=== PATIENT | male | born 1960 | race Two or more races ===

== ENCOUNTER 2020-06-30 16:29 | Emergency (ER) | payer OTHER, SELFPAY ==
[2020-06-30 16:47] VITALS: BP 191/92; PULSE 68; RESP 18; TEMP 36.6; O2SAT 97
[2020-06-30 17:01] VITALS: BP 191/92; PULSE 68; RESP 18; TEMP 36.6; O2SAT 97; BMI 34.8
--- NOTE | 2020-06-30 17:26 | ED.BACK ---
HPI - Back Pain/Injury General Chief Complaint: Back Pain/Injury Stated Complaint: Back Pain Time Seen by Provider: 06/30/20 17:26 Source: patient Mode of arrival: ambulatory History of Present Illness HPI Narrative: 60-year-old male presenting to ED complaining of thoracic / lower back pain s/p heavy lifting at work yesterday. Reports pain radiates down bilateral lower extremities. Denies associated weakness, numbness/ tingling, incontinence / retention, direct trauma /fall MD elicited complaint: back pain Related Data Previous Rx's Medication Instructions Recorded acetaminophen [Tylenol Extra 500 mg PO Q6H PRN #20 tab 06/30/20 Strength] lidocaine [Lidoderm] 1 patch TOPICAL DAILY PRN #30 ea 06/30/20 MDD remove after 12 hours naproxen 500 mg PO BID PRN 10 Days #20 tab 06/30/20 tramadol 50 mg PO Q6H PRN 3 Days #9 tab 06/30/20 Allergies Allergy/AdvReac Type Severity Reaction Status Date / Time No Known Allergies Allergy Unverified 06/05/20 16:07 [No Known Allergies*] Review of Systems Review of Systems: Constitutional: No Weight loss, No Fever, No Chills Genitourinary:, No Dysuria, No Urinary Frequency, No Urinary Incontinence, No Urgency, No Flank Pain Musculoskeletal: +back pain, No joint pain, No Myalgias, No Joint Swelling Skin: No Skin Lesions, No rash Neuro: No Weakness, No Numbness, No Paresthesias PMFSH Past Medical History Attestation statement: The following information was validated with the patient. Medical History (Updated 06/30/20 @ 17:28 by LALA Betancourt) Back pain HTN (hypertension) Kidney stones Pre-diabetes Social History Social History Smoking Status: Never smoker Use of substances other than those prescribed or required for medical reasons: No Advance Directives: No Advance Directives Information Provided: No Physical Exam Vital Signs: Vital Signs: Vital Signs Temp Pulse Resp BP Pulse Ox 06/30/20 17:01 97.8 F 68 18 191/92 H 97 06/30/20 16:47 97.8 F 68 18 191/92 H 97 Body Mass Index 34.8 Const: General: cooperative and healthy appearing Orientation/consciousness: patient oriented x3 Limitations: no limitations HENMT: Head: Yes normal to inspection Ears: hearing grossly normal bilaterally General nose exam: Normal external nose present Face and sinus: Yes normal facial exam Eyes: General: appearance normal, both eyes and all related structures EOM: EOMs intact bilaterally Neck: Neck: Yes normal visual inspection Resp: Effort & Inspection: normal respiratory effort Back/Spine/Pelvis: Other: no midline spinous tenderness throughout. + MSK bilateral thoracic tenderness, and bilateral MSK lumbar tenderness producible on exam Skin: Rashes: no rashes Wounds: no wounds Neuro: Other: no saddle anesthesia General: patient oriented x3 Gait exam (Neuro): Normal gait present Motor exam (neuro): 5/5 motor strength present throughout Extrem: General: Yes normal to inspection MDM - Back Pain/Injury MDM Narrative Medical decision making narrative: no red flag symptoms or midline spinous tenderness Likely MSK pain, low concern for cauda equina /cord compression Discharge Plan Discharge Clinical Impression: Thoracic back pain, Sciatica Patient Disposition: Home, Self-Care Instructions: Acute Low Back Pain (ED), Back Pain (ED) Additional Instructions: Your pain is likely musculoskeletal Naproxen as an anti-inflammatory / pain medication, take with food Lidoderm patches are numbing patches, apply to painful area In addition take Tylenol at home tramadol and opiate pain medication, take only when pain is severe for the next 3 days, take with food If symptoms persist or worsen, pain becomes unbearable, you developed urinary retention or incontinence, or weakness return to the ED Prescriptions: New acetaminophen [Tylenol Extra Strength] 500 mg tablet 500 mg PO Q6H PRN (Reason: pain or fever) Qty: 20 RF: 0 lidocaine [Lidoderm] 5 % adhesive patch,medicated 1 patch topical DAILY MDD remove after 12 hours PRN (Reason: pain) Qty: 30 RF: 0 naproxen 500 mg tablet 500 mg PO BID PRN (Reason: pain) 10 Days Qty: 20 RF: 0 tramadol 50 mg tablet 50 mg PO Q6H PRN (Reason: pain) 3 Days Qty: 9 RF: 0 Referrals: Mary Jane Mike NP [Primary Care Provider] - 2 days Stand Alone Forms: Work/School Release Interventions: ED Discharge Assessment Last Done: 06/30/20 17:39 Discharge Date/Time: 06/30/20 17:40 Print Language: Sinhala
== END 2020-06-30 17:40 | disposition home or self-care (01) ==
PROVIDERS: Emergency Provider Internal Medicine; PCP Registered Nurse
DX: Z04.2 Encounter for examination and observation following work accident (principal); M54.6 Pain in thoracic spine; M54.42 Lumbago with sciatica, left side; M54.41 Lumbago with sciatica, right side; I10 Essential (primary) hypertension; R73.03 Prediabetes; Z87.442 Personal history of urinary calculi
CPT/HCPCS: 99284

== ENCOUNTER 2020-10-14 20:34 | Emergency (ER) | payer OTHER, SELFPAY ==
[2020-10-14 20:59] VITALS: BP 153/74; PULSE 75; RESP 18; TEMP 37.1; O2SAT 98; BMI 29.9
--- NOTE | 2020-10-14 21:53 | PC.NURSE ---
pt to ed ambulatory with steady gait. Pt c/o high b/p. B/P 153/72, Pt denies any other complaints at this time.Pt alert respirations easy, n/l. skin w/d. Pt awaiting for md,
--- NOTE | 2020-10-14 22:05 | XR_ITS ---
EXAMINATION: XR CHEST CLINICAL INFORMATION: Dizziness COMPARISON: 07/13/2017 TECHNIQUE: Frontal view of the chest was obtained. FINDINGS: The lungs are well expanded. There is no focal consolidation, edema, or effusion. No pneumothorax. The cardiomediastinal silhouette is within normal limits. No acute osseous abnormality. XR/XR chest 1V IMPRESSION: Clear lungs.
--- NOTE | 2020-10-14 22:05 | ECG_ITS ---
Test Reason : GENERAL MEDICAL Blood Pressure : / mmHG Vent. Rate : 064 BPM Atrial Rate : 064 BPM P-R Int : 158 ms QRS Dur : 098 ms QT Int : 396 ms P-R-T Axes : 070 045 045 degrees QTc Int : 408 ms Normal sinus rhythm Minimal voltage criteria for LVH, may be normal variant Borderline ECG When compared with ECG of 26-NOV-2016 22:52, No significant change was found Referred By: Christie Bhardwaj Electronically Signed By:Justin Braswell
--- NOTE | 2020-10-14 22:06 | CT_ITS ---
EXAMINATION: CT HEAD WITHOUT CONTRAST CLINICAL INFORMATION: High blood pressure. Dizziness. COMPARISON: CT head 10/20/2015 TECHNIQUE: Contiguous axial imaging was performed from the skull base to vertex without intravenous administration of contrast. Coronal and sagittal reformatted images are performed at the CT scanner. [This CT examination was performed using dose optimization techniques as appropriate, variously including the following: *Automated exposure control *Adjustment of mA and/or kV according to patient size (this includes techniques or standardized protocols for targeted exams where dose is matched to indication/reason for exam; i.e. extremities or head) *Use of iterative reconstruction technique] DLP: 841 mGy-cm. FINDINGS: There is no evidence of acute intracranial hemorrhage or territorial infarction. No abnormal mass-effect or midline shift is seen. Cantor to white matter differentiation is well preserved. No extra-axial fluid collections are identified. The ventricles are normal in size. There is no abnormal attenuation within the brain parenchyma. There is no osseous abnormality. Mild mucosal thickening in the ethmoid and sphenoid sinuses bilateral. The mastoid air cells and middle ear cavities are normally aerated. CT/CT head/brain wo con IMPRESSION: No acute intracranial pathology.
--- NOTE | 2020-10-14 22:06 | ED.GENADULT ---
HPI - General Adult General Chief complaint: General Medical Stated complaint: high bp Time Seen by Provider: 10/14/20 22:05 Source: patient and certified court/medical interpreter Mode of arrival: ambulatory Limitations: no limitations History of Present Illness HPI narrative: 60-year-old male on speaks [place] came in today for feeling dizziness, and chest pain very early in the morning (greater than 12 hours ago), patient is known to be healthy with no history of high blood pressure in particular, because his symptoms his checked his blood pressure in the machine read systolic of 261/74, patient complain of a mild pressure on the occipital area, but no blurry vision, no nausea, no vomiting. Currently no chest pain, no difficulty breathing. Neurologically patient no symptoms. Related Data Previous Rx's Medication Instructions Recorded acetaminophen [Tylenol Extra 500 mg PO Q6H PRN #20 tab 06/30/20 Strength] lidocaine [Lidoderm] 1 patch TOPICAL DAILY PRN #30 ea 06/30/20 MDD remove after 12 hours naproxen 500 mg PO BID PRN 10 Days #20 tab 06/30/20 tramadol 50 mg PO Q6H PRN 3 Days #9 tab 06/30/20 Allergies Allergy/AdvReac Type Severity Reaction Status Date / Time No Known Allergies Allergy Verified 10/14/20 20:59 [No Known Allergies*] Review of Systems Review of Systems: All other systems are reviewed and are negative Constitutional: Reports as per HPI and Reports no additional constitutional complaints Eyes: Reports as per HPI and Reports no additional eye complaints Reports system reviewed and no additional complaints, except as documented Cardiovascular: Reports as per HPI and Reports no additional cardiovascular complaints Respiratory: Reports as per HPI and Reports no additional respiratory complaints Gastrointestinal: Reports as per HPI and Reports no additional gastrointestinal complaints Genitourinary: Reports no additional female genitourinary complaints Musculoskeletal: Reports no additional musculoskeletal complaints Skin/Breast: Reports system reviewed and no additional complaints, except as docu Psychiatric: Reports no additional psychiatric complaints Endocrine: Reports no additional endocrine complaints Hematologic/Lymphatic: Reports no additional hematologic/lymphatic complaints Allergic/Immunologic: Reports no additional allergic/immunologic complaints Reports system reviewed and no additional complaints, except as documented and Reports Abnormal speech present [facility] Past Medical History Medical History Back pain HTN (hypertension) Kidney stones Pre-diabetes Social History Social History Smoking Status: Never smoker Advance Directives: No Advance Directives Information Provided: Yes Physical Exam Vital Signs: Vital Signs: Last Vital Signs Temp 98.7 F 10/14/20 20:59 Pulse 75 10/14/20 20:59 Resp 18 10/14/20 20:59 BP 153/74 H 10/14/20 20:59 Pulse Ox 98 10/14/20 20:59 Body Mass Index 29.9 Vital signs have been reviewed as normal and appeared to be correct. Blood pressure: Hypertensive. Heart rate normal. Respiration rate normal. Temperature normal. Oxygen saturation normal. Appearance: Alert. Oriented X3. No acute distress. Head: Normal external exam. Normocephalic. Atraumatic. No Hernandez signs noted. No raccoon eyes noted Eyes: PERRLA. EOMI. Conjunctiva and sclera normal. Eyelids normal. ENT: EAC normal. TM's Normal. Pharynx normal. Uvula midline. Moist mucous membranes. No trismus noted. No drooling noted. No muffled voice noted. Neck: Normal inspection. Neck supple. FROM. No adenopathy. Thyroid Normal. No meningeal signs. No neck mass noted. CVS: Normal heart rate and rhythm. Heart sound normal. No murmurs noted. Pulses normal throughout. Respiratory: No respiratory distress. Painless inspiration. Breath sounds normal. No wheezes/rales/rhonchi noted. Chest nontender. No accessory muscle usage noted or decreased air movement noted. Abdomen: Soft and nontender. Bowel sounds normal in all 4 quadrants. No distention noted. No organomegaly noted. No visible injury noted. Back: No CVA tenderness. Full range of motion noted. Skin: Skin warm and dry. Normal skin color. Normal skin turgor. No rashes/lesions/lacerations noted. Extremities: No lower extremity edema. Extremities exhibit normal range of motion. Extremities nontender. Neuro: Oriented X 3. No motor deficit. No sensory deficit. Reflexes normal. Course Course Course Narrative: Assessment and plan. 60-year-old male who is known to be healthy, felt dizzy and his blood pressure was checked by his 's machine was very high, when he came in initially blood pressure was high then blood pressure improved on its own due to mild symptoms of chest pain earlier in the morning, feeling dizzy patient had workup in the emergency department which mostly unremarkable in light of negative workup and improvement of patient's symptoms and improvement of blood pressure will discharge the patient and follow-up with PCP to follow up. Medical Decision Making Lab Data Lab results reviewed: Yes I reviewed the patient's lab results. Result diagrams: 10/14/20 22:41 10/14/20 22:41 Labs: Lab Results 10/14/20 10/14/20 10/14/20 Range/Units 22:41 22:41 22:41 WBC 7.1 (4.8-10.8) X10*3/uL RBC 5.39 (4.60-5.80) X10*6/uL Hgb 14.7 (14.0-18.0) g/dl Hct 45.9 (42-52) % MCV 85.2 (80-98) fL MCH 27.3 (27.0-33.0) pg MCHC 32.0 (31.0-36.0) g/dl RDW 13.0 (11.0-16.0) % Plt Count 204 (160-400) X10*3/uL MPV 10.6 (9.4-12.4) fL Immature Gran % (Auto) 0.3 (0.0-0.4) % Neut % (Auto) 55.3 (45-73) % Lymph % (Auto) 29.4 (20-40) % [place] % (Auto) 10.6 (2-11) % Eos % (Auto) 4.0 (0-4) % Baso % (Auto) 0.4 (0-2) % Lymph # (Auto) 2.1 (1.2-4.9) X10*3/uL [place] # (Auto) 0.8 (0.1-1.2) X10*3/uL Eos # (Auto) 0.3 (0.0-0.4) X10*3/uL Baso # (Auto) 0.0 (0.0-0.2) X10*3/uL Abs Immat Gran (auto) 0.02 (0.00-0.03) X10*3/uL Absolute Neuts (auto) 3.9 (2.0-8.3) X10*3/uL Absolute Nucleated RBC 0.000 (0.0-0.012) X10*3/uL Nucleated RBC % (auto) 0.0 (0.0-0.2) /100WBC Sodium 143 (135-145) mmol/L Potassium 4.1 (3.3-5.1) mmol/l Chloride 109 H (96-108) mmol/L Carbon Dioxide 28 (22-29) mmol/L Anion Gap 10 L (12-20) BUN 21 H (9-16) mg/dL Creatinine 0.85 (0.5-1.4) mg/dL Estim Creat Clear Calc 111.4 Estimated GFR > 60 Random Glucose 136 H (60-115) mg/dL Calcium 8.8 (8.4-10.2) mg/dL Total Bilirubin 0.4 (0.0-1.0) mg/dL Direct Bilirubin < 0.2 (0.0-0.5) mg/dL AST 19 (5-37) U/L ALT 21 (0-40) U/L Alkaline Phosphatase 71 (39-117) U/L Troponin I High Sens 4.1 (<3.5-35.0) ng/L B-Natriuretic Peptide (<100) pg/mL Total Protein 6.2 L (6.5-8.0) g/dL Albumin 3.8 (3.5-5.0) g/dL Lipase 36 (8-78) U/L 10/14/20 Range/Units 22:41 WBC (4.8-10.8) X10*3/uL RBC (4.60-5.80) X10*6/uL Hgb (14.0-18.0) g/dl Hct (42-52) % MCV (80-98) fL MCH (27.0-33.0) pg MCHC (31.0-36.0) g/dl RDW (11.0-16.0) % Plt Count (160-400) X10*3/uL MPV (9.4-12.4) fL Immature Gran % (Auto) (0.0-0.4) % Neut % (Auto) (45-73) % Lymph % (Auto) (20-40) % [place] % (Auto) (2-11) % Eos % (Auto) (0-4) % Baso % (Auto) (0-2) % Lymph # (Auto) (1.2-4.9) X10*3/uL [place] # (Auto) (0.1-1.2) X10*3/uL Eos # (Auto) (0.0-0.4) X10*3/uL Baso # (Auto) (0.0-0.2) X10*3/uL Abs Immat Gran (auto) (0.00-0.03) X10*3/uL Absolute Neuts (auto) (2.0-8.3) X10*3/uL Absolute Nucleated RBC (0.0-0.012) X10*3/uL Nucleated RBC % (auto) (0.0-0.2) /100WBC Sodium (135-145) mmol/L Potassium (3.3-5.1) mmol/l Chloride (96-108) mmol/L Carbon Dioxide (22-29) mmol/L Anion Gap (12-20) BUN (9-16) mg/dL Creatinine (0.5-1.4) mg/dL Estim Creat Clear Calc Estimated GFR Random Glucose (60-115) mg/dL Calcium (8.4-10.2) mg/dL Total Bilirubin (0.0-1.0) mg/dL Direct Bilirubin (0.0-0.5) mg/dL AST (5-37) U/L ALT (0-40) U/L Alkaline Phosphatase (39-117) U/L Troponin I High Sens (<3.5-35.0) ng/L B-Natriuretic Peptide 12 (<100) pg/mL Total Protein (6.5-8.0) g/dL Albumin (3.5-5.0) g/dL Lipase (8-78) U/L Imaging Data CT scan - head: Radiologist's impression: No acute intracranial pathology. Chest x-ray: Radiologist's impression: Clear lungs. ECG Data Interpretation: Normal sinus rhythm at 64 beats per minutes, LVH, normal axis deviation, normal intervals, no ST-T changes. Discharge Plan Discharge Clinical Impression: Hypertension Patient Disposition: Home, Self-Care Instructions: Hypertension (ED) Prescriptions: No Action acetaminophen [Tylenol Extra Strength] 500 mg tablet 500 mg PO Q6H PRN (Reason: pain or fever) Qty: 20 RF: 0 lidocaine [Lidoderm] 5 % adhesive patch,medicated 1 patch topical DAILY MDD remove after 12 hours PRN (Reason: pain) Qty: 30 RF: 0 naproxen 500 mg tablet 500 mg PO BID PRN (Reason: pain) 10 Days Qty: 20 RF: 0 tramadol 50 mg tablet 50 mg PO Q6H PRN (Reason: pain) 3 Days Qty: 9 RF: 0 Referrals: [facility] [Primary Care Provider] - 2 days Stand Alone Forms: Work/School Release
[2020-10-14 22:46] LABS: Basophils Percent Auto 0.4 % (0-2); Eosinophils Absolute Auto 0.3 X10*3/uL (0.0-0.4); Hematocrit 45.9 % (42-52); Hemoglobin 14.7 g/dl (14.0-18.0); Imm Gran Abs Auto 0.02 X10*3/uL (0.00-0.03); Imm Gran Pct Auto 0.3 % (0.0-0.4); Lymphocytes Absolute Auto 2.1 X10*3/uL (1.2-4.9); Lymphocytes Percent Auto 29.4 % (20-40); MANUAL DIFF FLAG NO; Mean Corpuscular Hemoglobin 27.3 pg (27.0-33.0); Mean Corpuscular Volume 85.2 fL (80-98); Mean Platelet Volume 10.6 fL (9.4-12.4); Monocytes Absolute Auto 0.8 X10*3/uL (0.1-1.2); Monocytes Percent Auto 10.6 % (2-11); Neutrophils Absolute Auto 3.9 X10*3/uL (2.0-8.3); Neutrophils Percent Auto 55.3 % (45-73); Platelet Count 204 X10*3/uL (160-400); Red Blood Count 5.39 X10*6/uL (4.60-5.80); White Blood Count 7.1 X10*3/uL (4.8-10.8)
[2020-10-14 23:06] LABS: Alanine Aminotransferase 21 U/L (0-40); Albumin Level 3.8 g/dL (3.5-5.0); Alkaline Phosphatase 71 U/L (39-117); Anion Gap 10 (12-20); Aspartate Amino Transferase 19 U/L (5-37); Bilirubin Direct < 0.2 mg/dL (0.0-0.5); Bilirubin Total 0.4 mg/dL (0.0-1.0); Blood Urea Nitrogen 21 mg/dL (9-16); Calcium 8.8 mg/dL (8.4-10.2); Carbon Dioxide 28 mmol/L (22-29); Chloride 109 mmol/L (96-108); Creatinine Clr Calc Pharmacy 111.4; Estimated Glomerular Filt Rate > 60; Glucose Random 136 mg/dL (60-115); Lipase 36 U/L (8-78); Potassium 4.1 mmol/l (3.3-5.1); Sodium 143 mmol/L (135-145); Total Protein 6.2 g/dL (6.5-8.0)
[2020-10-14 23:11] LABS: Troponin-I High Sensitivity 4.1 ng/L (<3.5-35.0)
[2020-10-14 23:35] LABS: B Type Natriuretic Peptide 12 pg/mL (<100)
== END 2020-10-15 00:23 | disposition home or self-care (01) ==
PROVIDERS: Emergency Provider Emergency Medicine
DX: I10 Essential (primary) hypertension (principal); R07.9 Chest pain, unspecified; R73.03 Prediabetes
CPT/HCPCS: 36415; 70450; 71045; 80048; 80076; 83690; 83880; 84484; 85025; 93005; 99283; 99284

== ENCOUNTER 2020-11-11 12:58 | Emergency (ER) | payer OTHER, SELFPAY ==
--- NOTE | ~2020-11-11 | XR_ITS ---
EXAMINATION: RIGHT KNEE 3 VIEWS CLINICAL INFORMATION: Right knee pain. COMPARISON: None. TECHNIQUE: AP, lateral, oblique views of the right knee were obtained. FINDINGS: There are no fractures or dislocations. There is no knee joint effusion. There is no significant soft tissue swelling. XR/XR knee RT 4V IMPRESSION: Unremarkable right knee radiographs.
[2020-11-11 14:35] VITALS: BP 146/75; PULSE 79; RESP 18; TEMP 36.6; O2SAT 97; BMI 28.0
[2020-11-11 18:04] VITALS: BP 144/82; PULSE 91; RESP 18; TEMP 37.1; O2SAT 94
[2020-11-11] MEDS: Ketorolac Tromethamine 30 MG/ML VIAL IM (18:15)
--- NOTE | 2020-11-11 18:33 | ED_ITS ---
HPI - General Adult General Chief complaint: Extremity Injury, Lower Stated complaint: knee pain Time Seen by Provider: 11/11/20 17:26 Source: patient Mode of arrival: ambulatory Limitations: no limitations History of Present Illness HPI narrative: Patient presents to ED for right knee pain. Patient states right knee pain for multiple weeks. Patient denies any knee swelling, redness, warmth, or recent trauma. Patient states he works long hours standing and does repetitive motions of knee. Related Data Previous Rx's Medication Instructions Recorded acetaminophen [Tylenol Extra 500 mg PO Q6H PRN #20 tab 06/30/20 Strength] lidocaine [Lidoderm] 1 patch TOPICAL DAILY PRN #30 ea 06/30/20 MDD remove after 12 hours naproxen 500 mg PO BID PRN 10 Days #20 tab 06/30/20 tramadol 50 mg PO Q6H PRN 3 Days #9 tab 06/30/20 tramadol 50 mg PO TID PRN #9 tab 11/11/20 Allergies Allergy/AdvReac Type Severity Reaction Status Date / Time No Known Allergies Allergy Verified 11/11/20 14:35 [No Known Allergies*] Review of Systems Review of Systems: Yes all other systems are reviewed and are negative Constitutional: Constitutional: Reports as per HPI and Reports no additional constitutional complaints Eyes: Eyes: Reports as per HPI and Reports no additional eye complaints ENT: Reports system reviewed and no additional complaints, except as documented and Reports as per HPI Cardiovascular: Cardiovascular: Reports as per HPI and Reports no additional cardiovascular complaints Respiratory: Respiratory: Reports as per HPI and Reports no additional respiratory complaints Gastrointestinal: Gastrointestinal: Reports as per HPI and Reports no additional gastrointestinal complaints Genitourinary: Genitourinary: Reports no additional male genitourinary complaints and Reports as per HPI Musculoskeletal: Musculoskeletal: Reports no additional musculoskeletal complaints, Reports as per HPI and Reports arthralgias (Right knee) Neurologic: Reports system reviewed and no additional complaints, except as documented and Reports as per HPI Psychiatric: Psychiatric: Reports no additional psychiatric complaints and Reports as per HPI PMF Past Medical History Medical History Back pain HTN (hypertension) Kidney stones Pre-diabetes Social History Social History Smoking Status: Never smoker Advance Directives: No Advance Directives Information Provided: No Physical Exam Vital Signs: Vital Signs: Last Vital Signs Temp 98.7 F 11/11/20 18:04 Pulse 91 11/11/20 18:04 Resp 18 11/11/20 18:04 BP 144/82 H 11/11/20 18:04 Pulse Ox 94 11/11/20 18:04 Body Mass Index 28.0 Const: General: cooperative, healthy appearing, comfortable, no acute distress, well developed, alert, awake and Physically active Orientation/consciousness: patient oriented x3 HENMT: Head: Yes normal to inspection and Yes No palpable skull fracture present Eyes: General: appearance normal, both eyes and all related structures Neck: Neck: Yes normal visual inspection, Yes full ROM, Yes no lymphadenopathy, Yes no meningeal signs, Yes trachea midline, Yes supple and No tender Chest: Chest palpation & inspection: normal inspection of the chest and normal palpation of entire chest wall Resp: Effort & Inspection: normal respiratory effort and able to speak in complete sentences Auscultation: clear to auscultation bilaterally Cardio: Jugular venous distension: no JVD Heart sounds: S1 normal heart sound present and S2 normal heart sound present GI: Inspection: Yes normal to inspection and No abdominal wall ecchymosis Palpation (GI): Soft to palpation, not firm, nontender, no guarding and not rigid : General: No CVA tenderness and Yes no CVA tenderness Back/Spine/Pelvis: Back: no CVA tenderness, No CVA tenderness and No back tenderness Skin: General skin exam: no rashes or lesions noted and elasticity normal Neuro: General: patient oriented x3, no meningeal signs and CN's II-XI intact bilaterally Cranial nerves: Yes CN's II-XII intact bilaterally Extrem: Other: Right knee: negative for swelling, redness, warmth, deformity, or ecchymosis. Patient has complete range of motion of right knee. patient has tenderness on latereal aspect of knee. Right leg/ankle/foot negative for redness, swelling, warmth, ecchymosiss, or coldness. Motor/neuro/vascular exam of right lower extremity normal. Left lower extremity normal and motor/neuro/vascular exam is intact. General: Yes normal to inspection and Yes full ROM Psych: Appearance: grossly normal and well kempt Course Course Course Narrative: Knee pain. Right knee x-ray Reevaluation(s) Reevaluation #1: Patient sent for knee x-ray negative for any arthritis, joint effusion, or fracture. Patient will be discharged with pain meds Time: 18:45 Medical Decision Making MDM Narrative Medical decision making narrative: Right knee pain Discharge Plan Discharge Clinical Impression: Knee joint pain Patient Disposition: Home, Self-Care Instructions: Knee Pain (ED) Additional Instructions: Return to the ED immediately for any swelling, redness, warmth, pus discharge, foul odor, severe pain, fever, chills, or any other concerning symptoms Prescriptions: New tramadol 50 mg tablet 50 mg PO TID PRN (Reason: pain) Qty: 9 RF: 0 No Action acetaminophen [Tylenol Extra Strength] 500 mg tablet 500 mg PO Q6H PRN (Reason: pain or fever) Qty: 20 RF: 0 lidocaine [Lidoderm] 5 % adhesive patch,medicated 1 patch topical DAILY MDD remove after 12 hours PRN (Reason: pain) Qty: 30 RF: 0 naproxen 500 mg tablet 500 mg PO BID PRN (Reason: pain) 10 Days Qty: 20 RF: 0 tramadol 50 mg tablet 50 mg PO Q6H PRN (Reason: pain) 3 Days Qty: 9 RF: 0 Referrals: [facility] [Primary Care Provider] - 2 days (Right knee pain. X-ray normal) Stand Alone Forms: Work/School Release Interventions: ED Discharge Assessment Last Done: 11/11/20 19:17 Discharge Date/Time: 11/11/20 19:19 Print Language: Slovak
== END 2020-11-11 19:19 | disposition home or self-care (01) ==
PROVIDERS: Emergency Provider Emergency Medicine
DX: M25.561 Pain in right knee (principal); I10 Essential (primary) hypertension; R73.03 Prediabetes; Z79.899 Other long term (current) drug therapy; Z87.442 Personal history of urinary calculi
CPT/HCPCS: 73564; 96372; 99284; J1885

== ENCOUNTER 2020-12-04 08:14 | Outpatient (REF) | payer OTHER, SELFPAY ==
--- NOTE | ~2020-12-04 | XR_ITS ---
EXAMINATION: XR KNEES, STANDING AP XR KNEE, RIGHT CLINICAL INFORMATION: Knee pain. M25.569 COMPARISON: Radiographs right knee 11/11/2020 TECHNIQUE: Standing AP view of both knees is performed along with lateral and axial patella views of the right knee. FINDINGS: The right knee shows no fracture dislocation or destructive process. There is mild narrowing medial knee joint compartment with marginal osteophytes from the medial femoral condyle and medial tibial plateau. There is no subchondral sclerosis or erosive change or chondrocalcinosis. Axial view patella shows no joint narrowing or erosive change. There is possible mild lateral patellar tilting but no lateralization of the patella. There is mild spurring at the quadriceps insertion patella and borderline lateral patellar spur. There is trace fluid suprapatellar bursa. Hoffa's fat pad appears normal. The left knee shows no narrowing medial lateral compartment. No erosive change or chondrocalcinosis. No destructive process. XR/XR knee RT 2V IMPRESSION: 1. Right: Mild narrowing medial knee joint compartment. Trace fluid suprapatellar bursa. 2. Left: Unremarkable.
--- NOTE | ~2020-12-04 | XR_ITS ---
EXAMINATION: XR KNEES, STANDING AP XR KNEE, RIGHT CLINICAL INFORMATION: Knee pain. M25.569 COMPARISON: Radiographs right knee 11/11/2020 TECHNIQUE: Standing AP view of both knees is performed along with lateral and axial patella views of the right knee. FINDINGS: The right knee shows no fracture dislocation or destructive process. There is mild narrowing medial knee joint compartment with marginal osteophytes from the medial femoral condyle and medial tibial plateau. There is no subchondral sclerosis or erosive change or chondrocalcinosis. Axial view patella shows no joint narrowing or erosive change. There is possible mild lateral patellar tilting but no lateralization of the patella. There is mild spurring at the quadriceps insertion patella and borderline lateral patellar spur. There is trace fluid suprapatellar bursa. Hoffa's fat pad appears normal. The left knee shows no narrowing medial lateral compartment. No erosive change or chondrocalcinosis. No destructive process. XR/XR knee standing BI IMPRESSION: 1. Right: Mild narrowing medial knee joint compartment. Trace fluid suprapatellar bursa. 2. Left: Unremarkable.
== END 2020-12-04 08:15 | disposition home or self-care (01) ==
LOC: HO.HOSX 08:14
PROVIDERS: Visit Provider Orthopaedic Surgery
DX: M23.91 Unspecified internal derangement of right knee (principal)
CPT/HCPCS: 20610; 73560; 73565; 99202; J1100

== ENCOUNTER 2021-01-01 17:34 | Outpatient (REF) | payer OTHER, SELFPAY ==
--- NOTE | ~2021-01-01 | MR_ITS ---
EXAMINATION: MR KNEE WITHOUT CONTRAST, RIGHT CLINICAL INFORMATION: Unspecified internal derangement of right knee. Patient reports medial right knee pain and weakness for 1.5 months, recent injury, and no previous surgery. COMPARISON: XR right knee 12/04/2020. TECHNIQUE: MRI of the knee without contrast was performed using routine sequences on a high-field scanner. FINDINGS: MENISCI: Medial Meniscus: There is a horizontal and slightly oblique tear of the posterior horn of the medial meniscus extending to the inner margin undersurface. There is a vertical tear of the junction of the posterior horn and body extending to both peripheral surfaces. There is moderate attenuation and fraying of the inner margin of the body. There is medial extrusion and some [id number] flattening of the periphery of the body. Lateral Meniscus: Intact. LIGAMENTS: Cruciate: Intact. Collateral: Intact. EXTENSOR MECHANISM: Intact. ARTICULAR CARTILAGE/BONE: Patellofemoral Compartment: There is moderate cartilage irregularity and thinning in the medial femoral trochlea. There is a small superficial cartilage fissure in the lateral facet of the patella. Medial Compartment: There is patchy mild cartilage irregularity and thinning in the weightbearing medial femoral condyle and mild cartilage thinning in the anterior aspect of the medial tibial plateau with minor underlying bone marrow edema. There are tiny marginal osteophytes. Lateral Compartment: Normal. JOINT FLUID AND BURSAE: Small joint effusion. ADDITIONAL FINDINGS: There is distal semimembranosus tendinosis and low-grade partial tearing. There is also a small amount of fluid and a small multiloculated cyst associated with the distal tendon, which may represent mild tenosynovitis and possibly small ganglion cyst. MR/MR knee RT wo con IMPRESSION: 1. Tears of the posterior horn and body of the medial meniscus. 2. Moderate arthrosis in the medial femoral trochlea. Small superficial cartilage fissure in the lateral facet of the patella. 3. Mild arthrosis in the weightbearing medial compartment. 4. Small joint effusion. 5. Distal semimembranosus tendinosis and low-grade partial tearing. Mild tenosynovitis and possible small adjacent ganglion cyst.
== END 2021-01-01 17:35 | disposition home or self-care (01) ==
LOC: HO.MRI 17:34
PROVIDERS: Visit Provider Orthopaedic Surgery
DX: M23.91 Unspecified internal derangement of right knee (principal)
CPT/HCPCS: 73721

== ENCOUNTER → 2021-01-12 12:53 | Outpatient (BNVA) | payer OTHER, SELFPAY | PROVIDERS: Visit Provider Orthopaedic Surgery | DX: S83.241D Other tear of medial meniscus, current injury, right knee, subsequent encounter (principal); M25.562 Pain in left knee | CPT/HCPCS: 99212 ==

== ENCOUNTER 2021-07-17 10:24 | Outpatient (REF) | payer OTHER, SELFPAY ==
--- NOTE | 2021-07-17 10:44 | MHC.AU.ANR ---
Adult Audiological Evaluation Date of Visit: 07/17/21 Caser Up Used: Qatari interpretation by daughter Reason for Appointment: Audiological evaluation due to concern for decreased hearing and tinnitus. Mr. Veliz first started having tinnitus about three months ago. He finds it bothersome and feels that it often distracts him. He feels that the ringing is typically worse in the right ear. He also notes feelings of pressure in his ear, and has difficulty understanding speech. Does patient feel they have a hearing loss?: Yes If Yes, Which Ear?: Both Ears Has hearing been tested previously?: No Hearing Handicap Inventory: HHIE SCORE: 28 Based on HHIE score, patient has: Severe perceived hearing handicap Ear History: Bothersome Tinnitus/Ringing/Noises in Ears: Both Ears Medical History: Medical History: Dizziness or Unsteadiness, Headache, High Blood Pressure Medical History (Other): Kidney stone surgery, left knee surgery, prostate surgery Medication List: Naproxen 500 mg, Omeprazole 40 mg, Metoprolol Succinate 25 mg, Diclofenac Sodium Topical Gel 1% Otoscopy: Right Ear: Unremarkable Left Ear: Unremarkable Tympanometry: Tympanometry performed due to: To assess integrity of the middle ear system Right Ear: Normal Middle Ear System (Type A) Left Ear: Normal Middle Ear System (Type A) Hearing Evaluation: Transducer(s) Used: Insert Earphones, Bone Conduction Method: Conventional Audiometry Stimuli Used: Pure Tones Right Ear: Description of Hearing: Normal hearing from 250-2000 Hz, sloping to a mild to moderate sensorineural hearing loss from 3592-9095 Hz. Left Ear: Description of Hearing: Normal hearing from 250-1500 Hz, sloping to a mild to moderate sensorineural hearing loss from 8244-7846 Hz. Speech Recognition Threshold (SRT): Method Used: Recorded Lists Stimuli Used: Qatari Trisyllable Words Right Ear: 25 dBHL Left Ear: 35 dBHL Word Discrimination: Method: Recorded Lists Word Lists Used: Lista Bisil?bica (Qatari) Right Ear: 100% at 65 dBHL Left Ear: 92% at 75 dBHL Recommendations: Audiological re-evaluation in one year. Trial with amplification is recommended. Given Mr. Veliz's hearing loss, reported hearing difficulties, and presence of bothersome tinnitus, binaural amplification is recommended. Hearing aid options were discussed. Medical clearance from his PCP and prior authorization from [facility] is being requested. Once approval is received, hearing aids will be ordered. Diagnosis: Primary Diagnosis: H90.3 Bilateral Sensorineural Hearing Loss Secondary Diagnosis: H93.13 Tinnitus, Bilateral Services Performed: Services Performed: Comprehensive Audiological Evaluation (CPT 99024) Tympanometry (CPT 80757) Signature: Provider: Balwinder Duckworth, CCC-A
--- NOTE | 2021-07-17 10:50 | MHC.AU.HAS ---
Hearing Aid Evaluation Date of Visit: 07/17/21 Financial Manager Used: Divehi interpretation by daughter Historical Information: Description of Hearing: Mild to moderate high-frequency sensorineural hearing loss. Current personal amplification information, if applicable: None Summary: Binaural amplification is recommended to help facilitate improved communication based on Mr. Veliz's hearing loss, perceived hearing difficulties, and perceived bothersome, distracting tinnitus. Discussed hearing aid options. He is interested in rechargeable SAUL style hearing aids. He often uses a WUTsuQuora tablet and has a Samsung phone, so going with Phonak aids. Hearing Aid Prescription: Based on the individual?s shared listening needs, communication environments, dexterity, desire for connectivity, and personal preferences, the following prescription for amplification has been made: Right ear: [employer] [place] [place]: Phonak Model: Audeo P70-R Battery Size: Rechargeable Color: P7 Rn Psych: Size 1 M Type of Dome: Open Left ear: Left ear prescription to be same as Right Hearing Aid above: [employer] [place]: Phonak Model: Audeo P70-R Battery Size: Rechargeable Color: P7 Rn Psych: Size 1 M Type of Dome: Open Plan of Care: Prior authorization to be requested. Medical Clearance to be requested from PCP/ENT. Hearing Instrument Fitting to be scheduled when materials arrive. Hearing aids will be ordered once approval is received. Primary Diagnosis: H90.3 Bilateral Sensorineural Hearing Loss Secondary Diagnosis: H93.13 Tinnitus, Bilateral Signature: Provider: Balwinder Duckworth, [facility]
--- NOTE | 2021-07-17 10:51 | MHC.AU.MED ---
Medical Clearance for Hearing Instrumentation Date: 07/17/21 Patient Name: Sameer Veliz Date of : 1960 Referring Provider: SARBJIT Lockwood We have seen your patient on 07/17/21 and have determined that they are a candidate for amplification (See accompanying report). Specifically, they would benefit from: Hearing aid use in both ears There is a statute that addresses Medical Evaluation Requirements prior to fitting a patient with a hearing aid. According to [place] statute 265 CMR:6.03(1), (a) General. Except as provided in 265 CMR 6.03(1)(b), a switch tender shall not sell a hearing aid unless the prospective user has presented to the switch tender a written statement signed by a licensed physician that states that the patient's hearing loss has been medically evaluated and the patient may be considered a candidate for a hearing aid. The medical evaluation must have taken place within the preceding six months. Please note: Due to the [place] Statute referenced above, we cannot accept a signature other than that of a licensed physician. MARKETING WRITER and PA signatures cannot be accepted. I am in agreement with the above recommendation. There is no medical contraindication for hearing instrumentation. Physician Signature Date Physician Name (Printed)
[2021-07-17 13:10] LABS: Anion Gap 10 (12-20); Blood Urea Nitrogen 15 mg/dL (9-16); Calcium 9.7 mg/dL (8.4-10.2); Carbon Dioxide 29 mmol/L (22-29); Chloride 107 mmol/L (96-108); Estimated Glomerular Filt Rate > 60; Glucose Random 95 mg/dL (60-115); Potassium 4.2 mmol/L (3.3-5.1); Sodium 142 mmol/L (135-145)
== END 2021-07-17 10:25 | disposition home or self-care (01) ==
LOC: HO.SH 10:24
PROVIDERS: Registered Nurse; PCP Nurse Practitioner Family; Visit Provider Nurse Practitioner Family
DX: Z46.1 Encounter for fitting and adjustment of hearing aid (principal); H90.3 Sensorineural hearing loss, bilateral; H93.13 Tinnitus, bilateral
CPT/HCPCS: 36415; 80048; 92557; 92567; 92591

== ENCOUNTER 2021-07-17 12:36 | Outpatient (REF) | payer OTHER, SELFPAY ==
--- NOTE | ~2021-07-17 | MR_ITS ---
EXAMINATION: MRI BRAIN WITHOUT AND WITH CONTRAST; MRA BRAIN WITHOUT CONTRAST. CLINICAL INFORMATION: 61-year-old with bilateral tinnitus. COMPARISON: None TECHNIQUE: Multiplanar multisequence MR imaging of the brain and IACs was done prior to and following the intravenous administration of 10 mL of Gadavist. FINDINGS: IACs: Bilaterally symmetric, no mass lesions or abnormal enhancement. CN VII-VIII complexes normal. AICA Loops: There is subtle vascular enhancement within the anterior aspect of the left internal auditory canal, likely reflecting a vascular loop. Membranous Labyrinths: Normal, no abnormal enhancement. CP Angle Cisterns: No mass lesions or abnormal enhancement. Brain Volume: Within normal limits. Brain and Meninges: DWI sequence demonstrates no restricted diffusion. Specifically, there is no evidence for acute or subacute cerebral ischemia/infarct. There is a small nonspecific patchy zone of FLAIR/T2 signal hyperintensity within the deep right frontal white matter without abnormal enhancement, which is a nonspecific finding. The remainder of the brain is normal in signal intensity. Incidental note is made of a developmental venous anomaly in the anterior right frontal lobe near the convexity. Otherwise there is no evidence for intracranial mass lesion, other abnormal enhancement, space-occupying process or mass effect. Note is made of minimal benign cerebellar tonsillar ectopia at the foramen magnum on the right, which is an anatomic variant. Vessels: Signal voids are noted in the visualized major intracranial vessels near the skull base. Ventricles and Subarachnoid Spaces: The ventricular system and subarachnoid spaces are within normal limits. There is no hydrocephalus. Orbital Structures: The visualized orbital structures are grossly unremarkable within the limitations of the study. The cavernous sinuses enhance normally. Bony Structures: Osseous marrow signal intensity is unremarkable. MR/MR head/brain wo/w con IMPRESSION: 1. No evidence for intracranial mass lesion or abnormal enhancement. Normal appearance to the cranial nerve VII and VIII complexes bilaterally. Probable vascular loop in the left IAC. 2. Nonspecific minimal patchy nonenhancing T2 hyperintensity in the deep right frontal white matter which may reflect a small zone of chronic ischemic microangiopathy or other parenchymal gliosis. 3. 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 MRA BRAIN TECHNIQUE: 3-D [id number] MR angiography of the intracranial circulation was done. FINDINGS: The intracranial internal carotid arteries are normal in caliber and smoothly contoured with tortuosity of both carotid siphons noted. The A1 and A2 segments are normal in caliber and smoothly contoured bilaterally. The anterior communicating artery appears within normal limits. Note is made of a third vessel extending into the anterior interhemispheric fissure from the left side of the anterior communicating artery, consistent with an DIMPLE trifurcation, which is an anatomic variant. The M1 segments are normal in caliber with a normal appearance to the M2 branches bilaterally. The intradural vertebral arteries are patent and normal in caliber with the right being slightly dominant. The posterior inferior cerebellar arteries are visualized as continuations of the anterior inferior cerebellar arteries bilaterally which is a normal anatomic variant. The superior cerebellar and posterior cerebral arteries are normal in caliber and smoothly contoured. The posterior communicating artery on the right is not visualized. There is a prominent left posterior communicating artery, likely a origin, with a hypoplastic left P1 segment. IMPRESSION: Normal intracranial MRA with anatomic variant noted as described above. No evidence for intracranial aneurysm or high flow vascular malformation and no evidence for significant focal intracranial arterial stenosis or segmental occlusion.
== END 2021-07-17 12:37 | disposition home or self-care (01) ==
LOC: HO.MRI 12:36
PROVIDERS: Visit Provider Nurse Practitioner Family
DX: H93.13 Tinnitus, bilateral (principal); I71.2 Thoracic aortic aneurysm, without rupture; K21.9 Gastro-esophageal reflux disease without esophagitis
CPT/HCPCS: 36415; 70544; 70553; 80048; A9585

== ENCOUNTER → 2021-07-21 13:24 | Outpatient (BNVA) | payer OTHER, SELFPAY | PROVIDERS: PCP Nurse Practitioner Family; Referring Provider Nurse Practitioner Family; Visit Provider Internal Medicine Cardiovascular Disease | DX: I10 Essential (primary) hypertension (principal); R07.89 Other chest pain | CPT/HCPCS: 93005; 99202 ==

== ENCOUNTER 2021-09-17 13:54 | Outpatient (REF) | payer OTHER, SELFPAY | END 2021-09-17 13:55 | disposition home or self-care (01) | LOC: HO.HAP 13:54 | PROVIDERS: Visit Provider Nurse Practitioner Family | DX: Z46.1 Encounter for fitting and adjustment of hearing aid (principal); H90.3 Sensorineural hearing loss, bilateral; H93.13 Tinnitus, bilateral | CPT/HCPCS: V5011; V5020; V5160; V5261 ==

== ENCOUNTER → 2021-11-05 15:13 | Outpatient (REF) | payer OTHER, SELFPAY ==
--- NOTE | 2021-11-05 15:16 | CA_ITS ---
Transthoracic Echocardiogram Patient (Last, First, Middle): Sameer Veliz, Gender: Male Date of : 1960 Age: 61 Procedure Date: 11/05/2021 Procedure Type: Transthoracic Echocardiogram Location: OP Height: 180.34 cm Weight: 116.12 kg BSA: 2.34 m2 Heart Rate: bpm BP: 147 / 80 mmHg Inspector Shells: SHARA Referring MD: Trino Black MD Regulatory Affairs Coordinator: Trino Black MD Symptoms: R07.89 - Other chest pain Study Quality: Fair/Contrast ECG Rhythm: Sinus Conclusions: - 1. Normal LV systolic function with mild LVH with grade 1 diastolic dysfunction 2. Normal cardiac valvular Doppler 3. Mildly dilated ascending aorta 4. Normal RV systolic pressure 5. No gross pericardial effusion Findings Procedure Information Contrast agent, definity, is being given per protocol without apparent complications. Left Ventricle Normal left ventricular size and systolic function. There is mildly increased left ventricular wall thickness. The visually estimated ejection fraction is between 60-65%. There is no evidence of regional wall motion abnormalities. Spectral Doppler is indicative of an impaired relaxation filling pattern. E/E prime ratio is <8, consistent with normal filling pressures. Evidence suggests grade I (mild) diastolic dysfunction. Right Ventricle Normal right ventricular cavity size and systolic function. Atria The left atrium is normal in size. There is no evidence of interatrial shunt. The right atrium is normal in size. Aortic Valve There is mild thickening of the aortic valve. There is no aortic valve stenosis. There is no aortic valve regurgitation. Mitral Valve There is mild anterior and moderate posterior mitral leaflet thickening. There is mild mitral annular calcification. There is trace mitral valve regurgitation. There is no mitral valve stenosis. Pulmonic Valve The pulmonic valve was not well visualized. Tricuspid Valve Likely normal tricuspid valve structure and function. There is trace tricuspid valve regurgitation. The right ventricular systolic pressure is normal. The right ventricular systolic pressure is 13 mmHg. Normal right atrial pressure. There is no evidence of pulmonary hypertension. Great Vessels The pulmonary artery was not well visualized. There is mild dilatation of the ascending aorta measuring 3.80 cm. Venous The inferior vena cava is normal in size and collapses greater than 50% with inspiration. Pericardium/Pleural There is no evidence of pericardial effusion. Prior Study Comparison no previous study in the last 5 years for comparison Measurements 2D Linear Measurements IVSd: 1.22 0.6-0.9/0.6-1.0 cm LVIDd: 4.50 3.9-5.3/4.2-5.9 cm LVIDd Index: 1.92 2.4-3.2/2.2-3.1 cm/m2 LVIDs: 2.87 2.0-3.6 cm LVPWd: 1.22 0.7-1.1 cm Ao Root: 3.90 2.1-3.5 cm LA Diam: 3.70 2.7-3.8/3.0-4.0 cm LAIDs Index: 1.58 1.5-2.3 cm/m2 LV Mass: 252.86 67-162/88-224 g LV Mass Index: 108.06 43-95/49-115 g/m2 LVOT Diam: 2.30 3.0+(-)1.3 cm 2D Systolic Function EF 4C: 69.50 >55% EF 2C: 69.50 >55% EF BiP: 70.10 >55% Mitral Valve MV Pk E: 0.49 MV PK A: 0.65 MV Decel Time: 212.00 E/A: 0.80 E'Lateral: 6.85 E'Medial: 6.64 E/E' Med: 7.40 E/E' Lat: 7.20 PHT: 62.00 MVA PHT: 3.55 Decel [place]: 2.32 Aortic Valve AoV Pk [place]: 1.16 AoV Mn [place]: 0.78 AoV VTI: 0.21 AoV Pk Grad: 5.00 Aov Mn Grad: 3.00 MARINE Cont.VTI: 4.11 LVOT LVOT Pk [place]: 1.08 LVOT Mn [place]: 0.74 LVOT VTI: 0.20 LVOT Pk Grad: 5.00 LVOT Mn Grad: 3.00 LVOT Diam: 2.30 LVOT Area: 4.15 Diastolic Function MV Pk E: 0.49 MV Pk A: 0.65 E/A: 0.80 E'Medial: 6.64 E/E' Med: 7.40 E' Laterial: 6.85 E/E' Lat: 7.20 Right Ventricle TAPSE (mm): 18.00 TVS' [place]: 17.00 Tricuspid Valve TR Pk [place]: 1.55 TR Pk Grad: 10.00 RA Press: 3.00 RVSP: 13.00 Great Vessels Aorta Ao Root-2D: 3.90 2.0-3.7 cm Ao Asc: 3.80 2.1-3.4 cm Ao Arch: 3.00 Updated in Other Vendor System with Status of Final Trino Black MD electronically signed on 11/06/2021 4:39:26 PM with status of Final
== END ==
LOC: HO.CARD 15:13
PROVIDERS: Visit Provider Internal Medicine Cardiovascular Disease
DX: R07.89 Other chest pain (principal)
CPT/HCPCS: 93306; Q9957

== ENCOUNTER 2021-12-14 18:57 | Emergency (ER) | payer OTHER, SELFPAY ==
[2021-12-14 20:17] VITALS: BP 158/79; PULSE 77; RESP 18; TEMP 36.5; O2SAT 98; BMI 34.8
[2021-12-14 20:33] VITALS: BP 148/82; PULSE 70; RESP 18; TEMP 36.6; O2SAT 98
--- NOTE | 2021-12-14 20:37 | ED_ITS ---
HPI - Back Pain/Injury General Chief Complaint: Back Pain/Injury Stated Complaint: Back and leg pain Time Seen by Provider: 12/14/21 20:34 Source: patient Mode of arrival: ambulatory Limitations: no limitations History of Present Illness HPI Narrative: 61 y/o male with history of prior back pain who presents to the ER with lower back pain that radiates down his right leg for the last 1 month. 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 He has a history of similar pain in the past. He denies known specific injury or trauma. He denies bowel or bladder incontinence, no inguinal paresthesias, no lower extremity weakness, only pain. He states the pain is worst in the morning and after taking rests at work. MD elicited complaint: back pain Pertinent past history: prior back pain Onset (ago): month(s) Timing: intermittent and progressively worsening Severity: moderate Similar Symptoms Previously: Yes Quality: sharp, aching and spasming Location: right lower back Radiation: right upper leg Exacerbating factors: movement, walking and lifting Relieving factors: none Context: while lifting and turning/twisting Associated symptoms: denies other symptoms Treatments prior to arrival: acetaminophen Related Data Home Medications Medication Instructions Recorded Confirmed metoprolol succinate 25 mg 25 mg PO DAILY 07/21/21 07/21/21 tablet,extended release 24 hr omeprazole 40 mg capsule,delayed 40 mg PO DAILY 07/21/21 07/21/21 release Previous Rx's Medication Instructions Recorded acetaminophen 500 mg tablet 500 mg PO Q6H PRN #20 tab 06/30/20 (Tylenol Extra Strength) lidocaine 5 % topical patch 1 patch TOPICAL DAILY PRN #30 ea 06/30/20 (Lidoderm) MDD remove after 12 hours tramadol 50 mg tablet 50 mg PO Q6H PRN 3 Days #9 tab 06/30/20 naproxen 500 mg tablet 500 mg PO BID PRN 30 Days #60 tab 01/12/21 cyclobenzaprine 10 mg tablet 10 mg PO TID PRN #10 tab 12/14/21 lidocaine 5 % topical patch 1 patch TOPICAL DAILY #15 ea 12/14/21 naproxen 500 mg tablet 500 mg PO BID PRN #20 tab 12/14/21 prednisone 50 mg tablet 50 mg PO DAILY #5 tab 12/14/21 Allergies Allergy/AdvReac Type Severity Reaction Status Date / Time No Known Allergies Allergy Verified 12/04/20 09:26 [No Known Allergies*] Review of Systems Review of Systems: Constitutional: No Fever, No Chills ENT/Mouth: No sore throat, No Rhinorrhea, No Swallowing Difficulty Cardiovascular: No Chest Pain, No SOB Gastrointestinal: No Nausea, No Vomiting, No Diarrhea, No abdominal Pain Genitourinary: No Dysuria, No Urinary Frequency, No Hematuria Musculoskeletal: No joint pain, + Myalgias Skin: No Skin Lesions, No rash Neuro: No Weakness, No Numbness Psych: No Anxiety/Panic, No Depression Heme/Lymph: No Bruising, No Lymphadenopathy [facility] Past Medical History Medical History Back pain HTN (hypertension) Internal derangement of right knee Kidney stones Pre-diabetes Social History Social History Alcohol intake: current Alcohol intake frequency: holidays/special occasions only Alcohol type: beer Advance Directives: No Advance Directives Information Provided: No Current occupational status: employed Current occupation: [employer] Physical Exam Vital Signs: Vital Signs: Last Vital Signs Temp 97.9 F 12/14/21 20:33 Pulse 70 12/14/21 20:33 Resp 18 12/14/21 20:33 BP 148/82 H 12/14/21 20:33 Pulse Ox 98 12/14/21 20:33 BMI result Body Mass Index 34.8 Appearance: Alert. Oriented X3. No acute distress. HEENT: normal inspection CVS: Normal heart rate and rhythm. Pulses normal. Respiratory: No respiratory distress. Skin: Skin warm and dry. Normal skin color. Normal skin turgor. No rashes. Back: normal inspection, soft tissue tenderness of the lower lumbar area, +SI joint tenderness, +straight leg raise test on the right at 45 degrees. Extremities: atraumatic, normal inspection x4 Neuro: Oriented X 3. No motor deficit. No sensory deficit. Ambulates with steady gait. Normal DTRs Course Course Course Narrative: 61-year-old male presents to the ER with acute on chronic low back pain that radiates down his right leg. Pain has been present for last 1 month with no specific injury or trauma. He has no red flag symptoms of low back pain. He has been intermittently taking acetaminophen or Motrin with intermittent relief for 2-3 hours. Will give him a dose of oxycodone in IM Toradol here. Suspect sciatica flare up. He has no PCP, will give referral to 1 so he can have follow-up and possible referral to physical therapy. He is agreeable. Discussed importance of follow-up and expressed understanding. Reevaluation(s) Reevaluation #1: Pain improved after medications. He is stable for discharge home with short course of muscle relaxer, NSAID, Lidoderm and outpatient referral for a PCP. Work note provided per request Critical Care Time Critical Care Time Critical Care Time: No Discharge Plan Discharge Clinical Impression: Sciatica Patient Disposition: Home, Self-Care Instructions: Sciatica (ED), Lower Back Exercises (ED) Additional Instructions: No bending, lifting or twisting. Use ice several times per day for 20 minutes at a time for the next 48 hours and then change to heat. Take medications as prescribed to help with pain and discomfort. Follow up with your Primary Care Doctor this week. If your pain worsens, if you develop new numbness, tingling, weakness, loss of function or incontinence call 911 or come back to the ER right away for evaluation. Prescriptions: New cyclobenzaprine 10 mg tablet 10 mg PO TID PRN (Reason: muscle spasm) Qty: 10 0RF lidocaine 5 % adhesive patch,medicated 1 patch topical DAILY Qty: 15 0RF Rx Instructions: leave on most painful area for up to 12 hrs naproxen 500 mg tablet 500 mg PO BID PRN (Reason: pain) Qty: 20 0RF prednisone 50 mg tablet 50 mg PO DAILY Qty: 5 0RF No Action acetaminophen [Tylenol Extra Strength] 500 mg tablet 500 mg PO Q6H PRN (Reason: pain or fever) Qty: 20 0RF lidocaine [Lidoderm] 5 % adhesive patch,medicated 1 patch topical DAILY MDD remove after 12 hours PRN (Reason: pain) Qty: 30 0RF Rx Instructions: leave on most painful area for up to 12 hrs tramadol 50 mg tablet 50 mg PO Q6H PRN (Reason: pain) 3 Days Qty: 9 0RF naproxen 500 mg tablet 500 mg PO BID PRN (Reason: pain) 30 Days Qty: 60 0RF metoprolol succinate 25 mg tablet extended release 24 hr 25 mg PO DAILY 0RF omeprazole 40 mg capsule,delayed release(DR/EC) 40 mg PO DAILY 0RF Stand Alone Forms: Work/School Release Interventions: ED Discharge Assessment Last Done: 12/14/21 21:16 Discharge Date/Time: 12/14/21 21:17
[2021-12-14] MEDS: HYDROcodone Bit/Acetam 5/325 TABLET 1 TAB PO (20:57)
[2021-12-14] MEDS: Lidocaine 4 % Patch ADH..PATCH 1 PATCH TRANSDERMA (20:57)
[2021-12-14] MEDS: Ketorolac Tromethamine 30 MG/ML VIAL IM (20:57)
== END 2021-12-14 21:17 | disposition home or self-care (01) ==
PROVIDERS: Emergency Provider Emergency Medicine
DX: M54.41 Lumbago with sciatica, right side (principal); I10 Essential (primary) hypertension; R73.03 Prediabetes
CPT/HCPCS: 96372; 99283; 99284; J1885

== ENCOUNTER → 2021-12-17 14:49 | Outpatient (BNVA) | payer OTHER, SELFPAY | PROVIDERS: PCP Nurse Practitioner Family; Referring Provider Nurse Practitioner Family; Visit Provider Nurse Practitioner Family | DX: R07.9 Chest pain, unspecified (principal); R73.03 Prediabetes; I10 Essential (primary) hypertension; M23.91 Unspecified internal derangement of right knee | CPT/HCPCS: 99212 ==

== ENCOUNTER 2022-06-04 07:37 | Emergency (ER) | payer OTHER, SELFPAY ==
[2022-06-04 07:40] VITALS: BP 150/91; PULSE 100; RESP 19; TEMP 37.7; O2SAT 95; BMI 36.6
[2022-06-04 08:15] LABS: COVID-19 Test Positive (Negative); IDNOW Serial# 16C4AD1C
--- NOTE | 2022-06-04 09:04 | ED.FEVER ---
HPI - Fever General Chief Complaint: Fever Stated Complaint: fever/multiple complaints Time Seen by Provider: 06/04/22 08:28 Source: patient Mode of arrival: ambulatory Limitations: no limitations History of Present Illness HPI Narrative: Patient presents emergency department for evaluation of tactile fevers and body aches, headaches. Symptom onset was yesterday. Denies any known sick contacts. 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 He states that he is receiving COVID vaccination, of uncertain which in or how many doses he has received. Denies dizziness, lightheadedness, pain, neck stiffness, chest pain, shortness of breath, difficulty breathing Related Data Home Medications Medication Instructions Recorded Confirmed omeprazole 40 mg capsule,delayed 40 mg PO DAILY 07/21/21 12/17/21 release Previous Rx's Medication Instructions Recorded acetaminophen 500 mg tablet 500 mg PO Q6H PRN pain or fever 06/30/20 (Tylenol Extra Strength) #20 tabs lidocaine 5 % topical patch 1 patch topical DAILY PRN pain #30 06/30/20 (Lidoderm) ea naproxen 500 mg tablet 500 mg PO BID PRN pain 1 month #60 01/12/21 tabs cyclobenzaprine 10 mg tablet 10 mg PO TID PRN muscle spasm #10 12/14/21 tabs lidocaine 5 % topical patch 1 patch topical DAILY #15 ea 12/14/21 naproxen 500 mg tablet 500 mg PO BID PRN pain #20 tabs 12/14/21 prednisone 50 mg tablet 50 mg PO DAILY #5 tabs 12/14/21 nirmatrelvir 300 mg (150 mg See Rx Instructions PO .COMPLEX 06/04/22 x2)-ritonavir 100 mg tablet,dose #30 ea pack(EUA) (Paxlovid) Allergies Allergy/AdvReac Type Severity Reaction Status Date / Time No Known Allergies Allergy Verified 12/04/20 09:26 [No Known Allergies*] Review of Systems Review of Systems: Constitutional: Positive tactile fever. Now chills. No weakness. Positive fatigue. ENT/ Mouth: No Ear Pain, no Nasal Congestion, in a sore throat, No Rhinorrhea, No Swallowing Difficulty Skin: No rash or itching. Cardiovascular: No chest pain. No palpitations. Respiratory: No shortness of breath. In a cough. No sputum production. Gastrointestinal: No nausea. No vomiting. No diarrhea. No abdominal pain. Genitourinary: No burning micturition. No urinary frequency. Neurologic: Positive headache. No dizziness. No syncope. No numbness or tingling in the extremities. Musculoskeletal: No muscle pain. No back pain. No joint pain or stiffness. Yes all other systems are reviewed and are negative [facility] Past Medical History Attestation statement: The following information was validated with the patient. Source: old records reviewed Medical History Back pain HTN (hypertension) Internal derangement of right knee Kidney stones Pre-diabetes Social History Social History Alcohol intake: current Alcohol intake frequency: holidays/special occasions only Alcohol type: beer Advance Directives: No Advance Directives Information Provided: Yes Current occupational status: employed Current occupation: [employer] Physical Exam Vital Signs: Vital Signs: Last Vital Signs Temp 99.9 F 06/04/22 07:40 Pulse 100 06/04/22 07:40 Resp 19 06/04/22 07:40 BP 150/91 H 06/04/22 07:40 Pulse Ox 95 06/04/22 07:40 O2 Del Method 06/04/22 07:40 BMI result Body Mass Index 36.6 Appearance: Alert.?Oriented to person, place and time. No acute distress.?Normal affect. Eyes: Pupils equal, round and reactive to light.? ENT: TM normal bilaterally. Pharynx normal.?? Neck: Normal inspection.? Neck supple.??No cervical adenopathy CVS: Heart sounds normal. Normal heart rate and rhythm.? Pulses normal.?? Respiratory: No respiratory distress.? Lung sounds clear to auscultation bilaterally?? Abdomen: Soft and non-tender. Normoactive bowel sounds. Skin: Skin warm and dry.? Normal skin color.? ? Extremities: No lower extremity edema.? Neuro: Moves all extremities spontaneously. Sensation intact bilaterally. No motor deficits. Ambulates with normal steady gait. Course Course Course Narrative: Patient is a 62-year-old male with a past medical history of hypertension, impaired glucose tolerance, presenting for evaluation of viral symptoms. COVID-19 testing is positive. Well-appearing, nontoxic, afebrile, no tachycardia or tachypnea/hypoxia. Speaking clear full sentences, ambulatory with steady gait. Discussed conservative treatment including rest, hydration, Tylenol/ibuprofen as needed for fever and body aches, saline nasal spray, humidifier, [id number] cold medication. Offered treatment with EUA Paxlovid, risk factor being obesity, reviewed indications, side effects, patient accepts, will send to patient's pharmacy. Advised to follow-up with primary care provider as needed, discussed reasons to return back to the emergency department. All questions were answered. Patient discharged home in stable condition. Provided with a return to work/school note. MDM - Fever Medical Records Attestation: I reviewed the patient's medical records. Lab Data Attestation: I reviewed the patient's lab results. Labs: Lab Results 06/04/22 Range/Units 07:45 COVID-19 (MAURY) Positive A (Negative) COVID-19 Clin Com See Note Discharge Plan Discharge Clinical Impression: COVID-19 Patient Disposition: Home, Self-Care Instructions: COVID-19 (Coronavirus Disease 2019) (ED) Additional Instructions: Your COVID-19 test was positive today, you accepted treatment with Paxlovid after discussion, a prescription was sent to your pharmacy. Be sure to rest, stay well hydrated drinking plenty of fluids, eat small frequent meals. Tylenol/ibuprofen can be used as needed for fever/pain. You can take ibuprofen 200 mg, 3 tablets (600mg) every 6-8 hours as needed in addition to Tylenol 500 mg, 2 tablets (1,000mg) every 4-6 hours as needed for pain, but not to exceed 3 doses daily (3,000mg).? Culk-cyg-lsrqtdc cold medications may be helpful as well for symptoms. Saline nasal spray, humidifier may be helpful for nasal congestion. You may return to the emergency department with any new or worsening symptoms or concerns; such as chest pain, palpitation, shortness breath, difficulty breathing, confusion.. Follow-up with your primary care provider as needed. Should remain out of school/ work for at least 5 days with your soonest return date being 06/08/2022, if symptoms have resolved and you have been without a fever for 24 hours without the use of Tylenol or ibuprofen. Prescriptions: New Paxlovid (EUA) 300 mg (150 mg x 2)-100 mg tablets,dose pack See Rx Instructions .ROUTE .COMPLEX Qty: 30 0RF Rx Instructions: take TWO 150 mg tablets of nirmatrelvir with ONE 100 mg tablet of ritonavir twice daily for 5 days No Action acetaminophen [Tylenol Extra Strength] 500 mg tablet 500 mg PO Q6H PRN (Reason: pain or fever) Qty: 20 0RF lidocaine [Lidoderm] 5 % adhesive patch,medicated 1 patch topical DAILY MDD remove after 12 hours PRN (Reason: pain) Qty: 30 0RF Rx Instructions: leave on most painful area for up to 12 hrs cyclobenzaprine 10 mg tablet 10 mg PO TID PRN (Reason: muscle spasm) Qty: 10 0RF lidocaine 5 % adhesive patch,medicated 1 patch topical DAILY Qty: 15 0RF Rx Instructions: leave on most painful area for up to 12 hrs naproxen 500 mg tablet 500 mg PO BID PRN (Reason: pain) Qty: 20 0RF prednisone 50 mg tablet 50 mg PO DAILY Qty: 5 0RF naproxen 500 mg tablet 500 mg PO BID PRN (Reason: pain) 30 Days Qty: 60 0RF omeprazole 40 mg capsule,delayed release(DR/EC) 40 mg PO DAILY Stand Alone Forms: Work/School Release Interventions: ED Discharge Assessment Last Done: 06/04/22 09:28 Discharge Date/Time: 06/04/22 09:29 Print Language: Portuguese
== END 2022-06-04 09:29 | disposition home or self-care (01) ==
PROVIDERS: Emergency Provider Emergency Medicine Emergency Medical Services
DX: U07.1 COVID-19 (principal)
CPT/HCPCS: 87635; 99283

== ENCOUNTER 2022-09-14 17:58 | Emergency (ER) | payer OTHER, SELFPAY ==
--- NOTE | ~2022-09-14 | XR_ITS ---
EXAMINATION: XR KNEE, RIGHT CLINICAL INFORMATION: Right knee pain COMPARISON: Right knee radiographs 12/04/2020 TECHNIQUE: Four views of the right knee. FINDINGS: No acute fracture or dislocation. Small joint effusion. Mild medial compartment joint space narrowing with subchondral sclerosis and small medial and patellofemoral compartment osteophytes consistent with osteoarthritis. Couple small bone fragments project along the posterior medial knee joint, possibly extruded loose bodies in a popliteal cyst. No osseous lesion. XR/XR knee RT 4V IMPRESSION: 1. No acute osseous injury. 2. Small joint effusion. 3. Mild medial and patellofemoral compartment knee joint osteoarthropathy.
[2022-09-14 19:01] VITALS: BP 151/75; PULSE 65; RESP 18; TEMP 36.6; O2SAT 97; BMI 34.8
--- NOTE | 2022-09-14 19:03 | ED_ITS ---
HPI - Extremity Problem General Chief complaint: Extremity Injury, Lower Stated complaint: Knee pain Time Seen by Provider: 09/14/22 20:47 Source: patient Mode of arrival: ambulatory Limitations: no limitations History of Present Illness HPI Narrative: 62 yo male presents w/ atrumatic knee pain X months Related Data Home Medications Medication Instructions Recorded Confirmed omeprazole 40 mg capsule,delayed 40 mg PO DAILY 07/21/21 03/04/23 release amlodipine 5 mg tablet 5 mg PO QAM 01/20/23 03/04/23 metoprolol succinate 25 mg 25 mg PO QAM 01/20/23 03/04/23 tablet,extended release 24 hr omeprazole 20 mg capsule,delayed 20 mg PO BID 01/20/23 03/04/23 release Previous Rx's Medication Instructions Recorded silodosin 8 mg capsule (Rapaflo) 8 mg PO DAILY #90 caps 03/04/23 Allergies Allergy/AdvReac Type Severity Reaction Status Date / Time No Known Allergies Allergy Verified 03/04/23 11:37 [No Known Allergies*] Review of Systems Review of Systems: Constitutional : No Weight loss, No Fever, No Chills, No Fatigue, No Malaise ENT/Mouth : No sore throat, No Rhinorrhea Eyes: No Eye Pain, No Swelling, No Redness Cardiovascular : No Chest Pain, No SOB, No Dyspnea on Exertion, No Orthopnea, No Edema, No Palpitations Respiratory : No Cough, No Sputum, No Wheezing Gastrointestinal : No Nausea, No Vomiting, No Diarrhea, No Constipation, No abdominal Pain, No Hematochezia, No Melena Genitourinary : No Dysuria, No Urinary Frequency, No Hematuria, Musculoskeletal : + joint pain, No Myalgias, + Joint Swelling Skin : No Skin Lesions, No rash Neuro : No Weakness, No Numbness, No Dizziness, No Headache Psych : No Anxiety/Panic, No Depression All other systems reviewed and are negative Yes all other systems are reviewed and are negative [facility] Past Medical History Attestation statement: The following information was validated with the patient. Source: old records reviewed and nursing notes reviewed Medical History Back pain HTN (hypertension) Internal derangement of right knee Kidney stones Pre-diabetes Social History Social History Alcohol intake: current Alcohol intake frequency: holidays/special occasions only Alcohol type: beer Current occupational status: employed Current occupation: [employer] Physical Exam Vital Signs: Vital Signs: Last Vital Signs Temp 98.0 F 09/14/22 20:36 Pulse 74 09/14/22 20:36 Resp 17 09/14/22 20:36 BP 146/86 H 09/14/22 20:36 Pulse Ox 95 09/14/22 20:36 O2 Del Method Room Air 09/14/22 20:36 BMI result Body Mass Index 34.8 Vital signs insert painful Appearance: Alert.? Oriented X3.? No acute distress.? Head: Normocephalic, atraumatic, no step-offs or deformities Eyes: Pupils equal, round and reactive to light.? Neck: Normal inspection.? Neck supple.? CVS: Normal heart rate and rhythm.? Pulses normal.? Respiratory: No respiratory distress.? Breath sounds normal.? Abdomen: Soft and nontender.? Skin: Skin warm and dry.? Normal skin color.? Normal skin turgor.? Extremities: No lower extremity edema.? No calf ttp. 5/5 strength to bilateral upper and lower extremities. Full range of motion to bilateral knees Neuro: Oriented X 3.? No motor deficit.? No sensory deficit. CN 2-12 intact . Patient ambulatory to triage Course Course Course Narrative: 1900 62 yo male presents w/ atrumatic knee pain X months PE benign ambulatory w/o issues plan: imaging Medications Administered Discontinued Medications Generic Name Dose Route Start Last Admin Trade Name Rob PRN Reason Stop Dose Admin Tramadol HCl 50 mg 09/14/22 21:05 09/14/22 21:19 Tramadol Hcl 50 Mg Tablet PO 09/14/22 21:06 50 mg ONCE ONE Administration Discharge Plan Discharge Clinical Impression: Osteoarthritis of right knee Patient Disposition: Home, Self-Care Instructions: Osteoarthritis (ED) Additional Instructions: Rest of the right knee Wear Weston wrap for support Tramadol for pain and follow with PCP Prescriptions: No Action amlodipine 5 mg tablet 5 mg PO QAM omeprazole 20 mg capsule,delayed release(DR/EC) 20 mg PO BID metoprolol succinate 25 mg tablet extended release 24 hr 25 mg PO QAM omeprazole 40 mg capsule,delayed release(DR/EC) 40 mg PO DAILY silodosin [Rapaflo] 8 mg capsule 8 mg PO DAILY Qty: 90 3RF Rx Instructions: must administer with a meal/food Interventions: ED Discharge Assessment Last Done: 09/14/22 21:33 Discharge Date/Time: 09/14/22 21:34 Print Language: Upper Sorbian
[2022-09-14 20:36] VITALS: BP 146/86; PULSE 74; RESP 17; TEMP 36.7; O2SAT 95
[2022-09-14] MEDS: traMADoL HCL 50 MG TABLET PO (21:19)
--- NOTE | 2022-09-14 21:19 | MHC.EDTECH ---
Went in room to lucita wrap pt knee and pt said that he would wrap it at home cause he was hungry . 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 Discharging pt now.
== END 2022-09-14 21:34 | disposition home or self-care (01) ==
PROVIDERS: Emergency Provider Internal Medicine
DX: M25.561 Pain in right knee (principal); Z79.899 Other long term (current) drug therapy
CPT/HCPCS: 73564; 99283

== ENCOUNTER 2022-10-22 16:37 | Outpatient (REF) | payer OTHER, SELFPAY ==
--- NOTE | ~2022-10-22 | CT_ITS ---
EXAMINATION: CT HEAD WITHOUT CONTRAST CLINICAL INFORMATION: Headache COMPARISON: 10/14/2020 TECHNIQUE: Contiguous axial imaging was performed from the skull base to vertex without intravenous contrast. This CT examination was performed using dose optimization techniques as appropriate, variously including the following: * Automated exposure control * Adjustment of mA and/or kV according to patient size (this includes techniques or standardized protocols for targeted exams where dose is matched to indication/reason for exam; i.e. extremities or head) Use of iterative reconstruction technique DLP: 831 mGy-cm. FINDINGS: There is no evidence of acute intracranial hemorrhage or territorial infarction. No abnormal mass effect or midline shift is seen. Cantor to white matter differentiation is well preserved. No extra-axial fluid collections are identified. No hydrocephalus. No significant volume loss. There is no abnormal attenuation within the brain parenchyma. The osseous structures and soft tissues are normal. Mild mucoperiosteal thickening along both the right and left ethmoid air cells. Mild mucoperiosteal thickening of the sphenoid sinuses. The mastoid air cells and visualized portions of the paranasal sinuses are otherwise well aerated. CT/CT head/brain wo IV con IMPRESSION: No acute intracranial pathology.
== END 2022-10-22 16:38 | disposition home or self-care (01) ==
LOC: HO.CT 16:37
PROVIDERS: Visit Provider Registered Nurse
DX: R51.9 Headache, unspecified (principal)
CPT/HCPCS: 70450

== ENCOUNTER → 2023-01-20 10:01 | Outpatient (BNVA) | payer OTHER, SELFPAY | PROVIDERS: PCP Registered Nurse; Visit Provider Urology | DX: Z12.5 Encounter for screening for malignant neoplasm of prostate (principal); N40.1 Benign prostatic hyperplasia with lower urinary tract symptoms; R39.12 Poor urinary stream; N20.0 Calculus of kidney | CPT/HCPCS: 51798; 99202 ==

== ENCOUNTER 2023-02-28 09:49 | Outpatient (REF) | payer OTHER, SELFPAY ==
--- NOTE | ~2023-02-28 | US_ITS ---
EXAMINATION: US RETROPERITONEAL COMPLETE (RENAL) CLINICAL INFORMATION: Benign prostatic hyperplasia without lower urinary tract symptoms. COMPARISON: X-ray abdomen KUB 07/26/2018. Renal ultrasound 02/22/2018. Ultrasound abdomen 11/09/2017. CT abdomen and pelvis 10/23/2017. TECHNIQUE: Real-time imaging of the kidneys and bladder. FINDINGS: RIGHT KIDNEY: 10.2 x 4.4 x 5.1 cm (SAG x the mid renal 4 mm echogenic focus seen consistent with a nonobstructing calculus. No focal parenchymal lesions or hydronephrosis. LEFT KIDNEY: 12.5 x 5.4 x 5.5 cm (SAG x AP x TRV). The kidney is normal in size, contour, and echogenicity. Renal cortical thickness is normal. There are 2 echogenic foci seen in the mid and lower pole measuring 4 and 6 mm in size consistent with nonobstructing calculi. No focal parenchymal lesions or hydronephrosis. BLADDER: Well distended and normal. Bilateral ureteral jets are demonstrated. Prevoid bladder volume is 269 mL. Postvoid bladder volume is 21.5 mL. Prostate volume 31.6 mL. Prostatic calcifications are present. US/US retroperitoneal comp IMPRESSION: 1. Bilateral nonobstructing renal calculi. 2. Mild BPH.
== END 2023-02-28 09:50 | disposition home or self-care (01) ==
LOC: HO.US 09:49
PROVIDERS: Referring Provider Emergency Medicine; Visit Provider Urology
DX: N40.1 Benign prostatic hyperplasia with lower urinary tract symptoms (principal); R39.12 Poor urinary stream; R35.0 Frequency of micturition; R10.9 Unspecified abdominal pain; Z87.442 Personal history of urinary calculi
CPT/HCPCS: 76770

== ENCOUNTER 2023-03-04 08:45 | Outpatient (REF) | payer OTHER, SELFPAY | END 2023-03-04 08:46 | disposition home or self-care (01) | LOC: HO.LAB 08:45 | PROVIDERS: PCP Registered Nurse; Visit Provider Urology | DX: Z12.5 Encounter for screening for malignant neoplasm of prostate (principal); R39.12 Poor urinary stream; N20.0 Calculus of kidney; N40.1 Benign prostatic hyperplasia with lower urinary tract symptoms | CPT/HCPCS: 36415; 51798; 84153; 99212 ==

== ENCOUNTER 2023-06-30 08:06 | Outpatient (AMB) | payer OTHER, SELFPAY ==
[2023-06-30 08:15] VITALS: BP 142/80; PULSE 71; BMI 35.7
--- NOTE | 2023-06-30 08:15 | A.OFFVIS_ITS ---
Intake Vital Signs 06/30/23 08:15 Height 5 ft 11 in Weight 255 lb 11.779 oz BMI 35.7 BP 142/80 H Blood Pressure Location Lt brachial Position Sitting Pulse 71 Intake Visit Reasons: F/U Intake Note: patient is having some palpitations Bale Opener Required: No Quality Rn: Quality Rn Present Accompanied by: Son Allergies No Known Allergies [No Known Allergies*] Allergy (Verified 06/30/23 08:22) Medication List - Last Reconciled 06/30/23 by Sonya Trejo NP-C acetaminophen ER 650 mg PO TID amlodipine 10 mg PO DAILY omeprazole 20 mg PO BID HPI F/U HPI Details Sameer is a 63-year-old male with past medical history of hypertension, obesity, prediabetes who was previously seen for sharp chest discomfort and recently underwent an echocardiogram. A Nuclear stress test was ordered however not completed. Today he reports that he continues to get discomfort in his anterior chest which he now describes as pressure which can occur if he is carrying objects or climbing several stairs. Sometimes when he climbs stairs he just noticed his heart palpitations. He has dizziness at times but no presyncope, syncope, falls. No significant shortness of breath, PND, orthopnea or edema. He has knee discomfort which limits his activity. States he did not get called for the stress test. His son is present and assisting with British translation at their request. [facility], [facility] Medical History Internal derangement of right knee Kidney stones Back pain Pre-diabetes HTN (hypertension) Social History Alcohol intake: current Alcohol intake frequency: holidays/special occasions only Alcohol type: beer Current occupational status: employed Current occupation: [employer] Review of Systems Const All systems reviewed & are unremarkable except as noted in HPI and below ENT Denies dizziness Card Denies chest pain, Denies chest pain at rest, Reports chest pain with activity, Reports rapid heart rate, Denies pedal edema, Denies edema, Denies leg edema, Denies lightheadedness, Denies palpitations, Denies dyspnea, Denies dyspnea on exertion and Denies orthopnea Resp Denies cough, Denies dyspnea and Denies dyspnea on exertion GI Denies hematochezia and Denies change in stool character Musc Denies abnormal gait, Denies limited range of motion, Denies muscle cramps, Denies muscle weakness, Denies numbness, Denies radiating pain into limb, Denies stiffness and Denies tingling Neuro Denies abnormal gait, Denies dizziness, Denies numbness and Denies tingling Endo Denies palpitations Physical Exam Vital Signs: Last Vital Signs Pulse 71 06/30/23 08:15 BP 142/80 H 06/30/23 08:15 BMI result Body Mass Index 35.7 Const General: cooperative, healthy appearing, no acute distress, alert and awake Orientation/consciousness: patient oriented x3 Neck Neck: Yes normal visual inspection and Yes no JVD Resp Effort & Inspection: normal respiratory effort, able to speak in complete sentences and not labored Auscultation: clear to auscultation bilaterally, no crackles, no rales, no rhonchi and no wheezes Cardio Rate: regular rate Rhythm: regular rhythm Heart sounds: S1 normal heart sound present and S2 normal heart sound present Peripheral pulses: Peripheral pulses 2+ throughout GI Inspection: Yes normal to inspection Skin General skin exam: no rashes or lesions noted Neuro General: patient oriented x3 Extrem General: Yes normal to inspection and No edema Office Procedures EKG Details: Today, read by me, normal sinus rhythm, can not exclude anterior infarct, age undetermined, rate 71, QTC 415 millisecond [id number], Complete Assessment & Plan Assessment & Plan (1) Chest pain: Code(s): R07.9 - Chest pain, unspecified Qualifiers: Chest pain type: precordial pain Qualified Code(s): R07.2 - Precordial pain Plan: Prior Reports of sharp chest pains lasting seconds at times with radiation to the left shoulder. Occurring randomly and when he lifts heavy things and climbs stairs. Mostly atypical features. He does have cardiac risk factors of obesit y, hypertension, pre diabetes. Echocardiogram done 11/05/2021 shows normal EF, no regional wall motion abnormality, grade 1 diastolic dysfunction and no valve abnormalities. A pharmacological nuclear stress test has been ordered however not completed yet by patient. He states he was not called. He is not able to exercise on the treadmill due to back and knee pain. Today he reports that he continues to get some discomfort in his chest which he is now describing as pressure. He is vague with his description even with the use of an patient case coordinator. Will reorder the pharmacological nuclear stress test in ask that he call us if he does not receive a call within 1 week. Instructed on light physical activity. Signs and symptoms of angina reviewed with him. Emergency care if needed for symptoms. Cardiology follow-up 6 weeks, sooner if needed. (2) HTN (hypertension): Code(s): I10 - Essential (primary) hypertension Qualifiers: Hypertension type: primary hypertension Qualified Code(s): I10 - Essential (primary) hypertension Plan: Mild elevation today. Plan for recheck next visit. No medication changes made. Need for low-salt diet reviewed. Will update labs including comprehensive metabolic profile and lipids. (3) Pre-diabetes: Code(s): R73.03 - Prediabetes Plan: followed by his PCP (4) Palpitation: Code(s): R00.2 - Palpitations Plan: Vaguely described heart palpitations like his heart is beating fast. EKG today showing normal sinus rhythm. Will check a Holter monitor to assess for any arrhythmia. Orders: Orders Comprehensive Met. Panel Today I10 - Essential (primary) hypertension, R07.9 - Chest pain, unspecified CA lexiscan stress w césar Today R07.9 - Chest pain, unspecified NM cardiolite stress test Today I10 - Essential (primary) hypertension, R07.9 - Chest pain, unspecified Lipid Panel Today I10 - Essential (primary) hypertension, R07.9 - Chest pain, unspecified ECG 3 day holter monitor Today R00.2 - Palpitations Coding Level of Care Code Est Pt Level 3 (14348) Diagnoses Precordial pain R07.2 Chest pain type: precordial pain Primary hypertension I10 Hypertension type: primary hypertension Pre-diabetes R73.03 Palpitation R00.2 CPT Codes EKG - CPT: [id number], Complete ([id number]) Time Spent (min) 22
== END 2023-06-30 08:46 | disposition home or self-care (01) ==
PROVIDERS: PCP Registered Nurse; Visit Provider Nurse Practitioner Family
DX: R07.2 Precordial pain (principal); I10 Essential (primary) hypertension; R73.03 Prediabetes; R00.2 Palpitations
CPT/HCPCS: 93010; 99213

== ENCOUNTER 2023-06-30 08:06 | Outpatient (REF) | payer OTHER, SELFPAY ==
[2023-06-30 09:58] LABS: Alanine Aminotransferase 36 U/L (0-40); Alkaline Phosphatase 87 U/L (39-117); Anion Gap 13 (12-20); Aspartate Amino Transferase 23 U/L (5-37); Bilirubin Total 0.5 mg/dL (0.0-1.0); Blood Urea Nitrogen 12 mg/dL (9-16); Calcium 9.6 mg/dL (8.4-10.2); Carbon Dioxide 25 mmol/L (22-29); Chloride 107 mmol/L (96-108); Cholesterol 183 mg/dL (<200); Estimated Glomerular Filt Rate > 60; Glucose Random 107 mg/dL (60-115); HDL Cholesterol 41 mg/dL (>40); LDL Cholesterol Calculated 122 mg/dL (<100); Potassium 4.1 mmol/L (3.3-5.1); Sodium 141 mmol/L (135-145); Total Protein 7.5 g/dL (6.5-8.0); Triglycerides 103 mg/dL (<150)
== END 2023-06-30 08:07 | disposition home or self-care (01) ==
LOC: HO.LAB 08:06
PROVIDERS: PCP Registered Nurse; Visit Provider Nurse Practitioner Family
DX: I10 Essential (primary) hypertension (principal); R73.03 Prediabetes; E66.9 Obesity, unspecified; R07.2 Precordial pain; R00.2 Palpitations; Z79.899 Other long term (current) drug therapy
CPT/HCPCS: 36415; 80053; 80061; 93005; 99212

== ENCOUNTER 2023-07-14 10:10 | Outpatient (AMB) | payer OTHER, SELFPAY ==
[2023-07-14 10:13] VITALS: BMI 48.2
--- NOTE | 2023-07-14 10:13 | A.OFFVIS_ITS ---
Intake Vital Signs 07/14/23 10:13 Height 5 ft 1 in Weight 255 lb BMI 48.2 Intake Visit Reasons: OV- Rt Knee pain Intake Note: Sameer is a 63 year old male who presents today with complaints of right knee pain, at his last visit in December of 2020 Dr. Hay discussed that surgical intervention would be warranted based on MRI results. At the time of discussion he did not want surgery as he was relatively a symptomatic. Allergies No Known Allergies [No Known Allergies*] Allergy (Verified 06/30/23 08:22) HPI OV- Rt Knee pain HPI Details Gentleman returns today with right knee pain. He has a right medial meniscus tear and has for a while. The last time I saw him he had minimal pain but as he tries to be more active his pain returns. His pain is over the medial aspect of the right knee. He has sharp pain with twisting activities. This improves only with rest but returns when he is active. [facility] Medical History Internal derangement of right knee Kidney stones Back pain Pre-diabetes HTN (hypertension) Social History Alcohol intake: current Alcohol intake frequency: holidays/special occasions o nly Alcohol type: beer Current occupational status: employed Current occupation: [employer] Review of Systems Const All systems reviewed & are unremarkable except as noted in HPI and below Eyes Reports no additional complaints ENT Reports no additional complaints Card Reports no additional complaints Resp Reports no additional complaints GI Reports no additional complaints Musc Details: knee pain Reports as per HPI Skin/Breast Reports system reviewed and no additional complaints, except as documented Neuro Reports no additional complaints and Reports as per HPI Psych Reports no additional complaints Physical Exam Vital Signs: BMI result Body Mass Index 48.2 Const General: no acute distress, alert and awake Orientation/consciousness: patient oriented x3 HEENT Head: Yes normocephalic and Yes atraumatic Mouth: moist mucous membranes Eyes General: appearance normal, both eyes and all related structures EOM: EOMs intact bilaterally Chest Other: no audible wheezing. Resp Other: No audible wheezing Effort & Inspection: normal respiratory effort and able to speak in complete sentences Cardio Other: Radial pulse palpable with no rythmic abnormalities Jugular venous distension: no JVD Back/Spine/Pelvis Cervical Spine: normal cervical lordosis Skin General skin exam: turgor normal Rashes: no rashes Neuro General: patient oriented x3 Extrem Other: Right knee with full range of motion but medial joint line tenderness to palpation and sharp medial Jose Enrique's. No effusion Psych Appearance: grossly normal Mental Status: mental status grossly normal Speech and movement: Normal speech and movement present Affect: normal affect Attitude: cooperative Results Reviewed Results Reviewed: I personally reviewed relevant radiographs & MR images Mild medial and patellofemoral compartment knee joint osteoarthropathy. 1. Tears of the posterior horn and body of the medial meniscus. Assessment & Plan Assessment & Plan (1) Tear of medial meniscus of right knee: Code(s): S83.241A - Other tear of medial meniscus, current injury, right knee, initial encounter Plan This is a 63-year-old gentleman with minimal osteoarthritis and a medial meniscal tear. I recommend medial meniscectomy. I discussed with him the procedure and I discussed the risks benefits and alternatives including but not limited to the risk of pain, infection, stiffness, need for further surgery as well as potential medical complications. He expressed understanding. I think he will benefit from the surgery as he has a fairly isolated large medial meniscus tear that has been intermittently painful for some time. It is not resolved with physical therapy, injections, NSAIDs or rest. Coding Level of Care Code Est Pt Level 4 (36159) Diagnoses Tear of medial meniscus of right knee S83.241A
== END 2023-07-14 10:52 | disposition home or self-care (01) ==
PROVIDERS: PCP Registered Nurse; Visit Provider Orthopaedic Surgery
DX: S83.241A Other tear of medial meniscus, current injury, right knee, initial encounter (principal)
CPT/HCPCS: 99214

== ENCOUNTER → 2023-07-14 10:10 | Outpatient (BNVA) | payer OTHER, SELFPAY | PROVIDERS: PCP Registered Nurse; Visit Provider Orthopaedic Surgery | DX: S83.241A Other tear of medial meniscus, current injury, right knee, initial encounter (principal); X58.XXXA Exposure to other specified factors, initial encounter; Y93.9 Activity, unspecified; Y92.9 Unspecified place or not applicable; Y99.8 Other external cause status | CPT/HCPCS: 99212 ==

== ENCOUNTER 2023-08-17 09:20 | Outpatient (REF) | payer OTHER, SELFPAY ==
--- NOTE | ~2023-08-17 | XR_ITS ---
EXAMINATION: XR SHOULDER, LEFT CLINICAL INFORMATION: Fall yesterday with shoulder pain COMPARISON: Left shoulder 02/26/2016, report only TECHNIQUE: AP external rotation, Grashey, scapular Y, and axillary views of the left shoulder. FINDINGS: The bones and soft tissues are unremarkable aside from some mild degenerative changes at the AC joint which were described in the past. No fracture. Glenohumeral and acromioclavicular alignment is anatomic with normal joint space. No abnormal soft tissue calcifications. XR/XR shoulder LT min 2V IMPRESSION: Mild degenerative changes at the AC joint.
== END 2023-08-17 09:21 | disposition home or self-care (01) ==
LOC: HO.HHCX 09:20
PROVIDERS: Visit Provider Nurse Practitioner Family
DX: M25.512 Pain in left shoulder (principal)
CPT/HCPCS: 73030

== ENCOUNTER → 2023-09-01 08:20 | Outpatient (REF) | payer OTHER, SELFPAY ==
--- NOTE | ~2023-09-01 | NM_ITS ---
Myocardial perfusion study Indication: Chest pain to evaluate for myocardial ischemia Technique: The patient was brought in for a Lexiscan perfusion study on 09/01/2023. Patient performed low-level exercise and was injected 0.4 mg of Lexiscan intravenously. Within a minute of injection, 35 mCi of sestamibi was given intravenously. Images were obtained using the SPECT gamma camera interlaced with the gating device. Images were obtained in supine position. Resting perfusion study was performed on 09/05/2023. Patient was administered 35 mCi of sestamibi intravenously at rest. Images were then obtained in supine position. Images obtained with and without CT attenuation. Total DLP 210 mGy-cm. Images were processed with the software and compared side to side in short axis, horizontal long axis and vertical long axis views. Findings: Both arms overlie patient side causing attenuation artifact on raw cine images of the lateral wall The stress perfusion study showed non attenuated images show mildly reduced uptake in the distal lateral wall of the LV myocardium. Remainder of the LV myocardium is normally perfused. There is suggestion of left ventricular hypertrophy. There is minimal reduced uptake in the apex of the LV myocardium.. The gated study shows normal LV systolic function with calculated LVEF of 58%. LV cavity is normal in size. The gated study shows normal systolic wall thickening and contraction of segments. Resting study shows no clear change in perfusion pattern compared to stress perfusion study. Gating at rest reveals systolic wall motion with visually estimated ejection fraction at greater than 55%. The findings are consistent with likely normal myocardial perfusion. NM/NM cardiolite stress test Impression: 1. Myocardial perfusion imaging study shows likely normal myocardial perfusion 2. Gated LVEF is 58% 3. Transient ischemic dilatation not present EKG is nondiagnostic for ischemia
--- NOTE | 2023-09-01 08:23 | CA_ITS ---
Acquisition Time: 2023-09-01 08:50:54 Total Exercise Time: 00:02:00 Test Indications: CHEST PAIN Medications: AMLODIPINE OMEPRAZOLE Protocol: LEXISCAN Max HR: 142 BPM 89% of Pred: 158 BPM Max BP: 130/080 mmHG Max Work Load: 1.0 METS Pharmacolgical stress test with Lexiscan injection while sitting and marching in place, without anginal symptoms, without arrhtymias, with normotensive response to injection, with downslopping in lead 3. Aminophylline 75mg IVP given to reverse Lexiscan. Nuclear images pending. Test reviewed with Dr. Braswell. Referred By: Sonya Trejo Overread By: Idalia Trotter
--- NOTE | 2023-09-01 08:23 | HM_ITS ---
Conclusion: 1. Patient was monitored for total period of 3 days 2. Baseline was normal sinus rhythm with average heart of 74 beats per minute 3. No significant 4. Rare PACs noted with 3 short runs of SVT, longest lasting 8 beats and the fastest at 188 beats per minute 5. No patient reported events MTDD
== END ==
LOC: HO.CARD 08:20
PROVIDERS: PCP Registered Nurse; Visit Provider Nurse Practitioner Family
DX: R07.9 Chest pain, unspecified (principal); R00.2 Palpitations; I10 Essential (primary) hypertension
CPT/HCPCS: 78452; 93017; 93242; A9500; J0280; J2785

== ENCOUNTER → 2023-09-01 08:23 | Outpatient (BNV) | payer OTHER, SELFPAY | PROVIDERS: PCP Registered Nurse; Visit Provider Nurse Practitioner | DX: R07.9 Chest pain, unspecified (principal) | CPT/HCPCS: 78452; 93016; 93018; 93244 ==

== ENCOUNTER 2023-09-02 11:25 | Outpatient (AMB) | payer OTHER, SELFPAY ==
--- NOTE | 2023-09-02 11:35 | A.OFFVIS_ITS ---
Intake Intake Visit Reasons: BPH- 6m follow up Intake Note: Patient presents today for a follow-up BPH: Meds: Alfuzosin Allergies to Antibiotic: None Blood Thinner: None PVR: 0 mL Trim Mounter Required: Yes Trim Mounter Language: Guinean Accompanied by: Self / Same As Patient Allergies No Known Allergies [No Known Allergies*] Allergy (Verified 06/30/23 08:22) HPI HPI Comments History of Present Illness Details Sameer is a [id number] who presents to the office for follow-up. 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 09/02/23--FU for BPH and obstructive Low er urinary tract symptoms (LUTS). He is failed tamsulosin, due to SE's. Rapaflo was too expensive. He was initially evaluated on 01/20/23 He states he was prescribed tamsulosin by another physician but discontinued after taking one dose because it caused dizziness. The patient also has a history of kidney stones. Review of chart Prostate exam--done on 01/20/23--Smooth, mildly and enlarged. No suspicious nodules observed. AUA symptom score: 35. Results: Renal US results?02/28/23-- Bilateral kidney stone, estimated prostate volume is 31.6 mL and prostate calcifications are present. PSA results?03/04/23?1.10. Plan: 09/02/23-Alfuzosin 10 mg daily Kidney stones. Will monitor [facility] Medical History Internal derangement of right knee Kidney stones Back pain Pre-diabetes HTN (hypertension) Social History Alcohol intake: current Alcohol intake frequency: holidays/special occasions only Alcohol type: beer Current occupational status: employed Current occupation: [employer] Review of Systems Const All systems reviewed & are unremarkable except as noted in HPI and below Reports no additional complaints Eyes Reports no additional complaints ENT Denies neck pain Card Denies leg edema Resp Denies cough GI Denies constipation Musc Reports no additional complaints and Denies neck pain Skin/Breast Denies rash and Denies unusual bruising Neuro Reports no additional complaints Psych Reports no additional complaints Endo Reports no additional complaints Lester/Lymph Reports no additional complaints Aller/Immun Reports no additional complaints Office Procedures Post Void Residual Post Residual Void Post Void Residual (PVR): 0 [id number]-[id number] Void Residual by ultrasound Assessment & Plan Assessment & Plan (1) Weak urinary stream: Code(s): R39.12 - Poor urinary stream (2) Kidney stones: Code(s): N20.0 - Calculus of kidney (3) BPH loc w urin obs/LUTS: Code(s): N40.1 - Benign prostatic hyperplasia with lower urinary tract symptoms Plan 09/02/23-Alfuzosin 10 mg daily Kidney stones. Will monitor Orders: Orders AMB Post Void Residual by ultrasound 09/02/23 N39.8 - Other specified disorders of urinary system Medications: New alfuzosin ER administer after the same meal each day 10 mg PO DAILY 90 tabs 3RF Patient Instructions: The patient had an opportunity to ask questions regarding treatment plan. All questions were answered. Imaging, Laboratory studies and physical exam results were discussed and reviewed in detail. No major barriers to understanding were identified. The patient expressed understanding and agreement with the above treatment plan. The patient is aware they should contact our office by phone for worsening of their current condition or the appearance of new symptoms. Compliance is encouraged with any medications and followup testing that is ordered. It is a privilege to be allowed the opportunity to participate in the urologic care of your patient. If you have any questions or concerns regarding treatment for the above conditions please do not hesitate to contact me. The office telephone contact is [phone]. This note is constructed in part using voice recognition software. While every effort has been made to ensure accuracy fitting room inspector errors may have been included. Yours sincerely, Abigail Christian MD Coding Level of Care Code Est Pt Level 4 (25387) Diagnoses Weak urinary stream R39.12 Kidney stones N20.0 BPH loc w urin obs/LUTS N40.1 CPT Codes Post Residual Void - PVR CPT Code: 07122-Hfks Void Residual by ultrasound ([id number])
== END 2023-09-02 12:19 | disposition home or self-care (01) ==
PROVIDERS: PCP Registered Nurse; Visit Provider Urology
DX: N40.1 Benign prostatic hyperplasia with lower urinary tract symptoms (principal); R39.12 Poor urinary stream; N20.0 Calculus of kidney
CPT/HCPCS: 99214

== ENCOUNTER → 2023-09-02 11:25 | Outpatient (BNVA) | payer OTHER, SELFPAY | PROVIDERS: PCP Registered Nurse; Visit Provider Urology | DX: N40.1 Benign prostatic hyperplasia with lower urinary tract symptoms (principal); R39.12 Poor urinary stream; N20.0 Calculus of kidney | CPT/HCPCS: 51798; 99212 ==

== ENCOUNTER 2023-09-14 13:55 | Outpatient (AMB) | payer OTHER, SELFPAY ==
[2023-09-14 14:08] VITALS: BP 130/60; PULSE 81; BMI 50.0
--- NOTE | 2023-09-14 14:08 | A.OFFVIS_ITS ---
Intake Vital Signs 09/14/23 14:08 Height 5 ft 1 in Weight 264 lb 8.875 oz BMI 50.0 BP 130/60 Blood Pressure Location Lt brachial Position Sitting Pulse 81 Pulse Source Pulse Oximeter Intake Visit Reasons: Follow up post stress and holter Intake Note: f/up its feeling fine Clinical Assoc Required: No Accompanied by: Son Allergies No Known Allergies [No Known Allergies*] Allergy (Verified 06/30/23 08:22) Medication List - Last Reconciled 09/14/23 by Idalia Trotter NP acetaminophen ER 650 mg PO TID alfuzosin ER 10 mg PO DAILY amlodipine 10 mg PO DAILY omeprazole 20 mg PO BID HPI HPI Comments History of Present Illness Details 63-year-old male presents for a follow-u p after testing. He is accompanied by his son who is translating - appropriate form signed. he had a stress test and holter monitor which had nothing significant. He reports he sometimes feels palpiations if he is going up the stairs fast. Denies SOB, chest pain, or syncope. He states he drinks a bit of cola. [facility] Medical History Internal derangement of right knee Kidney stones Back pain Pre-diabetes HTN (hypertension) Social History Alcohol intake: current Alcohol intake frequency: holidays/special occasions only Alcohol type: beer Current occupational status: employed Current occupation: [employer] Review of Systems Const Reports chills, Reports fatigue, Reports fever(s), Reports frequent falls, Reports weakness, Reports weight gain and Reports weight loss ENT Reports dizziness Card Reports chest pain, Reports leg edema, Reports lightheadedness, Reports palpitations, Reports dyspnea and Reports dyspnea on exertion Resp Reports cough, Reports dyspnea and Reports dyspnea on exertion GI Reports hematochezia Musc Reports abnormal gait, Reports muscle weakness, Reports numbness, Reports radiating pain into limb and Reports tingling Neuro Reports abnormal gait, Reports dizziness, Reports frequent falls, Reports nu mbness, Reports tingling and Reports weakness Endo Reports fatigue and Reports palpitations Physical Exam Vital Signs: Last Vital Signs Pulse 81 09/14/23 14:08 BP 130/60 09/14/23 14:08 BMI result Body Mass Index 50.0 Assessment & Plan Assessment & Plan (1) Palpitation: Code(s): R00.2 - Palpitations (2) HTN (hypertension): Code(s): I10 - Essential (primary) hypertension Qualifiers: Hypertension type: primary hypertension Qualified Code(s): I10 - Essential (primary) hypertension Plan Holter showed occasional PACs. Normal stress test. Advised to cut back on caffeine and to hydrate well with water. Blood pressures good today. Report any new or worsening symptoms. Coding Level of Care Code Est Pt Level 3 (37847) Diagnoses Palpitation R00.2 Primary hypertension I10 Hypertension type: primary hypertension
== END 2023-09-14 14:44 | disposition home or self-care (01) ==
PROVIDERS: PCP Registered Nurse; Visit Provider Nurse Practitioner
DX: R00.2 Palpitations (principal); I10 Essential (primary) hypertension
CPT/HCPCS: 99213

== ENCOUNTER → 2023-09-14 13:55 | Outpatient (BNVA) | payer OTHER, SELFPAY | PROVIDERS: PCP Registered Nurse; Visit Provider Nurse Practitioner | DX: R00.2 Palpitations (principal); I10 Essential (primary) hypertension | CPT/HCPCS: 99212 ==

== ENCOUNTER 2024-02-09 14:27 | Outpatient (REF) | payer OTHER, SELFPAY ==
[2024-02-09 16:56] LABS: Alanine Aminotransferase 38 U/L (0-40); Albumin Level 4.2 g/dL (3.5-5.0); Alkaline Phosphatase 86 U/L (39-117); Anion Gap 18 (12-20); Aspartate Amino Transferase 26 U/L (5-37); Bilirubin Total 0.6 mg/dL (0.0-1.0); Blood Urea Nitrogen 16 mg/dL (9-16); Calcium 9.8 mg/dL (8.4-10.2); Carbon Dioxide 24 mmol/L (22-29); Chloride 104 mmol/L (96-108); Creatinine Urine 191.39 mg/dL; Estimated Glomerular Filt Rate > 60; Glucose Random 92 mg/dL (60-115); Microalbum/Creatinine Ratio Ur 14.6 ug/mg cr (<30); Potassium 4.3 mmol/L (3.3-5.1); Sodium 142 mmol/L (135-145); Total Protein 7.7 g/dL (6.5-8.0)
[2024-02-09 17:07] LABS: Troponin-I High Sensitivity < 2.7 ng/L (<3.5-35.0)
== END 2024-02-09 14:28 | disposition home or self-care (01) ==
LOC: HO.HHCL 14:27
PROVIDERS: Nurse Practitioner Primary Care; Visit Provider Student in an Organized Health Care Education/Training Program
DX: R07.89 Other chest pain (principal); I10 Essential (primary) hypertension
CPT/HCPCS: 36415; 80053; 82043; 82570; 84484

== ENCOUNTER 2024-03-01 07:55 | Outpatient (REF) | payer OTHER, SELFPAY ==
[2024-03-01 08:54] LABS: Estimated Average Glucose 128 mg/dL; Hemoglobin A1c % 6.1 % (<6.0)
[2024-03-01 09:11] LABS: Alanine Aminotransferase 36 U/L (0-40); Albumin Level 3.9 g/dL (3.5-5.0); Alkaline Phosphatase 79 U/L (39-117); Anion Gap 12 (12-20); Aspartate Amino Transferase 23 U/L (5-37); Bilirubin Total 0.6 mg/dL (0.0-1.0); Blood Urea Nitrogen 14 mg/dL (9-16); Calcium 9.3 mg/dL (8.4-10.2); Carbon Dioxide 25 mmol/L (22-29); Chloride 107 mmol/L (96-108); Cholesterol 171 mg/dL (<200); Estimated Glomerular Filt Rate > 60; Glucose Random 106 mg/dL (60-115); HDL Cholesterol 36 mg/dL (>40); LDL Cholesterol Calculated 119 mg/dL (<100); Potassium 4.1 mmol/L (3.3-5.1); Sodium 140 mmol/L (135-145); Total Protein 7.1 g/dL (6.5-8.0); Triglycerides 83 mg/dL (<150)
== END 2024-03-01 07:56 | disposition home or self-care (01) ==
LOC: HO.LAB 07:55
PROVIDERS: Absent Provider Nurse Practitioner Primary Care; PCP Nurse Practitioner Primary Care; Visit Provider Urology
DX: E78.5 Hyperlipidemia, unspecified (principal); R73.03 Prediabetes
CPT/HCPCS: 36415; 80053; 80061; 83036

== ENCOUNTER 2024-03-02 17:28 | Emergency (ER) | payer OTHER, SELFPAY ==
--- NOTE | ~2024-03-02 | CT_ITS ---
EXAMINATION: CT ABDOMEN AND PELVIS WITHOUT CONTRAST CLINICAL INFORMATION: Obstructing renal stone. COMPARISON: Renal ultrasound dated 02/28/2023. TECHNIQUE: Multidetector volumetric imaging was performed from the superior aspect of the liver through the pubic symphysis. Sagittal and coronal reformatted images were obtained on the technologist's workstation. This CT examination was performed using dose optimization techniques as appropriate, variously including the following: *Automated exposure control *Adjustment of mA and/or kV according to patient size (this includes techniques or standardized protocols for targeted exams where dose is matched to indication/reason for exam; i.e. extremities or head) *Use of iterative reconstruction technique DLP: 1030 mGy-cm FINDINGS: LUNG BASES: The visualized lung bases are unremarkable. LIVER, GALLBLADDER, AND BILIARY TREE: The liver is normal in size, shape, and attenuation. No focal hepatic lesion or biliary ductal dilatation is present. The gallbladder is unremarkable with no evidence of radiopaque gallstones, gallbladder wall thickening, or obvious pericholecystic inflammatory changes. PANCREAS: Unremarkable. SPLEEN: Unremarkable. ADRENAL GLANDS: Unremarkable. KIDNEYS AND URETERS: Right side: The right kidney is normal in size, shape, and attenuation. No hydronephrosis, hydroureter, or calculi seen. No perinephric stranding. Left side: The left kidney is normal in size, shape, and attenuation. No hydronephrosis or hydroureter. There is a punctate calculus within the interpolar region. There is a 3 mm curvilinear calculus within the superior pole. There is a 4 mm calculus within the lower pole. All of the visualized calculi are too small to get accurate Hounsfield unit calculations on. There is no left ureteral calculus. No perinephric stranding. BLADDER: The partially distended urinary bladder is unremarkable. There are no urinary bladder calculi. GASTROINTESTINAL TRACT: The small and large bowel are normal in caliber.. There is no colonic wall thickening or pericolonic inflammatory stranding. There is no free fluid within the abdomen or pelvis. No pneumoperitoneum. The appendix is unremarkable. ABDOMINAL WALL: No significant hernia is appreciated. LYMPH NODES: No lymphadenopathy. VASCULAR: No abdominal aortic aneurysm. A minimal calcific atherosclerotic disease. PELVIC VISCERA: The prostate gland measures 4.7 x 4.4 cm. It contains internal calcifications. OSSEOUS STRUCTURES: There is degenerative disc disease at L5-S1. CT/CT abdomen pelvis wo IV con IMPRESSION: There are several left sided nonobstructive renal calculi ranging in size from punctate to 4 mm. There is no left ureteral calculus. No obstructing calculus. No hydronephrosis bilaterally. Fleischner guidelines were followed.
[2024-03-02 17:33] VITALS: BP 152/99; PULSE 94; RESP 18; TEMP 37.1; O2SAT 95; BMI 38.4
--- NOTE | 2024-03-02 17:34 | ED.ABDPAIN ---
HPI - Abdominal Pain General Chief Complaint: Urogenital-Male Stated Complaint: painful urination Time Seen by Provider: 03/02/24 18:24 Source: patient, RN notes reviewed, old records reviewed and spanish interpreter/translator (Sammarinese) Mode of arrival: ambulatory Limitations: language barrier (Sammarinese) History of Present Illness ED Provider: MINDA BLACKWOOD PA-C HPI narrative: 63-year-old male with past medical history significant for hypertension, prediabetes, renal stones presents to the ED today for evaluation of right flank pain and dysuria x3 days. Reports right flank pain will occasionally radiate to right lower abdomen/right groin. Reports bladder spasming. Admits to episode yesterday where he felt like he was passing something in his urine. Reports sharp pain that eventually resolved. He does state that this feels similar to previous kidney stones. Denies trauma/ injury. He has not been taking anything at home for the pain. Denies fever, chills, nausea or vomiting, diarrhea, constipation, hematuria. Related Data Home Medications ?Medication ?Instructions ?Recorded ?Confirmed omeprazole 20 mg capsule,delayed 20 mg PO BID 01/20/23 06/30/23 release acetaminophen 650 mg 650 mg PO TID 06/30/23 06/30/23 tablet,extended release amlodipine 10 mg tablet 10 mg PO DAILY 06/30/23 06/30/23 Previous Rx's ?Medication ?Instructions ?Recorded alfuzosin 10 mg tablet,extended 10 mg PO DAILY #90 tabs 09/02/23 release 24 hr naproxen 500 mg tablet 500 mg PO Q8-12H PRN pain (scale 03/02/24 score 4-6) #20 tabs prednisone 20 mg tablet 40 mg (2 x 20 mg) PO DAILY 4 days 03/02/24 #8 tabs tamsulosin 0.4 mg capsule (Flomax) 0.4 mg PO BEDTIME 7 days #7 caps 03/02/24 Allergies Allergy/AdvReac Type Severity Reaction Status Date / Time No Known Allergies Allergy Verified 03/02/24 17:35 [No Known Allergies*] Review of Systems Review of Systems Constitutional: No fever, chills, fatigue, night sweats, weight changes ENT/Mouth: No ear pain, hearing loss, nasal congestion, sinus pain, rhinorrhea, sore throat Eyes: No eye pain, swelling, redness, vision changes, discharge Cardio: No chest pain, palpitations, [place], orthopnea, peripheral edema Pulm: No SOB, cough, sputum, wheezing, dyspnea, hemoptysis GI: No nausea, vomiting, hematemesis, abdominal pain, diarrhea, constipation, hematochezia, melena : No irregular bleeding, frequency, urgency, hesitancy, hematuria,urinary flow changes, urinary incontinence or retention, +right flank pain, +dysuria MSK: No back pain, neck pain, joint pain, myalgias Skin: No lesions, rashes Neuro: No weakness, numbness, paresthesias, LOC, dizziness, headache Psych: No anxiety/panic, depression, SI/HI, AH/VH All other systems reviewed and are negative. [facility] Past Medical History Attestation statement: The following information was validated with the patient. Source: old records reviewed and nursing notes reviewed Medical History Internal derangement of right knee Kidney stones Back pain Pre-diabetes HTN (hypertension) Social History Social History Alcohol intake: current Alcohol intake frequency: holidays/special occasions only Alcohol type: beer Advance Directives: No Advance Directives Information Provided: No Current occupational status: employed Current occupation: [employer] Physical Exam ED Vital Signs: Vital Signs - 24 hr 03/02/24 17:33 03/02/24 19:23 03/02/24 22:01 Temperature 98.7 F 98.1 F 98.1 F Pulse Rate 94 78 71 Respiratory Rate 18 18 18 Blood Pressure 152/99 H 131/81 120/75 Pulse Oximetry 95 95 97 Oxygen Delivery Method Room Air Room Air Room Air 03/02/24 22:27 Temperature 98.1 F Pulse Rate 71 Respiratory Rate 18 Blood Pressure 120/75 Pulse Oximetry 97 Oxygen Delivery Method Room Air BMI result Body Mass Index 38.4 Vital signs stable, afebrile Const General: cooperative, healthy appearing, comfortable and no acute distress Orientation/consciousness: patient oriented x3 Limitations: no limitations HENMT Head: Yes normal to inspection, Yes No palpable skull fracture present, Yes normocephalic and Yes atraumatic Eyes General: appearance normal, both eyes and all related structures Conjunctivae: conjunctivae normal Sclerae: sclerae normal Pupils: Equal, round and reactive pupils present Neck Neck: Yes normal visual inspection, Yes full ROM and Yes no lymphadenopathy Resp Effort & Inspection: normal respiratory effort and able to speak in complete sentences Auscultation: clear to auscultation bilaterally Cardio Rate: regular rate Rhythm: regular rhythm GI Other: Obese abdomen, soft, nondistended, nontender to palpation, no rebound tenderness or guarding. Normoactive bowel sounds x4. Inspection: Yes normal to inspection General: Yes bladder normal to palpation and Yes no CVA tenderness Back/Spine/Pelvis Back: no CVA tenderness Skin General skin exam: no rashes or lesions noted Neuro General: patient oriented x3 Cranial nerves: Yes Equal, round and reactive pupils present Extrem General: Yes normal to inspection Course Course Course Narrative: This is an RME performed by Yisel Vargas CNP: Additional HPI, ROS, PE not included below will be deferred to primary provider. Patient is a 63-year-old male who presents to the emergency department for evaluation of right-sided abdominal pain, dysuria, without hematuria. Admits to a history of kidney stones, underwent a surgical procedure many years ago. Reevaluation(s) Reevaluation #1: 2027-- CBC without leukocytosis or left shift. No anemia. H&H stable. Chemistry without acute electrolyte abnormality requiring intervention. Normal renal and kidney function. Urine without infection or blood > CT abdomen/pelvis pending. He is receiving IV fluids and morphine for pain control. 2158-- CT scan abdomen/pelvis showing several left-sided nonobstructive renal calculi ranging in size from punctate to 4 mm. There is no left ureteral calculus. No obstructing calculus. No evidence of hydronephrosis bilaterally. Patient likely passing stones. Discussed all workup results with patient. Will send him home with Flomax, prednisone and naproxen for treatment. Patient has remained stable throughout ED visit today. Discussed worrisome signs and symptoms and when to return to the ED. All questions answered at this time. Patient is agreeable with disposition and stable for discharge. Medical Decision Making Medical Decision Making MDM Narrative: 63-year-old male with past medical history significant for hypertension, prediabetes, renal stones presents to the ED today for evaluation of right flank pain and dysuria x3 days. Vital signs stable. Afebrile. He is nontoxic-appearing and in no acute distress. Lying comfortably on the exam bed. On exam, there is no CVAT bilaterally. Abdomen is obese. Nondistended, nontender to palpation, no rebound tenderness or guarding. Bladder not palpable. Normoactive bowel sounds x4. No rashes. Skin warm, dry, intact. Differential diagnosis includes anemia, electrolyte abnormality, dehydration, renal colic, nephrolithiasis, hydronephrosis, urinary tract infection. Unlikely obstructive uropathy, pyelonephritis, appendicitis, cholecystitis, pancreatitis, acute abdomen. Plan for labs, UA, CT scan, pain control, IVF and re-evaluation. Differential Diagnosis Differential Diagnoses: The differential diagnosis associated with the presentation includes As above Admission/Observation Not indicated Lab Data MDM Lab Attestation statement: I reviewed the patient's lab results. As above 03/02/24 18:19 03/02/24 18:19 Labs: Lab Results 03/02/24 03/02/24 Range/Units 18:19 19:51 WBC 9.2 (4.8-10.8) X10*3/uL RBC 5.65 (4.60-5.80) X10*6/uL Hgb 15.3 (14.0-18.0) g/dl Hct 46.2 (42.0-52.0) % MCV 81.8 (80.0-98.0) fL MCH 27.1 (27.0-33.0) pg MCHC 33.1 (31.0-36.0) g/dl RDW 13.2 (11.0-16.0) % Plt Count 225 (160-400) X10*3/uL MPV 10.4 (9.4-12.4) fL Immature Gran % (Auto) 0.2 (0.0-0.4) % Neut % (Auto) 61.7 (45-73) % Lymph % (Auto) 27.5 (20-40) % [place] % (Auto) 7.5 (2-11) % Eos % (Auto) 2.8 (0-4) % Baso % (Auto) 0.3 (0-2) % Lymph # (Auto) 2.5 (1.2-4.9) X10*3/uL [place] # (Auto) 0.7 (0.1-1.2) X10*3/uL Eos # (Auto) 0.3 (0.0-0.4) X10*3/uL Baso # (Auto) 0.0 (0.0-0.2) X10*3/uL Abs Immat Gran (auto) 0.02 (0.00-0.03) X10*3/uL Absolute Neuts (auto) 5.7 (2.0-8.3) x10*3/uL Absolute Nucleated RBC 0.000 (0.0-0.012) X10*3/uL Nucleated RBC % (auto) 0.0 (0.0-0.2) /100WBC Sodium 139 (135-145) mmol/L Potassium 4.1 (3.3-5.1) mmol/L Chloride 105 (96-108) mmol/L Carbon Dioxide 25 (22-29) mmol/L Anion Gap 13 (12-20) BUN 16 (9-16) mg/dL Creatinine 1.04 (0.5-1.4) mg/dL Estim Creat Clear Calc 99.1 Estimated GFR > 60 Random Glucose 156 H (60-115) mg/dL Calcium 9.2 (8.4-10.2) mg/dL Total Bilirubin 0.3 (0.0-1.0) mg/dL AST 25 (5-37) U/L ALT 35 (0-40) U/L Alkaline Phosphatase 73 (39-117) U/L Total Protein 7.1 (6.5-8.0) g/dL Albumin 3.8 (3.5-5.0) g/dL Lipase 22 (8-78) U/L Urine Color Yellow Urine Appearance Clear Urine pH 5.5 (5.0-9.0) Ur Specific [place] 1.025 (1.005-1.025) Urine Protein Negative (Neg-Trace) mg/dL Urine Glucose (UA) Negative (Negative) mg/dL Urine Ketones Trace (Negative) mg/dL Urine Blood Negative (Negative) Urine Nitrite Negative (Negative) Ur Leukocyte Esterase Negative (Negative) Independent Interpretation I performed an independent interpretation of an: CT Scan Interpretation: CT abdomen/pelvis showing multiple punctate renal calculi and left kidney, agree with radiologist's interpretation. Radiology Impression Discussion of test interpretation with radiology: I have reviewed the radiologist's reading. Radiologist Impression: EXAMINATION: CT ABDOMEN AND PELVIS WITHOUT CONTRAST CLINICAL INFORMATION: Obstructing renal stone. COMPARISON: Renal ultrasound dated 02/28/2023. TECHNIQUE: Multidetector volumetric imaging was performed from the superior aspect of the liver through the pubic symphysis. Sagittal and coronal reformatted images were obtained on the technologist's workstation. This CT examination was performed using dose optimization techniques as appropriate, variously including the following: *Automated exposure control *Adjustment of mA and/or kV according to patient size (this includes techniques or standardized protocols for targeted exams where dose is matched to indication/reason for exam; i.e. extremities or head) *Use of iterative reconstruction technique DLP: 1030 mGy-cm FINDINGS: LUNG BASES: The visualized lung bases are unremarkable. LIVER, GALLBLADDER, AND BILIARY TREE: The liver is normal in size, shape, and attenuation. No focal hepatic lesion or biliary ductal dilatation is present. The gallbladder is unremarkable with no evidence of radiopaque gallstones, gallbladder wall thickening, or obvious pericholecystic inflammatory changes. PANCREAS: Unremarkable. SPLEEN: Unremarkable. ADRENAL GLANDS: Unremarkable. KIDNEYS AND URETERS: Right side: The right kidney is normal in size, shape, and attenuation. No hydronephrosis, hydroureter, or calculi seen. No perinephric stranding. Left side: The left kidney is normal in size, shape, and attenuation. No hydronephrosis or hydroureter. There is a punctate calculus within the interpolar region. There is a 3 mm curvilinear calculus within the superior pole. There is a 4 mm calculus within the lower pole. All of the visualized calculi are too small to get accurate Hounsfield unit calculations on. There is no left ureteral calculus. No perinephric stranding. BLADDER: The partially distended urinary bladder is unremarkable. There are no urinary bladder calculi. GASTROINTESTINAL TRACT: The small and large bowel are normal in caliber.. There is no colonic wall thickening or pericolonic inflammatory stranding. There is no free fluid within the abdomen or pelvis. No pneumoperitoneum. The appendix is unremarkable. ABDOMINAL WALL: No significant hernia is appreciated. LYMPH NODES: No lymphadenopathy. VASCULAR: No abdominal aortic aneurysm. A minimal calcific atherosclerotic disease. PELVIC VISCERA: The prostate gland measures 4.7 x 4.4 cm. It contains internal calcifications. OSSEOUS STRUCTURES: There is degenerative disc disease at L5-S1. CT/CT abdomen pelvis wo IV con IMPRESSION: There are several left sided nonobstructive renal calculi ranging in size from punctate to 4 mm. There is no left ureteral calculus. No obstructing calculus. No hydronephrosis bilaterally. Fleischner guidelines were followed. External Record Review External record reviewed: Inpatient record, Office record, Outpatient record, Prior outpatient labs, Prior outpatient radiology, Primary care record and Outside ED record Prescription Management I considered prescription management with: Pain Medication and Other (prednisone, flomax) Chronic Conditions Patient?s care impacted by: Other (Renal stones) Social Determinants Patient?s care significantly limited by Social Determinants of Health including: Other Social Determinant of Health Medications Administered Discontinued Medications Generic Name Dose Route Start Last Admin Trade Name Freq PRN Reason Stop Dose Admin Sodium Chloride 1,000 mls @ 999 mls/hr 03/02/24 20:00 03/02/24 21:06 Ns IV 03/02/24 21:00 Infused .Q1H1M JUDITH Infusion Morphine Sulfate 4 mg 03/02/24 19:55 03/02/24 20:07 Morphine Sulfate 4 Mg/Ml Cartridge IVPUSH 03/02/24 19:56 4 mg ONCE ONE Administration Protocol Prednisone 40 mg 03/02/24 22:15 03/02/24 22:25 Prednisone 20 Mg Tablet PO 03/02/24 22:16 40 mg ONCE ONE Administration Critical Care Time Critical Care Time Critical Care Time: Yes Total Critical Care Time: 33 Attestation: IV morphine with frequent re-evaluation Discharge Plan Discharge Clinical Impression: Renal colic Patient Disposition: Home, Self-Care Instructions: Renal Colic (ED) Additional Instructions: Your labs today are reassuring. Yor urine is negative for infection and blood. As discussed, the CT scan of your abdomen/ pelvis shows: CT abdomen pelvis wo IV con IMPRESSION: There are several left sided nonobstructive renal calculi ranging in size from punctate to 4 mm. There is no left ureteral calculus. No obstructing calculus. No hydronephrosis bilaterally. Fleischner guidelines were followed. It is likely that you are passing stones. Flomax is a medication that has been sent to your pharmacy to help flush the stone out. Make sure that you take this before you go to bed as this may cause your blood pressure to drop. Use caution when going from seated to standing positions see your blood pressure can normalize. A short course of prednisone has been sent to your pharmacy. If you are diabetic, please monitor your sugars at home as this can increase blood sugar. Naproxen as an anti-inflammatory that has been sent to your pharmacy. Take this as needed for pain/discomfort. Please follow up with your urologist. Return with new or worsening symptoms. In the case of an emergency call 911. Prescriptions: New naproxen 500 mg tablet 500 mg PO Q8-12H PRN (Reason: pain (scale score 4-6)) Qty: 20 0RF tamsulosin [Flomax] 0.4 mg capsule 0.4 mg PO BEDTIME 7 Days Qty: 7 0RF prednisone 20 mg tablet 40 mg PO DAILY 4 Days Qty: 8 0RF No Action omeprazole 20 mg capsule,delayed release(DR/EC) 20 mg PO BID alfuzosin 10 mg tablet extended release 24 hr 10 mg PO DAILY Qty: 90 3RF Rx Instructions: administer after the same meal each day amlodipine 10 mg tablet 10 mg PO DAILY acetaminophen 650 mg tablet extended release 650 mg PO TID Interventions: ED Discharge Assessment Last Done: 03/02/24 22:27 Discharge Date/Time: 03/02/24 22:30 Print Language: Sammarinese
[2024-03-02 18:23] LABS: MANUAL DIFF FLAG NO
[2024-03-02 18:31] LABS: Basophils Percent Auto 0.3 % (0-2); Eosinophils Absolute Auto 0.3 X10*3/uL (0.0-0.4); Eosinophils Percent Auto 2.8 % (0-4); Hematocrit 46.2 % (42.0-52.0); Hemoglobin 15.3 g/dl (14.0-18.0); Imm Gran Abs Auto 0.02 X10*3/uL (0.00-0.03); Imm Gran Pct Auto 0.2 % (0.0-0.4); Lymphocytes Absolute Auto 2.5 X10*3/uL (1.2-4.9); Lymphocytes Percent Auto 27.5 % (20-40); Mean Corpuscular HGB Conc 33.1 g/dl (31.0-36.0); Mean Corpuscular Hemoglobin 27.1 pg (27.0-33.0); Mean Corpuscular Volume 81.8 fL (80.0-98.0); Mean Platelet Volume 10.4 fL (9.4-12.4); Monocytes Absolute Auto 0.7 X10*3/uL (0.1-1.2); Monocytes Percent Auto 7.5 % (2-11); Neutrophils Absolute Auto 5.7 x10*3/uL (2.0-8.3); Neutrophils Percent Auto 61.7 % (45-73); Platelet Count 225 X10*3/uL (160-400); Red Blood Count 5.65 X10*6/uL (4.60-5.80); Red Cell Distribution Width 13.2 % (11.0-16.0); White Blood Count 9.2 X10*3/uL (4.8-10.8)
[2024-03-02 18:38] LABS: Alanine Aminotransferase 35 U/L (0-40); Albumin Level 3.8 g/dL (3.5-5.0); Alkaline Phosphatase 73 U/L (39-117); Anion Gap 13 (12-20); Aspartate Amino Transferase 25 U/L (5-37); Bilirubin Total 0.3 mg/dL (0.0-1.0); Blood Urea Nitrogen 16 mg/dL (9-16); Calcium 9.2 mg/dL (8.4-10.2); Carbon Dioxide 25 mmol/L (22-29); Chloride 105 mmol/L (96-108); Creatinine Clr Calc Pharmacy 99.1; Estimated Glomerular Filt Rate > 60; Glucose Random 156 mg/dL (60-115); Potassium 4.1 mmol/L (3.3-5.1); Sodium 139 mmol/L (135-145); Total Protein 7.1 g/dL (6.5-8.0)
[2024-03-02 19:23] VITALS: BP 131/81; PULSE 78; RESP 18; TEMP 36.7; O2SAT 95
--- NOTE | 2024-03-02 19:49 | MHC.EDTECH ---
This tech took over care of patient at 1900,hourly rounds and vitals completed,patient ambulated to the bathroom with a steady gait,urine sample collected and sent to lab.
[2024-03-02 20:06] LABS: Appearance Urine Clear; Color Urine Yellow; Glucose Urine UA Negative (Negative); Leukocyte Esterase Urine Negative (Negative); Nitrite Urine Negative (Negative); PH 5.5 (5.0-9.0); Specific Gravity - Urine 1.025 (1.005-1.025); Urine Blood Negative (Negative); Urine Ketones Trace mg/dL (Negative); Urine Protein Negative (Neg-Trace)
[2024-03-02] MEDS: Morphine Sulfate 4 MG/ML CARTRIDGE IVPUSH (20:07)
[2024-03-02] MEDS: 0.9 % Sodium Chloride 1,000 ML 999 ML IV (20:07)
[2024-03-02 20:48] LABS: Lipase 22 U/L (8-78)
[2024-03-02 22:01] VITALS: BP 120/75; PULSE 71; RESP 18; TEMP 36.7; O2SAT 97
[2024-03-02] MEDS: predniSONE 20 MG TABLET 40 MG PO (22:25)
[2024-03-02 22:27] VITALS: BP 120/75; PULSE 71; RESP 18; TEMP 36.7; O2SAT 97
== END 2024-03-02 22:30 | disposition home or self-care (01) ==
PROVIDERS: Nurse Practitioner Family; Physician Assistant Medical; Emergency Provider Internal Medicine; PCP Nurse Practitioner Primary Care
DX: N23 Unspecified renal colic (principal); R30.0 Dysuria; R11.0 Nausea; Z79.899 Other long term (current) drug therapy
CPT/HCPCS: 36415; 74176; 80053; 81003; 83690; 85025; 96361; 96374; 99283; 99284; J2270

== ENCOUNTER 2024-03-05 09:55 | Outpatient (AMB) | payer OTHER, SELFPAY ==
--- NOTE | 2024-03-05 09:59 | A.OFFVIS_ITS ---
Intake Visit Reasons: 6m/PSA Intake Note: Patient presents today for a follow-up PSA Results, kidney stones: Meds: Alfuzosin prescribed, patient no longer taking Allergies to Antibiotic: None Blood Thinner: None Sales Recruiting Coordinator Required: Yes Sales Recruiting Coordinator Language: Manager Care Management Name: William Flood Information Interpreted: non-clinical & clinical Accompanied by: Self / Same As Patient Allergies No Known Allergies [No Known Allergies*] Allergy (Verified 03/02/24 17:35) HPI Comments Details: 03/05/24--Sameer is a [id number] who presents to the office for follow-up. 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 The patient was prescribed alfuzosin for obstructive lower urinary tract symptoms. He states that he did take the alfuzosin until the prescription ended and did not refill it he feels that his voiding better now. He was in the emergency room on 03/02/2024 due to right flank pain. CT imaging, 03/02/2024--approximately 3 small left kidney stones right kidney negative for stones. Discussed with the patient had the passed a small right kidney stone. He states the pain has resolved. PSA blood work pending, he went to the lab however the lab khalida other blood work excluding the PSA. Will continue to monitor follow-up in 1 year renal ultrasound prior. Review of chart: 09/02/23--FU for BPH and obstructive Lower urinary tract symptoms (LUTS). He is failed tamsulosin, due to SE's. Rapaflo was too expensive. He was initially evaluated on 01/20/23 He states he was prescribed tamsulosin by another physician but discontinued after taking one dose because it caused dizziness. The patient also has a history of kidney stones. Prostate exam--done on 01/20/23--Smooth, mildly and enlarged. No suspicious nodules observed. AUA symptom score: 35. Results: Renal US results?02/28/23-- Bilateral kidney stone, estimated prostate volume is 31.6 mL and prostate calcifications are present. PSA results?03/04/23?1.10. [facility] Medical History Internal derangement of right knee Kidney stones Back pain Pre-diabetes HTN (hypertension) Social History Alcohol intake: current Alcohol intake frequency: holidays/special occasions only Alcohol type: beer Current occupational status: employed Current occupation: [employer] Review of Systems Const All systems reviewed & are unremarkable except as noted in HPI and below Reports no additional complaints Eyes Reports no additional complaints ENT Reports no additional complaints Card Reports no additional complaints Resp Reports no additional complaints GI Reports no additional complaints Reports as per HPI Musc Reports no additional complaints Skin/Breast Reports system reviewed and no additional complaints, except as documented Neuro Reports no additional complaints Psych Reports no additional complaints Endo Reports no additional complaints Lester/Lymph Reports no additional complaints Aller/Immun Reports no additional complaints Results AMB Urinalysis, Automated UA Leukoctes 0 Nikos/uL Last Edit by KUNAL Sierra on 03/05/24 10:23 UA Nitrite Negative Last Edit by KUNAL Sierra on 03/05/24 10:23 UA Urobilinogen 0.2 mg/dL Last Edit by William Flood James on 03/05/24 10:2 3 UA Protein 15 mg/dL Last Edit by KUNAL Sierra on 03/05/24 10:23 UA pH 6.0 Last Edit by William Flood James on 03/05/24 10:23 UA Blood 15 Chapo/uL Last Edit by William Flood James on 03/05/24 10:23 UA Specific [place] 1.020 Last Edit by KUNAL Sierra on 03/05/24 10: 23 UA Ketone Positive Last Edit by KUNAL Sierra on 03/05/24 10:23 5 gm/dL William Flood 03/05/24 10:23 UA Bilirubin 0 mg/dL Last Edit by KUNAL Sierra on 03/05/24 10:23 UA Glucose 0 mg/dL Last Edit by KUNAL Sierra on 03/05/24 10:23 Results Reviewed Results Reviewed: Laboratory Last Values Urine pH (Auto) 6.0 03/05/24 10:22 Specific [place] (Auto) 1.020 03/05/24 10:22 Urine Protein (Auto) 15 mg/dL 03/05/24 10:22 Glucose (UA)(Auto) 0 mg/dL 03/05/24 10:22 Urine Ketones (Auto) Positive 03/05/24 10:22 Urine Blood (Auto) 15 Chapo/uL 03/05/24 10:22 Urine Nitrite (Auto) Negative 03/05/24 10:22 Urine Bilirubin (Auto) 0 mg/dL 03/05/24 10:22 Urine Urobilinogen (Auto) 0.2 mg/dL 03/05/24 10:22 Leukocyte Esterase (Auto) 0 Nikos/uL 03/05/24 10:22 Date of Service: 03/02/24 EXAMINATION: CT ABDOMEN AND PELVIS WITHOUT CONTRAST CLINICAL INFORMATION: Obstructing renal stone. COMPARISON: Renal ultrasound dated 02/28/2023. FINDINGS: LUNG BASES: The visualized lung bases are unremarkable. LIVER, GALLBLADDER, AND BILIARY TREE: The liver is normal in size, shape, and attenuation. No focal hepatic lesion or biliary ductal dilatation is present. The gallbladder is unremarkable with no evidence of radiopaque gallstones, gallbladder wall thickening, or obvious pericholecystic inflammatory changes. PANCREAS: Unremarkable. SPLEEN: Unremarkable. ADRENAL GLANDS: Unremarkable. KIDNEYS AND URETERS: Right side: The right kidney is normal in size, shape, and attenuation. No hydronephrosis, hydroureter, or calculi seen. No perinephric stranding. Left side: The left kidney is normal in size, shape, and attenuation. No hydronephrosis or hydroureter. There is a punctate calculus within the interpolar region. There is a 3 mm curvilinear calculus within the superior pole. There is a 4 mm calculus within the lower pole. All of the visualized calculi are too small to get accurate Hounsfield unit calculations on. There is no left ureteral calculus. No perinephric stranding. BLADDER: The partially distended urinary bladder is unremarkable. There are no urinary bladder calculi. GASTROINTESTINAL TRACT: The small and large bowel are normal in caliber.. There is no colonic wall thickening or pericolonic inflammatory stranding. There is no free fluid within the abdomen or pelvis. No pneumoperitoneum. The appendix is unremarkable. ABDOMINAL WALL: No significant hernia is appreciated. LYMPH NODES: No lymphadenopathy. VASCULAR: No abdominal aortic aneurysm. A minimal calcific atherosclerotic disease. PELVIC VISCERA: The prostate gland measures 4.7 x 4.4 cm. It contains internal calcifications. OSSEOUS STRUCTURES: There is degenerative disc disease at L5-S1. IMPRESSION: There are several left sided nonobstructive renal calculi ranging in size from punctate to 4 mm. There is no left ureteral calculus. No obstructing calculus. No hydronephrosis bilaterally. Date of Service: 02/28/23 EXAMINATION: US RETROPERITONEAL COMPLETE (RENAL) CLINICAL INFORMATION: Benign prostatic hyperplasia without lower urinary tract symptoms. COMPARISON: X-ray abdomen KUB 07/26/2018. Renal ultrasound 02/22/2018. Ultrasound abdomen 11/09/2017. CT abdomen and pelvis 10/23/2017. TECHNIQUE: Real-time imaging of the kidneys and bladder. FINDINGS: RIGHT KIDNEY: 10.2 x 4.4 x 5.1 cm (SAG x the mid renal 4 mm echogenic focus seen consistent with a nonobstructing calculus. No focal parenchymal lesions or hydronephrosis. LEFT KIDNEY: 12.5 x 5.4 x 5.5 cm (SAG x AP x TRV). The kidney is normal in size, contour, and echogenicity. Renal cortical thickness is normal. There are 2 echogenic foci seen in the mid and lower pole measuring 4 and 6 mm in size consistent with nonobstructing calculi. No focal parenchymal lesions or hydronephrosis. BLADDER: Well distended and normal. Bilateral ureteral jets are demonstrated. Prevoid bladder volume is 269 mL. Postvoid bladder volume is 21.5 mL. Prostate volume 31.6 mL. Prostatic calcifications are present. IMPRESSION: 1. Bilateral nonobstructing renal calculi. 2. Mild BPH. Assessment & Plan Assessment & Plan (1) Kidney stones: Code(s): N20.0 - Calculus of kidney Category: Medical (2) BPH loc w urin obs/LUTS: Code(s): N40.1 - Benign prostatic hyperplasia with lower urinary tract symptoms Category: Medical (3) Kidney stone on left side: Code(s): N20.0 - Calculus of kidney Category: Medical Plan PSA blood work pending, he went to the lab however the lab khalida other blood work excluding the PSA. Will continue to monitor follow-up in 1 year renal ultrasound prior. Orders: Orders US renal BI 10 Months N20.0 - Calculus of kidney PSA,Total (Free>4and<10) 02/27/24 N40.1 - Benign prostatic hyperplasia with lower urinary tract symptoms, Z12.5 - Encounter for screening for malignant neoplasm of prostate AMB Urinalysis Automated Today Z13.9 - Encounter for screening, unspecified Patient Instructions: The patient had an opportunity to ask questions regarding treatment plan. The patient expressed understanding and agreement with the above treatment plan. The patient is aware they should contact our office by phone for worsening of their current condition or the appearance of new symptoms. Compliance is encouraged with any medications and followup testing that is ordered. It is a privilege to be allowed the opportunity to participate in the urologic care of your patient. If you have any questions or concerns regarding treatment for the above conditions please do not hesitate to contact me. The office telephone contact is [phone]. This note is constructed in part using voice recognition software. While every effort has been made to ensure accuracy last cleaner errors may have been included. Yours sincerely, Abigail Christian MD Coding Level of Care Code Est Pt Level 4 (82807) Diagnoses Kidney stones N20.0 BPH loc w urin obs/LUTS N40.1 Kidney stone on left side N20.0
== END 2024-03-05 11:22 | disposition home or self-care (01) ==
PROVIDERS: PCP Registered Nurse; Visit Provider Urology
DX: N20.0 Calculus of kidney (principal); N40.1 Benign prostatic hyperplasia with lower urinary tract symptoms; Z13.9 Encounter for screening, unspecified
CPT/HCPCS: 99214

== ENCOUNTER → 2024-03-05 09:55 | Outpatient (BNVA) | payer OTHER, SELFPAY | PROVIDERS: PCP Registered Nurse; Visit Provider Urology | DX: N20.0 Calculus of kidney (principal); N40.1 Benign prostatic hyperplasia with lower urinary tract symptoms | CPT/HCPCS: 81003; 99212 ==

== ENCOUNTER 2024-03-06 08:54 | Outpatient (AMB) | payer OTHER, SELFPAY ==
[2024-03-06 09:02] VITALS: BP 120/80; PULSE 96; BMI 38.1
--- NOTE | 2024-03-06 09:02 | MHC.OFFVIS ---
Vital Signs 03/06/24 09:02 Height 5 ft 11 in Weight 273 lb 5.971 oz BMI 38.1 BP 120/80 Blood Pressure Location Lt brachial Position Sitting Pulse 96 Intake Visit Reasons: 6 mth f/up per AC Intake Note: 6 month follow-up per Sonya feeling good Service Establishment Attendant Required: Yes Service Establishment Attendant Name: Shonna crook Allergies No Known Allergies [No Known Allergies*] Allergy (Verified 03/02/24 17:35) Medication List - Last Reconciled 03/06/24 by Trino Black MD acetaminophen ER 650 mg PO TID metoprolol succinate ER 50 mg PO DAILY omeprazole 20 mg PO BID prednisone 20 mg PO DAILY tamsulosin (Flomax) 0.4 mg PO BEDTIME 7 days HPI Comments Details: Sameer comes for follow-up. History was obtained with help of for recreation adviser on the telephone. Patient continues to have intermittent episodes of palpitation especially when he is upset or gets angry. He does not have palpitation all the time. He feels flutter or strong heartbeats at that time. Denies any prolonged irregular heartbeat. Denies any lightheadedness, syncope. No exertional symptoms. Denies any heart failure symptoms. Blood pressure is generally well controlled. [facility] Medical History Internal derangement of right knee Kidney stones Back pain Pre-diabetes HTN (hypertension) Social History Alcohol intake: current Alcohol intake frequency: holidays/special occasions only Alcohol type: beer Current occupational status: employed Current occupation: [employer] Review of Systems Const Denies chills, Denies fatigue, Denies fever(s), Denies frequent falls, Denies weakness, Denies weight gain and Denies weight loss ENT Denies dizziness Card Denies chest pain, Denies leg edema, Denies lightheadedness, Denies palpitations, Denies dyspnea, Denies dyspnea on exertion, Denies orthopnea and Denies other (loss of consciousness) Resp Denies cough, Denies dyspnea and Denies dyspnea on exertion GI Denies hematochezia and Denies change in stool character Musc Denies abnormal gait, Denies muscle weakness, Denies numbness, Denies radiating pain into limb and Denies tingling Neuro Denies abnormal gait, Denies dizziness, Denies frequent falls, Denies numbness, Denies tingling and Denies weakness Endo Denies fatigue and Denies palpitations Physical Exam Vital Signs: Last Vital Signs Pulse 96 03/06/24 09:02 BP 120/80 03/06/24 09:02 BMI result Body Mass Index 38.1 Const General: cooperative, healthy appearing, no acute distress, alert and awake Orientation/consciousness: patient oriented x3 Neck Neck: Yes normal visual inspection and Yes no JVD Resp Effort & Inspection: normal respiratory effort, able to speak in complete sentences and not labored Auscultation: clear to auscultation bilaterally, no crackles, no rales, no rhonchi and no wheezes Cardio Rate: regular rate Rhythm: regular rhythm Heart sounds: S1 normal heart sound present and S2 normal heart sound present Peripheral pulses: Peripheral pulses 2+ throughout GI Inspection: Yes normal to inspection Skin General skin exam: no rashes or lesions noted Neuro General: patient oriented x3 Extrem General: Yes normal to inspection and No edema Assessment & Plan Assessment & Plan (1) PAC (premature atrial contraction): Code(s): I49.1 - Atrial premature depolarization Plan: Occasional isolated PAC without any prolonged arrhythmias. Symptoms are suggestive of isolated PACs. They induced currently with stressful situations. Discussed about pathophysiology of PACs. Discussed about avoidance of stimulants and stress mitigation strategies. Continue metoprolol therapy. Benign nature of isolated PACs especially in the setting of normal structure of the heart was discussed. No change in therapy at this point time. (2) HTN (hypertension): Code(s): I10 - Essential (primary) hypertension Category: Medical Qualifiers: Hypertension type: primary hypertension Qualified Code(s): I10 - Essential (primary) hypertension Plan: Hypertension which is currently well optimized advised to monitor blood pressure at home maintain a log. Goal blood pressure less than 130/84. Continue participate in aggressive weight loss program to manage his risk factors especially cardiometabolic risk factors. He understands them. Target goal LDL less than 100 mg/dL. Will follow up in the clinic if need be. Thank you for allowing me to partake in his care Medications: Changed From prednisone 40 mg (2 x 20 mg) PO DAILY 4 days 8 tabs 0RF To prednisone 20 mg PO DAILY Coding Level of Care Code Est Pt Level 4 (18473) Diagnoses PAC (premature atrial contraction) I49.1 Primary hypertension I10 Hypertension type: primary hypertension
== END 2024-03-06 09:46 | disposition home or self-care (01) ==
PROVIDERS: PCP Registered Nurse; Visit Provider Internal Medicine Cardiovascular Disease
DX: I49.1 Atrial premature depolarization (principal); I10 Essential (primary) hypertension
CPT/HCPCS: 99214

== ENCOUNTER → 2024-03-06 08:54 | Outpatient (BNVA) | payer OTHER, SELFPAY | PROVIDERS: PCP Registered Nurse; Visit Provider Internal Medicine Cardiovascular Disease | DX: I49.1 Atrial premature depolarization (principal); I10 Essential (primary) hypertension; Z79.899 Other long term (current) drug therapy | CPT/HCPCS: 99212 ==

== ENCOUNTER 2024-04-03 15:28 | Emergency (ER) | payer OTHER, SELFPAY ==
--- NOTE | ~2024-04-03 | CT_ITS ---
EXAMINATION: CT ABDOMEN AND PELVIS WITHOUT CONTRAST CLINICAL INFORMATION: Left flank pain COMPARISON: Portions of a previous CT 03/02/24 TECHNIQUE: Multidetector volumetric imaging was performed from the superior aspect of the liver through the pubic symphysis. Sagittal and coronal reformatted images were obtained on the technologist's workstation. This CT examination was performed using dose optimization techniques as appropriate, variously including the following: *Automated exposure control *Adjustment of mA and/or kV according to patient size (this includes techniques or standardized protocols for targeted exams where dose is matched to indication/reason for exam; i.e. extremities or head) *Use of iterative reconstruction technique DLP: 937 mGy-cm FINDINGS: LUNG BASES: No suspicious abnormality in the visualized lower chest. There may be a tiny sliding-type hiatal hernia. LIVER, GALLBLADDER, AND BILIARY TREE: Geographic areas of altered attenuation suggests there is a fatty change. No suspicious focal lesion. There is no opaque gallstone. No significant biliary dilation. PANCREAS: No definite pancreatic mass or localized peripancreatic stranding. SPLEEN: No suspicious abnormality ADRENAL GLANDS: No suspicious abnormality KIDNEYS AND URETERS: There is a 0.5 cm mildly obstructing left ureterovesical junction calculus. There are at least 2 nonobstructing left renal calculi. The largest in the lower pole measures 0.7 cm and is 16.7 cm from the skin there is mild dilation of the intrarenal collecting system and ureter on the left. There is no opaque calculus or dilation of the collecting system on the right. BLADDER: The bladder is not well-distended. No large mass. GASTROINTESTINAL TRACT: There is no localized colonic wall thickening or pericolonic fat stranding. The appendix is within normal limits. There is no significant small bowel dilation. There is a small sliding-type hiatal hernia. ABDOMINAL WALL: No significant hernia is appreciated. LYMPH NODES: There are no measurably enlarged abdominal or pelvic lymph nodes. There is no free intraperitoneal fluid. VASCULAR: There is no abdominal aortic aneurysm. PELVIC VISCERA: There are coarse calcifications within the prostate OSSEOUS STRUCTURES: No suspicious focal lesion. Degenerative change at L5/S1. Probable hemangioma T10 does not require any imaging follow-up and is unchanged CT/CT abdomen pelvis wo IV con IMPRESSION: 0.5 cm mildly obstructing left ureterovesical junction calculus Fleischner guidelines were followed.
[2024-04-03 15:50] VITALS: BP 136/82; PULSE 68; RESP 18; TEMP 36.6; O2SAT 96; BMI 37.7
--- NOTE | 2024-04-03 15:51 | ED_ITS ---
HPI - Abdominal Pain General Chief Complaint: Abdominal Pain Stated Complaint: L sided abd pain Related Data Home Medications ?Medication ?Instructions ?Recorded ?Confirmed omeprazole 20 mg capsule,delayed 20 mg PO BID 01/20/23 03/06/24 release acetaminophen 650 mg 650 mg PO TID 06/30/23 03/06/24 tablet,extended release metoprolol succinate 50 mg 50 mg PO DAILY 03/06/24 03/06/24 tablet,extended release 24 hr prednisone 20 mg tablet 20 mg PO DAILY 03/06/24 03/06/24 Previous Rx's ?Medication ?Instructions ?Recorded tamsulosin 0.4 mg capsule (Flomax) 0.4 mg PO BEDTIME 7 days #7 caps 03/02/24 Allergies Allergy/AdvReac Type Severity Reaction Status Date / Time No Known Allergies Allergy Verified 04/03/24 15:53 [No Known Allergies*] [facility] Past Medical History Medical History Internal derangement of right knee Kidney stones Back pain Pre-diabetes HTN (hypertension) Social History Social History Alcohol intake: current Alcohol intake frequency: holidays/special occasions only Alcohol type: beer Advance Directives: No Advance Directives Information Provided: No Do you have a plan to hurt others: No Plan Current occupational status: employed Current occupation: [employer] Physical Exam ED Vital Signs: BMI result Body Mass Index 37.7 Course Course Course Narrative: This is a Rapid Medical Examination (RME) performed by Brian Moran PA-C in triage. Full HPI, ROS, assessment and treatment plan per primary provider in the Main ED. 64 yo [place] speaking male with history of kidney stones presents to the ER for evaluation of left flank pain that started 3 days ago but got acutely worse 1 hour ago. No urinary symptoms, N/V/D. Pain currently 9/10. Feels like prior episodes of kidney stones. In triage patient appears well, awake and alert. no acute distress. speaking in complete sentences. His abd is soft with mild diffuse tenderness, no rebound or guarding. No CVA tenderness. no peripheral edema noted. Plan: labs, UA, CT scan abd/pelvis Reevaluation(s) Reevaluation #1: CT scan reviewed - he had 0.5cm stone at [facility]. patient eloped from the ER prior to completing treatment or discussing results. Medical Decision Making Lab Data 04/03/24 15:57 04/03/24 15:57 Labs: Lab Results 04/03/24 Range/Units 15:57 WBC 9.7 (4.8-10.8) X10*3/uL RBC 6.01 H (4.60-5.80) X10*6/uL Hgb 16.3 (14.0-18.0) g/dl Hct 49.8 (42.0-52.0) % MCV 82.9 (80.0-98.0) fL MCH 27.1 (27.0-33.0) pg MCHC 32.7 (31.0-36.0) g/dl RDW 13.2 (11.0-16.0) % Plt Count 241 (160-400) X10*3/uL MPV 10.4 (9.4-12.4) fL Immature Gran % (Auto) 0.2 (0.0-0.4) % Neut % (Auto) 63.3 (45-73) % Lymph % (Auto) 24.7 (20-40) % [place] % (Auto) 8.4 (2-11) % Eos % (Auto) 2.9 (0-4) % Baso % (Auto) 0.5 (0-2) % Lymph # (Auto) 2.4 (1.2-4.9) X10*3/uL [place] # (Auto) 0.8 (0.1-1.2) X10*3/uL Eos # (Auto) 0.3 (0.0-0.4) X10*3/uL Baso # (Auto) 0.1 (0.0-0.2) X10*3/uL Abs Immat Gran (auto) 0.02 (0.00-0.03) X10*3/uL Absolute Neuts (auto) 6.2 (2.0-8.3) x10*3/uL Absolute Nucleated RBC 0.000 (0.0-0.012) X10*3/uL Nucleated RBC % (auto) 0.0 (0.0-0.2) /100WBC Sodium 140 (135-145) mmol/L Potassium 4.2 (3.3-5.1) mmol/L Chloride 109 H (96-108) mmol/L Carbon Dioxide 22 (22-29) mmol/L Anion Gap 13 (12-20) BUN 15 (9-16) mg/dL Creatinine 0.99 (0.5-1.4) mg/dL Estim Creat Clear Calc 101.7 Estimated GFR > 60 Random Glucose 106 (60-115) mg/dL Calcium 9.9 D (8.4-10.2) mg/dL Magnesium 2.1 (1.6-2.6) mg/dL Total Bilirubin 0.5 (0.0-1.0) mg/dL Direct Bilirubin 0.2 (0.0-0.5) mg/dL AST 25 (5-37) U/L ALT 39 (0-40) U/L Alkaline Phosphatase 81 (39-117) U/L Total Protein 7.3 (6.5-8.0) g/dL Albumin 4.1 (3.5-5.0) g/dL Discharge Plan Discharge Clinical Impression: Abdominal pain Patient Disposition: Left W/O Completing Treatment Prescriptions: No Action tamsulosin [Flomax] 0.4 mg capsule 0.4 mg PO BEDTIME 7 Days Qty: 7 0RF omeprazole 20 mg capsule,delayed release(DR/EC) 20 mg PO BID metoprolol succinate 50 mg tablet extended release 24 hr 50 mg PO DAILY prednisone 20 mg tablet 20 mg PO DAILY acetaminophen 650 mg tablet extended release 650 mg PO TID Discharge Date/Time: 04/03/24 19:32
[2024-04-03 16:02] LABS: Basophils Absolute Auto 0.1 X10*3/uL (0.0-0.2); Basophils Percent Auto 0.5 % (0-2); Eosinophils Absolute Auto 0.3 X10*3/uL (0.0-0.4); Eosinophils Percent Auto 2.9 % (0-4); Hematocrit 49.8 % (42.0-52.0); Hemoglobin 16.3 g/dl (14.0-18.0); Imm Gran Abs Auto 0.02 X10*3/uL (0.00-0.03); Imm Gran Pct Auto 0.2 % (0.0-0.4); Lymphocytes Absolute Auto 2.4 X10*3/uL (1.2-4.9); Lymphocytes Percent Auto 24.7 % (20-40); MANUAL DIFF FLAG NO; Mean Corpuscular HGB Conc 32.7 g/dl (31.0-36.0); Mean Corpuscular Hemoglobin 27.1 pg (27.0-33.0); Mean Corpuscular Volume 82.9 fL (80.0-98.0); Mean Platelet Volume 10.4 fL (9.4-12.4); Monocytes Absolute Auto 0.8 X10*3/uL (0.1-1.2); Monocytes Percent Auto 8.4 % (2-11); Neutrophils Absolute Auto 6.2 x10*3/uL (2.0-8.3); Neutrophils Percent Auto 63.3 % (45-73); Platelet Count 241 X10*3/uL (160-400); Red Blood Count 6.01 X10*6/uL (4.60-5.80); Red Cell Distribution Width 13.2 % (11.0-16.0); White Blood Count 9.7 X10*3/uL (4.8-10.8)
[2024-04-03 16:18] LABS: Alanine Aminotransferase 39 U/L (0-40); Albumin Level 4.1 g/dL (3.5-5.0); Alkaline Phosphatase 81 U/L (39-117); Anion Gap 13 (12-20); Aspartate Amino Transferase 25 U/L (5-37); Bilirubin Direct 0.2 mg/dL (0.0-0.5); Bilirubin Total 0.5 mg/dL (0.0-1.0); Blood Urea Nitrogen 15 mg/dL (9-16); Calcium 9.9 mg/dL (8.4-10.2); Carbon Dioxide 22 mmol/L (22-29); Chloride 109 mmol/L (96-108); Creatinine Clr Calc Pharmacy 101.7; Estimated Glomerular Filt Rate > 60; Glucose Random 106 mg/dL (60-115); Magnesium 2.1 mg/dL (1.6-2.6); Potassium 4.2 mmol/L (3.3-5.1); Sodium 140 mmol/L (135-145); Total Protein 7.3 g/dL (6.5-8.0)
== END 2024-04-03 19:32 | disposition left against medical advice (07) ==
PROVIDERS: Physician Assistant; Emergency Provider Emergency Medicine; PCP Registered Nurse
DX: R10.32 Left lower quadrant pain (principal); I10 Essential (primary) hypertension; Z79.899 Other long term (current) drug therapy
CPT/HCPCS: 36415; 74176; 80048; 80076; 83735; 85025; 99281; 99284

== ENCOUNTER 2024-04-22 19:04 | Emergency (ER) | payer OTHER, SELFPAY ==
[2024-04-22 19:30] VITALS: BP 151/89; PULSE 108; RESP 20; TEMP 38; O2SAT 98; BMI 35.8
--- NOTE | 2024-04-22 19:45 | ED_ITS ---
HPI - General Adult General Chief complaint: General Medical Stated complaint: headache and body pain Time Seen by Provider: 04/22/24 19:44 Source: patient Mode of arrival: ambulatory Limitations: no limitations History of Present Illness ED Provider: Phil Kc HPI narrative: 64 yold with pmh of BPH, HTN, and pre-dabietic presents to the ED for Covid symptoms. patient states since yesterday having bodyaches, fever, and chills. patient states he tested himself at home today and he was positive covid. patient denies any chest pain or shorntess of breath. Related Data Home Medications ?Medication ?Instructions ?Recorded ?Confirmed omeprazole 20 mg capsule,delayed 20 mg PO BID 01/20/23 03/06/24 release acetaminophen 650 mg 650 mg PO TID 06/30/23 03/06/24 tablet,extended release metoprolol succinate 50 mg 50 mg PO DAILY 03/06/24 03/06/24 tablet,extended release 24 hr prednisone 20 mg tablet 20 mg PO DAILY 03/06/24 03/06/24 Previous Rx's ?Medication ?Instructions ?Recorded tamsulosin 0.4 mg capsule (Flomax) 0.4 mg PO BEDTIME 7 days #7 caps 03/02/24 Allergies Allergy/AdvReac Type Severity Reaction Status Date / Time No Known Allergies Allergy Verified 04/22/24 19:44 [No Known Allergies*] Review of Systems Review of Systems: fever, bodyaches, fatigue, and chills Yes all other systems are reviewed and are negative PMFSH Past Medical History Medical History Internal derangement of right knee Kidney stones Back pain Pre-diabetes HTN (hypertension) Social History Social History Alcohol intake: current Alcohol intake frequency: holidays/special occasions only Alcohol type: beer Advance Directives: No Advance Directives Information Provided: No Do you have a plan to hurt others: No Plan Current occupational status: employed Current occupation: [employer] Physical Exam ED Vital Signs: Vital Signs - 24 hr 04/22/24 19:30 04/22/24 19:58 Temperature 100.4 F 100.4 F Pulse Rate 108 H 108 H Respiratory Rate 20 20 Blood Pressure 151/89 H 151/89 H Pulse Oximetry 98 98 Oxygen Delivery Method Room Air Room Air BMI result Body Mass Index 35.8 Const General: cooperative, healthy appearing, comfortable, no acute distress, well developed, alert, awake and Physically active Orientation/consciousness: patient oriented x3 [facility] Head: Yes normal to inspection, Yes No palpable skull fracture present, Yes normocephalic and Yes atraumatic Ears: hearing grossly normal bilaterally, external ears normal, TM's normal bilaterally, TM normal on the right, TM normal on the left and EAC's normal Eyes General: appearance normal, both eyes and all related structures Neck Neck: Yes normal visual inspection, Yes full ROM, Yes no lymphadenopathy, Yes no meningeal signs, Yes trachea midline, Yes supple, No anterior neck swelling and No tender Chest Chest palpation & inspection: normal inspection of the chest and normal palpation of entire chest wall Resp Effort & Inspection: normal respiratory effort and able to speak in complete sentences Auscultation: clear to auscultation bilaterally Cardio Jugular venous distension: no JVD Heart sounds: S1 normal heart sound present and S2 normal heart sound present GI Inspection: Yes normal to inspection and No abdominal wall ecchymosis Palpation (GI): Soft to palpation, not firm, nontender and no guarding General: Yes no CVA tenderness Back/Spine/Pelvis Back: no CVA tenderness and No back tenderness Skin General skin exam: no rashes or lesions noted and elasticity normal Neuro General: patient oriented x3, gait normal, tone normal, moves all extremities, no meningeal signs, no focal motor deficits, CN's II-XI intact bilaterally and normal sensation to monofilament Extrem General: Yes normal to inspection, Yes full ROM and Yes capillary refill normal Psych Appearance: grossly normal, well kempt and not disheveled Medications Administered Discontinued Medications Generic Name Dose Route Start Last Admin Trade Name Freq PRN Reason Stop Dose Admin Ondansetron HCl 4 mg 04/22/24 19:50 04/22/24 19:54 Ondansetron Odt 4 Mg Tab.Cristinodis TRANSLINGU 04/22/24 19:51 4 mg ONCE ONE Administration Medical Decision Making Medical Decision Making MDM Narrative: 64-year-old male with URI symptoms presents to the ED because he tested positive for COVID this morning. Patient has started having symptoms yesterday at home. Patient's also symptomatic with positive COVID. Patient denies any chest pain or shortness of breath. Patient states body pain, fever, and chills. No further evaluation indicated. Patient well-appearing. Patient is not hypoxic. Lungs are clear. Abdomen tender. Negative for leg swelling. Patient denies any pleurisy, coughing up blood, chest pain, shortness of breath. Patient denies any stroke-like symptoms. Patient explained worrisome signs and informed to return to the ED immediately Differential Diagnosis Differential Diagnoses: The differential diagnosis associated with the presentation includes (COVID) Independent Interpretation I performed an independent interpretation of an: Plain X-Ray Radiology Impression Discussion of test interpretation with radiology: I have reviewed the radiologist's reading. Independent Historian Clinical information obtained from an independent historian. History obtained from or confirmed by: Other (patient) External Record Review External record reviewed: Other (Prior visits) Discharge Plan Discharge Clinical Impression: COVID-19 Patient Disposition: Home, Self-Care Instructions: COVID-19 (Coronavirus Disease 2019) (ED) Additional Instructions: Recommend follow-up with your primary care provider. Return to ED immediately for any chest pain, shortness of breath, weakness, dizziness, calf pain, coughing up blood, chest pain inspiration, abdominal pain, slurred speech, facial droop, loss of vision, paralysis of extremities, severe headache, or any other concerning symptoms. Prescriptions: No Action tamsulosin [Flomax] 0.4 mg capsule 0.4 mg PO BEDTIME 7 Days Qty: 7 0RF omeprazole 20 mg capsule,delayed release(DR/EC) 20 mg PO BID metoprolol succinate 50 mg tablet extended release 24 hr 50 mg PO DAILY prednisone 20 mg tablet 20 mg PO DAILY acetaminophen 650 mg tablet extended release 650 mg PO TID Stand Alone Forms: Work/School Release Interventions: ED Discharge Assessment Last Done: 04/22/24 19:58 Discharge Date/Time: 04/22/24 20:00 Print Language: Greek
[2024-04-22] MEDS: Ondansetron ODT 4 MG TAB.RAPDIS TRANSLINGU (19:54)
[2024-04-22 19:58] VITALS: BP 151/89; PULSE 108; RESP 20; TEMP 38; O2SAT 98
== END 2024-04-22 20:00 | disposition home or self-care (01) ==
PROVIDERS: Emergency Provider Emergency Medicine Emergency Medical Services; PCP Registered Nurse
DX: U07.1 COVID-19 (principal); R51.9 Headache, unspecified; M79.10 Myalgia, unspecified site; R50.9 Fever, unspecified; Z79.899 Other long term (current) drug therapy
CPT/HCPCS: 99282

== ENCOUNTER 2024-08-22 08:58 | Outpatient (REF) | payer OTHER, SELFPAY | END 2024-08-22 08:59 | disposition home or self-care (01) | LOC: HO.HOSX 08:58 | PROVIDERS: Visit Provider Orthopaedic Surgery | DX: M25.561 Pain in right knee (principal); S83.241A Other tear of medial meniscus, current injury, right knee, initial encounter | CPT/HCPCS: 73562; 99212 ==

== ENCOUNTER 2024-08-22 14:52 | Outpatient (AMB) | payer OTHER, SELFPAY ==
[2024-08-22 14:56] VITALS: BMI 35.8
--- NOTE | 2024-08-22 14:56 | A.OFFVIS_ITS ---
Vital Signs 08/22/24 14:56 Height 5 ft 11 in Weight 257 lb 0.9 oz BMI 35.8 Intake Visit Reasons: Right knee pain and giving way Intake Note: Sameer is a 64 year old male who presents with complaints of progressively worsening right knee pain and giving way. The patient describes his pain as sharp in nature. Most of the pain is along the medial aspect of his knee. The patient states that he did injure his right knee approximately 3 years ago. Twisted his knee and had acute onset of pain. He has had cortisone injections in the past which gave him only temporary relief. He has failed the last 6 weeks of conservative treatment. He has done physical therapy which aggravated his pain. He has also tried Tylenol and anti-inflammatory medicines which gave him minimal relief. He states that his right knee will give out several times per day. 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 Accompanied by: Daughter Allergies No Known Allergies [No Known Allergies*] Allergy (Verified 08/22/24 14:58) Medication List - Last Reconciled 08/22/24 by Joseph Riggs MD acetaminophen ER 650 mg PO TID metoprolol succinate ER 50 mg PO DAILY omeprazole 20 mg PO BID prednisone 20 mg PO DAILY tamsulosin (Flomax) 0.4 mg PO BEDTIME 7 days [facility] Medical History Internal derangement of right knee Kidney stones Back pain Pre-diabetes HTN (hypertension) Social History Alcohol intake: current Alcohol intake frequency: holidays/special occasions only Alcohol type: beer Current occupational status: employed Current occupation: [employer] 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 Physical Exam Vital Signs: BMI result Body Mass Index 35.8 Const Other: Well-nourished well-developed very friendly male awake alert and oriented x3 in no acute distress Extrem Other: Bilateral lower extremity examination shows good capillary refill, no skin lesions noted, normal sensation light touch Right knee examination shows a minimal effusion, minimal crepitus with range of motion, tenderness along his medial joint line, positive Stephany's test, no instability Results Reviewed Results Reviewed: Standing full weight-bearing x-rays of the patient's right knee show mild diffuse joint space narrowing, no acute bony abnormalities Assessment & Plan Assessment & Plan (1) Tear of medial meniscus of right knee: Code(s): S83.241A - Other tear of medial meniscus, current injury, right knee, initial encounter Category: Medical Plan Mr. Veliz presents with progressively worsening right knee pain and mechanical symptoms most likely due to a tear of his medial meniscus. I will send the patient for an MRI of his right knee for further evaluation. I will see him back once the MRI is completed to discuss the findings and treatment options. Feel free to call me at any time should questions regarding his orthopedic management arise. I spent 21 minutes in reviewing the patient's records and imaging studies, seeing the patient and documenting in the medical record. Orders: Orders XR knee RT 3V Today M25.561 - Pain in right knee MR knee RT wo con Today S83.241A - Other tear of medial meniscus, current injury, right knee, initial encounter Coding Level of Care Code Est Pt Level 3 (13310) Complex EM visit Add On G2211 Diagnoses Tear of medial meniscus of right knee S83.241A
== END 2024-08-22 15:28 | disposition home or self-care (01) ==
PROVIDERS: PCP Registered Nurse; Visit Provider Orthopaedic Surgery
DX: S83.241A Other tear of medial meniscus, current injury, right knee, initial encounter (principal)
CPT/HCPCS: 99213; G2211

== ENCOUNTER 2024-09-04 16:16 | Outpatient (REF) | payer OTHER, SELFPAY ==
[2024-09-04 16:27] LABS: Appearance Urine Turbid; Color Urine Yellow; Glucose Urine UA Negative (Negative); Leukocyte Esterase Urine Negative (Negative); Nitrite Urine Negative (Negative); PH 5.5 (5.0-9.0); Specific Gravity - Urine 1.025 (1.005-1.025); Urine Blood Negative (Negative); Urine Ketones Negative (Negative); Urine Protein Negative (Neg-Trace)
[2024-09-04 16:30] LABS: Bacteria Urine None Seen (None Seen); Hyaline Casts Urine 0-2 /LPF (0-2); RBC Urine 0-2 /HPF (0-2); Squamous Epithelial Cell Urine 0-2 /HPF (0-2); WBC Urine 0-5 /HPF (0-5)
== END 2024-09-04 16:17 | disposition home or self-care (01) ==
LOC: HO.LNP 16:16
PROVIDERS: Visit Provider Nurse Practitioner Primary Care
DX: R30.0 Dysuria (principal); Z87.442 Personal history of urinary calculi
CPT/HCPCS: 81001

== ENCOUNTER → 2024-09-17 15:30 | Outpatient (BNV) | payer OTHER, SELFPAY | PROVIDERS: Visit Provider Radiology Diagnostic Radiology | DX: S83.241A Other tear of medial meniscus, current injury, right knee, initial encounter (principal) | CPT/HCPCS: 73721 ==

== ENCOUNTER 2024-09-17 15:32 | Outpatient (REF) | payer OTHER, SELFPAY ==
--- NOTE | ~2024-09-17 | MR_ITS ---
CLINICAL HISTORY: S83.241A - Other tear of medial meniscus, current injury, right knee, in... Exam: MRI of the right knee without intravenous contrast. Comparison: Radiographs August 22, 2024. Findings: The anterior and posterior cruciate ligaments are intact. Degenerative appearing horizontal tear of the posterior horn and body of the medial meniscus is evident. There is approximately 6 mm of medial meniscal extrusion. No tears of the lateral meniscus. Quadriceps tendon and patellar tendon intact. Medial collateral ligament and lateral collateral complex are within normal limits. Moderate to severe degenerative change of the medial compartment with prominent cartilage loss of the medial femoral condyle medial tibial plateau. There is mild subcortical bone marrow edema with joint space narrowing and osteophyte formation. Mild degenerative change of the lateral compartment and patellofemoral joint. Small knee joint effusion. Impression: 1. Tricompartmental osteoarthritis, most pronounced within the medial compartment. 2. Degenerative horizontal tear of the posterior horn and body of the medial meniscus. This document has been electronically signed by: Barry Pretty MD on 09/19/2024 06:18:36
== END 2024-09-17 15:33 | disposition home or self-care (01) ==
LOC: HO.MRI 15:32
PROVIDERS: Visit Provider Orthopaedic Surgery
DX: S83.241A Other tear of medial meniscus, current injury, right knee, initial encounter (principal)
CPT/HCPCS: 73721

== ENCOUNTER → 2024-10-15 13:50 | Outpatient (REF) | payer OTHER, SELFPAY | LOC: HO.SL 13:50 | PROVIDERS: PCP Nurse Practitioner Primary Care; Visit Provider Nurse Practitioner Primary Care | DX: G47.33 Obstructive sleep apnea (adult) (pediatric) (principal) | CPT/HCPCS: 95806 ==

== ENCOUNTER → 2024-10-15 19:00 | Outpatient (BNV) | payer OTHER, SELFPAY | PROVIDERS: PCP Nurse Practitioner Primary Care; Visit Provider Internal Medicine | DX: G47.33 Obstructive sleep apnea (adult) (pediatric) (principal) | CPT/HCPCS: 95806 ==

== ENCOUNTER → 2024-10-17 09:22 | Outpatient (BNVA) | payer OTHER, SELFPAY | PROVIDERS: PCP Nurse Practitioner Primary Care; Visit Provider Orthopaedic Surgery | DX: S83.241A Other tear of medial meniscus, current injury, right knee, initial encounter (principal) | CPT/HCPCS: 99212 ==

== ENCOUNTER 2024-12-03 05:51 | Day surgery (SDC) | payer OTHER, SELFPAY ==
--- OUTSIDE RECORDS SUMMARY | 2024-11-19 11:38 | XMS_ITS | Clinical Summary ---
Author Organization [employer] Address [address] [place] [address] Care Team Providers Care Bronze Plater Name Role Phone Giselle Brock RAJ Primary Care Provider [phone] Allergies Active Allergy Reactions Criticality Noted Date Comments Nsaids Itching 09/22/2022 Medications * This document contains information received from the source organization and may not represent a complete record from that organization. Blood Pressure kitIndications:P alex hypertension Check blood pressure 1-2 times per day with goal of less than 140/90 1 kit 09/22/19 23 Active Diclofenac Sodium (Voltaren) 1 % gelIndications:A cute midline low back pain without sciatica Apply 2 g topically if needed in the morning and at bedtime (muscle pain). 100 g 3 08/16/20 23 Active cyclobenzaprine (Flexeril) 10 MG tablet Take 1 tablet (10 mg) by mouth 3 times daily for 10 days. 30 tablet 08/16/20 23 Active omeprazole (PriLOSEC) [address] capsuleIndicatio ns:Gastroesophag eal reflux disease, unspecified whether esophagitis present Take 1 capsule (20 mg) by mouth before breakfast and before evening meal. Do not crush or chew. 60 capsule 1 10/05/19 24 Active alfuzosin ER (Uroxatral) 10 MG 24 hr tablet TAKE 1 TABLET BY MOUTH EVERY DAY AFTER THE SAME MEAL EVERY DAY 09/02/20 23 Active rosuvastatin (Crestor) 10 MG tabletIndication s:Dyslipidemia Take 1 tablet (10 mg) by mouth Once per day. 90 tablet 3 02/29/20 24 025 Active FREESTYLE LITE test stripIndications :Prediabetes Use to test blood sugar once daily and more as needed 100 each 02/29/20 24 025 Active Lancets miscIndications: Prediabetes Use to test blood sugar once daily and more as needed 100 each 02/29/20 24 Active Alcohol Swabs 70 % padsIndications: Prediabetes Use to clean skin before checking blood sugar 100 each 02/29/20 24 Active Blood Glucose Monitoring Suppl (FreeStyle Mcallen Lite) w/Device kitIndications:P rediabetes Use to test blood sugar once daily before breakfast and more as needed 1 kit 02/29/20 24 Active famotidine (Pepcid) 20 MG tablet TAKE ONE TABLET BY MOUTH EVERY EVENING AT BEDTIME NEEDED FOR HEART BURN (BUBBLE PACK) 30 tablet 2 08/28/20 24 Active Tirzepatide-Weig ht Management (Zepbound) 2.5 MG/0.5ML solution auto-injectorInd ications:Prediab etes,Obstructive sleep apnea syndrome,Class 2 severe obesity due to excess calories with serious comorbidity and body mass index (BMI) of 35.0 to 35.9 in adult ([facility]) Inject 0.5 mL (2.5 mg) under the skin every 7 (seven) days. 2 mL 2 09/04/20 24 Active lidocaine (Lidoderm) 5 % patchIndications :Chronic right-sided low back pain, unspecified whether sciatica present Apply 1 patch topically Once per day. Remove & discard patch within 12 hours or as directed by MD. 30 patch 2 09/04/20 24 Active losartan (Cozaar) 50 MG tabletIndication s:Primary hypertension TAKE ONE TABLET BY MOUTH EVERY DAY 90 tablet 1 11/16/19 25 Active metoprolol succinate XL (Toprol-XL) 50 MG 24 hr tabletIndication s:Primary hypertension TAKE ONE TABLET BY MOUTH EVERY DAY DO NOT BREAK CRUSH DISSOLVE OR CHEW ^1R1 30 tablet 2 11/16/19 25 Active acetaminophen (Tylenol 8 Hour) 650 MG ER tablet TAKE 1 TABLET BY MOUTH EVERY 8 HOURS NEEDED FOR PAIN. DO NOT BREAK, CRUSH, DISSOLVE OR CHEW (VIAL) 120 tablet 1 11/16/19 25 Active losartan (Cozaar) 50 MG tabletIndication s:Primary hypertension TAKE 1 TABLET BY MOUTH EVERY DAY 90 tablet 1 04/13/20 24 025 Discontinued metoprolol succinate XL (Toprol-XL) 50 MG 24 hr tabletIndication s:Primary hypertension TAKE ONE TABLET BY MOUTH EVERY DAY DO NOT BREAK CRUSH DISSOLVE OR CHEW ^1R1 90 tablet 08/02/20 24 025 Discontinued acetaminophen (Tylenol 8 Hour) 650 MG ER tablet TAKE 1 TABLET BY MOUTH EVERY 8 HOURS NEEDED FOR PAIN. DO NOT BREAK, CRUSH,DISSOLV E OR CHEW (VIAL) 120 tablet 1 08/28/20 24 025 Discontinued Active Problems Problem Noted Date Diagnosed Date Chest pressure 02/11/2024 Overview (02/29/2024): Established w/ [facility] cards. Negative stress test 08/2023 and normal echo 12/2022. Assessment & Plan (02/11/2024 10:06 AM EDT): - NM cardiolite stress test 08/2023: Mildly reduced uptake in the distal lateral wall of the LV myocardium. There is suggestion of left ventricular hypertrophy. There is minimal reduced uptake in the apex of the LV myocardium.Impression: Myocardial perfusion imaging study shows likely normal myocardial Perfusion,Gated LVEF is 58% .EKG is nondiagnostic for ischemia -TTE 11/05/2021 shows normal EF, no regional wall motion abnormality, grade 1 diastolic dysfunction and no valve abnormalities. -EKG today NSR HR 55. Qtc 388 . 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 TURP 2008 Chronic pain of right knee 10/07/2022 Overview (10/07/2022): ?? 2020 MRI with medical meniscal tear ?? Referred to [facility] ortho 08/2022 Prediabetes 10/07/2022 Overview (02/29/2024): 09/2022 A1c 5.7 --> 6.5% 02/29/24 Healthcare maintenance 10/06/2022 Overview (02/29/2024): C-Scope: Restablished w/ C GI, got stress test 08/2023 in preparation of clearance PSA: 09/22/22 1.24 HCV Screen: Neg 2019 HIV Screen: Neg 2021 Vision Exam: Discuss at follow up Dental Care: Discuss at follow up Immunizations: Declines all today Tinnitus of both ears 10/02/2022 Overview (10/02/2022): seen by audiology 2020, bilateral sensorineural hearing loss. Brain MRI 2020 negative. Hearing aids recommended Aneurysm of thoracic aorta 06/15/2013 Overview (02/29/2024): Metoprolol 50mg XR daily, following w/ cards Gastroesophageal reflux disease 04/27/2012 Overview (10/02/2022): ?? Seen by GI at [facility] in ?2003 with upper endoscopy performed. Biopsy results not in chart. Unclear if further follow up ?? Assessment & Plan (02/11/2024 10:06 AM EDT): states takes 20 mg omeprazole 2 tab in am -advised to start famotidine HS -life style changes advised,weight loss, decrease heavy meals at night, HOB elevation Class 2 severe obesity due t o excess calories with serious comorbidity and body mass index (BMI) of 35.0 to 35.9 in adult 04/27/2012 Severe major depressive disorder 03/21/2012 Overview (01/26/2023): ?? Not currently established with psych or therapy ?? Previously on medication, unable to recall name ?? Did not tolerate seroquel ?? Denies SI or thoughts of self harm Assessment & Plan (01/26/2023 10:47 PM EDT): ?? Will resubmit N referral ?? Declines abilify start at this time; will continue to discuss at follow up Assessment & Plan (12/21/2022 11:52 AM EDT): ?? Accepts referral to [facility] for therapy ?? Discussed possibility of starting daily medication, patient declines at this time ?? Denies SI or thoughts of self harm ?? Pt provided with [facility] contact information for same day care Dyslipidemia 03/21/2012 Overview (02/29/2024): 01/2024 ASCVD risk: 14.5% Atorvastatin 20mg stopped by pt d/t pt reported cough, hoarseness Rosuvastatin 10mg started 02/29/24 Assessment & Plan (01/26/2023 10:45 PM EDT): ?? Repeat lipid panel prior to follow up Assessment & Plan (10/07/2022 6:15 AM EST): ?? Start atorvastatin 20mg daily, reviewed administration risks side effects ?? Lifestyle recommendations advised to lower cholesterol and reduce risk of atherosclerotic events Hypertension 03/21/2012 Overview (02/29/2024): 12/2022 Echo negative, negative stress test 08/2023 followed by [facility] cardiology for hx of exercise induced chest pain and thoracic aortic aneurysm. Amlodipine 10mg daily was stopped by pt b/c he got cough Losartan 50mg was rx'd in place of amlodipine but not clear pt started this Metoprolol XL 50mg daily Maintenance: BMP: 11/23/2022 Lipid Panel: 09/2022 ASCVD Risk: 14.5%, rosuvastatin to replace atorvastatin 02/29/24 - Aerobic exercise to reduce BP. Initial goal of 30 min walk 3-5x/week. Increase as tolerated. - low-sodium diet (goal: <2g/day) and heart healthy diet such as DASH to reduce BP and prevent ASCVD. - Home BP monitoring 1-2 x day with goal of <140/90. - Seek immediate medical attention for chest pain, palpitations, SOB, syncope, or sudden changes in mental status. - Do not change or discontinue current prescriptions without first consulting health care provider Assessment & Plan (12/21/2022 11:47 AM EDT): ?? INCREASE amlodipine to 10mg daily ?? Continue to monitor blood pressure ?? RN BP check 2 weeks Assessment & Plan (10/07/2022 6:12 AM EST): ?? Start amlodipine 5mg once daily. Reviewed administration, risks, side effects ?? Continue to monitor home blood pressure ?? Contact HC if three or more readings >140/90 Maintenance: BMP: 09/2022 WNL Lipid Panel: 09/2022, statin initiated ASCVD Risk: 12.8% EKG:obtain baseline at follow up - Aerobic exercise to reduce BP. Initial goal of 30 min walk 3-5x/week. Increase as tolerated. - low-sodium diet (goal: <2g/day) and heart healthy diet such as DASH to reduce BP and prevent ASCVD. - Home BP monitoring 1-2 x day with goal of <140/90. - Seek immediate medical attention for chest pain, palpitations, SOB, syncope, or sudden changes in mental status. - Do not change or discontinue current prescriptions without first consulting health care provider Obstructive sleep apnea syndrome 03/21/2012 Overview (02/29/2024): Could not tolerate CPAP mask d/t anxiety. May be good candidate for oral/dental JOHN device. Resolved Problems Problem Noted Date Diagnosed Date Resolved Date Arthritis of knee 09/22/2022 10/07/2022 Degeneration of meniscus of right knee 09/22/2022 10/02/2022 Dizziness 09/22/2022 10/02/2022 Greater trochanteric pain syndrome 09/25/2012 10/07/2022 Abnormal liver function tests 04/27/2012 10/07/2022 Encounters Date Type Department Care Team Description 11/14/2024 Refill [facility] [address] [place] [phone] Giselle Brock ANP Primary hypertension 11/14/2024 Telephone [facility] [address] [place] [address] [phone] Missy Zimmerman RN Results; Referral 11/13/2024 Orders Only [facility] [address] [place] [address] [phone] Giselle Brock ANP Nocturnal hypoxemia (Primary Dx) 10/24/2024 Telephone [facility] [address] [place] [address] [phone] Zhanna Rodriguez MA 10/22/2024 Refill [facility] [address] [place] [address] [phone] Giselle Brock ANP Primary hypertension 09/13/2024 Telephone [facility] [address] [place] [address] [phone] Giselle Brock ANP Prior Authorization ([facility] Request: Zepbound) 09/05/2024 Telephone [facility] [address] [place], [place] [phone] Giselle Brock ANP 09/04/2024 1:00 PM EST Office Visit [facility] [address] [place] [address] [phone] Giselle Brock ANP Prediabetes (Primary Dx); Obstructive sleep apnea syndrome; Class 2 severe obesity due to excess calories with serious comorbidity and body mass index (BMI) of 35.0 to 35.9 in adult (CMS/HCC); Chronic right-sided low back pain, unspecified whether sciatica present; Chronic pain of both shoulders; H/O renal calculi; Dysuria; Constipation, unspecified constipation type; Ambulates with cane; Chronic pain of right knee; Tear of meniscus of right knee as current injury, unspecified meniscus, unspecified tear type, subsequent encounter 09/04/2024 Telephone [facility] [address] [place] [address] [phone] Giselle Brock ANP 09/04/2024 Travel 08/28/2024 Refill [facility] [address] [place] [address] [phone] Giselle Brock ANP 08/24/2024 Telephone [facility] [address] [place] [phone] Johanna Uriarte RN Med Refill (Wegovy notification) 08/24/2024 Patient Outreach [facility] [address] [place] [address] Giselle Brock ANP Pre-visit Planning (Pre-visit planning - LVM ) from Last 3 Months Immunizations Name Administration Dates Next Due Hep B, adult 08/27/2003,10/31/2001,09/25/2001 Influenza injectable quadriv alent IIV4 with preservative 07/02/2016 Influenza, IIV3, injectable 07/14/2011 Influenza, Split (incl. deepa fied surface antigen) 06/22/2012 Influenza, seasonal, injecta ble, preservative free 07/02/2015 Pneumococcal Conjugate PCV 13 04/25/2015 Pneumococcal Conjugate PCV 20 09/04/2024 Pneumococcal Polysaccharide PPSV23 10/07/2011 RSV Bivalent 10/31/2023 TD (adult), 2 Lf tetanus tox oid, preservative free, adsorbed 07/25/2001 Tdap 07/02/2016,10/07/2011 Zoster, live 04/25/2015 Social History Tobacco Use Types Packs/Day Years Used Date Smoking Tobacco: Former Cigarettes Passive Smoke Exposure: Past Smokeless Tobacco: Never Alcohol Use Standard Drinks/Week Comments Not Currently 0 (1 standard drink = 0.6 oz pur e alcohol) Depression Answer Date Recorded Patient Health Questionnaire-9 Score 7 09/04/2024 Patient Health Questionnaire-9 Score 7 09/04/2024 Last PHQ-9: Questionnaire Data Not on file 1 11/05/2023 Housing Stability Answer Date Recorded What is your housing situation today? I have smita fairchild 09/04/[address] you li ve. Do you have problems with any of the following? None of the above 09/04/2024 Food Insecurity Answer Date Recorded Within the past 12 months, y ou worried that your food would run out before you got money to buy more: Never True 09/04/2024 Within the past 12 months,th e food you bought just didn't last and you didn't have enough money to get more: Never True Transportation Answer Date Recorded In the past 12 months, has l ack of transportation kept you from medical appts, meetings, work or from getting things needed for daily living? No 09/04/2024 Utilities Answer Date Recorded In the past 12 months, has t he electric, gas, oil or water company threatened to shut off services in your home? No 09/04/2024 Depression Answer Date Recorded Patient Health Questionnaire-2 Score 2 09/04/2024 Internet Access Answer Date Recorded Internet Access Q1 Yes 09/04/2024 Internet Access Q2 Not on file 09/04/2024 Sex and Gender Information Value Date Recorded Sex Assigned at Male 07/19/2022 10:16 AM EDT Legal Sex Male 10:16 AM EDT Gender Identity Male 07/19/2022 10:16 AM EDT Sexual Orientation Straight 07/19/2022 10 :16 AM EDT Last Filed Vital Signs Vital Sign Reading Time Taken Comments Blood Pressure 144/88 09/04/2024 1:21 PM EST Pulse 72 09/04/2024 1:12 PM EST Temperature 36.3 ??C (97.3 ??F) 09/04/2024 1:12 PM ES T Respiratory Rate 14 09/04/2024 1:12 PM EST Oxygen Saturation 97% 09/04/2024 1:12 PM EST Inhaled Oxygen Concentration - - Weight 115 kg (252 lb 9.6 oz) 09/04/2024 1:12 PM EST Height 180.3 cm (5' 11 ) 06/01/2024 1:18 PM EDT Body Mass Index 35.23 06/01/2024 1:18 PM EDT Plan of Treatment Upcoming Encounters Date Type Department Care Team (Late st Contact Info) Description 12/14/2024 11:15 AM EDT Office Visit [facility] [address] [place] [phone] Giselle Brock ANP [address] [place] [address] Health Maintenance Due Date Last Done Comments CT Colonography 1961 Colonoscopy 1961 Colorectal Cancer Screening 1961 FIT DNA/Cologuard 1961 FIT 1961 FOBT 1961 Sigmoidoscopy 1961 Alcohol/Substance Use Screening 1973 Zoster Vaccines (2 of 3) 06/20/2015 04/25/2015 COVID-19 Vaccine (3 - season) 2024 03/12/2021, 02/07/2021 Influenza Vaccine (#1) 2024 6, 07/02/2015, 06/22/2012, Additional history exists Depression Screening 09/04/2025 09/04/2024, 09/04/20 Diabetes: Hemoglobin A1C 09/04/2025 024, 06/01/2024, 03/01/2024, Additional history exists SDOH Screening 09/04/2025 09/04/2024 Tobacco Screening 09/04/2025 09/04/2024 DTaP/Tdap/Td Vaccines (3 - Td or Tdap) 07/02/2026 07/02/2016, 10/07/2011, 07/25/2001 Lipid Panel 03/01/2029 03/01/2024, 06/19, 02/16/2023, Additional history exists Hepatitis B Vaccines Completed 08/27/2003, 10/31/2001, 09/25/2001 Hepatitis C Screening Discontinued 12/05/2019 HIV Screening Completed 09/22/2022, 12/05/2019 RSV Patients and Patients Aged 60 years or older Completed 10/31/2023 Pneumococcal Vaccine: 50+ Years Completed 09/04/2024, 04/25/2015, 10/07/2011 HIB Vaccines Aged Out No longer eligi ble based on patient's age to complete this topic HPV Vaccines Aged Out No longer eligi ble based on patient's age to complete this topic Hepatitis A Vaccines Aged Out No long er eligible based on patient's age to complete this topic IPV Vaccines Aged Out No longer eligi ble based on patient's age to complete this topic Meningococcal Vaccine Aged Out No betsey colby eligible based on patient's age to complete this topic RSV under 20 months Aged Out No longe r eligible based on patient's age to complete this topic Rotavirus Vaccines Aged Out No longer eligible based on patient's age to complete this topic Procedures Procedure Name Priority Date/Time Associated Diagnosis Comments POCT GLYCATED HEMOGLOBIN, TOTAL Routine 09/04/2024 1:16 PM EST Prediabetes URINALYSIS, COMPLETE, WITH REFLEX TO CULTURE Routine 09/04/2024 12:01 PM EST H/O renal calculi Dysuria LIPID PANEL, STANDARD Routine 03/01/2024 8:12 AM EDT Dyslipidemia HIV 1/2 ANTIGEN/ANTIBODY, FOURTH GENERATION W/RFL Routine 09/22/2022 10:16 AM EST Healthcare maintenance ZZZ HISTORICAL HEPATITIS C ANTIBODY RFLX Routine 12/05/2019 4:00 PM EDT from Last 3 Months or Most Recently Relevant to Health Maintenance Results * (ABNORMAL) POCT HGB A1C (09/04/2024 1:16 PM EST) Hemoglobin A1C 6.1(A) 4.0 - 6.0 % QC Media Lot # [id number] Lot# Expiration Date [id number] Blood 09/04/2024 1:16 PM EST [facility] POINT OF CARE TEST ENTER/EDIT OR DERABLES Final Result * Urinalysis, Complete, with Reflex to Culture (09/04/2024 12:01 PM EST) Color Urine Yellow [facility] Appearance Urine Turbid [facility] PH 5.5 5.0 - 9.0 [facility] Glucose Urine UA Negative Negative mg/dL [facility] Urine Blood Negative Negative [facility] Specific [place] - Urine 1.025 1.005 - 1.025 [facility] Urine Protein Negative Neg-Trace mg/dL [facility] Urine Ketones Negative Negative mg/dL [facility] Nitrite Urine Negative Negative [facility] Leukocyte Esterase Urine Negative Negative [facility] RBC Urine 0-2 0 - 2 /HPF [facility] Urine WBC 0-5 0 - 5 /HPF [facility] Urine Squamous Epithelial Cell 0-2 0 - 2 /HPF [facility] Urine Bacteria None Seen None Seen [facility] Hyaline Casts, Urine 0-2 0 - 2 /LPF [facility] Urine 09/04/2024 12:0 1 PM EST 09/04/2024 4:18 PM EST Narrative [facility] - 09/04/2024 4:31 PM EST [id number], Clean Catch Giselle Brock ANP LAB URINE ORDERABLES Final Resul t [facility] [address] [place], [place] [phone] * (ABNORMAL) Lipid Panel, Standard (03/01/2024 8:12 AM EDT) Triglycerides 83 <150 mg/dL [facility] Comment:Desirable Triglyceri de: less than 150 mg/dLBorderline High Triglyceride 150-199 mg/dLHigh Triglyceride: 200-499 mg/dLVery High Triglyceride: greater than or equal to 5OO mg/dL Cholesterol 171 <200 mg/dL [facility] Comment:Desirable Cholestero l: less than 200 mg/dLBorderline High Cholesterol: 200-239 mg/dLHigh Cholesterol: greater than 239 mg/dL LDL Cholesterol Calculated 119(H) <100 mg/dL [facility] Comment:Desirable LDL: less than 100 mg/dLNear Optimal/Above Optimal LDL: 110- 129 mg/dLBorderline High LDL: 130-159 mg/dLHigh LDL: 160-189 mg/dLVery High LDL: greater than or equal to 190 mg/dL HDL Cholesterol 36(L) >40 mg/dL [facility] Comment:Desirable HDL: great er than 40 mg/dL Note: This HDL assay may give artificially low results in patients with liver disease. Blood Venous blood specimen / Unknown 03/01/2024 8:12 AM EDT 03/01/2024 8:12 AM EDT us Giselle Brock ANP LAB BLOOD ORDERABLES Final Resul t [facility] [address] [place] [phone] * HIV-1/2 Antigen and Antibodies, Fourth Generation, with Reflexes (09/22/2022 10:16 AM EST) HIV Antigen/Antibody, 4th Generation NON-REAC TIVE NON-REAC TIVE [email or web address] [facility] Comment: HIV-1 antigen and HIV-1/HIV-2 antibodies were not detected. There is no laboratory evidence of HIV infection. PLEASE NOTE: This information has been disclosed to you from records whose confidentiality may be protected by state law. ??If your state requires such protection, then the state law prohibits you from making any further disclosure of the information without the specific written consent of the person to whom it pertains, or as otherwise permitted by law. A general authorization for the release of medical or other information is NOT sufficient for this purpose. ?? For additional information please refer to http://education.[employer]/faq/MBW773 (This link is being provided for informational/ educational purposes only.) The performance of this assay has not been clinically validated in patients less than 2 years old. Blood Venous blood specimen / Unknown 09/22/2022 10:16 AM EST 09/22/2022 10:16 AM EST Narrative [facility] - 09/23/2022 7:02 PM EST FASTING:UNKNOWN FASTING: UNKNOWN [facility] LAB BLOOD ORDERABLES Final Re sult [facility] [address] [facility] [facility], [place] [address] [email or web address] [address] [facility], ([address]) [place] [address] * HEPATITIS C ANTIBODY RFLX (12/05/2019 4:00 PM EDT) HEPATITIS C ANTIBODY [facility] Comment: Antibodies to HCV not detected; does not exclude early acute HCV infection. 12/05/2019 4:00 PM EDT us Kody Warren MD HISTORICAL/NON ORDERABLE LABS Fi nal Result [facility] [address] from Last 3 Months or Most Recently Relevant to Health Maintenance Insurance [place], [place] [facility] Care Teams Bronze Plater Relationship Specialty Start Date End Date Giselle Brock ANP [address] [place] [address] PCP - General Family Medicine 06/20/23
--- OUTSIDE RECORDS SUMMARY | 2024-11-19 11:38 | XMS_ITS | Encounter Summary ---
Author Organization [employer] Address [address] [facility] 7t [place] [address] Care Team Providers Care Business Control Specialist Name Role Phone Giselle Brock Primary Care Provider Reason for Visit * Reason Onset Date Comments Med Refill 10/04/2023 Encounter Details Date Type Department Care Team ([facility] st Contact Info) Description 10/04/[address] [facility] [address] [place] [address] Giselle Brock ANP [address] [place] [address] Med Refill Social History Tobacco Use Types Packs/Day Years Used Date Smoking Tobacco: Former Cigarettes Smokeless Tobacco: Never Alcohol Use Standard Drinks/Week Comments Not Currently 0 (1 standard drink = 0.6 oz pur e alcohol) Depression Answer Date Recorded Patient Health Questionnaire-9 Score 15 10/06/2023 Patient Health Questionnaire-9 Score 15 10/06/2023 Last PHQ-9: Questionnaire Data Not on file 0 10/06/2023 Housing Stability Answer Date Recorded What is your housing situation today? I have smita fairchild 07/14/[address] you li ve. Do you have problems with any of the following? None of the above 07/14/2023 Food Insecurity Answer Date Recorded Within the past 12 months, y ou worried that your food would run out before you got money to buy more: Never True 07/14/2023 Within the past 12 months,th e food you bought just didn't last and you didn't have enough money to get more: Never True 10/ Transportation Answer Date Recorded In the past 12 months, has l ack of transportation kept you from medical appts, meetings, work or from getting things needed for daily living? No 07/14/2023 Utilities Answer Date Recorded In the past 12 months, has t he electric, gas, oil or water company threatened to shut off services in your home? No 07/14/2023 Depression Answer Date Recorded Patient Health Questionnaire-2 Score 6 10/06/2023 Sex and Gender Information Value Date Recorded Sex Assigned at Male 07/19/2022 10:16 AM EDT Legal Sex Male 10:16 AM EDT Gender Identity Male 07/19/2022 10:16 AM EDT Sexual Orientation Straight 07/19/2022 10 :16 AM EDT documented as of this encounter Miscellaneous Notes * Telephone Encounter - Carina Real LPN - 10/04/2023 2:18 PM EST Medication was sent to [facility] on 05/26/23 #90 with 3 refills. * Telephone Encounter - Chevy Key - 10/04/2023 2:12 PM EST TC from pt requesting medication refill. Medications needing refill : amLODIPine (Norvasc) 10 MG tablet To be sent to: [facility] - [place], [place] - [address] [facility] documented in this encounter Plan of Treatment Upcoming Encounters Date Type Department Care Team (Late st Contact Info) Description 12/14/2024 11:15 AM EDT Office Visit [facility] [address] [place] [address] Giselle Brock ANP [address] [place] [address] documented as of this encounter Visit Diagnoses Not on filedocumented in this encounter Additional Health Concerns Assessment Noted Time PHQ-9 Depression Total Score: 14 024 9:56 AM EST documented as of this encounter Care Teams Business Control Specialist Relationship Specialty Start Date End Date Giselle Brock ANP [address] [place] [address] PCP - General Family Medicine 06/20/23 documented as of this encounter
--- OUTSIDE RECORDS SUMMARY | 2024-11-19 11:38 | XMS_ITS | Encounter Summary ---
Author Organization [employer] Address [address] [facility] 7t [place] [address] Care Team Providers Care Blow Molding Machine Tender Name Role Phone Giselle Brock Primary Care Provider Reason for Referral * Consultation (Routine) - Authorized Specialty Diagnoses / Procedures Referred By Laquita t Referred To Contact Pulmonary Disease Diagnoses Nocturnal hypoxemia Giselle Brock ANP [address] [place] [address] Phone: tel: fax: [facility] [place] [facility] [address] Floor [place], [place] Phone: tel: fax: Referral ID Status Reason Start Date Expiration Date Visits Requested Visits Authorized [id number] Authorized Specialty Services Required 11/13/2024 11/13/2025 1 1 Encounter Details Date Type Department Care Team (Late st Contact Info) Description 11/13/2024 Orders Only [facility] [address] [place] [address] Giselle Brock ANP [address] [place] [address] Nocturnal hypoxemia (Primary Dx) Social History Tobacco Use Types Packs/Day Years [...] AM EDT documented as of this encounter Progress Notes * RAJ Reina - 11/13/2024 4:10 PM EST Images from the original note were not included. Pt w/ nocturnal hypoxemia on sleep study - will refer to pulm per recommendation of Dr. Navarro below. Team RN: Please let Sameer know that the sleep study did not show severe sleep apnea, but did showthat his O2 level decreases when he sleeps. Recommend him to sleep on his side and not on his back or face-down. Weight loss should help and I have placed referral to pulmonology for additional evaluation and consideration to start supplemental O2 at bedtime. Thanks documented in this encounter Plan of Treatment Upcoming Encounters Date Type Department Care Team (Late st Contact Info) Description 12/14/2024 11:15 AM EDT Office Visit [facility] [address] [place] [address] Giselle Brock ANP [address] [place] [address] Scheduled Referrals Name Type Priority Associated Diagnoses Order Schedule Referral to Pulmonology Outpatient Referral Routine Nocturnal hypoxemia Expected: 11/13/2024 (Approximate), Expires: 11/13/2025 documented as of this encounter Visit Diagnoses Diagnosis Nocturnal hypoxemia- Primary documented in this encounter Additional Health Concerns Assessment Noted Time PHQ-9 Depression Total Score: 7 09/04/20 24 2:04 PM EST documented as of this encounter Care Teams Blow Molding Machine Tender Relationship Specialty Start Date End Date Giselle Brock ANP [address] [place] [address] PCP - General Family Medicine 06/20/23 documented as of this encounter
--- OUTSIDE RECORDS SUMMARY | 2024-11-19 11:38 | XMS_ITS | Encounter Summary ---
Author Organization [employer] Address [address] [facility] 7t [place] [address] Care Team Providers Care Boom Stick Worker Name Role Phone Wanda Mathew [facility] Primary Care Provider [phone] Giselle Brock Primary Care Provider [phone] Reason for Visit * Reason Onset Date Comments Triage 02/03/2023 Encounter Details Date Type Department Care Team (Late st Contact Info) Description 02/03/2023 Telephone [facility] [address] [place] [address] Priyanka, Wanda, [facility] [address] [place] [address] Triage Social History Tobacco Use Types Packs/Day Years Used Date Smoking Tobacco: Former Cigarettes Smokeless Tobacco: Never Alcohol Use Standard Drinks/Week Comments Never 0 (1 standard drink = 0.6 oz pur e alcohol) Depression Answer Date Recorded Patient Health Questionnaire-9 Score 19 01/18/2023 Depression Answer Date Recorded Patient Health Questionnaire-2 Score 6 01/18/2023 Sex and Gender Information Value Date Recorded Sex Assigned at Male 07/19/2022 10:16 AM EDT Legal Sex Male 10:16 AM EDT Gender Identity Male 07/19/2022 10:16 AM EDT Sexual Orientation Straight 07/19/2022 10 :16 AM EDT documented as of this encounter Miscellaneous Notes * Telephone Encounter - Lianna Ricketts RN - 02/03/2023 1:49 PM EDT Second attempt Call returned to patient for triage. No answer LVM to return call to [facility] triage line. Protocol Used: No Contact or Duplicate Contact Call (Adult) Protocol-Based Disposition: No Contact Call Positive Triage Questions: * Message left on identified voicemail * Second attempt to contact caller AND no contact made. Phone number verified. * All higher-acuity triage questions were negative * Telephone Encounter - Lianna Ricketts RN - 02/03/2023 1:38 PM EDT Call returned to patient for triage. No answer LVM to return call to [facility] triage line. Protocol Used: No Contact or Duplicate Contact Call (Adult) Protocol-Based Disposition: No Contact Call Positive Triage Questions: * No answer. First attempt to contact caller. Follow-up call scheduled within 15 minutes. * Message left on identified voicemail * All higher-acuity triage questions were negative * Telephone Encounter - Marcelo Tabares - 02/03/2023 1:31 PM EDT Symptom: Pain - Severe Outcome: Talk to a nurse or provider within 15 minutes Reason: Abdominal pain The caller accepted this outcome Please contact pt at [phone] Maori Speaker documented in this encounter Plan of Treatment Upcoming Encounters Date Type Department Care Team (Late st Contact Info) Description 12/14/2024 11:15 AM EDT Office Visit [facility] [address] [place] [address] Giselle Brock ANP [address] [place] [address] documented as of this encounter Visit Diagnoses Not on filedocumented in this encounter Additional Health Concerns Assessment Noted Time PHQ-9 Depression Total Score: 19 023 1:15 PM EDT documented as of this encounter Care Teams Boom Stick Worker Relationship Specialty Start Date End Date Wanda Mathew FNP [address] [place] [address] PCP - General Family Medicine 03/04/22 06/19/23 Giselle Brock ANP [address] [place] [address] PCP - General Family Medicine 06/20/23 documented as of this encounter
--- OUTSIDE RECORDS SUMMARY | 2024-11-19 11:38 | XMS_ITS | Encounter Summary ---
Author Organization [employer] Address [address] [facility] 7t [place] [address] Care Team Providers Care Wharfmaster Name Role Phone Giselle Brock Primary Care Provider [phone] Reason for Visit * Reason Onset Date Comments december10/22/2024 Called pt to janeth guerrero appt for f/u HTN,no answer left vm.sending letter. Encounter Details Date Type Department Care Team (Late st Contact Info) Description 10/22/2024 Refill [facility] [address] [place] [address] Giselle Brock ANP [address] [place] [address] Primary hypertension Social History Tobacco Use Types Packs/Day Years [...] encounter Miscellaneous Notes * Telephone Encounter - Zhanna Rodriguez [place] - 10/24/2024 10:47 AM EST Called pt to book appt for f/u HTN,no answer left vm.sending letter. documented in this encounter Plan of Treatment Upcoming Encounters Date Type Department Care Team (Late st Contact Info) Description 12/14/2024 11:15 AM EDT Office Visit [facility] [address] [place] [address] Giselle Brock ANP [address] [place] [address] documented as of this encounter Visit Diagnoses Diagnosis Primary hypertension Unspecified essential hypertension documented in this encounter Additional Health Concerns Assessment Noted Time PHQ-9 Depression Total Score: 7 09/04/20 24 2:04 PM EST documented as of this encounter Care Teams Wharfmaster Relationship Specialty Start Date End Date Giselle Brock ANP [address] [place] [address] PCP - General Family Medicine 06/20/23 documented as of this encounter
--- OUTSIDE RECORDS SUMMARY | 2024-11-19 11:38 | XMS_ITS | Encounter Summary ---
Author Organization [employer] Address [address] [facility] [address] 7[address] [place] [address] Care Team Providers Care Pulmonary Nurse Practitioner Name Role Phone Vinod Giselle ANTHONY Primary Care Provider [phone] Encounter Details Date Type Department Care Team (Late st Contact Info) Description 10/24/2024 Telephone [facility] [address] [place], [place] [phone] Zhanna Rodriguez [place] Social History Tobacco Use Types Packs/Day Years [...] AM EDT documented as of this encounter Plan of Treatment Upcoming Encounters Date Type Department Care Team (Late st Contact Info) Description 12/14/2024 11:15 AM EDT Office Visit [facility] [address] [place] [address] Giselle Brock ANP [address] [place] [address] documented as of this encounter Visit Diagnoses Not on filedocumented in this encounter Additional Health Concerns Assessment Noted Time PHQ-9 Depression Total Score: 7 09/04/20 24 2:04 PM EST documented as of this encounter Care Teams Pulmonary Nurse Practitioner Relationship Specialty Start Date End Date Giselle Brock ANP [address] [place] [address] PCP - General Family Medicine 06/20/23 documented as of this encounter
--- OUTSIDE RECORDS SUMMARY | 2024-11-19 11:38 | XMS_ITS | Encounter Summary ---
Author Organization [employer] Address [address] [facility] 7t [place] [address] Care Team Providers Care Superintendent Tests Name Role Phone Vinod Giselle ANTHONY Primary Care Provider [phone] Reason for Visit * Reason Onset Date Comments Results 11/14/2024 Referral 11/14/2024 Encounter Details Date Type Department Care Team (Late st Contact Info) Description 11/14/2024 Telephone [facility] [address] [place] [address] Missy Zimmerman, MARTIN [address] [place] [address] Results; Referral Social History Tobacco Use Types Packs/Day Years [...] encounter Miscellaneous Notes * Telephone Encounter - Missy Zimmerman RN - 11/14/2024 9:01 AM EST Telephone call placed to main number on file ([phone])- not in service Telephone call placed to other number on file ([phone])- no answer, left v/m. Pt w/ nocturnal hypoxemia on sleep study [...] Description 12/14/2024 11:15 AM EDT Office Visit [facility] [address] [place], [place] [phone] Giselle Brock ANP [address] [place] [address] documented as of this encounter Visit Diagnoses Not on filedocumented in this encounter Additional Health Concerns Assessment Noted Time PHQ-9 Depression Total Score: 7 09/04/20 24 2:04 PM EST documented as of this encounter Care Teams Superintendent Tests Relationship Specialty Start Date End Date Giselle Brock ANP [address] [place] [address] PCP - General Family Medicine 06/20/23 documented as of this encounter
--- OUTSIDE RECORDS SUMMARY | 2024-11-19 11:38 | XMS_ITS | Encounter Summary ---
Author Organization [employer] Address [address] [facility] 7t [place] [address] Care Team Providers Care Plant Accountant Name Role Phone Giselle Brock Primary Care Provider [phone] Reason for Visit * Reason Onset Date Comments Lab Orders 12/07/2023 Encounter Details Date Type Department Care Team ([facility] st Contact Info) Description 12/07/2023 Telephone [facility] [address] [place] [address] Giselle Brock ANP [address] [place] [address] Lab Orders Social History Tobacco Use Types Packs/Day Years [...] encounter Miscellaneous Notes * Telephone Encounter - Terri Nascimento RN - 12/09/2023 11:25 AM EDT TC placed to pt in regards to blood work request. Pt was inquiring whether the orders could be put in before appt on 12/[address] Brock. Advised pt that provider was out this week but a message willbe sent. If anything this can be discussed at 12/13 appt. Pt stated understanding . * Telephone Encounter - Evie Carrero - 12/07/2023 10:42 AM EDT Tc from pt requesting blood work orders before appt. documented in this encounter Plan of Treatment Upcoming Encounters Date Type Department Care Team (Late st Contact Info) Description 12/14/2024 11:15 AM EDT Office Visit [facility] [address] [place], [place] [phone] Giselle Brock ANP [address] [place] [address] documented as of this encounter Visit Diagnoses Not on filedocumented in this encounter Additional Health Concerns Assessment Noted Time PHQ-9 Depression Total Score: 15 024 11:19 AM EST documented as of this encounter Care Teams Plant Accountant Relationship Specialty Start Date End Date Giselle Brock ANP [address] [place] [address] PCP - General Family Medicine 06/20/23 documented as of this encounter
--- OUTSIDE RECORDS SUMMARY | 2024-11-19 11:38 | XMS_ITS | Encounter Summary ---
Author Organization [employer] Address [address] [facility] 7t [place] [address] Care Team Providers Care Roof Truss Machine Tender Name Role Phone Gieslle Brock Primary Care Provider [phone] Reason for Visit * Reason Comments Med Refill Encounter Details Date Type Department Care Team (Late st Contact Info) Description 11/14/2024 Refill [facility] [address] [place] [address] Giselle Brock ANP [address] [place] [address] Primary hypertension Social History Tobacco Use Types [...] Description 12/14/2024 11:15 AM EDT Office Visit [facility] [address] [place] [address] Giselle Brock ANP [address] [place] [address] documented as of this encounter Visit Diagnoses Diagnosis Primary hypertension Unspecified essential hypertension documented in this encounter Additional Health Concerns Assessment Noted Time PHQ-9 Depression Total Score: 7 09/04/20 24 2:04 PM EST documented as of this encounter Care Teams Roof Truss Machine Tender Relationship Specialty Start Date End Date Giselle Brock ANP [address] [place] [address] PCP - General Family Medicine 06/20/23 documented as of this encounter
[2024-11-29 09:39] VITALS: BMI 35.8
--- NOTE | 2024-11-30 08:58 | HO.ANESPROP2 ---
Documented by User: Annelise Shah NP 11/30/24 08:59 HPI - Anesthesia Eval Consult details Narrative: 64yo M for Right Knee Arthroscopy with partial medial meniscectomy PMFSH Active Problems Active Problems: All Active Problems Tear of medial meniscus of right knee (Acute) Right knee pain (Acute) Kidney stone on left side (Acute) BMI 45.0-49.9, adult (Acute) Palpitation (Acute) BPH loc w urin obs/LUTS (Acute) Screening PSA (prostate specific antigen) (Acute) Weak urinary stream (Acute) BPH (benign prostatic hyperplasia) (Acute) COVID-19 (Acute) Chest pain (Acute) Kidney stones (Acute) Pre-diabetes (Acute) HTN (hypertension) (Acute) Internal derangement of right knee (Acute) Past Medical History Medical History RYAN (generalized anxiety disorder) Tinnitus GERD (gastroesophageal reflux disease) Dyslipidemia Aneurysm of thoracic aorta Internal derangement of right knee Kidney stones Back pain Pre-diabetes HTN (hypertension) Social History Social History Are you a primary child care teacher to a significant other at home: No Do you presently have visiting nurse or other home services: No Alcohol intake: current Alcohol intake frequency: holidays/special occasions only Alcohol type: beer Patient Tobacco Use Status: Never used Tobacco Have you been hit, kicked, punched, or otherwise hurt by someone within the past year? If so, by whom?: No Are you DNR?: No Advance Directives: No Advance Directives Information Provided: Yes Recently lost weight without trying: No Nutrition Risks: No Nutritional Risk Current occupational status: employed Current occupation: [employer] Meds Allergies Allergy/AdvReac Type Severity Reaction Status Date / Time No Known Allergies Allergy Verified 08/22/24 14:58 [No Known Allergies*] Active Medications: Current Medications Cefazolin Sodium/Dextrose (Ancef) 2 gm in 50 mls @ 100 mls/hr IV PREOP ONE Stop: 12/03/24 06:03 Home Medications ?Medication ?Instructions ?Recorded ?Confirmed ?Last Taken ?Type acetaminophen 650 mg 650 mg PO TID 06/30/23 10/17/24 Unknown History tablet,extended release metoprolol succinate 50 mg 50 mg PO DAILY 03/06/24 10/17/24 Unknown History tablet,extended release 24 hr famotidine 20 mg tablet mg DAILY 12/03/24 Unknown History losartan 50 mg tablet mg DAILY 12/03/24 12/03/24 Unknown History rosuvastatin 10 mg tablet mg 12/03/24 Unknown History Exam Height,Weight and Vital Signs: Height 5 ft 11 in Weight 116.573 kg Pertinent Lab Results Pertinent Lab Results: Laboratory Tests 04/03/24 15:57 WBC 9.7 Hgb 16.3 Hct 49.8 Plt Count 241 Sodium 140 Potassium 4.2 Chloride 109 H Carbon Dioxide 22 BUN 15 Creatinine 0.99 Narrative Narrative: NM cardiolite stress test 2022 Impression: 1. Myocardial perfusion imaging study shows likely normal myocardial perfusion 2. Gated LVEF is 58% 3. Transient ischemic dilatation not present EKG is nondiagnostic for ischemia Assessment and Plan Assessment Anesthesia Assessment: Chart Reviewed Documented by User: Lexi Geiger MD 12/03/24 07:31 [facility] Past Medical History Medical History RYAN (generalized anxiety disorder) Tinnitus GERD (gastroesophageal reflux disease) Dyslipidemia Aneurysm of thoracic aorta Internal derangement of right knee Kidney stones Back pain Pre-diabetes HTN (hypertension) Family History Family history of problems with anesthesia: No Surgical History History of Problems with Anesthesia: No Social History Social History Are you a primary child care teacher to a significant other at home: No Do you presently have visiting nurse or other home services: No Alcohol intake: current Alcohol intake frequency: holidays/special occasions only Alcohol type: beer Patient Tobacco Use Status: Never used Tobacco Have you been hit, kicked, punched, or otherwise hurt by someone within the past year? If so, by whom?: No Are you DNR?: No Advance Directives: No Advance Directives Information Provided: Yes Recently lost weight without trying: No Nutrition Risks: No Nutritional Risk Current occupational status: employed Current occupation: [employer] Meds Allergies Allergy/AdvReac Type Severity Reaction Status Date / Time No Known Allergies Allergy Verified 08/22/24 14:58 [No Known Allergies*] Home Medications ?Medication ?Instructions ?Recorded ?Confirmed ?Last Taken ?Type acetaminophen 650 mg 650 mg PO TID 06/30/23 10/17/24 Unknown History tablet,extended release metoprolol succinate 50 mg 50 mg PO DAILY 03/06/24 10/17/24 Unknown History tablet,extended release 24 hr famotidine 20 mg tablet mg DAILY 12/03/24 Unknown History losartan 50 mg tablet mg DAILY 12/03/24 12/03/24 Unknown History rosuvastatin 10 mg tablet mg 12/03/24 Unknown History Exam Airway Mallampati Class: II TM Dist: >3cm Neck ROM: Full Heart: rrr Lungs: cta Assessment and Plan Assessment Anesthesia Assessment: Anesthesia Plan Discussed Final Anesthetic Review Family History of Problems with Anesthesia: No History of Problems with Anesthesia: No NPO: Yes ASA Class: III Final Preanesthetic Review: No Changes in Pt Med Stat, Meds/Allgs Chart Reviewed, Consent Obtained/Reviewed and Anes Risks/Benef Reviewed Patient Risk: Intermediate Procedure Risk: Intermediate Anesthetic Plan Anesthetic Plan: GA Disposition: Standard PACU
[2024-12-03] VITALS (10 sets, daily range): BP systolic 110–153; BP diastolic 48–93; PULSE 73–99; RESP 16–18; TEMP 36.3–36.6; O2SAT 94–96; BMI 35.0
[2024-12-03] MEDS: Lactated Ringers 1,000 ML 100 ML IVCONT (06:18)
[2024-12-03 07:43] LABS: Glucose, Whole Blood 115 mg/dL (60-115)
--- NOTE | 2024-12-03 08:03 | PC.NURSE ---
POC completed at request of STADIUM MANAGER due questions of diabetic meds being added/discontinued recently. Patient denies taking diabetic meds at home currently. interpreter and translator present.
[2024-12-03] MEDS: LORazepam 2 MG/ML VIAL IVPUSH (08:48)
--- NOTE | 2024-12-03 08:53 | PM.OP ---
Brief Operative Note Date of Service: 12/03/24 Pre-op diagnosis: Right knee medial meniscus tear, right knee degenerative joint disease Post-op diagnosis: same Procedure: Right knee diagnostic arthroscopy with right knee arthroscopic partial medial meniscectomy, right knee arthroscopic chondroplasty of the undersurface of the patella and trochlear groove Implants: none Surgeon: Joseph Riggs MD Anesthesia: GLMA Was an Probation Supervisor used for this Procedure?: No Estimated blood loss (mL): 10 Pathology: none sent Condition: stable Disposition: PACU
--- NOTE | 2024-12-03 08:54 | P.OP_ITS ---
Operative Note Operative Note Date of Service: 12/03/24 Narrative: After the patient was identified as Sameer Veliz and his right knee was initialed by myself they were brought to the operating room where general anesthesia was induced by the anesthesiologist in routine fashion. The patient was given 2 g of IV Ancef for infection prophylaxis. A formal time-out was completed. The patient's right lower extremity was prepped and draped in sterile fashion. Marcaine with epinephrine was injected into the planned incision sites as well as their right knee joint. A # 11 scalpel blade was used to make an anterolateral portal 1 cm proximal to the joint line and 1 cm lateral to the patellar tendon. Blunt trocar technique was used into the suprapatellar pouch with the knee in extension. Diagnostic arthroscopy showed multiple bands of thickened plica which would be excised at the end of the procedure. There were no loose bodies or abnormalities found in either the medial or lateral gutters. There were diffuse grades 1 and 2 degenerative changes of the undersurface of the patella as well as grades 2 and 3 degenerative changes of the trochlear groove. The patient's knee was flexed to 45 degrees and a valgus force was placed upon it. The medial compartment was entered. An anteromedial portal was made 1 cm proximal to the joint line and 1 cm medial to the patellar tendon. Probing of the medial meniscus showed a radial tear of the posterior horn. A partial medial meniscectomy was performed using the arthroscopic shaver. Following the partial meniscectomy the remainder of the meniscus tissue was stable. There were diffuse grades 1 and 2 degenerative changes of the medial femoral condyle as well as diffuse grades 1 and 2 degenerative changes of the medial tibial plateau. The articular surfaces of the medial femoral condyle and medial tibial plateau were already smooth so no chondroplasty was indicated. The patient's knee was then placed into a neutral position. There was no injury to the anterior cruciate ligament. The patient's knee was then placed into the figure of 4 position and the lateral compartment was entered. There were minimal degenerative changes of the lateral femoral condyle and lateral tibial plateau. There was no evidence of lateral meniscus tearing. The patient's knee was once again brought into extension and the suprapatellar pouch was entered. The arthroscopic shaver and the ArthroCare Wand were used to excise the thick ened bands of plica. The undersurface of the patella and the trochlear groove articular surface were made smooth using the arthroscopic shaver. The knee joint was irrigated and then drained. All arthroscopic instruments were removed. The 2 portals were closed with 3-0 nylon interrupted suture. The knee joint was injected with Marcaine. Dry sterile dressing and Weston bandages were placed over the patient's knee. The patient was awoken and extubated in the operating room. They were transferred to the recovery room in stable condition.
[2024-12-03] MEDS: cefTRIAXone sodium 1 GM VIAL IVPUSH (09:16)
[2024-12-03] MEDS: fentaNYL citrate/PF 100 MCG/2 ML VIAL 25 MCG IVPUSH ×2 (09:33→09:38)
== END 2024-12-03 10:46 | disposition home or self-care (01) ==
PROVIDERS: PCP Nurse Practitioner Primary Care; Visit Provider Orthopaedic Surgery
PROC: (CPT 29870; principal; 2024-12-03 07:30)
DX: S83.241A Other tear of medial meniscus, current injury, right knee, initial encounter (principal); M25.561 Pain in right knee; M23.51 Chronic instability of knee, right knee; M23.91 Unspecified internal derangement of right knee; M17.11 Unilateral primary osteoarthritis, right knee; M67.51 Plica syndrome, right knee; X50.1XXA Overexertion from prolonged static or awkward postures, initial encounter; Y93.9 Activity, unspecified; Y92.9 Unspecified place or not applicable; Y99.9 Unspecified external cause status; I10 Essential (primary) hypertension; R73.03 Prediabetes; N20.0 Calculus of kidney; Z79.52 Long term (current) use of systemic steroids; Z79.899 Other long term (current) drug therapy
CPT/HCPCS: 29881; 82947; J0131; J0171; J0690; J0696; J2003; J2060; J2405; J2704; J2795; J3010

== ENCOUNTER → 2024-12-03 05:51 | Outpatient (BNV) | payer OTHER, SELFPAY | PROVIDERS: PCP Nurse Practitioner Primary Care; Visit Provider Orthopaedic Surgery | DX: S83.241A Other tear of medial meniscus, current injury, right knee, initial encounter (principal) | CPT/HCPCS: 29881 ==

== ENCOUNTER 2024-12-18 08:31 | Outpatient (AMB) | payer OTHER, SELFPAY ==
--- NOTE | 2024-12-18 08:37 | MHC.OFFVIS ---
Vital Signs 12/18/24 08:54 Height 5 ft 11 in Weight 250 lb BMI 34.9 Intake Visit Reasons: PO-Rt Knee 12/03/24 Intake Note: Sameer is a 64 year old male who presents today post-operatively after undergoing right knee arthroscopic surgery on 12/03/24. The patient reports mild intermittent soreness in his right knee. He denies any fevers or chills. He denies any locking or giving way. Allergies No Known Allergies [No Known Allergies*] Allergy (Verified 12/18/24 08:54) Medication List - Last Reconciled 12/18/24 by Joseph Riggs MD acetaminophen ER 650 mg PO TID famotidine mg DAILY losartan mg DAILY metoprolol succinate ER 50 mg PO DAILY rosuvastatin mg PFSH Medical History RYAN (generalized anxiety disorder) Tinnitus GERD (gastroesophageal reflux disease) Dyslipidemia Aneurysm of thoracic aorta Internal derangement of right knee Kidney stones Back pain Pre-diabetes HTN (hypertension) Surgical History (Updated 12/03/24 @ 08:05 by Maria De Jesus Callejas RN) Hx of colonoscopy Hx of esophagogastroduodenoscopy Social History Are you a primary home care coordinator to a significant other at home: No Do you presently have visiting nurse or other home services: No Alcohol intake: current Alcohol intake frequency: holidays/special occasions only Alcohol type: beer Patient Tobacco Use Status: Never used Tobacco Current occupational status: employed Current occupation: [employer] Physical Exam Extrem Other: Right knee examination shows that the surgical incisions are healing well, no erythema, minimal discomfort with range of motion Assessment & Plan Assessment & Plan (1) Right knee pain: Code(s): M25.561 - Pain in right knee Category: Medical Plan Mr. Veliz is doing well after undergoing right knee arthroscopic surgery on 12/03/2024. His sutures were removed and Steri-Strips placed over his incisions. He will gradually progress to activities as tolerated. He will contact me prior to his follow-up appointment in 2-3 months should any questions or concerns arise. Feel free to call me at any time should questions regarding his orthopedic management arise. Coding Level of Care Code Global (86939) Diagnoses Right knee pain M25.561
--- OUTSIDE RECORDS SUMMARY | 2024-12-18 08:49 | XMS_ITS | Encounter Summary ---
Author Organization [employer] Address [address] [facility] [address] [place] [address] Care Team Providers Care Crusher Screen Repairer Name Role Phone Giselle Brock Primary Care Provider [phone] Reason for Visit * Reason Comments Med Refill Encounter Details Date Type Department Care Team ([facility] st Contact Info) Description 12/11/2024 Refill [facility] [address] [place] [address] Giselle Brock ANP [address] [place] [address] Social History Tobacco Use Types Packs/Day Years [...] Care Team (Late st Contact Info) Description 02/27/2025 3:45 PM EDT Office Visit [facility] [address] [place] [address] Giselle Brock ANP [address] [place] [address] documented as of this encounter Visit Diagnoses Not on filedocumented in this encounter Additional Health Concerns Assessment Noted Time PHQ-9 Depression Total Score: 7 09/04/20 24 2:04 PM EST documented as of this encounter Care Teams Crusher Screen Repairer Relationship Specialty Start Date End Date Giselle Brock ANP [address] [place] [id number] PCP - General Family Medicine 06/20/23 documented as of this encounter
--- OUTSIDE RECORDS SUMMARY | 2024-12-18 08:49 | XMS_ITS | Encounter Summary ---
Author Organization [employer] Address [address] [facility] [address] [place] [address] Care Team Providers Care Provider Engagement Executive Name Role Phone Giselle Brock Primary Care Provider [phone] Reason for Visit * Reason Onset Date Comments Med Refill 10/04/2023 Encounter Details Date Type Department Care Team ([facility] st Contact Info) Description 10/04/2023 Telephone [facility]INE [address] [place] [address] Giselle Brock ANP [address] [place] [address] Med Refill Social History Tobacco Use Types [...] 2:18 PM EST Medication was sent to [facility] on 05/26/23 #90 with 3 refills. * Telephone Encounter - [facility] - 10/04/2023 2:12 PM EST TC from pt requesting medication refill. Medications needing refill : amLODIPine (Norvasc) 10 MG tablet To be sent to: [facility] [place], [place] - [address] [facility] documented in this encounter Plan of Treatment Upcoming Encounters Date Type Department Care Team (Late st Contact Info) Description 02/27/2025 3:45 PM EDT Office Visit [facility] [address] [place] [address] Giselle Brock ANP [address] [place] [address] documented as of this encounter Visit Diagnoses Not on filedocumented in this encounter Additional Health Concerns Assessment Noted Time PHQ-9 Depression Total Score: 14 024 9:56 AM EST documented as of this encounter Care Teams Provider Engagement Executive Relationship Specialty Start Date End Date Giselle Brock ANP [address] [place] [address] PCP - General Family Medicine 06/20/23 documented as of this encounter
--- OUTSIDE RECORDS SUMMARY | 2024-12-18 08:49 | XMS_ITS | Encounter Summary ---
Author Organization [employer] Address [address] [facility] [address] [place] [address] Care Team Providers Care Justice Court Deputy Clerk Name Role Phone Giselle Brock Primary Care Provider [phone] Reason for Visit * Reason Comments Hypertension Encounter Details Date Type Department Care Team ([facility] st Contact Info) Description 12/14/2024 11:15 AM EDT Office Visit [facility] [address] [place] [address] Giselle Brock ANP [address] [place] [address] Primary hypertension (Primary Dx); Gastroesophageal reflux disease, unspecified whether esophagitis present Social History Tobacco Use Types Packs/Day Years Used Date Smoking Tobacco: Former Cigarettes Passive Smoke Exposure: Past Smokeless Tobacco: Never Tobacco Cessation:Counseling Given: Not Answered Alcohol Use Standard Drinks/Week Comments Not Currently [...] AM EDT documented as of this encounter Last Filed Vital Signs Vital Sign Reading Time Taken Comments Blood Pressure 158/90 12/14/2024 11:08 AM EDT Pulse 82 12/14/2024 11:08 AM EDT Temperature 36.3 ??C (97.3 ??F) 12/14/2024 11:08 AM E DT Respiratory Rate 14 12/14/2024 11:08 AM EDT Oxygen Saturation 98% 12/14/2024 11:08 AM EDT Inhaled Oxygen Concentration - - Weight 118 kg (259 lb 12.8 oz) 12/14/2024 11:08 AM EDT Height 180.3 cm (5' 11 ) 12/14/2024 11:08 AM EDT Body Mass Index 36.23 12/14/2024 11:08 AM EDT documented in this encounter Plan of Treatment Upcoming Encounters Date Type Department Care Team (Late st Contact Info) Description 02/27/2025 3:45 PM EDT Office Visit [facility] [address] [place] [address] Giselle Brock ANP [address] [place] [address] documented as of this encounter Visit Diagnoses Diagnosis Primary hypertension- Primary Unspecified essential hypertension Gastroesophageal reflux disease, unspecified whether esophagitis present documented in this encounter Additional Health Concerns Assessment Noted Time PHQ-9 Depression Total Score: 7 09/04/20 24 2:04 PM EST documented as of this encounter Care Teams Justice Court Deputy Clerk Relationship Specialty Start Date End Date Giselle Brock ANP [address] [place] [address] PCP - General Family Medicine 06/20/23 documented as of this encounter
--- OUTSIDE RECORDS SUMMARY | 2024-12-18 08:49 | XMS_ITS | Encounter Summary ---
Author Organization [employer] Address [address] [facility] [address] [place] [address] Care Team Providers Care Adult Literacy Instructor Name Role Phone Giselle Brock RAJ Primary Care Provider [phone] Encounter Details Date Type Department Care Team (Latest Contact Info) Description 12/14/2024 Travel Social History Tobacco Use Types Packs/Day Years [...] is your housing situation today? I have msita fairchild 09/04/[address] you [...] Description 02/27/2025 3:45 PM EDT Office Visit [facility] MED[facility]INE [address] [place] [address] Giselle Brock ANP [address] [place] [address] documented as of this encounter Visit Diagnoses Not on filedocumented in this encounter Additional Health Concerns Assessment Noted Time PHQ-9 Depression Total Score: 7 09/04/20 24 2:04 PM EST documented as of this encounter Care Teams Adult Literacy Instructor Relationship Specialty Start Date End Date Giselle Brock ANP [address] [place] [address] PCP - General Family Medicine 06/20/23 documented as of this encounter
--- OUTSIDE RECORDS SUMMARY | 2024-12-18 08:49 | XMS_ITS | Encounter Summary ---
Author Organization [employer] Address [address] [facility] [address] [place] [address] Care Team Providers Care Head Counselor Name Role Phone Giselle Brock Primary Care Provider [phone] Reason for Visit * Reason Onset Date Comments Lab Orders 12/07/2023 Encounter Details Date Type Department Care Team ([facility] st Contact Info) Description 12/07/2023 Telephone [facility] [address] [place] [address] Giselle Brock ANP [address] [place] [address] Lab Orders Social History Tobacco Use Types [...] Description 02/27/2025 3:45 PM EDT Office Visit [facility] [address] [place], [place] [phone] Giselle Brock ANP [address] [place] [address] documented as of this encounter Visit Diagnoses Not on filedocumented in this encounter Additional Health Concerns Assessment Noted Time PHQ-9 Depression Total Score: 15 024 11:19 AM EST documented as of this encounter Care Teams Head Counselor Relationship Specialty Start Date End Date Giselle Brock ANP [address] [place] [address] PCP - General Family Medicine 06/20/23 documented as of this encounter
--- OUTSIDE RECORDS SUMMARY | 2024-12-18 08:49 | XMS_ITS | Clinical Summary ---
Author Organization [employer] Address [address] [facility] 7[address] [place] [address] Care Team Providers Care Supply Analyst Name Role Phone Giselle Brock RAJ Primary Care Provider [phone] Allergies Active Allergy Reactions Criticality Noted Date Comments Nsaids Itching 09/22/2022 Medications * This document contains information received from the source organization and may not represent a complete record from that organization. Blood Pressure kitIndications: Primary hypertension Check blood pressure 1-2 times per day with goal of less than 140/90 1 kit 09/22/19 23 Active Diclofenac Sodium (Voltaren) 1 % gelIndications: Acute midline low back pain without sciatica Apply 2 g topically if needed in the morning and at bedtime (muscle pain). 100 g 3 08/16/20 23 Active cyclobenzaprine (Flexeril) 10 MG tablet Take 1 tablet (10 mg) by mouth 3 times daily for 10 days. 30 tablet 08/16/20 23 Active alfuzosin ER (Uroxatral) 10 MG 24 hr tablet TAKE 1 TABLET BY MOUTH EVERY DAY AFTER THE SAME MEAL EVERY DAY 09/02/20 23 Active FREESTYLE LITE test stripIndication s:Prediabetes Use to test blood sugar once daily and more as needed 100 each 02/29/20 24 025 Active Lancets miscIndications :Prediabetes Use to test blood sugar once daily and more as needed 100 each 02/29/20 24 Active Alcohol Swabs 70 % padsIndications :Prediabetes Use to clean skin before checking blood sugar 100 each 02/29/20 24 Active Blood Glucose Monitoring Suppl (FreeStyle [place] Lite) w/Device kitIndications: Prediabetes Use to test blood sugar once daily before breakfast and more as needed 1 kit 02/29/20 24 Active lidocaine (Lidoderm) 5 % patchIndication s:Chronic right-sided low back pain, unspecified whether sciatica present Apply 1 patch topically Once per day. Remove & discard patch within 12 hours or as directed by MD. 30 patch 2 09/04/20 24 Active metoprolol succinate XL (Toprol-XL) 50 MG 24 hr tabletIndicatio ns:Primary hypertension TAKE ONE TABLET BY MOUTH EVERY DAY DO NOT BREAK CRUSH DISSOLVE OR CHEW ^1R1 30 tablet 2 11/16/19 25 Active acetaminophen (Tylenol 8 Hour) 650 MG ER tablet TAKE 1 TABLET BY MOUTH EVERY 8 HOURS NEEDED FOR PAIN. DO NOT BREAK, CRUSH, DISSOLVE OR CHEW (VIAL) 120 tablet 1 11/16/19 25 Active rosuvastatin (Crestor) 10 MG tabletIndicatio ns:Dyslipidemia TAKE ONE TABLET BY MOUTH EVERY DAY ^1R4 90 tablet 2 11/21/19 25 Active famotidine (Pepcid) 20 MG tablet TAKE ONE TABLET BY MOUTH EVERY EVENING FOR HEARTBURN 30 tablet 2 11/21/19 25 Active olmesartan (Benicar) 20 MG tabletIndicatio ns:Primary hypertension Take 1 tablet (20 mg) by mouth Once per day. 90 tablet 3 12/15/19 25 026 Active omeprazole (PriLOSEC) [address] capsuleIndicati ons:Gastroesoph ageal reflux disease, unspecified whether esophagitis present Take 1 capsule (20 mg) by mouth before breakfast and before evening meal. Do not crush or chew. 180 capsule 1 12/15/19 25 Active omeprazole (PriLOSEC) [address] capsuleIndicati ons:Gastroesoph ageal reflux disease, unspecified whether esophagitis present Take 1 capsule (20 mg) by mouth before breakfast and before evening meal. Do not crush or chew. 60 capsule 1 10/05/19 24 025 Discontinued(Re order (will not trigger notification to Pharmacy)) rosuvastatin (Crestor) 10 MG tabletIndicatio ns:Dyslipidemia Take 1 tablet (10 mg) by mouth Once per day. 90 tablet 3 06/12/ 025 Discontinued famotidine (Pepcid) 20 MG tablet TAKE ONE TABLET BY MOUTH EVERY EVENING AT BEDTIME NEEDED FOR HEART BURN (BUBBLE PACK) 30 tablet 2 08/28/20 24 025 Discontinued Tirzepatide-Prabhjot ght Management (Zepbound) 2.5 MG/0.5ML solution auto-injectorIn dications:Predi abetes,Obstruct jan sleep apnea syndrome,Class 2 severe obesity due to excess calories with serious comorbidity and body mass index (BMI) of 35.0 to 35.9 in adult ([facility]) Inject 0.5 mL (2.5 mg) under the skin every 7 (seven) days. 2 mL 2 09/04/20 24 025 Discontinued(Th erapy completed) losartan (Cozaar) 50 MG tabletIndicatio ns:Primary hypertension TAKE ONE TABLET BY MOUTH EVERY DAY 90 tablet 1 11/16/19 025 Discontinued(Al ternate therapy) omeprazole (PriLOSEC) [address] capsuleIndicati ons:Gastroesoph ageal reflux disease, unspecified whether esophagitis present Take 1 capsule (20 mg) by mouth before breakfast and before evening meal. Do not crush or chew. 180 capsule 1 12/15/19 025 Discontinued Active Problems Problem Noted Date Diagnosed Date Chest pressure 02/11/2024 Overview (02/29/2024): Established w/ [facility] cards. Negative stress test 08/2023 and normal [...] aneurysm --advised pt to discuss w his environmental projects advisor at upcoming apt -alarm signs and symptoms discussed in length w pt in case needs to go to ED RYAN (generalized anxiety disorder) 10/06/2023 Panic attacks 10/06/2023 unspecified Trauma and stressor-related disorder 10/06/2023 BPH (benign prostatic hyperplasia) 10/07/2022 Overview (10/07/2022): ?? TURP 2008 Chronic pain of right knee 10/07/2022 Overview (10/07/2022): ?? 2020 MRI with medical meniscal tear ?? Referred to [facility] ortho 08/2022 Prediabetes 10/07/2022 Overview (02/29/2024): 09/2022 A1c 5.7 --> 6.5% 02/29/24 Healthcare maintenance 10/06/2022 Overview (02/29/2024): C-Scope: Restablished w/ [facility] GI, got stress test 08/2023 in preparation [...] Overview (10/02/2022): ?? Seen by GI at [facility] in ?2003 with upper endoscopy performed. [...] 11:52 AM EDT): ?? Accepts referral to [facility] for therapy ?? Discussed possibility of starting daily medication, patient declines at this time ?? Denies SI or thoughts of self harm ?? Pt provided with [facility] contact information for same day care Dyslipidemia [...] negative, negative stress test 08/2023 followed by [facility] cardiology for hx of exercise induced chest [...] Encounters Date Type Department Care Team Description 12/14/2024 11:15 AM EDT Office Visit [facility] [address] [place] [address] Giselle Brock ANP Primary hypertension (Primary Dx); Gastroesophageal reflux disease, unspecified whether esophagitis present 12/14/2024 Travel 12/11/2024 Refill [facility] [address] [place] [address] Giselle Brock ANP 12/03/2024 Orders Only GENERIC EXTERNAL DATA DEPARTMENT Provider, Generic External Data 11/19/2024 Refill [facility] [address] [place] [address] Giselle Brock ANP Dyslipidemia 11/14/2024 Refill [facility] [address] [place] [address] Giselle Brock ANP Primary hypertension 11/14/2024 Telephone [facility] [address] [place] [address] Missy Zimmerman, RN Results; Referral 11/13/2024 Orders Only [facility] [address] [place] [address] Giselle Brock ANP Nocturnal hypoxemia (Primary Dx) 10/24/2024 Telephone [facility] [address] [place] [address] Zhanna Rodriguez MA 10/22/2024 Refill [facility] [address] [place] [address] Giselle Brock ANP Primary hypertension from Last 3 Months Immunizations Name Administration [...] is your housing situation today? I have smitaluciana fairchild 09/04/[address] you [...] Mass Index 36.23 12/14/2024 11:08 AM EDT Plan of Treatment Upcoming Encounters Date Type Department Care Team (Late st Contact Info) Description 02/27/2025 3:45 PM EDT Office Visit [facility] [address] [place] [address] Giselle Brock ANP [address] [place] [address] Health Maintenance Due Date Last Done Comments CT Colonography 1961 Colonoscopy 1961 Colorectal Cancer Screening 1961 FIT DNA/Cologuard 1961 FIT 1961 FOBT 1961 Sigmoidoscopy 1961 Zoster Vaccines (2 of 3) 06/20/2015 04/25/2015 COVID-19 Vaccine (3 - season) 2024 03/12/2021, 02/07/2021 Influenza Vaccine (#1) 2024 6, 07/02/2015, 07/18/2014, Additional history exists Depression Screening 09/04/2025 09/04/2024, 09/04/20 24 Diabetes: Hemoglobin A1C 09/04/2025 024, 06/01/2024, 03/01/2024, Additional history exists SDOH Screening 09/04/2025 09/04/2024 Alcohol/Substance Use Screening 12/14/2025 12/14/2024 Tobacco Screening 12/14/2025 12/14/2024 DTaP/Tdap/Td Vaccines (3 - Td or Tdap) 07/02/2026 07/02/2016, 10/07/2011, 07/25/2001 Lipid Panel 03/01/2029 03/01/2024, 06/19, 02/16/2023, Additional history exists Hepatitis B Vaccines Completed 08/27/2003, 10/31/2001, 09/25/2001 Hepatitis C Screening Discontinued 12/05/2019 HIV Screening Completed 09/22/2022, 12/05/2019 RSV Patients and Patients Aged 60 years or older Completed 10/31/2023 Pneumococcal Vaccine: 50+ Years Completed 09/04/2024, 04/25/2015, 07/18/2014, Additional history exists HIB Vaccines Aged Out No longer eligi [...] Procedure Name Priority Date/Time Associated Diagnosis Comments GLUCOSE, WHOLE BLOOD Routine 12/03/2024 7:35 AM EDT POCT GLYCATED HEMOGLOBIN, TOTAL Routine 09/04/2024 1:16 PM EST Prediabetes LIPID PANEL, STANDARD Routine 03/01/2024 8:12 AM EDT Dyslipidemia HIV 1/2 ANTIGEN/ANTIBODY, FOURTH GENERATION W/RFL Routine 09/22/2022 10:16 AM EST Healthcare maintenance ZZZ HISTORICAL HEPATITIS C ANTIBODY RFLX Routine 12/05/2019 4:00 PM EDT from Last 3 Months or Most Recently Relevant to Health Maintenance Results * Glucose, Whole Blood (12/03/2024 7:35 AM EDT) Glucose, Whole Blood 115 60 - 115 mg/dL [facility] Comment:METER #: [id number] 12/03/2024 7:35 AM EDT 12/03/2024 7:43 AM EDT Generic External Data Provider LAB BLOOD ORDERAB LES Final Result Performing Organization Address City/State/[facility] Co de Phone Number [facility] [address] [place] [phone] * (ABNORMAL) POCT HGB A1C (09/04/2024 1:16 PM EST) Pathologist [facility] Hemoglobin A1C 6.1(A) 4.0 - 6.0 % QC Media Lot # [id number] Lot# Expiration Date [id number] Blood 09/04/2024 1:16 PM EST us Giselle [facility] POINT OF CARE TEST ENTER/EDIT OR DERABLES Final Result * (ABNORMAL) Lipid Panel, Standard (03/01/2024 8:12 AM EDT) Triglycerides 83 <150 mg/dL [facility] Comment:Desirable Triglyceri de: less than 150 mg/dLBorderline High Triglyceride 150-199 mg/dLHigh Triglyceride: 200-499 mg/dLVery High Triglyceride: greater than or equal to 5OO mg/dL Cholesterol 171 <200 mg/dL [facility] Comment:Desirable Cholestero l: less than 200 mg/dLBorderline High Cholesterol: 200-239 mg/dLHigh Cholesterol: greater than 239 mg/dL LDL Cholesterol Calculated 119(H) <100 mg/dL [facility] Comment:Desirable LDL: less than 100 mg/dLNear Optimal/Above Optimal LDL: 110- 129 mg/dLBorderline High LDL: 130-159 mg/dLHigh LDL: 160-189 mg/dLVery High LDL: greater than or equal to 190 mg/dL HDL Cholesterol 36(L) >40 mg/dL [facility] Comment:Desirable HDL: great er than 40 mg/dL Note: This HDL assay may give artificially low results in patients with liver disease. Blood Venous blood specimen / Unknown 03/01/2024 8:12 AM EDT 03/01/2024 8:12 AM EDT Giselle Brock [facility] LAB BLOOD ORDERABLES Final Resul t [facility] [address] [place] [address] [phone] * HIV-1/2 Antigen and Antibodies, Fourth Generation, with Reflexes (09/22/2022 10:16 AM EST) Pathologist [facility] HIV Antigen/Antibody, 4th Generation NON-REAC TIVE NON-REAC TIVE [facility] Comment: HIV-1 antigen and HIV-1/HIV-2 antibodies [...] ?? For additional information please refer to http://education.Traackr/faq/TWX808 (This link is being provided for informational/ educational purposes only.) The performance of this assay has not been clinically validated in patients less than 2 years old. Blood Venous blood specimen / Unknown 09/22/2022 10:16 AM EST 09/22/2022 10:16 AM EST Narrative [facility] - 09/23/2022 7:02 PM EST FASTING:UNKNOWN FASTING: UNKNOWN [facility] LAB BLOOD ORDERABLES Final Re sult [facility] [address] [facility] [place] [address] [email or web address] [facility] [address] [facility], ([address]) [place] [address] * HEPATITIS C ANTIBODY RFLX (12/05/2019 4:00 PM EDT) Pathologist [facility] HEPATITIS C ANTIBODY NONREACTIVE NONREACTIVE [facility] Comment: Antibodies to HCV not detected; does not exclude early acute HCV infection. 12/05/2019 4:00 PM EDT Kody Warren MD HISTORICAL/NON ORDERABLE LABS Fi nal Result [facility] [phone] from Last 3 Months or Most Recently Relevant to Health Maintenance Insurance [facility] Care Teams Supply Analyst Relationship Specialty Start Date End Date Giselle Brock ANP [address] [place] [phone] PCP - General Family Medicine 06/20/23
--- OUTSIDE RECORDS SUMMARY | 2024-12-18 08:49 | XMS_ITS | Encounter Summary ---
Author Organization [employer] Address [address] [facility] 7t [place] [address] Care Team Providers Care Spectral Scientist Name Role Phone Priyanka [facility] Primary Care Provider [phone] Giselle Brock Primary Care Provider [phone] Reason for Visit * Reason Onset Date Comments Triage 02/03/2023 Encounter Details Date Type Department Care Team (Late st Contact Info) Description 02/03/2023 Telephone [facility] [address] [place] [address] Priyanka, Wanda, [facility] [address] [place] [address] Triage Social History Tobacco Use Types Packs/Day [...] No answer LVM to return call to [facility] triage line. Protocol Used: No Contact [...] No answer LVM to return call to [facility] triage line. Protocol Used: No Contact [...] accepted this outcome Please contact pt at [phone] Polish Speaker documented in this encounter Plan of Treatment Upcoming Encounters Date Type Department Care Team (Late st Contact Info) Description 02/27/2025 3:45 PM EDT Office Visit [facility] [address] [place] [address] Giselle Brock ANP [address] [place] [address] documented as of this encounter Visit Diagnoses Not on filedocumented in this encounter Additional Health Concerns Assessment Noted Time PHQ-9 Depression Total Score: 19 023 1:15 PM EDT documented as of this encounter Care Teams Spectral Scientist Relationship Specialty Start Date End Date Wanda Mathew FNP [address] [place] [address] PCP - General Family Medicine 03/04/22 06/19/23 Giselle Brock ANP [address] [place] [address] PCP - General Family Medicine 06/20/23 documented as of this encounter
[2024-12-18 08:54] VITALS: BMI 34.9
== END 2024-12-18 08:47 | disposition home or self-care (01) ==
LOC: HO.HOS 08:32
PROVIDERS: PCP Nurse Practitioner Primary Care; Visit Provider Orthopaedic Surgery
DX: M25.561 Pain in right knee (principal)
CPT/HCPCS: 99024

== ENCOUNTER → 2024-12-18 08:31 | Outpatient (BNVA) | payer OTHER, SELFPAY | PROVIDERS: PCP Nurse Practitioner Primary Care; Visit Provider Orthopaedic Surgery | DX: M25.561 Pain in right knee (principal); Z47.89 Encounter for other orthopedic aftercare; Z98.890 Other specified postprocedural states | CPT/HCPCS: 99212 ==

== ENCOUNTER 2024-12-27 10:14 | Outpatient (AMB) | payer OTHER, SELFPAY ==
--- NOTE | 2024-12-27 10:16 | MHC.OFFVIS ---
Vital Signs 12/27/24 10:17 Height 5 ft 11 in Weight 261 lb 3.964 oz BMI 36.4 BP 130/66 Blood Pressure Location Lt brachial Position Sitting Pulse 73 Pulse Source Pulse Oximeter Pulse Oximetry (%) 96 Oxygen Delivery Method Room Air Intake Visit Reasons: nocturnal hypoxemia Allergies No Known Allergies [No Known Allergies*] Allergy (Verified 12/27/24 10:23) HPI Comments Details: The patient is here for pulmonary evaluation. The patient is a 64 old gentleman presenting with nocturnal hypoxia. Apparently patient complains of daytime drowsiness. Brunswick score is elevated 08/12. He states at nighttime sometimes wakes up gaps being for air. He is thankful that he wakes up because otherwise he feels like he is going to . This happens multiple times a night. He does try to sleep elevated. He does have issues with reflux disease. He does try to monitor his diet. We did look at a CT scan of the abdomen that he had back in the ask. Personally by me demonstrating a small hiatal hernia. Apparently he had seen somebody for this condition in the past. And they offered surgery. He did not want that time. The patient does complaint of dyspepsia and chronic cough. In then subsequently the difficulty breathing at nighttime. Therefore will request a barium swallow to better address the hiatal hernia. Patient understands that the persistent reflux disease could potentially result in pharyngeal laryngeal penetration cough and those changes. As far as his daytime drowsiness he did undergo a home sleep study. I personally reviewed. He did have some mild sleep apnea and also significant hypoxia. He did have a hard time sleeping so likely that the sleep apnea is much worse. At this time the patient will go ahead and start APAP therapy. Once he is situated with APAP will see about doing an overnight oximetry. In-lab sleep titration is also a possibility but the patient has a very hard time sleeping and typically when he has had those in the past that have resulted in no significant data. Therefore will hold off on in-lab study at this time. [facility] Medical History (Updated 12/27/24 @ 20:50 by Oumar Rodriguez MD) JOHN (obstructive sleep apnea) Hiatal hernia RYAN (generalized anxiety disorder) Tinnitus GERD (gastroesophageal reflux disease) Dyslipidemia Aneurysm of thoracic aorta Internal derangement of right knee Kidney stones Back pain Pre-diabetes HTN (hypertension) Surgical History (Updated 12/03/24 @ 08:05 by Maria De Jesus Callejas RN) Hx of colonoscopy Hx of esophagogastroduodenoscopy Social History Are you a primary pharmacist critical care to a significant other at home: No Do you presently have visiting nurse or other home services: No Alcohol intake: current Alcohol intake frequency: holidays/special occasions only Alcohol type: beer Patient Tobacco Use Status: Never used Tobacco Current occupational status: employed Current occupation: [employer] Review of Systems Const Denies chills, Reports daytime sleepiness, Reports difficulty sleeping, Reports snoring and Reports stops breathing during sleep ENT Denies dizziness Card Denies chest pain, Denies leg edema, Denies lightheadedness, Denies palpitations, Denies dyspnea, Denies dyspnea on exertion, Denies orthopnea and Denies other (loss of consciousness) Resp Denies cough, Denies dyspnea, Denies dyspnea on exertion and Reports snoring GI Reports dyspepsia and Reports heartburn Musc Denies abnormal gait, Denies muscle weakness, Denies numbness, Denies radiating pain into limb and Denies tingling Neuro Denies abnormal gait, Denies dizziness, Denies numbness and Denies tingling Endo Denies palpitations Physical Exam Vital Signs: Last Vital Signs Pulse 73 12/27/24 10:17 BP 130/66 12/27/24 10:17 Pulse Ox 96 12/27/24 10:17 Oxygen Delivery Method Room Air 12/27/24 10:17 BMI result Body Mass Index 36.4 Const General: cooperative, healthy appearing, no acute distress, alert and awake Orientation/consciousness: patient oriented x3 Neck Neck: Yes normal visual inspection and Yes no JVD Chest Chest palpation & inspection: normal inspection of the chest Resp Effort & Inspection: normal respiratory effort and not labored Auscultation: clear to auscultation bilaterally, no crackles, no rales, no rhonchi and no wheezes Cardio Rate: regular rate Rhythm: regular rhythm Heart sounds: S1 normal heart sound present and S2 normal heart sound present Peripheral pulses: Peripheral pulses 2+ throughout GI Inspection: Yes normal to inspection Skin General skin exam: no rashes or lesions noted Neuro General: patient oriented x3 Extrem General: Yes normal to inspection and No edema Assessment & Plan Assessment & Plan (1) JOHN (obstructive sleep apnea): Code(s): G47.33 - Obstructive sleep apnea (adult) (pediatric) Category: Medical (2) Hiatal hernia: Code(s): K44.9 - Diaphragmatic hernia without obstruction or gangrene Category: Medical (3) GERD (gastroesophageal reflux disease): Code(s): K21.9 - Gastro-esophageal reflux disease without esophagitis Category: Medical Qualifiers: Esophagitis presence: without esophagitis Qualified Code(s): K21.9 - Gastro-esophageal reflux disease without esophagitis Plan start APAP therapy for his JOHN contiune PPI Add Pepcid at night sleep with HOB elevated reflux diet Barium swallow start Fluticasone nasal spray F/U 3-4 months Orders: Orders [place] barium swallow Today K21.9 - Gastro-esophageal reflux disease without esophagitis Medications: New famotidine (Pepcid) 40 mg PO BEDTIME 30 tabs 7RF 30 days fluticasone propionate 50 mcg/actuation 2 sprays intranasal DAILY 15.8 mL 11RF 30 days J31.0 - Chronic rhinitis Coding Level of Care Code New Pt Level 4 (34189) Diagnoses JOHN (obstructive sleep apnea) G47.33 Hiatal hernia K44.9 Gastroesophageal reflux disease without esophagitis K21.9 Esophagitis presence: without esophagitis Time Spent (min) 40
[2024-12-27 10:17] VITALS: BP 130/66; PULSE 73; O2SAT 96; BMI 36.4
--- OUTSIDE RECORDS SUMMARY | 2024-12-27 11:59 | XMS_ITS | Encounter Summary ---
Author Organization [employer] Address [address] [facility] [address] [place] [address] Care Team Providers Care Cash Van Salesperson Name Role Phone Giselle Brock Primary Care Provider [phone] Reason for Visit * Reason Onset Date Comments Med Refill 10/04/2023 Encounter Details Date Type Department Care Team ([facility] st Contact Info) Description 10/04/2023 Telephone [facility] [address] [place] [address] Giselle Brock ANP [address] [place] [address] Med Refill Social History Tobacco Use Types [...] 2:18 PM EST Medication was sent to [facility] on 05/26/23 #90 with 3 refills. * Telephone Encounter - [place] - 10/04/2023 2:12 PM EST TC from pt requesting medication refill. Medications needing refill : amLODIPine (Norvasc) 10 MG tablet To be sent to: [facility] [place], [place] - [address] [facility] documented in this encounter Plan of Treatment Upcoming Encounters Date Type Department Care Team (Late st Contact Info) Description 03/11/2025 3:15 PM EDT Office Visit [facility] [address] [place] [address] Giselle Brock ANP [address] [place] [address] documented as of this encounter Visit Diagnoses Not on filedocumented in this encounter Additional Health Concerns Assessment Noted Time PHQ-9 Depression Total Score: 14 024 9:56 AM EST documented as of this encounter Care Teams Cash Van Salesperson Relationship Specialty Start Date End Date Giselle Brock ANP [address] [place] [address] PCP - General Family Medicine 06/20/23 documented as of this encounter
--- OUTSIDE RECORDS SUMMARY | 2024-12-27 11:59 | XMS_ITS | Encounter Summary ---
Author Organization [employer] Address [address] [facility] 7t [place] [address] Care Team Providers Care Financial Institution Branch Manager Name Role Phone Giselle Brock Primary Care Provider [phone] Reason for Visit * Reason Onset Date Comments Lab Orders 12/07/2023 Encounter Details Date Type Department Care Team ([facility] st Contact Info) Description 12/07/2023 Telephone [facility] [address] [place] [address] Giselle Brock ANP [address] [place] [address] Lab Orders Social History Tobacco Use Types [...] Description 03/11/2025 3:15 PM EDT Office Visit [facility] [address] [place], [place] [phone] Giselle Brock ANP [address] [place] [address] documented as of this encounter Visit Diagnoses Not on filedocumented in this encounter Additional Health Concerns Assessment Noted Time PHQ-9 Depression Total Score: 15 024 11:19 AM EST documented as of this encounter Care Teams Financial Institution Branch Manager Relationship Specialty Start Date End Date Giselle Brock ANP [address] [place] [address] PCP - General Family Medicine 06/20/23 documented as of this encounter
--- OUTSIDE RECORDS SUMMARY | 2024-12-27 11:59 | XMS_ITS | Clinical Summary ---
Author Organization [employer] Address [address] [facility] 7t [place] [address] Care Team Providers Care Garment Cutter Name Role Phone Giselle Brock RAJ Primary Care Provider [phone] Allergies Active Allergy Reactions Criticality Noted Date [...] 24 Active Blood Glucose Monitoring Suppl (FreeStyle White Lite) w/Device kitIndications: Prediabetes Use to test [...] order (will not trigger notification to Pharmacy)) Tirzepatide-Prabhjot ght Management (Zepbound) 2.5 MG/0.5ML solution auto-injectorIn dications:Predi abetes,Obstruct jan sleep apnea syndrome,Class 2 severe obesity due to excess calories with serious comorbidity and body mass index (BMI) of 35.0 to 35.9 in adult ([facility]) Inject 0.5 mL (2.5 mg) under the [...] Chest pressure 02/11/2024 Overview (02/29/2024): Established w/ [facility] cards. Negative stress test 08/2023 and normal [...] aneurysm --advised pt to discuss w his it security architect at upcoming apt -alarm signs and symptoms discussed in length w pt in case needs to go to ED RYAN (generalized anxiety disorder) 10/06/2023 Panic attacks 10/06/2023 unspecified Trauma and stressor-related disorder 10/06/2023 BPH (benign prostatic hyperplasia) 10/07/2022 Overview (10/07/2022): ?? TURP 2008 Chronic pain of right knee 10/07/2022 Overview (10/07/2022): ?? 2020 MRI with medical meniscal tear ?? Referred to [facility] 08/2022 Prediabetes 10/07/2022 Overview (02/29/2024): 09/2022 A1c 5.7 --> 6.5% 02/29/24 Healthcare maintenance 10/06/2022 Overview (02/29/2024): C-Scope: Restablished w/ [facility], got stress test 08/2023 in preparation [...] Overview (10/02/2022): ?? Seen by GI at [facility] in ?2003 with upper endoscopy performed. Biopsy [...] (01/26/2023 10:47 PM EDT): ?? Will resubmit [facility] referral ?? Declines abilify start at this time; will continue to discuss at follow up Assessment & Plan (12/21/2022 11:52 AM EDT): ?? Accepts referral to [facility] for therapy ?? Discussed possibility of starting daily medication, patient declines at this time ?? Denies SI or thoughts of self harm ?? Pt provided with [facility] contact information for same day care Dyslipidemia [...] negative, negative stress test 08/2023 followed by [facility] cardiology for hx of exercise induced chest [...] Encounters Date Type Department Care Team Description 12/21/2024 Travel 12/14/2024 11:15 AM EDT Office Visit [facility] [address] [place] [address] Giselle Brock ANP Primary hypertension (Primary Dx); Gastroesophageal reflux disease, unspecified whether esophagitis present 12/14/2024 Travel 12/11/2024 Refill [facility] [address] [place] [address] Giselle Brock ANP 12/03/2024 Orders Only GENERIC EXTERNAL DATA DEPARTMENT Provider, Generic External Data 11/19/2024 Refill [facility] [address] [place] [address] Giselle Brock ANP Dyslipidemia 11/14/2024 Refill [facility] [address] [place] [address] Giselle Brock ANP Primary hypertension 11/14/2024 Telephone [facility] [address] [place] [address] Missy Zimmerman, RN Results; Referral 11/13/2024 Orders Only [facility] [address] [place] [address] Giselle Brock ANP Nocturnal hypoxemia (Primary Dx) 10/24/2024 Telephone [facility] [address] [place] [address] Zhanna Rodriguez [place] 10/22/2024 Refill [facility] [address] [place] [address] Giselle Brock ANP Primary hypertension from Last [...] Description 03/11/2025 3:15 PM EDT Office Visit [facility] [address] [place], [place] [phone] Giselle Brock, ANP [address] [place], [place] [phone] Health Maintenance Due Date Last Done Comments [...] Whole Blood 115 60 - 115 mg/dL [facility] Comment:METER #: [id number] 12/03/2024 7:35 AM EDT 12/03/2024 7:43 AM EDT us Generic External Data Provider LAB BLOOD ORDERAB LES Final Result [facility] [address] [place] [address] [phone] * (ABNORMAL) POCT HGB A1C (09/04/2024 1:16 PM EST) Hemoglobin A1C 6.1(A) 4.0 - 6.0 % QC Media Lot # [id number] Lot# Expiration Date [id number] Blood 09/04/2024 1:16 PM EST us Giselle Brock ANP POINT OF CARE TEST ENTER/EDIT OR DERABLES Final Result * (ABNORMAL) Lipid Panel, Standard (03/01/2024 8:12 AM EDT) Triglycerides 83 <150 mg/dL [facility] Comment:Desirable Triglyceri de: less than 150 mg/dLBorderline High Triglyceride 150-199 mg/dLHigh Triglyceride: 200-499 mg/dLVery High Triglyceride: greater than or equal to 5OO mg/dL Cholesterol 171 <200 mg/dL [facility] Comment:Desirable Cholestero l: less than 200 mg/dLBorderline High Cholesterol: 200-239 mg/dLHigh Cholesterol: greater than 239 mg/dL LDL Cholesterol Calculated 119(H) <100 mg/dL [facility] Comment:Desirable LDL: less than 100 mg/dLNear Optimal/Above Optimal LDL: 110- 129 mg/dLBorderline High LDL: 130-159 mg/dLHigh LDL: 160-189 mg/dLVery High LDL: greater than or equal to 190 mg/dL HDL Cholesterol 36(L) >40 mg/dL [facility] Comment:Desirable HDL: great er than 40 mg/dL Note: This HDL assay may give artificially low results in patients with liver disease. Blood Venous blood specimen / Unknown 03/01/2024 8:12 AM EDT 03/01/2024 8:12 AM EDT [facility] LAB BLOOD ORDERABLES Final Resul t [facility] [address] [place] [phone] [phone] * HIV-1/2 Antigen and Antibodies, Fourth Generation, with Reflexes (09/22/2022 10:16 AM EST) [facility] HIV Antigen/Antibody, 4th Generation NON-REAC TIVE NON-REAC TIVE [employer] [facility] Comment: HIV-1 antigen and HIV-1/HIV-2 antibodies were [...] ?? For additional information please refer to http://education.[employer].Nubank/faq/PIH395 (This link is being provided for informational/ educational purposes only.) The performance of this assay has not been clinically validated in patients less than 2 years old. Blood Venous blood specimen / Unknown 09/22/2022 10:16 AM EST 09/22/2022 10:16 AM EST Narrative [facility] - 09/23/2022 7:02 PM EST FASTING:UNKNOWN FASTING: UNKNOWN [facility] LAB BLOOD ORDERABLES Final Re sult [facility] [address] [place] [address], [place] [address] [facility] [address] [facility], (Nl2) [place] [address] * HEPATITIS C ANTIBODY RFLX (12/05/2019 4:00 PM EDT) HEPATITIS C ANTIBODY NONREACTIVE NONREACTIVE [facility] Comment: Antibodies to HCV not detected; does not exclude early acute HCV infection. 12/05/2019 4:00 PM EDT us Kody Warren MD HISTORICAL/NON ORDERABLE LABS Fi nal Result [facility] Anywhere [address] from Last 3 Months or Most Recently Relevant to Health Maintenance Insurance [facility] Care Teams Garment Cutter Relationship Specialty Start Date End Date Giselle Brock ANP [address] [place] [address] PCP - General Family Medicine 06/20/23
--- OUTSIDE RECORDS SUMMARY | 2024-12-27 11:59 | XMS_ITS | Encounter Summary ---
Author Organization [employer] Address [address] [facility] 7t [place] [address] Care Team Providers Care Admission Nurse Name Role Phone Priyanka [facility] Primary Care Provider [phone] Giselle Brock Primary Care Provider [phone] Reason for Visit * Reason Onset Date Comments Triage 02/03/2023 Encounter Details Date Type Department Care Team (Late st Contact Info) Description 02/03/2023 Telephone [facility] [address] [place] [address] Priyanka, Wanda, [facility] [address] [place] [address] Triage Social History Tobacco Use Types Packs/Day [...] No answer LVM to return call to [facility] triage line. Protocol Used: No [...] No answer LVM to return call to [facility] triage line. Protocol Used: No [...] accepted this outcome Please contact pt at [phone] Tunisian Speaker documented in this encounter Plan of Treatment Upcoming Encounters Date Type Department Care Team (Late st Contact Info) Description 03/11/2025 3:15 PM EDT Office Visit [facility] [address] [place] [address] Giselle Brock ANP [address] [place] [address] documented as of this encounter Visit Diagnoses Not on filedocumented in this encounter Additional Health Concerns Assessment Noted Time PHQ-9 Depression Total Score: 19 023 1:15 PM EDT documented as of this encounter Care Teams Admission Nurse Relationship Specialty Start Date End Date Wanda Mathew FNP [address] [place] [address] PCP - General Family Medicine 03/04/22 06/19/23 Giselle Brock ANP [address] [place] [address] PCP - General Family Medicine 06/20/23 documented as of this encounter
== END 2024-12-27 10:48 | disposition home or self-care (01) ==
LOC: HO.HPS 10:15
PROVIDERS: PCP Nurse Practitioner Primary Care; Visit Provider Hospitalist
DX: G47.33 Obstructive sleep apnea (adult) (pediatric) (principal); K44.9 Diaphragmatic hernia without obstruction or gangrene; K21.9 Gastro-esophageal reflux disease without esophagitis
CPT/HCPCS: 99204

== ENCOUNTER → 2024-12-27 10:14 | Outpatient (BNVA) | payer OTHER, SELFPAY | PROVIDERS: PCP Nurse Practitioner Primary Care; Visit Provider Hospitalist | DX: J31.0 Chronic rhinitis (principal); G47.33 Obstructive sleep apnea (adult) (pediatric); K44.9 Diaphragmatic hernia without obstruction or gangrene; K21.9 Gastro-esophageal reflux disease without esophagitis | CPT/HCPCS: 99202 ==

== ENCOUNTER 2025-01-03 08:38 | Outpatient (REF) | payer OTHER, SELFPAY ==
--- NOTE | ~2025-01-03 | US_ITS ---
CLINICAL HISTORY: N20.0 - Calculus of kidney US Renal Comparison: None Findings: Right kidney normal size and echotexture, 11.9 cm length. Left kidney normal size and echotexture, 13.1 cm length. There are bilateral renal parenchymal calculi. No hydronephrosis of either kidney. Normal color Doppler IMPRESSION: 1. Normal kidneys. This document has been electronically signed by: Tk Christian MD on 01/04/2025 08:34:09
--- OUTSIDE RECORDS SUMMARY | 2025-01-03 09:12 | XMS_ITS | Encounter Summary ---
Author Organization [employer] Address [address] [facility] [place] [address] Care Team Providers Care Clipper And Turner Name Role Phone Giselle Brock Primary Care Provider [phone] Reason for Visit * Reason Comments Med Refill Encounter Details Date Type Department Care Team ([facility] st Contact Info) Description 12/31/2024 Refill [facility] [address] [place] [address] Giselle Brock ANP [address] [place] [address] Social History Tobacco Use Types Packs/Day Years [...] Description 03/11/2025 3:15 PM EDT Office Visit [facility] [address] [place] [address] Giselle Brock ANP [address] [place] [address] documented as of this encounter Visit Diagnoses Not on filedocumented in this encounter Additional Health Concerns Assessment Noted Time PHQ-9 Depression Total Score: 7 09/04/20 24 2:04 PM EST documented as of this encounter Care Teams Clipper And Turner Relationship Specialty Start Date End Date Giselle Brock ANP [address] [place] [address] PCP - General Family Medicine 06/20/23 documented as of this encounter
--- OUTSIDE RECORDS SUMMARY | 2025-01-03 09:12 | XMS_ITS | Encounter Summary ---
Author Organization [employer] Address [address] [facility] 7t [place] [address] Care Team Providers Care Wheelchair Rental Clerk Name Role Phone Priyanka [facility] Primary Care Provider [phone] Giselle Brock Primary Care Provider [phone] Reason for Visit * Reason Onset Date Comments Triage 02/03/2023 Encounter Details Date Type Department Care Team (Late st Contact Info) Description 02/03/2023 Telephone [facility] [address] [place] [address] Priyanka, Wanda, [facility] [address] [place], [place] [phone] Triage Social History Tobacco Use Types Packs/Day [...] No answer LVM to return call to [facility] triage line. Protocol Used: No Contact [...] No answer LVM to return call to [facility] triage line. Protocol Used: No Contact [...] accepted this outcome Please contact pt at [phone] Nauruan Speaker documented in this encounter Plan of Treatment Upcoming Encounters Date Type Department Care Team (Late st Contact Info) Description 03/11/2025 3:15 PM EDT Office Visit [facility] [address] [place] [address] Giselle Brock ANP [address] [place] [address] documented as of this encounter Visit Diagnoses Not on filedocumented in this encounter Additional Health Concerns Assessment Noted Time PHQ-9 Depression Total Score: 19 023 1:15 PM EDT documented as of this encounter Care Teams Wheelchair Rental Clerk Relationship Specialty Start Date End Date Wanda Mathew FNP [address] [place] [address] PCP - General Family Medicine 03/04/22 06/19/23 Giselle Brock ANP [address] [place] [address] PCP - General Family Medicine 06/20/23 documented as of this encounter
--- OUTSIDE RECORDS SUMMARY | 2025-01-03 09:12 | XMS_ITS | Clinical Summary ---
Author Organization [employer] Address [address] [facility] 7[address] [place] [address] Care Team Providers Care Snow Technician Name Role Phone Giselle Brock RAJ Primary Care Provider Allergies Active Allergy Reactions Criticality Noted Date [...] 24 Active Blood Glucose Monitoring Suppl (FreeStyle [place] Lite) w/Device kitIndications: Prediabetes Use to test [...] ^1R1 30 tablet 2 11/16/19 25 Active rosuvastatin (Crestor) 10 MG [...] chew. 180 capsule 1 12/15/19 25 Active acetaminophen (Tylenol 8 Hour) 650 MG ER tablet TAKE 1 TABLET BY MOUTH EVERY 8 HOURS NEEDED FOR PAIN. DO NOT BREAK, CRUSH, DISSOLVE OR CHEW (VIAL) 120 tablet 1 01/02/20 25 Active Tirzepatide-Prabhjot ght Management (Zepbound) 2.5 MG/0.5ML solution auto-injectorIn dications:Class 2 severe obesity with serious comorbidity and body mass index (BMI) of 36.0 to 36.9 in adult, unspecified obesity type (CMS/HCC) Inject 0.5 mL (2.5 mg) under the skin 1 (one) time per week. 2 mL 01/03/20 25 Active omeprazole (PriLOSEC) [address] [...] (BMI) of 35.0 to 35.9 in adult ([facility]) Inject 0.5 mL (2.5 mg) under the skin every 7 (seven) days. 2 mL 2 09/04/20 24 025 Discontinued( erapy completed) losartan (Cozaar) 50 MG tabletIndicatio ns:Primary hypertension TAKE ONE TABLET BY MOUTH EVERY DAY 90 tablet 1 11/16/19 025 Discontinued(Al ternate therapy) acetaminophen (Tylenol 8 Hour) 650 MG ER tablet TAKE 1 TABLET BY MOUTH EVERY 8 HOURS NEEDED FOR PAIN. DO NOT BREAK, CRUSH, DISSOLVE OR CHEW (VIAL) 120 tablet 1 11/16/19 25 025 Discontinued omeprazole (PriLOSEC) [address] capsuleIndicati ons:Gastroesoph ageal reflux disease, unspecified whether esophagitis present Take 1 capsule (20 mg) by mouth before breakfast and before evening meal. Do not crush or chew. 180 capsule 1 12/15/19 025 Discontinued Active Problems Problem Noted Date Diagnosed Date Chest pressure 02/11/2024 Overview (02/29/2024): Established w/ C cards. Negative stress test 08/2023 and normal [...] aneurysm --advised pt to discuss w his fire equipment inspector helper at upcoming apt -alarm signs and symptoms discussed in length w pt in case needs to go to ED RYAN (generalized anxiety disorder) 10/06/2023 Panic attacks 10/06/2023 unspecified Trauma and stressor-related disorder 10/06/2023 BPH (benign prostatic hyperplasia) 10/07/2022 Overview (10/07/2022): ?? TURP 2008 Chronic pain of right knee 10/07/2022 Overview (10/07/2022): ?? 2020 MRI with medical meniscal tear ?? Referred to [facility] ortho 08/2022 Prediabetes 10/07/2022 Overview (02/29/2024): 09/2022 A1c 5.7 --> 6.5% 02/29/24 Healthcare maintenance 10/06/2022 Overview (02/29/2024): C-Scope: Restablished w/ [facility] GI, got stress test 08/2023 in preparation [...] Overview (10/02/2022): ?? Seen by GI at [facility] in ?2003 with upper endoscopy performed. [...] 11:52 AM EDT): ?? Accepts referral to [facility] for therapy ?? Discussed possibility of starting daily medication, patient declines at this time ?? Denies SI or thoughts of self harm ?? Pt provided with [facility] contact information for same day care [...] negative, negative stress test 08/2023 followed by [facility] cardiology for hx of exercise induced chest [...] Encounters Date Type Department Care Team Description 01/02/2025 Telephone [facility] [address] [place] [address] Giselle Brock ANP Prior Auth Prescription 12/31/2024 Refill [facility] [address] [place] [address] Giselle Brock ANP 12/21/2024 Travel 12/14/2024 11:15 AM EDT Office Visit [facility] [place] [address] Giselle Brock ANP Primary hypertension (Primary Dx); Gastroesophageal reflux disease, unspecified whether esophagitis present; Colon cancer screening; Class 2 severe obesity with serious comorbidity and body mass index (BMI) of 36.0 to 36.9 in adult, unspecified obesity type ([facility]) 12/14/2024 Travel 12/11/2024 Refill [facility] [address] [place] [address] Giselle Brock ANP 12/03/2024 Orders Only GENERIC EXTERNAL DATA DEPARTMENT Provider, Generic External Data 11/19/2024 Refill [facility] [address] [place] [address] Giselle Brock ANP Dyslipidemia 11/14/2024 Refill [facility] [address] [place] [address] Giselle Brock ANP Primary hypertension 11/14/2024 Telephone [facility] [address] [place] [address] Missy Zimmerman, MARTIN Results; Referral 11/13/2024 Orders Only [facility] [address] [place] [address] Giselle Brock ANP Nocturnal hypoxemia (Primary Dx) 10/24/2024 Telephone [facility] [address] [place] [address] Zhanna Rodriguez, [place] 10/22/2024 Refill [facility] [address] [place] [address] Giselle Brock ANP Primary hypertension from Last [...] Description 03/11/2025 3:15 PM EDT Office Visit [facility] [address] [place] [address] Giselle Brock, ANP [address] [place] [address] Health Maintenance Due Date Last Done Comments CT Colonography 1961 Colonoscopy 1961 Colorectal Cancer Screening 1961 FIT DNA/Cologuard 1961 FIT 1961 FOBT 1961 Sigmoidoscopy 1961 Zoster Vaccines (2 of 3) 06/20/2015 04/25/2015 COVID-19 Vaccine ( season) 2024 03/12/2021, 02/07/2021 Influenza Vaccine (#1) [...] Whole Blood 115 60 - 115 mg/dL [facility] Comment:METER #: [id number] 12/03/2024 7:35 AM EDT 12/03/2024 7:43 AM EDT us Generic External Data Provider LAB BLOOD ORDERAB LES Final Result [facility] [address] [place] [phone] * (ABNORMAL) POCT HGB A1C (09/04/2024 1:16 PM EST) Hemoglobin A1C 6.1(A) 4.0 - 6.0 % QC Media Lot # [id number] Lot# Expiration Date [id number] Blood 09/04/2024 1:16 PM EST us Giselle Brock ANP POINT OF CARE TEST ENTER/EDIT OR DERABLES Final Result * (ABNORMAL) Lipid Panel, Standard (03/01/2024 8:12 AM EDT) Triglycerides 83 <150 mg/dL [facility] Comment:Desirable Triglyceri de: less than 150 mg/dLBorderline High Triglyceride 150-199 mg/dLHigh Triglyceride: 200-499 mg/dLVery High Triglyceride: greater than or equal to 5OO mg/dL Cholesterol 171 <200 mg/dL [facility] Comment:Desirable Cholestero l: less than 200 mg/dLBorderline High Cholesterol: 200-239 mg/dLHigh Cholesterol: greater than 239 mg/dL LDL Cholesterol Calculated 119(H) <100 mg/dL [facility] Comment:Desirable LDL: less than 100 mg/dLNear Optimal/Above Optimal LDL: 110- 129 mg/dLBorderline High LDL: 130-159 mg/dLHigh LDL: 160-189 mg/dLVery High LDL: greater than or equal to 190 mg/dL HDL Cholesterol 36(L) >40 mg/dL [facility] Comment:Desirable HDL: great er than 40 mg/dL Note: This HDL assay may give artificially low results in patients with liver disease. Blood Venous blood specimen / Unknown 03/01/2024 8:12 AM EDT 03/01/2024 8:12 AM EDT us Giselle Brock ANP LAB BLOOD ORDERABLES Final Resul t [facility] [address] [place] [address] [phone] * HIV-1/2 Antigen and Antibodies, Fourth Generation, with Reflexes (09/22/2022 10:16 AM EST) HIV Antigen/Antibody, 4th Generation NON-REAC TIVE NON-REAC TIVE [employer] [facility] Comment: HIV-1 antigen and HIV-1/HIV-2 [...] ?? For additional information please refer to http://education.[employer]/faq/IBI337 (This link is being provided for informational/ educational purposes only.) The performance of this assay has not been clinically validated in patients less than 2 years old. Blood Venous blood specimen / Unknown 09/22/2022 10:16 AM EST 09/22/2022 10:16 AM EST Narrative [facility] - 09/23/2022 7:02 PM EST FASTING:UNKNOWN FASTING: UNKNOWN [facility] [employer] LAB BLOOD ORDERABLES Final Re sult Performing Organization Address City/[facility] Co de Phone Number [facility] [address], [place] [address] [employer] [facility] [address] [facility], (N[address]) [place] [address] * HEPATITIS C ANTIBODY RFLX (12/05/2019 4:00 PM EDT) [facility] HEPATITIS C ANTIBODY NONREACTIVE NONREACTIVE [facility] Comment: Antibodies to HCV not detected; does not exclude early acute HCV infection. 12/05/2019 4:00 PM EDT Kody Warren MD HISTORICAL/NON ORDERABLE LABS Fi nal Result Performing Organization Address City/[facility]/ZIP Co de Phone Number [facility] Anywhere [address] from Last 3 Months or Most Recently Relevant to Health Maintenance Insurance [facility] Care Teams Snow Technician Relationship Specialty Start Date End Date Giselle Brock ANP [address] [place] [phone] PCP - General Family Medicine 06/20/23
--- OUTSIDE RECORDS SUMMARY | 2025-01-03 09:12 | XMS_ITS | Encounter Summary ---
Author Organization [employer] Address [address] [facility] 7t [place] [address] Care Team Providers Care Lead Ramp Service Man Name Role Phone Giselle Brock Primary Care Provider [phone] Reason for Visit * Reason Onset Date Comments Med Refill 10/04/2023 Encounter Details Date Type Department Care Team ([facility] st Contact Info) Description 10/04/2023 Telephone [facility] [address] [place] [address] Giselle Brock ANP [address] [place] [address] Med Refill Social History Tobacco Use Types [...] 2:18 PM EST Medication was sent to [facility] on 05/26/23 #90 with 3 refills. * Telephone Encounter - [place] - 10/04/2023 2:12 PM EST TC from pt requesting medication refill. Medications needing refill : amLODIPine (Norvasc) 10 MG tablet To be sent to: [facility] - [place], [place] - [address] [facility] documented in this encounter Plan of Treatment Upcoming Encounters Date Type Department Care Team (Late st Contact Info) Description 03/11/2025 3:15 PM EDT Office Visit [facility] [address] [place] [address] Giselle Brock ANP [address] [place] [address] documented as of this encounter Visit Diagnoses Not on filedocumented in this encounter Additional Health Concerns Assessment Noted Time PHQ-9 Depression Total Score: 14 024 9:56 AM EST documented as of this encounter Care Teams Lead Ramp Service Man Relationship Specialty Start Date End Date Giselle Brock ANP [address] [place] [address] PCP - General Family Medicine 06/20/23 documented as of this encounter
--- OUTSIDE RECORDS SUMMARY | 2025-01-03 09:12 | XMS_ITS | Encounter Summary ---
Author Organization [employer] Address [address] [place] [address] Care Team Providers Care Tailings Man Name Role Phone Giselle Brock Primary Care Provider [phone] Reason for Visit * Reason Onset Date Comments Prior Auth Prescription 01/02/2025 Encounter Details Date Type Department Care Team ([facility] st Contact Info) Description 01/02/2025 Telephone [facility] [address] [place] [address] Giselle Brock ANP [address] [place] [address] Prior Auth Prescription Social History Tobacco Use Types Packs/Day Years [...] encounter Miscellaneous Notes * Telephone Encounter - Alison Urbina - 01/02/2025 3:23 PM EDT PA initiated on Covermymeds for Zepbound . Approval/denial pending. Valentine: [id number] Rx #: [id number] Zepbound 2.5MG/0.5ML pen-injectors Per [facility]: The patient currently has access to the requested medication and a Prior Authorization is not needed for the patient/medication. * Telephone Encounter - Alison Urbina - 01/02/2025 3:23 PM EDT ----- Message from Giselle Brock sent at 01/02/2025 2:15 PM EDT ----- Please initiate PA for zepbound documented in this encounter Plan of Treatment Upcoming Encounters Date Type Department Care Team (Late st Contact Info) Description 03/11/2025 3:15 PM EDT Office Visit [facility] [address] [place] [address] Giselle Brock ANP [address] [place] [address] documented as of this encounter Visit Diagnoses Not on filedocumented in this encounter Additional Health Concerns Assessment Noted Time PHQ-9 Depression Total Score: 7 09/04/20 24 2:04 PM EST documented as of this encounter Care Teams Tailings Man Relationship Specialty Start Date End Date Giselle Brock ANP [address] [place] [address] PCP - General Family Medicine 06/20/23 documented as of this encounter
--- OUTSIDE RECORDS SUMMARY | 2025-01-03 09:12 | XMS_ITS | Encounter Summary ---
Author Organization [email or web address] Address [address] [place] [address] Care Team Providers Care Web Engineer Name Role Phone Giselle Brock Primary Care Provider [phone] Reason for Visit * Reason Onset Date Comments Lab Orders 12/07/2023 Encounter Details Date Type Department Care Team ([facility] st Contact Info) Description 12/07/2023 Telephone [facility] MED[facility] [address] [place] [address] Giselle Brock ANP [address] [place] [address] Lab Orders Social History Tobacco Use Types [...] Description 03/11/2025 3:15 PM EDT Office Visit [facility] [address] [place], [place] [phone] Giselle Brock ANP [address] [place] [address] documented as of this encounter Visit Diagnoses Not on filedocumented in this encounter Additional Health Concerns Assessment Noted Time PHQ-9 Depression Total Score: 15 024 11:19 AM EST documented as of this encounter Care Teams Web Engineer Relationship Specialty Start Date End Date Giselle Brock ANP [address] [place] [address] PCP - General Family Medicine 06/20/23 documented as of this encounter
== END 2025-01-03 08:39 | disposition home or self-care (01) ==
LOC: HO.US 08:38
PROVIDERS: PCP Nurse Practitioner Primary Care; Visit Provider Urology
DX: N20.0 Calculus of kidney (principal)
CPT/HCPCS: 76775

== ENCOUNTER → 2025-01-03 08:40 | Outpatient (BNV) | payer OTHER, SELFPAY | PROVIDERS: PCP Nurse Practitioner Primary Care; Visit Provider Specialist | DX: N20.0 Calculus of kidney (principal) | CPT/HCPCS: 76775 ==

== ENCOUNTER 2025-03-27 12:10 | Outpatient (AMB) | payer OTHER, SELFPAY ==
--- NOTE | 2025-03-27 12:14 | A.OFFVIS_ITS ---
Vital Signs 03/27/25 12:26 Height 5 ft 11 in Weight 260 lb BMI 36.3 BP 140/80 H Blood Pressure Location Rt brachial Position Sitting Pulse 90 Pulse Source Pulse Oximeter Pulse Oximetry (%) 94 Oxygen Delivery Method Room Air Intake Visit Reasons: Abdominal pain Intake Note: New pt for initial eval of abd pain. CC; C.O. GERD + difficulty with evacuating and intermittent constipation. Pt states that he does often wake up with reflux in the middle of the night. Allergies No Known Allergies (No Known Allergies*) Allergy (Verified 12/27/24 10:23) HPI HPI Abdominal pain: Details: Patient is a 64-year-old male with PMH of depression, JOHN, RYAN, hyperlipidemia, hypertension and GERD. Referred by PCP for pre colonoscopy screening and further management of GERD. Patient is accompanied by his daughter who is translating during our visit. Angle encinas reports ongoing acid reflux symptoms, including heartburn and a sensation of food not digesting fully. He started omeprazole this month, taking it daily in the morning without food. The medication provides relief for a few days, but symptoms then return. He was previously taking Pepcid at bedtime, which he has now discontinued as he found it less effective compared to omeprazole. He experiences a burning sensation in his esophageal region and regurgitation. To manage symptoms, he drinks more water at night. He also reports ab palpitations when he feels his stomach hasn't digested properly. Reports a swallow study is scheduled for March 29 to further evaluate his digestive symptoms. The patient complains of constipation, reporting bowel movements every 3 days. He has difficulty with complete evacuation and often has to push, walk around, and make multiple attempts before successfully passing stool. He experiences abdominal pain, describing his belly as feeling very big with pain most prominent on the sides. Sameer notes blood in his stool about once a month, associated with diarrhea and when he has to wait to have a bowel movement. The blood is described as very red and is seen both in the toilet and when wiping. Sameer's constipation symptoms have been present for months, possibly years. He tried MiraLax powder prescribed by his primary care provider about 6 months ago but discontinued it due to stomach pain. He finds that eating bananas helps stimulate bowel movements. The patient mentions that his symptoms worsened after age 41. He denies current nausea but admits to vomiting in the past. He is currently awaiting C-PAP treatment for sleep apnea. He denies any other significant cardiopulmonary history Patient denies: fever/chills or unintentional wt loss. Social hx: - Former smoker (quit 20-30 years ago) - Past alcohol and marijuana use when younger - Retired; lives with daughter - Eats bananas and fruits for fibe - family hx as below - denies personal hx of CA -reports of post anesthesia aggression, otherwise tolerates without difficulty. PFS Medical History (Updated 03/28/25 @ 07:54 by Flory Naranjo CNP) Rectal bleeding Colon cancer screening Constipation JOHN (obstructive sleep apnea) Hiatal hernia RYAN (generalized anxiety disorder) Tinnitus GERD (gastroesophageal reflux disease) Dyslipidemia Aneurysm of thoracic aorta Internal derangement of right knee Kidney stones Back pain Pre-diabetes HTN (hypertension) Surgical History H/O arthroscopy Hx of colonoscopy Hx of esophagogastroduodenoscopy Family History (Updated 03/27/25 @ 13:02 by Flory Naranjo CNP) Mother Heart disease Diabetes Father Diabetes Heart disease Social History Are you a primary animal care assistant to a significant other at home: No Do you presently have visiting nurse or other home services: No Alcohol intake: current Alcohol intake frequency: holidays/special occasions only Alcohol type: beer Patient Tobacco Use Status: Never used Tobacco Current occupational status: employed Current occupation: [employer] Review of Systems Const Reports as per HPI ENT Reports as per HPI Card Reports as per HPI Resp Reports as per HPI GI Reports as per HPI Reports as per HPI Physical Exam Vital Signs: Last Vital Signs Pulse 90 03/27/25 12:26 BP 140/80 H 03/27/25 12:26 Pulse Ox 94 03/27/25 12:26 Oxygen Delivery Method Room Air 03/27/25 12:26 BMI result Body Mass Index 36.3 Const General: healthy appearing, no acute distress and well developed Nutritional Appearance: well nourished Orientation/consciousness: patient oriented x3 HEENT Head: Yes normal to inspection, Yes normocephalic and Yes atraumatic Face and sinus: Yes normal facial exam Eyes General: appearance normal, both eyes and all related structures Neck Neck: Yes normal visual inspection Resp Effort & Inspection: normal respiratory effort, able to speak in complete sentences, no tracheal deviation and symmetric chest movement Auscultation: clear to auscultation bilaterally Cardio Jugular venous distension: no JVD Rate: regular rate Rhythm: regular rhythm Heart sounds: S1 normal heart sound present, S2 normal heart sound present, no gallops and no murmurs GI Inspection: Yes normal to inspection, No distended, Yes obesity and Yes striae Palpation (GI): Soft to palpation, not firm, Tenderness to palpation present (GI) in the LLQ and No hepatosplenomegaly present Auscultation: normal bowel sounds Neuro General: patient oriented x3 Gait exam (Neuro): Normal gait present Psych Appearance: grossly normal Mental Status: mental status grossly normal Speech and movement: Normal speech and movement present Affect: normal affect Attitude: cooperative Thought process: Normal thought process present Thought content: Normal thought content present Insight: Good insight present (Psych) Judgement: Good judgement present (Psych) Assessment & Plan Assessment & Plan (1) Constipation: Code(s): K59.00 - Constipation, unspecified Category: Medical Qualifiers: Constipation type: unspecified constipation type Qualified Code(s): K59.00 - Constipation, unspecified Plan: with Intermittent Hematochezia - Chronic constipation since childhood with bowel movements every 3 days, bright red blood per rectum with diarrhea episodes monthly. - Start laxative-stool softener combination, 2 tablets at bedtime. - Adjust to 1 tablet or every other day if loose stools develop. - Order fasting comprehensive metabolic panel and complete blood count. - Schedule CT abdomen/pelvis with IV and oral contrast after lab results. - Proceed with colonoscopy for further evaluation. Reinforced lifestyle modifications to promote regularity: -higher fiber diet, examples provided -adequate hydration with water -150 minutes of moderate intensity exercise per week (2) Colon cancer screening: Comment: 02/17/2006 colonoscopy ( Dr. Quintero) complete with good prep- hyperplastic polyp X2 Code(s): Z12.11 - Encounter for screening for malignant neoplasm of colon Category: Medical Plan: History of colon polyps, last colonoscopy 2005 found one benign polyp, due for screening. - Schedule screening colonoscopy. Medications: -prescriptions for laxative tablets and MiraLax sent to pharmacy; instructions for Gatorade purchase and clear liquid diet given. Patient educated on scheduling process, procedure preparation, including avoiding certain foods and ensuring clear liquid intake Advised on necessity for ride post-procedure due to sedation. (3) GERD (gastroesophageal reflux disease): Comment: 03/17/2004 Upper endoscopy with biopsies- distal esophagitis with a few superficial erosions. no evidence of Barretts esophagus Code(s): K21.9 - Gastro-esophageal reflux disease without esophagitis Category: Medical Qualifiers: Esophagitis presence: without esophagitis Qualified Code(s): K21.9 - Gastro-esophageal reflux disease without esophagitis Plan: Persistent heartburn with sensation of incomplete digestion after meals despite omeprazole. - Discontinue omeprazole. - Start pantoprazole 40 mg daily - Schedule upper endoscopy in conjunction with colonoscopy. Encouraged to take pantoprazole as prescribed, taken at least 30-60 minutes before a meal. Education on GERD prevention : -Advised against heavy meals; encouraged small, frequent meals instead of large ones. - Instructed to remain upright for 2?3 hours after eating. - Advised to avoid late-night meals, spicy foods, caffeine, alcohol, known dietary triggers, and tight-fitting clothing. - Emphasis placed on gradual implementation of lifestyle changes to improve adherence and symptom control. Plan Follow-up in 8 weeks or sooner as needed Time: I spent a total of 60 minutes on the date of encounter which includes: Preparing to see the patient (reviewed previous documentation, test results and medical history) Performing a medically appropriate exam and/or evaluation Ordering medications, tests, and procedures Documenting clinical information in the health record Orders: Orders Comprehensive [place]. Panel Fast 03/27/25 K59.00 - Constipation, unspecified Complete Blood Count Auto Diff 03/27/25 K59.00 - Constipation, unspecified IRON PROFILE 03/27/25 K59.00 - Constipation, unspecified CT abdomen pelvis w IV con 03/27/25 K59.00 - Constipation, unspecified, K62.5 - Hemorrhage of anus and rectum, R10.12 - Left upper quadrant pain, R10.32 - Left lower quadrant pain Medications: New polyethylene glycol 3350 (Miralax) per colonoscopy prep instructions 238 grams PO ONCE 238 grams 0RF bisacodyl Take four tablets once for 1 day per colonoscopy instructions 5 mg PO ONCE 4 tabs 0RF 1 day pantoprazole Take 1 tablet daily. Best taken 30-60 minutes before 1st meal of the day 40 mg PO DAILY 90 tabs 1RF sennosides-docusate sodium 8.6-50 mg (Senna Plus) 2 tab-caps (2 x 8.6-50 mg) PO BEDTIME 180 caps 1RF Discontinued famotidine (Pepcid) Discontinued Reason: Patient no longer taking 40 mg PO BEDTIME 30 days 30 tabs 7RF Coding Level of Care Code New Pt New Pt Level 5 (81340) Patient Type New Diagnoses Constipation, unspecified constipation type K59.00 Constipation type: unspecified constipation type Colon cancer screening Z12.11 Gastroesophageal reflux disease without esophagitis K21.9 Esophagitis presence: without esophagitis
[2025-03-27 12:26] VITALS: BP 140/80; PULSE 90; O2SAT 94; BMI 36.3
--- OUTSIDE RECORDS SUMMARY | 2025-03-27 13:14 | XMS_ITS | Encounter Summary ---
Author Organization [employer] Address [address] 7[address] [place] [address] Care Team Providers Care Movie Extra Name Role Phone Giselle Brock Primary Care Provider Reason for Visit * Reason Onset Date Comments Lab Orders 12/07/2023 Encounter Details Date Type Department Care Team ([facility] st Contact Info) Description 12/07/2023 Telephone [facility] [address] [place] [address] Giselle Brock ANP [address] [place] [address] Lab Orders Social History Tobacco Use Types [...] documented in this encounter Plan of Treatment Not on file documented as of this encounter Visit Diagnoses Not on filedocumented in this encounter Additional Health Concerns Assessment Noted Time PHQ-9 Depression Total Score: 15 024 11:19 AM EST documented as of this encounter Care Teams Movie Extra Relationship Specialty Start Date End Date Giselle Brock ANP [address] [place] [address] PCP - General Family Medicine 06/20/23 documented as of this encounter
--- OUTSIDE RECORDS SUMMARY | 2025-03-27 13:14 | XMS_ITS | Patient Health Record ---
Author Organization [facility] Address [address] [place] [address] Care Team Providers Care Precision Agriculture Technician Name Role Phone Akilah Larose Primary Care Provider David Joshua [phone] Allergies Allergen (clinical drug ingredient) Drug/Non Drug Allergy documented on EMR Reaction Allergy Type Onset Date Status seasonal (uncoded) Unknown Allergy A ctive Reason For Referral No Information Medications Medication SIG (Take, Route, Frequency, Duration) Notes Start Date End Date Status SEROquel XR 300 MG TK 1 T PO QD AT 6PM Oral for 30 Active Omeprazole 20 MG 1 capsule Orally Onc e a day Active hydroCHLOROthiazide 25 MG TK 1 T PO QD Oral for 30 Active Problems Problem Type SNOMED Code ICD Code Onset Dates Problem Status W/U Status Risk Notes Problem 518675136 History of adenomatous polyp of colon (Z86.010) Active confirmed Problem 47596705 Abdominal pain, epigastric (R10.13) Active confirmed Problem 233917915 Gastroesophageal reflux disease, esophagitis presence not specified (K21.9) Active confirmed Plan Of Treatment Future Test Test Name Order Date COLONOSCOPY 11/19/2014 UPPER GI ENDOSCOPY 03/09/2018 Insurance Providers Payer Name Payer Address Payer Phone Subscriber Number Group Number Insured Name Patient Relationship to Insured Coverage Start Date Coverage End Date [facility] [address] [place] [phone] [id number] SAM ENNIS Self - patient is the insured MEDICAID OF [facility] [address] [place] [address] [phone] [id number] SAM ENNIS Self - patient is the insured Medical (General) History Medical History History ICD Code Hypertension Denies [place],DM,CVA,Lung disease,renal dise ase EGD in [address] Sánchez--no Yoder' s Colonoscopy 02/[address] Quintero--onl y hyperplastic polyps Kidney stones-cystoscopy Anxiety Uses Seroquel for sleep Sleep apnea--uses a CPAP He describes that when he aw akened from anesthesia for his cystoscopy for his kidney stone he had a lot of problems with reported agitation . Colonoscopy 01/2015--removal of tubular a denoma GERD--UGI in 10/2017 Neg. GB U/S, Neg CT of abdomen Fatty liver on U/S--normal LFT's in 11/08 18 Kidney stones Surgical History Surgery Date(Month/Year) Knee surgery Prostate
== END 2025-03-27 13:23 | disposition home or self-care (01) ==
LOC: HO.HGI 12:11
PROVIDERS: PCP Nurse Practitioner Primary Care; Visit Provider Internal Medicine
DX: R10.9 Unspecified abdominal pain (principal); K59.00 Constipation, unspecified; K21.9 Gastro-esophageal reflux disease without esophagitis
CPT/HCPCS: 99205

== ENCOUNTER → 2025-03-27 12:10 | Outpatient (BNVA) | payer OTHER, SELFPAY | PROVIDERS: PCP Nurse Practitioner Primary Care; Visit Provider Internal Medicine | DX: K21.9 Gastro-esophageal reflux disease without esophagitis (principal); K59.00 Constipation, unspecified; Z12.11 Encounter for screening for malignant neoplasm of colon | CPT/HCPCS: 99202 ==

== ENCOUNTER 2025-03-29 08:24 | Outpatient (REF) | payer OTHER, SELFPAY ==
--- NOTE | ~2025-03-29 | FL_ITS ---
EXAMINATION: XR FLUOROSCOPY ESOPHAGRAM CLINICAL INFORMATION: GERD. Episodic epigastric pain. COMPARISON: 11/02/2017. TECHNIQUE: Fluoroscopic air contrast barium swallow examination was performed utilizing standard techniques with thin and thick barium and effervescent granules. Numerous spot images were obtained. Several fluoroscopic image hold cine sequences were also obtained. FINDINGS: ESOPHAGRAM: Lateral cine images of the oropharynx and hypopharynx demonstrate normal swallow mechanism with normal epiglottic inversion and soft palate elevation. No laryngeal penetration, glottic or subglottic aspiration identified. No nasopharyngeal reflux present. Hypopharyngeal structures appear normal without evidence of mass or diverticulum. There was no significant cricopharyngeal achalasia. Dual and single contrast images of the esophagus demonstrate normal caliber, contour, and mucosal pattern. No evidence of stricture, mass, or ulcerations identified. Esophageal peristalsis was mildly disordered. No evidence of hiatus hernia identified. No significant gastroesophageal reflux was seen during the course of the examination and on reflux views. Dual contrast and single contrast images of the stomach demonstrated normal contour and mucosal pattern without evidence of mass, ulceration, or other abnormality. Normal gastric rugal fold pattern. Contrast freely passed into the gastric antrum and duodenal bulb without delay. Single and air-contrast images of the duodenal bulb demonstrate no abnormality. The duodenal sweep has a normal appearance, course, and mucosal fold appearance. FLUOROSCOPY TIME: 2 minutes, 30 seconds Number of Spot Images: 9 Number of cines obtained: 8 DOSE AREA PRODUCT: 4420 uGy-m2 (microgray-meter squared) FL/FL barium swallow with air IMPRESSION: 1. Mildly disordered esophageal peristalsis. 2. No evidence of hiatus hernia. 3. No definite gastroesophageal reflux noted during the course of the examination. 4. Remainder of the examination was normal. Electronically signed by: Kamron Trotter MD 03/29/2025 09:39 AM EDT
--- OUTSIDE RECORDS SUMMARY | 2025-03-29 08:30 | XMS_ITS | Patient Health Record ---
Author Organization [facility] Address [address] [place] [address] Care Team Providers Care Colon And Rectal Surgeon Name Role Phone Akilah Larose Primary Care Provider David Joshua [phone] Allergies Allergen (clinical drug ingredient) Drug/Non Drug [...] Problem Status W/U Status Risk Notes Problem 287775774 History of adenomatous polyp of colon (Z86.010) Active confirmed Problem 59792230 Abdominal pain, epigastric (R10.13) Active confirmed Problem 066724773 Gastroesophageal reflux disease, esophagitis presence not specified (K21.9) Active confirmed Plan Of Treatment Future Test Test Name Order Date COLONOSCOPY 11/19/2014 UPPER GI ENDOSCOPY 03/09/2018 Insurance Providers Payer Name Payer Address Payer Phone Subscriber Number Group Number Insured Name Patient Relationship to Insured Coverage Start Date Coverage End Date [facility] [address] [place] [phone] [id number] SAM ENNIS Self - patient is the insured MEDICAID OF [place] [employer] [facility] [address] [place] [address] [phone] [id number] SAM ENNIS Self - patient is the insured Medical (General) History Medical History History ICD Code Hypertension Denies [place],DM,CVA,Lung disease,renal dise ase [place] [address] Sánchez--no Yoder' s Colonoscopy 02/[address] Quinteor--onl y hyperplastic polyps Kidney stones-cystoscopy Anxiety Uses [...]
--- OUTSIDE RECORDS SUMMARY | 2025-03-29 08:30 | XMS_ITS | Encounter Summary ---
Author Organization [employer] Address [address] [facility] 7t [place] [address] Care Team Providers Care Snuff Container Inspector Name Role Phone Giselle Brock Primary Care Provider [phone] Reason for Visit * Reason Onset Date Comments Lab Orders 12/07/2023 Encounter Details Date Type Department Care Team ([facility] st Contact Info) Description 12/07/2023 Telephone [facility] MEDICINE [address] [place] [address] Giselle Brock ANP [address] [place] [address] Lab Orders Social History Tobacco Use Types [...] documented as of this encounter Care Teams Snuff Container Inspector Relationship Specialty Start Date End Date Giselle Brock ANP [address] [place] [address] PCP - General Family Medicine 06/20/23 documented as of this encounter
[2025-03-29 08:37] LABS: MANUAL DIFF FLAG NO
[2025-03-29 09:23] LABS: Hematocrit 50.7 % (42.0-52.0); Hemoglobin 16.6 g/dl (14.0-18.0); Imm Gran Abs Auto 0.04 X10*3/uL (0.00-0.03); Imm Gran Pct Auto 0.4 % (0.0-0.4); Lymphocytes Absolute Auto 2.8 X10*3/uL (1.2-4.9); Mean Corpuscular HGB Conc 32.7 g/dl (31.0-36.0); Mean Corpuscular Hemoglobin 26.7 pg (27.0-33.0); Mean Corpuscular Volume 81.6 fL (80.0-98.0); NRBC Abs Auto 0.000 X10*3/uL (0.0-0.012); NRBC Pct Auto 0.0 /100WBC (0.0-0.2); Platelet Count 229 X10*3/uL (160-400); Red Blood Count 6.21 X10*6/uL (4.60-5.80); White Blood Count 9.5 X10*3/uL (4.8-10.8)
[2025-03-29 10:04] LABS: Alanine Aminotransferase 41 U/L (0-40); Albumin Level 4.1 g/dL (3.5-5.0); Alkaline Phosphatase 78 U/L (39-117); Anion Gap 12 (12-20); Aspartate Amino Transferase 30 U/L (5-37); Blood Urea Nitrogen 15 mg/dL (9-16); Calcium 9.3 mg/dL (8.4-10.2); Carbon Dioxide 25 mmol/L (22-29); Chloride 107 mmol/L (96-108); Estimated Glomerular Filt Rate > 60; Iron 91 mcg/dL (45-160); Percent Iron Saturation 37 % (15-50); Potassium 4.2 mmol/L (3.3-5.1); Sodium 140 mmol/L (135-145); Total Iron Binding Capacity 246 mcg/dL (228-428); Total Protein 7.2 g/dL (6.5-8.0); Unsaturated Iron Binding 155 ug/dL
[2025-03-29 10:23] LABS: PSA,Total (Free>4and<10) 1.31 ng/mL (0.00-4.00)
== END 2025-03-29 08:25 | disposition home or self-care (01) ==
LOC: HO.XRAY 08:24
PROVIDERS: Absent Provider Urology; PCP Nurse Practitioner Primary Care; Referring Provider Nurse Practitioner Family; Visit Provider Hospitalist
DX: K21.9 Gastro-esophageal reflux disease without esophagitis (principal); Z12.5 Encounter for screening for malignant neoplasm of prostate; K59.00 Constipation, unspecified
CPT/HCPCS: 36415; 74221; 80053; 83540; 84153; 85025

== ENCOUNTER → 2025-03-29 08:38 | Outpatient (BNV) | payer OTHER, SELFPAY | PROVIDERS: Absent Provider Urology; PCP Nurse Practitioner Primary Care; Referring Provider Nurse Practitioner Family; Visit Provider Radiology Diagnostic Radiology | DX: K21.9 Gastro-esophageal reflux disease without esophagitis (principal) | CPT/HCPCS: 74221 ==

== ENCOUNTER 2025-04-05 14:04 | Outpatient (AMB) | payer OTHER, SELFPAY ==
--- OUTSIDE RECORDS SUMMARY | 2025-04-05 14:06 | XMS_ITS | Patient Health Record ---
Author Organization [facility] Address [address] [place] [address] Care Team Providers Care Electronic Organ Mechanic Name Role Phone Akilah Larose Primary Care Provider David Joshua [phone] Allergies Allergen (clinical drug ingredient) Drug/Non Drug [...] Problem Status W/U Status Risk Notes Problem 722145078 History of adenomatous polyp of colon (Z86.010) Active confirmed Problem 98139332 Abdominal pain, epigastric (R10.13) Active confirmed Problem 771022171 Gastroesophageal reflux disease, esophagitis presence not specified (K21.9) Active confirmed Plan Of Treatment Future Test Test Name Order Date COLONOSCOPY 11/19/2014 UPPER GI ENDOSCOPY 03/09/2018 Insurance Providers Payer Name Payer Address Payer Phone Subscriber Number Group Number Insured Name Patient Relationship to Insured Coverage Start Date Coverage End Date [facility] [address] [place] [phone] [id number] SAM ENNIS Self - patient is the insured [facility] [address] [place] [address] [phone] [id number] SAM ENNIS Self - patient is the insured Medical (General) History Medical History History ICD Code Hypertension Denies [place],DM,CVA,Lung disease,renal dise ase EGD in 2003 with [...]
--- OUTSIDE RECORDS SUMMARY | 2025-04-05 14:06 | XMS_ITS | Encounter Summary ---
Author Organization [employer] Address [address] [facility] [address] [place] [address] Care Team Providers Care Lead Burner Supervisor Name Role Phone Giselle Brock Primary Care Provider [phone] Reason for Visit * Reason Onset Date Comments Lab Orders 12/07/2023 Encounter Details Date Type Department Care Team ([facility] st Contact Info) Description 12/07/2023 Telephone [facility] [address] [place] [address] Giselle Brock ANP [address] [place] [address] Lab Orders Social History Tobacco Use Types [...] as of this encounter Care Teams Lead Burner Supervisor Relationship Specialty Start Date End Date Giselle Brock ANP [address] [place] [id number] PCP - General Family Medicine 06/20/23 documented as of this encounter
--- NOTE | 2025-04-05 14:14 | MHC.OFFVIS ---
Intake Visit Reasons: 1y/US Intake Note: Patient presents today for a 1y follow-up/US Renal US 01/04 Urology Meds:None Allergies to Antibiotic: None Blood Thinner: None PVR:43ml Production Illustrator Required: Yes Production Illustrator Language: Business Performance Advisor Name: Mackenzie [id number] Accompanied by: Child Allergies No Known Allergies (No Known Allergies*) Allergy (Verified 04/19/25 10:15) Medication List - Last Reconciled 04/05/25 by Abigail Christian MD acetaminophen ER 650 mg PO TID bisacodyl 5 mg PO ONCE 1 day fluticasone propionate 50 mcg/actuation 2 sprays intranasal DAILY 30 days metoprolol succinate ER 50 mg PO DAILY olmesartan 20 mg PO DAILY pantoprazole 40 mg PO DAILY polyethylene glycol 3350 (Miralax) 238 grams PO ONCE rosuvastatin mg sennosides-docusate sodium 8.6-50 mg (Senna Plus) 2 tab-caps (2 x 8.6-50 mg) PO BEDTIME tamsulosin (Flomax) 0.4 mg PO BEDTIME tirzepatide (weight loss) (Zepbound) 2.5 mg subcut QWEEK HPI Comments Details: 04/05/25--Sameer is a 65-year-old male who has history of nephrolithiasis. He was last seen 03/05/2024 and is here for 1 year follow-up. prior CT last year 03/02/2024 noted bilateral small kidney stones a renal ultrasound was done December 2024, bilateral punctate parenchymal calculi noted otherwise no hydronephrosis screening PSA was done on 03/29/2025 which was 1.31 ng/mL History of Present Illness - The patient is a 65-year-old male presenting for a follow-up on nephrolithiasis and prostate health screening. - He has a history of nephrolithiasis with a prior CT on 03/02/24 showing bilateral small kidney stones. - He was last seen on 03/05/24 for nephrolithiasis follow-up. - A recent ultrasound in December 2024 showed bilateral punctate parenchymal calculi with no hydronephrosis. - Screening PSA on 03/29/25 was 1.31 ng/mL, within normal limits. - Discussed hydration habits and the importance of a 24-hour urine collection to optimize dietary factors for stone prevention. - Patient reports difficulty with urination, specifically pushing to urinate, and was started on tamsulosin 0.4 mg for prostate health. Results - CT scan on 03/02/24: Bilateral small kidney stones noted. - Ultrasound in December 2024: Bilateral punctate parenchymal calculi, no hydronephrosis. - PSA screening on 03/29/25: 1.31 ng/mL, within normal limits. Plan - Initiate tamsulosin 0.4 mg in the evening to improve urinary flow, with instructions to discontinue if dizziness occurs. - Conduct a 24-hour urine collection to assess dietary factors contributing to nephrolithiasis. - Schedule a follow-up cystoscopy in three months to evaluate the bladder and urethra for any scar tissue or abnormalities. 03/05/24--Sameer is a [id number] who presents to the office for follow-up. 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 The patient was prescribed alfuzosin for obstructive lower urinary tract symptoms. He states that he did take the alfuzosin until the prescription ended and did not refill it he feels that his voiding better now. He was in the emergency room on 03/02/2024 due to right flank pain. CT imaging, 03/02/2024--approximately 3 small left kidney stones right kidney negative for stones. Discussed with the patient had the passed a small right kidney stone. He states the pain has resolved. PSA blood work pending, he went to the lab however the lab khalida other blood work excluding the PSA. Will continue to monitor follow-up in 1 year renal ultrasound prior. 09/02/23--FU for BPH and obstructive Lower urinary tract symptoms (LUTS). He is failed tamsulosin, due to SE's. Rapaflo was too expensive. He was initially evaluated on 01/20/23 He states he was prescribed tamsulosin by another physician but discontinued after taking one dose because it caused dizziness. The patient also has a history of kidney stones. Prostate exam--done on 01/20/23--Smooth, mildly and enlarged. No suspicious nodules observed. AUA symptom score: 35. Results: Renal US results?02/28/23-- Bilateral kidney stone, estimated prostate volume is 31.6 mL and prostate calcifications are present. PSA results?03/04/23?1.10. [facility] Medical History Rectal bleeding Colon cancer screening Constipation JOHN (obstructive sleep apnea) Hiatal hernia RYAN (generalized anxiety disorder) Tinnitus GERD (gastroesophageal reflux disease) Dyslipidemia Aneurysm of thoracic aorta Internal derangement of right knee Kidney stones Back pain Pre-diabetes HTN (hypertension) Surgical History H/O arthroscopy Hx of colonoscopy Hx of esophagogastroduodenoscopy Family History Mother Heart disease Diabetes Father Diabetes Heart disease Social History Are you a primary care partner to a significant other at home: No Do you presently have visiting nurse or other home services: No Alcohol intake: current Alcohol intake frequency: holidays/special occasions only Alcohol type: beer Patient Tobacco Use Status: Never used Tobacco Current occupational status: employed Current occupation: [employer] Review of Systems Const All systems reviewed & are unremarkable except as noted in HPI and below Reports no additional complaints Eyes Reports no additional complaints ENT Reports no additional complaints Card Reports no additional complaints Resp Reports no additional complaints GI Reports no additional complaints Reports as per HPI Musc Reports no additional complaints Skin/Breast Reports system reviewed and no additional complaints, except as documented Neuro Reports no additional complaints Psych Reports no additional complaints Endo Reports no additional complaints Lester/Lymph Reports no additional complaints Aller/Immun Reports no additional complaints Results Reviewed Results Reviewed: Date of Service: 01/03/25 CLINICAL HISTORY: N20.0 - Calculus of kidney US Renal Comparison: None Findings: Right kidney normal size and echotexture, 11.9 cm length. Left kidney normal size and echotexture, 13.1 cm length. There are bilateral renal parenchymal calculi. No hydronephrosis of either kidney. Normal color Doppler IMPRESSION: 1. Normal kidneys. Date of Service: 03/02/24 EXAMINATION: CT ABDOMEN AND PELVIS WITHOUT CONTRAST CLINICAL INFORMATION: Obstructing renal stone. COMPARISON: Renal ultrasound dated 02/28/2023. FINDINGS: LUNG BASES: The visualized lung bases are unremarkable. LIVER, GALLBLADDER, AND BILIARY TREE: The liver is normal in size, shape, and attenuation. No focal hepatic lesion or biliary ductal dilatation is present. The gallbladder is unremarkable with no evidence of radiopaque gallstones, gallbladder wall thickening, or obvious pericholecystic inflammatory changes. PANCREAS: Unremarkable. SPLEEN: Unremarkable. ADRENAL GLANDS: Unremarkable. KIDNEYS AND URETERS: Right side: The right kidney is normal in size, shape, and attenuation. No hydronephrosis, hydroureter, or calculi seen. No perinephric stranding. Left side: The left kidney is normal in size, shape, and attenuation. No hydronephrosis or hydroureter. There is a punctate calculus within the interpolar region. There is a 3 mm curvilinear calculus within the superior pole. There is a 4 mm calculus within the lower pole. All of the visualized calculi are too small to get accurate Hounsfield unit calculations on. There is no left ureteral calculus. No perinephric stranding. BLADDER: The partially distended urinary bladder is unremarkable. There are no urinary bladder calculi. GASTROINTESTINAL TRACT: The small and large bowel are normal in caliber.. There is no colonic wall thickening or pericolonic inflammatory stranding. There is no free fluid within the abdomen or pelvis. No pneumoperitoneum. The appendix is unremarkable. ABDOMINAL WALL: No significant hernia is appreciated. LYMPH NODES: No lymphadenopathy. VASCULAR: No abdominal aortic aneurysm. A minimal calcific atherosclerotic disease. PELVIC VISCERA: The prostate gland measures 4.7 x 4.4 cm. It contains internal calcifications. OSSEOUS STRUCTURES: There is degenerative disc disease at L5-S1. IMPRESSION: There are several left sided nonobstructive renal calculi ranging in size from punctate to 4 mm. There is no left ureteral calculus. No obstructing calculus. No hydronephrosis bilaterally. Date of Service: 02/28/23 EXAMINATION: US RETROPERITONEAL COMPLETE (RENAL) CLINICAL INFORMATION: Benign prostatic hyperplasia without lower urinary tract symptoms. COMPARISON: X-ray abdomen KUB 07/26/2018. Renal ultrasound 02/22/2018. Ultrasound abdomen 11/09/2017. CT abdomen and pelvis 10/23/2017. TECHNIQUE: Real-time imaging of the kidneys and bladder. FINDINGS: RIGHT KIDNEY: 10.2 x 4.4 x 5.1 cm (SAG x the mid renal 4 mm echogenic focus seen consistent with a nonobstructing calculus. No focal parenchymal lesions or hydronephrosis. LEFT KIDNEY: 12.5 x 5.4 x 5.5 cm (SAG x AP x TRV). The kidney is normal in size, contour, and echogenicity. Renal cortical thickness is normal. There are 2 echogenic foci seen in the mid and lower pole measuring 4 and 6 mm in size consistent with nonobstructing calculi. No focal parenchymal lesions or hydronephrosis. BLADDER: Well distended and normal. Bilateral ureteral jets are demonstrated. Prevoid bladder volume is 269 mL. Postvoid bladder volume is 21.5 mL. Prostate volume 31.6 mL. Prostatic calcifications are present. IMPRESSION: 1. Bilateral nonobstructing renal calculi. 2. Mild BPH. Assessment & Plan Assessment & Plan (1) Kidney stones: Code(s): N20.0 - Calculus of kidney Category: Medical (2) BPH loc w urin obs/LUTS: Code(s): N40.1 - Benign prostatic hyperplasia with lower urinary tract symptoms Category: Medical (3) Straining on urination: Code(s): R39.16 - Straining to void Category: Medical (4) Bilateral kidney stones: Code(s): N20.0 - Calculus of kidney Category: Medical Plan Plan - Initiate tamsulosin 0.4 mg in the evening to improve urinary flow, with instructions to discontinue if dizziness occurs. - Conduct a 24-hour urine collection to assess dietary factors contributing to nephrolithiasis. - Schedule a follow-up cystoscopy in three months to evaluate the bladder and urethra for any scar tissue or abnormalities. Orders: Orders PSA,Total (Free>4and<10) 03/29/25 Z12.5 - Encounter for screening for malignant neoplasm of prostate Medications: New tamsulosin (Flomax) 0.4 mg PO BEDTIME 90 caps 3RF Coding Level of Care Code Est Pt Level 4 (62479) Diagnoses Kidney stones N20.0 BPH loc w urin obs/LUTS N40.1 Straining on urination R39.16 Bilateral kidney stones N20.0
== END 2025-04-05 14:56 | disposition home or self-care (01) ==
LOC: HO.HUSH 14:05
PROVIDERS: PCP Registered Nurse; Visit Provider Urology
DX: N20.0 Calculus of kidney (principal); N40.1 Benign prostatic hyperplasia with lower urinary tract symptoms; R39.16 Straining to void
CPT/HCPCS: 99214

== ENCOUNTER → 2025-04-05 14:04 | Outpatient (BNVA) | payer OTHER, SELFPAY | PROVIDERS: PCP Registered Nurse; Visit Provider Urology | DX: N20.0 Calculus of kidney (principal); N40.1 Benign prostatic hyperplasia with lower urinary tract symptoms; R39.16 Straining to void; Z12.5 Encounter for screening for malignant neoplasm of prostate | CPT/HCPCS: 99212 ==

== ENCOUNTER 2025-04-10 14:34 | Outpatient (AMB) | payer OTHER, SELFPAY ==
--- NOTE | 2025-04-10 14:36 | MHC.OFFVIS ---
Vital Signs 04/10/25 14:37 Height 5 ft 11 in Weight 260 lb BMI 36.3 Intake Visit Reasons: Right knee pain Intake Note: Sameer is a 65 year old male who presents with complaints of right knee pain. The patient describes his pain as sharp in nature. Most of the pain is along the medial aspect of his knee. He did undergo right knee arthroscopic surgery on 12/03/2024. He got mild relief from that procedure. He denies any locking or giving way. He has had cortisone injections in the past which gave him minimal relief. He has failed the last 3 months of conservative treatment which has included Tylenol, anti-inflammatory medicines, physical therapy exercises and a home exercise program. At this point his right knee pain is interfering with his activities of daily living and his ability to sleep well through the night. Packaging Inspector Required: Yes Packaging Inspector Services: Packaging Inspector Offered & Declined Packaging Inspector Name: Son Randal Estrella JR Allergies No Known Allergies (No Known Allergies*) Allergy (Verified 04/10/25 14:39) Medication List - Last Reconciled 04/10/25 by Joseph Riggs MD acetaminophen ER 650 mg PO TID bisacodyl 5 mg PO ONCE 1 day fluticasone propionate 50 mcg/actuation 2 sprays intranasal DAILY 30 days metoprolol succinate ER 50 mg PO DAILY olmesartan 20 mg PO DAILY pantoprazole 40 mg PO DAILY polyethylene glycol 3350 (Miralax) 238 grams PO ONCE rosuvastatin mg sennosides-docusate sodium 8.6-50 mg (Senna Plus) 2 tab-caps (2 x 8.6-50 mg) PO BEDTIME tamsulosin (Flomax) 0.4 mg PO BEDTIME tirzepatide (weight loss) (Zepbound) 2.5 mg subcut QWEEK [facility] Medical History Rectal bleeding Colon cancer screening Constipation JOHN (obstructive sleep apnea) Hiatal hernia RYAN (generalized anxiety disorder) Tinnitus GERD (gastroesophageal reflux disease) Dyslipidemia Aneurysm of thoracic aorta Internal derangement of right knee Kidney stones Back pain Pre-diabetes HTN (hypertension) Surgical History H/O arthroscopy Hx of colonoscopy Hx of esophagogastroduodenoscopy Family History Mother Heart disease Diabetes Father Diabetes Heart disease Social History Are you a primary resident care aide to a significant other at home: No Do you presently have visiting nurse or other home services: No Alcohol intake: current Alcohol intake frequency: holidays/special occasions only Alcohol type: beer Patient Tobacco Use Status: Never used Tobacco Current occupational status: employed Current occupation: [employer] Physical Exam Vital Signs: BMI result Body Mass Index 36.3 Const Other: Well-nourished well-developed very friendly male awake alert and oriented x3 in no acute distress Extrem Other: Bilateral lower extremity examination shows good capillary refill, no skin lesions noted, normal sensation light touch Right knee examination shows a minimal effusion, palpable crepitus with range of motion, pain with range of motion, no instability Results Reviewed Results Reviewed: X-rays of the patient's right knee taken previously show joint space narrowing, subchondral sclerosis, no acute bony abnormalities Assessment & Plan Assessment & Plan (1) Right knee pain: Code(s): M25.561 - Pain in right knee Category: Medical (2) Osteoarthritis of right knee: Code(s): M17.11 - Unilateral primary osteoarthritis, right knee Category: Medical Plan Mr. Keren Veliz presents with right knee pain due to osteoarthritis. I had a lengthy discussion with the patient regarding the treatment options. He has not gotten good relief from cortisone injections in the past. Thus, I will see if his insurance company will cover a viscosupplementation injection, such as Durolane, for his right knee. I will see him back once the injection is available. Feel free to call me at any time should questions regarding his orthopedic management arise. I spent 22 minutes in reviewing the patient's records and imaging studies, seeing the patient and documenting in the medical record. Coding Level of Care Code Est Pt Level 3 (49069) Complex EM visit Add On G2211 Diagnoses Right knee pain M25.561 Osteoarthritis of right knee M17.11
[2025-04-10 14:37] VITALS: BMI 36.3
--- OUTSIDE RECORDS SUMMARY | 2025-04-10 15:07 | XMS_ITS | Encounter Summary ---
Author Organization [employer] Address [address] [facility] [address] [place] [address] Care Team Providers Care Office Support Associate Name Role Phone Giselle Brock Primary Care Provider [phone] Reason for Visit * Reason Onset Date Comments Lab Orders 12/07/2023 Encounter Details Date Type Department Care Team ([facility] st Contact Info) Description 12/07/2023 Telephone [facility] [address] [place] [address] Giselle Brock ANP [address] [place] [address] Lab Orders Social History Tobacco Use Types [...] documented as of this encounter Care Teams Office Support Associate Relationship Specialty Start Date End Date Giselle Brock ANP [address] [place] [id number] PCP - General Family Medicine 06/20/23 documented as of this encounter
--- OUTSIDE RECORDS SUMMARY | 2025-04-10 15:07 | XMS_ITS | Patient Health Record ---
Author Organization [facility] Address [address] [place] [address] Care Team Providers Care Immigration Coordinator Name Role Phone Akilah Larose Primary Care Provider David Joshua [phone] Allergies Allergen (clinical drug ingredient) Drug/Non Drug [...] Problem Status W/U Status Risk Notes Problem [id number] History of adenomatous polyp of colon (Z86.010) Active confirmed Problem 82284619 Abdominal pain, epigastric (R10.13) Active confirmed Problem [id number] Gastroesophageal reflux disease, esophagitis presence not specified (K21.9) Active confirmed Plan Of Treatment Future Test Test Name Order Date COLONOSCOPY 11/19/2014 UPPER GI ENDOSCOPY 03/09/2018 Insurance Providers Payer Name Payer Address Payer Phone Subscriber Number Group Number Insured Name Patient Relationship to Insured Coverage Start Date Coverage End Date [facility] [address] [place] [phone] [id number] SAM ENNIS Self - patient is the insured MEDICAID [facility] [employer] [facility] [address] [place] [address] [id number] SAM ENNIS Self - patient is the insured Medical (General) History Medical History History ICD Code Hypertension Denies [place],DM,CVA,Lung disease,renal dise ase EGD in 2003 with [...]
== END 2025-04-10 14:50 | disposition home or self-care (01) ==
LOC: HO.HOS 14:34
PROVIDERS: PCP Nurse Practitioner Primary Care; Visit Provider Orthopaedic Surgery
DX: M25.561 Pain in right knee (principal); M17.11 Unilateral primary osteoarthritis, right knee
CPT/HCPCS: 99213; G2211

== ENCOUNTER → 2025-04-10 14:34 | Outpatient (BNVA) | payer OTHER, SELFPAY | PROVIDERS: PCP Nurse Practitioner Primary Care; Visit Provider Orthopaedic Surgery | DX: M17.11 Unilateral primary osteoarthritis, right knee (principal) | CPT/HCPCS: 99212 ==

== ENCOUNTER 2025-04-19 10:07 | Outpatient (AMB) | payer OTHER, SELFPAY ==
--- NOTE | 2025-04-19 10:11 | MHC.OFFVIS ---
Vital Signs 04/19/25 10:12 Height 5 ft 11 in Weight 262 lb 5.601 oz BMI 36.6 BP 150/62 H Blood Pressure Location Rt brachial Position Sitting Pulse 90 Pulse Source Pulse Oximeter Pulse Oximetry (%) 96 Oxygen Delivery Method Room Air Intake Visit Reasons: nocturnal hypoxemia Allergies No Known Allergies (No Known Allergies*) Allergy (Verified 04/19/25 10:15) HPI Comments Details: The patient is a 65 old gentleman presenting with nocturnal hypoxia. Apparently patient complains of daytime drowsiness. Henderson score is elevated 08/12. He states at nighttime sometimes wakes up gaps being for air. He is thankful that he wakes up because otherwise he feels like he is going to . This happens multiple times a night. He does try to sleep elevated. He does have issues with reflux disease. He does try to monitor his diet. We did look at a CT scan of the abdomen that he had back in the ask. Personally by me demonstrating a small hiatal hernia. Apparently he had seen somebody for this condition in the past. And they offered surgery. He did not want that time. The patient does complaint of dyspepsia and chronic cough. In then subsequently the difficulty breathing at nighttime. Therefore will request a barium swallow to better address the hiatal hernia. Patient understands that the persistent reflux disease could potentially result in pharyngeal laryngeal penetration cough and those changes. As far as his daytime drowsiness he did undergo a home sleep study. I personally reviewed. He did have some mild sleep apnea and also significant hypoxia. He did have a hard time sleeping so likely that the sleep apnea is much worse. At this time the patient will go ahead and start APAP therapy. Once he is situated with APAP will see about doing an overnight oximetry. In-lab sleep titration is also a possibility but the patient has a very hard time sleeping and typically when he has had those in the past that have resulted in no significant data. Therefore will hold off on in-lab study at this time. 04/19/2025 the patient is here for a pulmonary follow-up visit. Overall he is doing okay still has significant daytime drowsiness. She is also concerned about his cardiac disease. He did get his APAP. He did get a nasal mask with a chinstrap. I feel like he is not going to be able to tolerate that because it was too much to bear. I did provide him with an F 40 mask any tolerated that well. Therefore he will use it with the F 40 mask for now. If he needs to go back to the nasal mask that is okay. I also decrease the pressures down to 4-8 to help him allow him to tolerate the therapy. He is going to use it at that level and continue to use it at least 4 hours a night. He is having some issues sleeping. I will give him some magnesium citrate to help him with sleeping hopefully help him with his muscle spasms. They can also try some melatonin. He is still complaining of some reflux symptoms. We did do a barium swallow demonstrating no evidence of any hiatal hernia which is reassuring. Although he does have reflux disease. We again talked about the reflux diet and making sure that he sleeps elevated. Will follow-up in 4 months if any issues arise he will call for an earlier assessment. [facility] Medical History Rectal bleeding Colon cancer screening Constipation JOHN (obstructive sleep apnea) Hiatal hernia RYAN (generalized anxiety disorder) Tinnitus GERD (gastroesophageal reflux disease) Dyslipidemia Aneurysm of thoracic aorta Internal derangement of right knee Kidney stones Back pain Pre-diabetes HTN (hypertension) Surgical History H/O arthroscopy Hx of colonoscopy Hx of esophagogastroduodenoscopy Family History Mother Heart disease Diabetes Father Diabetes Heart disease Social History Are you a primary campground caretaker to a significant other at home: No Do you presently have visiting nurse or other home services: No Alcohol intake: current Alcohol intake frequency: holidays/special occasions only Alcohol type: beer Patient Tobacco Use Status: Never used Tobacco Current occupational status: employed Current occupation: [employer] Review of Systems Const Denies chills, Reports daytime sleepiness, Reports difficulty sleeping, Reports snoring and Reports stops breathing during sleep ENT Denies dizziness Card Denies chest pain, Denies leg edema, Denies lightheadedness, Denies palpitations, Denies dyspnea, Denies dyspnea on exertion, Denies orthopnea and Denies other (loss of consciousness) Resp Denies cough, Denies dyspnea, Denies dyspnea on exertion and Reports snoring GI Reports dyspepsia and Reports heartburn Musc Denies abnormal gait, Denies muscle weakness, Denies numbness, Denies radiating pain into limb and Denies tingling Neuro Denies abnormal gait, Denies dizziness, Denies numbness and Denies tingling Endo Denies palpitations Physical Exam Vital Signs: Last Vital Signs Pulse 90 04/19/25 10:12 BP 150/62 H 04/19/25 10:12 Pulse Ox 96 04/19/25 10:12 Oxygen Delivery Method Room Air 04/19/25 10:12 BMI result Body Mass Index 36.6 Const General: cooperative, healthy appearing, no acute distress, alert and awake Orientation/consciousness: patient oriented x3 Neck Neck: Yes normal visual inspection and Yes no JVD Chest Chest palpation & inspection: normal inspection of the chest Resp Effort & Inspection: normal respiratory effort and not labored Auscultation: clear to auscultation bilaterally, no crackles, no rales, no rhonchi and no wheezes Cardio Rate: regular rate Rhythm: regular rhythm Heart sounds: S1 normal heart sound present and S2 normal heart sound present Peripheral pulses: Peripheral pulses 2+ throughout GI Inspection: Yes normal to inspection Skin General skin exam: no rashes or lesions noted Neuro General: patient oriented x3 Extrem General: Yes normal to inspection and No edema Assessment & Plan Assessment & Plan (1) JOHN (obstructive sleep apnea): Code(s): G47.33 - Obstructive sleep apnea (adult) (pediatric) Category: Medical (2) GERD (gastroesophageal reflux disease): Comment: 03/17/2004 Upper endoscopy with biopsies- distal esophagitis with a few superficial erosions. no evidence of Barretts esophagus Code(s): K21.9 - Gastro-esophageal reflux disease without esophagitis Category: Medical Qualifiers: Esophagitis presence: without esophagitis Qualified Code(s): K21.9 - Gastro-esophageal reflux disease without esophagitis Plan start APAP therapy for his JOHN F40, adjusted 4-8 start Magnesium citrate at night sleep with HOB elevated reflux diet Fluticasone nasal spray F/U 3-4 months Medications: New magnesium citrate 250 mg (2 x 125 mg) PO BEDTIME 60 caps 6RF Coding Level of Care Code Est Pt Level 4 (95147) Complex EM visit Add On G2211 Diagnoses JOHN (obstructive sleep apnea) G47.33 Gastroesophageal reflux disease without esophagitis K21.9 Esophagitis presence: without esophagitis Time Spent (min) 17
[2025-04-19 10:12] VITALS: BP 150/62; PULSE 90; O2SAT 96; BMI 36.6
--- OUTSIDE RECORDS SUMMARY | 2025-04-19 10:17 | XMS_ITS | Encounter Summary ---
Author Organization [employer] Address [address] [facility] [address] [place] [address] Care Team Providers Care Engineer Technician Name Role Phone Giselle Brock Primary Care Provider [phone] Reason for Visit * Reason Onset Date Comments Lab Orders 12/07/2023 Encounter Details Date Type Department Care Team ([facility] st Contact Info) Description 12/07/2023 Telephone [facility] MEDICINE [address] [place] [address] Giselle Brock ANP [address] [place] [address] Lab Orders Social History Tobacco Use Types [...] documented as of this encounter Care Teams Engineer Technician Relationship Specialty Start Date End Date Giselle Brock ANP [address] [place] [id number] PCP - General Family Medicine 06/20/23 documented as of this encounter
--- OUTSIDE RECORDS SUMMARY | 2025-04-19 10:17 | XMS_ITS | Patient Health Record ---
Author Organization [facility] Address [address] [place] [address] Care Team Providers Care Rehabilitation Nurse Name Role Phone Akilah Larose Primary Care Provider David Joshua [phone] Allergies Allergen (clinical drug ingredient) Drug/Non Drug [...] Problem Status W/U Status Risk Notes Problem [id number] History of adenomatous polyp of colon (Z86.010) Active confirmed Problem 11055043 Abdominal pain, epigastric (R10.13) Active confirmed Problem 834154730 Gastroesophageal reflux disease, esophagitis presence not specified (K21.9) Active confirmed Plan Of Treatment Future Test Test Name Order Date COLONOSCOPY 11/19/2014 UPPER GI ENDOSCOPY 03/09/2018 Insurance Providers Payer Name Payer Address Payer Phone Subscriber Number Group Number Insured Name Patient Relationship to Insured Coverage Start Date Coverage End Date [facility] [address] [place] [phone] [id number] SAM ENNIS Self - patient is the insured [facility]ICAID [facility] [address] [place] [address] [id number] SAM ENNIS Self - patient is the insured Medical (General) History Medical History History ICD Code Hypertension Denies [place],DM,CVA,Lung disease,renal dise ase EGD in 2003 with [...]
== END 2025-04-19 10:44 | disposition home or self-care (01) ==
LOC: HO.HPS 10:08
PROVIDERS: PCP Nurse Practitioner Primary Care; Visit Provider Hospitalist
DX: G47.33 Obstructive sleep apnea (adult) (pediatric) (principal); K21.9 Gastro-esophageal reflux disease without esophagitis
CPT/HCPCS: 99214; G2211

== ENCOUNTER → 2025-04-19 10:07 | Outpatient (BNVA) | payer OTHER, SELFPAY | PROVIDERS: PCP Nurse Practitioner Primary Care; Visit Provider Hospitalist | DX: G47.33 Obstructive sleep apnea (adult) (pediatric) (principal); J31.0 Chronic rhinitis; K21.9 Gastro-esophageal reflux disease without esophagitis | CPT/HCPCS: 99212 ==

== ENCOUNTER 2025-05-03 08:52 | Outpatient (REF) | payer OTHER, SELFPAY ==
--- NOTE | ~2025-05-03 | CT_ITS ---
EXAMINATION: CT ABDOMEN AND PELVIS WITH CONTRAST CLINICAL INFORMATION: Constipation. Diverticular disease. COMPARISON: April 03, 2024. TECHNIQUE: Multidetector volumetric images were obtained from the superior aspect of the liver through the pubic symphysis following administration 85 mL of Omnipaque 350 intravenous contrast. Sagittal and coronal reformatted images were obtained on the technologist's workstation. Oral contrast: [address] examination was performed using dose optimization techniques as appropriate, variously including the following: *Automated exposure control *Adjustment of mA and/or kV according to patient size (this includes techniques or standardized protocols for targeted exams where dose is matched to indication/reason for exam; i.e. extremities or head) *Use of iterative reconstruction technique DLP: 797 mGy centimeter. FINDINGS: LUNG BASES: No acute airspace disease. LIVER, GALLBLADDER, AND BILIARY TREE: There are measures 16 cm no focal mass. Portal veins, hepatic veins are patent. No pericholecystic fluid collection or gallbladder wall thickening. Gallbladder is nondistended. No intrahepatic or extrahepatic biliary ductal dilatation. PANCREAS: No focal mass. No peripancreatic fluid collection. No main pancreatic ductal dilatation. SPLEEN: 11 cm. No focal mass. ADRENAL GLANDS: No nodular lesions. KIDNEYS AND URETERS: No hydronephrosis. No gross mass no gross nephrolithiasis. BLADDER: Collapse. GASTROINTESTINAL TRACT: Appendix is normal. Abundant stool. No intestinal obstruction pattern. No pneumatosis intestinalis. No intestinal wall thickening. No ascites. No pneumoperitoneum. ABDOMINAL WALL: Small fat-containing umbilical hernia. LYMPH NODES: No lymphadenopathy. VASCULAR: Mixed plaques throughout the abdominal aorta wall. No aneurysm or dissection abdominal aorta. PELVIC VISCERA: Nonenlarged prostate gland with punctate calcifications. OSSEOUS STRUCTURES: Mild degenerative changes in the coxofemoral joints and sacroiliac joints. Probable bony island left femoral head. Multilevel thoracolumbar spondylosis pronounced at L5-S1. No acute fracture or listhesis in the axial skeleton. Probable intraosseous hemangioma, T10 vertebra. CT/CT abdomen pelvis w IV con IMPRESSION: Small fat-containing umbilical hernia. Multilevel thoracolumbar spondylosis. Hepatomegaly, mild. Fleischner guidelines were followed. Electronically signed by: Oscar Pires MD 05/03/2025 12:06 PM EDT
--- OUTSIDE RECORDS SUMMARY | 2025-05-03 09:11 | XMS_ITS | Encounter Summary ---
Author Organization [employer] Address [address] [facility] 7t [place] [address] Care Team Providers Care Bed Manager Name Role Phone Giselle Brock Primary Care Provider [phone] Reason for Visit * Reason Onset Date Comments Lab Orders 12/07/2023 Encounter Details Date Type Department Care Team ([facility] st Contact Info) Description 12/07/2023 Telephone [facility] MEDICINE [address] [place] [address] Giselle Brock ANP [address] [place] [address] Lab Orders Social History Tobacco Use Types [...] Care Team (Late st Contact Info) Description 06/07/2025 11:00 AM EDT Nutrition [facility] DIABETES/NUTRITION [address] [place] [address] [place] [address] documented as of this encounter Visit Diagnoses Not on filedocumented in this encounter Additional Health Concerns Assessment Noted Time PHQ-9 Depression Total Score: 15 024 11:19 AM EST documented as of this encounter Care Teams Bed Manager Relationship Specialty Start Date End Date Giselle Brock ANP [address] [place] [address] PCP - General Family Medicine 06/20/23 documented as of this encounter
--- OUTSIDE RECORDS SUMMARY | 2025-05-03 09:11 | XMS_ITS | Patient Health Record ---
Author Organization [facility] Address [address] [place] [address] Care Team Providers Care Tobacco Cloth Reclaimer Name Role Phone Akilah Larose Primary Care Provider David Joshua [phone] Allergies Allergen (clinical drug ingredient) Drug/Non Drug [...] Problem Status W/U Status Risk Notes Problem 608410841 History of adenomatous polyp of colon (Z86.010) Active confirmed Problem 54390089 Abdominal pain, epigastric (R10.13) Active confirmed Problem 676023504 Gastroesophageal reflux disease, esophagitis presence not specified (K21.9) Active confirmed Plan Of Treatment Future Test Test Name Order Date COLONOSCOPY 11/19/2014 UPPER GI ENDOSCOPY 03/09/2018 Insurance Providers Payer Name Payer Address Payer Phone Subscriber Number Group Number Insured Name Patient Relationship to Insured Coverage Start Date Coverage End Date [facility] [address] [place] [phone] [id number] SAM ENNIS Self - patient is the insured MEDICAID [facility] [address] [place] [address] [id number] SMA ENNIS Self - patient is the insured Medical (General) History Medical History History ICD Code Hypertension Denies [place],DM,CVA,Lung disease,renal dise ase EGD in 2003 with [...]
[2025-05-03] MEDS: iohexoL 350 MG/ML 100 ML INFUS..BTL 85 ML IV (11:36)
[2025-05-03] MEDS: Barium Sulfate Oral (Vanilla) 450 ML ORAL.SUSP 900 ML PO (11:38)
[2025-05-08 10:39] LABS: Creatinine POC 0.8 mg/dL (0.5-1.4); GFR POC > 60
== END 2025-05-03 08:53 | disposition home or self-care (01) ==
LOC: HO.CT 08:52
PROVIDERS: PCP Nurse Practitioner Primary Care; Visit Provider Nurse Practitioner Family
DX: R10.32 Left lower quadrant pain (principal); R10.12 Left upper quadrant pain; K62.5 Hemorrhage of anus and rectum; K59.00 Constipation, unspecified
CPT/HCPCS: 74177; 82565; Q9967

== ENCOUNTER → 2025-05-03 08:54 | Outpatient (BNV) | payer OTHER, SELFPAY | PROVIDERS: PCP Nurse Practitioner Primary Care; Visit Provider Radiology Diagnostic Radiology | DX: K59.00 Constipation, unspecified (principal) | CPT/HCPCS: 74177 ==

== ENCOUNTER 2025-06-21 11:27 | Day surgery (SDC) | payer OTHER, SELFPAY ==
--- OUTSIDE RECORDS SUMMARY | 2025-05-10 07:45 | XMS_ITS | Patient Health Record ---
Author Organization [facility] Address [address] [place] [address] Care Team Providers Care Heating Element Winder Name Role Phone Akilah Larose Primary Care Provider David Joshua [phone] Allergies Allergen (clinical drug ingredient) Drug/Non Drug [...] Problem Status W/U Status Risk Notes Problem 357321786 History of adenomatous polyp of colon (Z86.010) Active confirmed Problem 73348840 Abdominal pain, epigastric (R10.13) Active confirmed Problem 914572438 Gastroesophageal reflux disease, esophagitis presence not specified (K21.9) Active confirmed Plan Of Treatment Future Test Test Name Order Date COLONOSCOPY 11/19/2014 UPPER GI ENDOSCOPY 03/09/2018 Insurance Providers Payer Name Payer Address Payer Phone Subscriber Number Group Number Insured Name Patient Relationship to Insured Coverage Start Date Coverage End Date [facility] [address] [place] [phone] [id number] SAM ENNIS Self - patient is the insured MEDICAID [facility] [address] [place] [address] [phone] [id number] SAM ENNIS Self - patient is the insured Medical (General) History Medical History History ICD Code Hypertension Denies [place],DM,CVA,Lung disease,renal dise ase EGD in 2003 with [...]
--- OUTSIDE RECORDS SUMMARY | 2025-05-10 07:45 | XMS_ITS | Encounter Summary ---
Author Organization [employer] Address [address] [facility] 7[address] [place] [address] Care Team Providers Care Pathology Technologist Name Role Phone Giselle Brock Primary Care Provider [phone] Reason for Visit * Reason Onset Date Comments Lab Orders 12/07/2023 Encounter Details Date Type Department Care Team ([facility] st Contact Info) Description 12/07/2023 Telephone [facility] MEDICINE [address] [place] [address] Giselle Brock ANP [address] [place] [address] Lab Orders Social History Tobacco Use Types [...] Info) Description 06/07/2025 11:00 AM EDT Nutrition [facility] DIABETES/NUTRITION [address] [place] [address] [place] [address] documented as of this encounter Visit Diagnoses Not on filedocumented in this encounter Additional Health Concerns Assessment Noted Time PHQ-9 Depression Total Score: 15 024 11:19 AM EST documented as of this encounter Care Teams Pathology Technologist Relationship Specialty Start Date End Date Giselle Brock ANP [address] [place] [address] PCP - General Family Medicine 06/20/23 documented as of this encounter
[2025-06-19 14:46] VITALS: BMI 36.3
--- NOTE | 2025-06-20 09:25 | HO.ANESPROP2 ---
Documented by User: Annelise Shah NP 06/20/25 09:27 HPI - Anesthesia Eval Consult details Narrative: 65yo M for Upper Endoscopy and Colonoscopy s/p knee scope 11/2024 with GA-LMA 5 Hx of agitation with emergence PMFSH Active Problems Active Problems: All Active Problems Bilateral kidney stones (Acute) Straining on urination (Acute) Tear of medial meniscus of right knee (Acute) Right knee pain (Acute) Kidney stone on left side (Acute) BMI 45.0-49.9, adult (Acute) Palpitation (Acute) BPH loc w urin obs/LUTS (Acute) Screening PSA (prostate specific antigen) (Acute) Weak urinary stream (Acute) BPH (benign prostatic hyperplasia) (Acute) COVID-19 (Acute) Chest pain (Acute) Rectal bleeding (Acute) Colon cancer screening (Acute) Constipation (Acute) JOHN (obstructive sleep apnea) (Acute) Hiatal hernia (Acute) GERD (gastroesophageal reflux disease) (Acute) Kidney stones (Acute) Pre-diabetes (Acute) HTN (hypertension) (Acute) Internal derangement of right knee (Acute) Past Medical History Medical History Rectal bleeding Colon cancer screening Constipation JOHN (obstructive sleep apnea) Hiatal hernia RYAN (generalized anxiety disorder) Tinnitus GERD (gastroesophageal reflux disease) Dyslipidemia Aneurysm of thoracic aorta Internal derangement of right knee Kidney stones Back pain Pre-diabetes HTN (hypertension) Family History Family History Mother Heart disease Diabetes Father Diabetes Heart disease Family history of problems with anesthesia: No Surgical History Surgical History H/O arthroscopy Hx of colonoscopy Hx of esophagogastroduodenoscopy History of Problems with Anesthesia: No Social History Social History Are you a primary cardiac care unit nurse to a significant other at home: No Do you presently have visiting nurse or other home services: No Alcohol intake: current Alcohol intake frequency: does not drink Alcohol type: beer Patient Tobacco Use Status: Former Tobacco user Use of substances other than those prescribed or required for medical reasons: No Have you been hit, kicked, punched, or otherwise hurt by someone within the past year? If so, by whom?: No Are you DNR?: No Advance Directives: No Advance Directives Information Provided: Yes Current occupational status: employed Current occupation: [employer] Meds Allergies Allergy/AdvReac Type Severity Reaction Status Date / Time No Known Allergies (No Known Allergy Verified 04/19/25 10:15 Allergies*) Home Medications ?Medication ?Instructions ?Recorded ?Confirmed ?Last Taken ?Type acetaminophen 650 mg 650 mg PO TID 06/30/23 06/19/25 Unknown History tablet,extended release metoprolol succinate 50 mg 50 mg PO DAILY 03/06/24 06/19/25 Unknown History tablet,extended release 24 hr rosuvastatin 10 mg tablet 10 mg PO DAILY 12/03/24 06/19/25 Unknown History olmesartan 20 mg tablet 20 mg PO DAILY 03/27/25 06/19/25 Unknown History Exam Height,Weight and Vital Signs: Height 5 ft 11 in Weight 117.934 kg Narrative Narrative: CT abdomen pelvis w IV con 04/2025 IMPRESSION: Small fat-containing umbilical hernia. Multilevel thoracolumbar spondylosis. Hepatomegaly, mild. VASCULAR: Mixed plaques throughout the abdominal aorta wall. No aneurysm or dissection abdominal aorta Assessment and Plan Assessment Anesthesia Assessment: Chart Reviewed Final Anesthetic Review Family History of Problems with Anesthesia: No History of Problems with Anesthesia: No Documented by User: Asuncion Cook MD 06/21/25 12:52 [facility] Past Medical History Medical History Rectal bleeding Colon cancer screening Constipation JOHN (obstructive sleep apnea) Hiatal hernia RYAN (generalized anxiety disorder) Tinnitus GERD (gastroesophageal reflux disease) Dyslipidemia Aneurysm of thoracic aorta Internal derangement of right knee Kidney stones Back pain Pre-diabetes HTN (hypertension) Family History Family History Mother Heart disease Diabetes Father Diabetes Heart disease Surgical History Surgical History H/O arthroscopy Hx of colonoscopy Hx of esophagogastroduodenoscopy Social History Social History Are you a primary cardiac care unit nurse to a significant other at home: No Do you presently have visiting nurse or other home services: No Alcohol intake: current Alcohol intake frequency: does not drink Alcohol type: beer Patient Tobacco Use Status: Former Tobacco user Use of substances other than those prescribed or required for medical reasons: No Have you been hit, kicked, punched, or otherwise hurt by someone within the past year? If so, by whom?: No Are you DNR?: No Advance Directives: No Advance Directives Information Provided: Yes Current occupational status: employed Current occupation: [employer] Allergies Allergy/AdvReac Type Severity Reaction Status Date / Time No Known Allergies (No Known Allergy Verified 04/19/25 10:15 Allergies*) Home Medications ?Medication ?Instructions ?Recorded ?Confirmed ?Last Taken ?Type acetaminophen 650 mg 650 mg PO TID 06/30/23 06/19/25 Unknown History tablet,extended release metoprolol succinate 50 mg 50 mg PO DAILY 03/06/24 06/19/25 Unknown History tablet,extended release 24 hr rosuvastatin 10 mg tablet 10 mg PO DAILY 12/03/24 06/19/25 Unknown History olmesartan 20 mg tablet 20 mg PO DAILY 03/27/25 06/19/25 Unknown History Exam Airway Mallampati Class: III TM Dist: >3cm Neck ROM: Full Loose/Missing/Broken Teeth: No Heart: RRR Lungs: CTA Assessment and Plan Assessment Anesthesia Assessment: Anesthesia Plan Discussed Final Anesthetic Review NPO: Yes ASA Class: III Final Preanesthetic Review: Meds/Allgs Chart Reviewed, Consent Obtained/Reviewed and Anes Risks/Benef Reviewed Patient Risk: Intermediate Procedure Risk: Intermediate Anesthetic Plan Anesthetic Plan: MAC: Disposition: Standard PACU
[2025-06-21] VITALS (10 sets, daily range): BP systolic 87–146; BP diastolic 53–96; PULSE 71–112; RESP 14–18; TEMP 36.2–36.7; O2SAT 95–99; BMI 35.1
--- NOTE | 2025-06-21 12:46 | P.HPSUR_ITS ---
Pre-Procedural Eval Section A - 24 Hr Update-Section A only Date of Service: 06/21/25 Section B - Complete if H&P > 30 days Chief Complaint: screening,gerd, Details of Present Illness: Rectal bleeding Colon cancer screening Constipation JOHN (obstructive sleep apnea) Hiatal hernia RYAN (generalized anxiety disorder) Tinnitus GERD (gastroesophageal reflux disease) Dyslipidemia Aneurysm of thoracic aorta Internal derangement of right knee Kidney stones Back pain Pre-diabetes HTN (hypertension) Surgical History H/O arthroscopy Hx of colonoscopy Hx of esophagogastroduodenoscopy Present Medications: see Short Stay Collaborative assessment Allergies: Allergies Allergy/AdvReac Type Severity Reaction Status Date / Time No Known Allergies (No Known Allergy Verified 04/19/25 10:15 Allergies*) Review of Systems Review of Systems Comment: Ten point ROS negative Exam Exam Comment: Gen appear: No acute distress HEENT: no icterus Chest: No overt resp distress Abd: soft, nontender, nondistended Psych: Stable affect, answering questions appropriately Neuro: A/Ox3 noted to move all extremities spontaneously Ext: no peripheral edema Plan Diagnosis/Plan: Unchanged I have reviewed the history and physical and performed a pertinent physical examination on my patient. No changes have occurred unless specified. Time Spent With Patient Time: Total time managing care of this patient today ____ minutes.
--- NOTE | 2025-06-21 13:29 | P.OPN-COLO_ITS ---
Colonoscopy Operative Note Operative Note Date of Service: 06/21/25 Narrative: Procedure: Upper endoscopy and colonoscopy Indication: GERD, hx of polyps Endoscopist: Sofia Gonzales MD Anesthesia Provider: Duke Hudson CRNA Anesthesia type: MAC Instrument: [id number] and [id number] EGD Procedure:?? The procedure, indications, preparation and potential complications were reviewed with the patient, who indicated understanding and gave written informed consent to proceed. The endoscope was introduced through the mouth, and advanced to the 2nd part of the duodenum. The mucosa was carefully examined on slow withdrawal of the endoscope. The patient tolerated the procedure well. There were no immediate complications.? EGD Findings:? * Esophagus:? Normal esophageal mucosa was noted. The Z-line was at 40 cm and irregular up to 39 cm. There was a small hiatal hernia noted with a diaphragmatic pinch at 43 cm. Cold forceps biopsies were taken from GE junction to rule out Yoder's esophagus. * Stomach:? Erythema and erosions in the body of the stomach. Retroflexion was performed in the cardia that shows Hill grade 2 hiatal hernia. A few benign- appearing polyps were noted in the distal cardia. Random cold forceps biopsies were taken from the stomach. * Duodenum:? Diffuse erythema, and superficial ulceration noted in the duodenum to the extent examined. Cold forceps biopsies were taken from the duodenal bulb and 2nd portion of the duodenum. Colonoscopy Procedure:? The patient was then turned for the colonoscopy. A digital rectal exam was performed which was normal.? A distal attachment cap was affixed to the tip of the scope and the colonoscope was then inserted through the anus and advanced through the colon and advanced to the cecum at 80 cm and terminal ileum.? Appendiceal orifice and ileocecal valve were identified. Mucosa was carefully examined under high definition white light as the instrument was slowly withdrawn in a retrograde panoramic fashion. Retroflexion was performed in rectum. The procedure was not difficult. The quality of the prep was BBPS: 2+2+3 = adequate Withdrawal time 11 minutes Limitations: No limitations Findings: Mucosa: Normal colon and terminal ileum mucosa. Protruding lesions: * 1 sessile polyp of size 2 mm noted in the cecum. Cold forceps polypectomy was performed. The polyp was completely removed and retrieved. * 2 sessile polyps of size 3-5 mm noted in ascending colon. Cold snare polypectomy was performed. The polyps were completely removed and retrieved. * 1 sessile polyp of size 3 mm noted transverse colon. Cold snare polypectomy was performed. The polyp was completely removed and retrieved. * Large internal hemorrhoids without stigmata of recent bleeding. Excavated lesions: * Mild diverticulosis of left colon. Impression: 1. Irregular Z line (biopsy) 2. Hiatal hernia 3. Gastritis (biopsy) 4. Gastric polyps 5. Duodenitis (biopsy) 6. Normal colon and terminal ileum mucosa 7. Total 4 polyps removed 8. Diverticulosis 9. Internal hemorrhoids Recommendations:?? * Follow-up path results * Avoid NSAIDs, smoking and alcohol * Increase pantoprazole to twice a day * H Pylori treatment if biopsies + * Repeat colonoscopy in 3 years if all polyps are adenoma
--- NOTE | 2025-06-21 13:53 | PC.NURSE ---
1344 patient became aggressive, thrashing in bed, hitting self hard on chest. Anesthesia called to bedside. Staff assisting to prevent patient from hurting self. Dr. Cook administered versed 2 mg IV at 1346. Patient settled shortly and resting comfortably now. Monitoring closely.
== END 2025-06-21 15:24 | disposition home or self-care (01) ==
PROVIDERS: PCP Nurse Practitioner Primary Care; Visit Provider Internal Medicine
PROC: (CPT 45385; principal; 2025-06-21 12:30)
DX: Z12.11 Encounter for screening for malignant neoplasm of colon (principal); D12.0 Benign neoplasm of cecum; K63.5 Polyp of colon; K57.30 Diverticulosis of large intestine without perforation or abscess without bleeding; K64.8 Other hemorrhoids; K21.9 Gastro-esophageal reflux disease without esophagitis; K22.89 Other specified disease of esophagus; K29.70 Gastritis, unspecified, without bleeding; K31.7 Polyp of stomach and duodenum; K29.80 Duodenitis without bleeding; K44.9 Diaphragmatic hernia without obstruction or gangrene; K59.00 Constipation, unspecified; I10 Essential (primary) hypertension
CPT/HCPCS: 45385; 45380; 43239; 88305; 88313; 88342; J2250; J2704

== ENCOUNTER → 2025-06-21 11:27 | Outpatient (BNV) | payer OTHER, SELFPAY | PROVIDERS: PCP Nurse Practitioner Primary Care; Visit Provider Internal Medicine | DX: Z12.11 Encounter for screening for malignant neoplasm of colon (principal); D12.0 Benign neoplasm of cecum; D12.2 Benign neoplasm of ascending colon; D12.3 Benign neoplasm of transverse colon; K57.90 Diverticulosis of intestine, part unspecified, without perforation or abscess without bleeding; K64.8 Other hemorrhoids; K22.89 Other specified disease of esophagus; K29.70 Gastritis, unspecified, without bleeding; K31.7 Polyp of stomach and duodenum; K29.80 Duodenitis without bleeding | CPT/HCPCS: 43239; 45380; 45385 ==

== ENCOUNTER 2025-07-03 15:01 | Outpatient (AMB) | payer OTHER, SELFPAY ==
--- NOTE | 2025-07-03 15:04 | MHC.OFFVIS ---
Intake Visit Reasons: INJ- Right Knee, Durolane Injection Intake Note: Sameer is a 65 year old male who presents with complaints of right knee pain. He describes his pain as sharp in nature. He has had cortisone injections in the past which gave him minimal relief. He has not had a viscosupplementation injection. He has failed the last 3 months of conservative treatment which has included Tylenol, anti-inflammatory medicines and a home exercise program. At this point his right knee pain is interfering with his activities of daily living and his ability to sleep well through the night. Allergies No Known Allergies (No Known Allergies*) Allergy (Verified 07/03/25 15:07) Medication List - Last Reconciled 07/03/25 by Joseph Riggs MD acetaminophen ER 650 mg PO TID bisacodyl 5 mg PO ONCE 1 day fluticasone propionate 50 mcg/actuation 2 sprays intranasal DAILY 30 days magnesium citrate 250 mg (2 x 125 mg) PO BEDTIME metoprolol succinate ER 50 mg PO DAILY olmesartan 20 mg PO DAILY pantoprazole 40 mg PO BID rosuvastatin 10 mg PO DAILY tamsulosin (Flomax) 0.4 mg PO BEDTIME [facility] Medical History Rectal bleeding Colon cancer screening Constipation JHON (obstructive sleep apnea) Hiatal hernia RYAN (generalized anxiety disorder) Tinnitus GERD (gastroesophageal reflux disease) Dyslipidemia Aneurysm of thoracic aorta Internal derangement of right knee Kidney stones Back pain Pre-diabetes HTN (hypertension) Surgical History H/O arthroscopy Hx of colonoscopy Hx of esophagogastroduodenoscopy Family History Mother Heart disease Diabetes Father Diabetes Heart disease Social History Are you a primary healthcare technician to a significant other at home: No Do you presently have visiting nurse or other home services: No Alcohol intake: current Alcohol intake frequency: does not drink Alcohol type: beer Patient Tobacco Use Status: Former Tobacco user Current occupational status: employed Current occupation: [employer] Physical Exam Const Other: Well-nourished well-developed very friendly male awake alert and oriented x3 in no acute distress Extrem Other: Right knee examination shows a minimal effusion, palpable crepitus with range of motion, pain with range of motion, no instability Office Procedures AMB Joint Injection/Aspiration Joint Injection/Aspiration Primary Site: right knee Prep: site was prepped using aseptic technique Injected: 60 mg of (Durolane viscosupplementation) and 1% plain lidocaine Procedure: The patient tolerated the procedure well Coding - Large joint Procedure code (CPT) selection complete Results Reviewed Results Reviewed: X-rays of the patient's right knee taken previously show joint space narrowing, subchondral sclerosis, no acute bony abnormalities Assessment & Plan Assessment & Plan (1) Osteoarthritis of right knee: Code(s): M17.11 - Unilateral primary osteoarthritis, right knee Category: Medical Plan Mr. Keren Veliz presents with right knee pain due to osteoarthritis. The risks and benefits of a right knee Durolane viscosupplementation injection were discussed at length with the patient. The patient wished to proceed. He tolerated the injection well. He will continue with his home exercise program. He will contact me prior to his follow-up appointment in 3 months should any questions or concerns arise. Feel free to call me at any time should questions regarding his orthopedic management arise. I spent 21 minutes in reviewing the patient's records and imaging studies, seeing the patient and documenting in the medical record. Orders: Orders AMB Joint Injection/Aspiration Today M17.11 - Unilateral primary osteoarthritis, right knee Coding Level of Care Code Est Pt Level 3 (54096) Complex EM visit Add On G2211 Diagnoses Osteoarthritis of right knee M17.11 CPT Codes Coding - 49516 Large joint: 48465 - Large joint ([id number])
--- OUTSIDE RECORDS SUMMARY | 2025-07-03 18:43 | XMS_ITS | Patient Health Record ---
Author Organization [facility] Address [address] [place] [address] Care Team Providers Care Route Process Administrator Name Role Phone Akilah Larose Primary Care Provider David Joshua [phone] Allergies Allergen (clinical drug ingredient) Drug/Non Drug Allergy documented on EMR Reaction Allergy Type Onset Date Status seasonal (uncoded) Unknown Allergy A ctive Reason For Referral No Information Medications Medication SIG (Take, Route, Frequency, Duration) Notes Start Date End Date Status SEROquel XR 300 MG TK 1 T PO QD AT 6PM Oral; Duration: 30 Active Omeprazole 20 MG 1 capsule Orally Onc e a day Active hydroCHLOROthiazide 25 MG TK 1 T PO QD O ral; Duration: 30 Active Problems Problem Type SNOMED Code ICD Code Onset Dates Problem Status W/U Status Risk Notes Problem History of adenomatous polyp of colon (008249168) History of adenomatous polyp of colon (Z86.010) Active confirmed Problem Epigastric pain (77350174) Abdominal pain, epigastric (R10.13) Active confirmed Problem Gastroesophageal reflux disease (948899916) Gastroesophageal reflux disease, esophagitis presence not specified (K21.9) Active confirmed Plan Of Treatment Future Test Test Name Order Date COLONOSCOPY 11/19/2014 UPPER GI ENDOSCOPY 03/09/2018 Insurance Providers Payer Name Payer Address Payer Phone Subscriber Number Group Number Insured Name Patient Relationship to Insured Coverage Start Date Coverage End Date [facility] [address] [place] [address] [id number] SAM ENNIS Self - patient is the insured MED[place] OF [place] [address] [place] [id number] SAM ENNIS Self - patient is the insured Medical (General) History Medical History History ICD Code Hypertension Denies [place],DM,CVA,Lung disease,renal dise ase EGD in 2003 with [...]
== END 2025-07-03 15:26 | disposition home or self-care (01) ==
LOC: HO.HOS 15:02
PROVIDERS: PCP Nurse Practitioner Primary Care; Visit Provider Orthopaedic Surgery
DX: M17.11 Unilateral primary osteoarthritis, right knee (principal)
CPT/HCPCS: 20610; 99213

== ENCOUNTER → 2025-07-03 15:01 | Outpatient (BNVA) | payer OTHER, SELFPAY | PROVIDERS: PCP Nurse Practitioner Primary Care; Visit Provider Orthopaedic Surgery | DX: M17.11 Unilateral primary osteoarthritis, right knee (principal) | CPT/HCPCS: 20610; 99212; J2003; J7318 ==

== ENCOUNTER 2025-07-05 10:44 | Outpatient (AMB) | payer OTHER, SELFPAY ==
--- NOTE | 2025-07-05 10:48 | MHC.OFFVIS ---
Vital Signs 07/05/25 10:51 Height 5 ft 11 in Weight 252 lb BMI 35.1 BP 131/83 Blood Pressure Location Lt brachial Position Sitting Pulse 84 Pulse Oximetry (%) 98 Oxygen Delivery Method Room Air Intake Visit Reasons: s/p EGD, [facility] Intake Note: Patient follow up for EGD/CT scan and lab results. 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 Accompanied by: Family/Other Allergies No Known Allergies (No Known Allergies*) Allergy (Verified 07/05/25 10:48) Medication List - Last Reconciled 07/05/25 by Flory Naranjo CNP acetaminophen ER 650 mg PO TID fluticasone propionate 50 mcg/actuation 2 sprays intranasal DAILY 30 days magnesium citrate 250 mg (2 x 125 mg) PO BEDTIME metoprolol succinate ER 50 mg PO DAILY olmesartan 20 mg PO DAILY pantoprazole 40 mg PO BID rosuvastatin 10 mg PO DAILY tamsulosin (Flomax) 0.4 mg PO BEDTIME HPI HPI s/p EGD, [facility]: Details: Patient is a 65-year-old male with PMH of depression, JOHN, GED, hyperlipidemia, hypertension and GERD. Patient is accompanied by his daughter who is translating during our visit. FU post EGD and colonoscopy (06-21-2025); persistent symptoms of GERD (heartburn, nocturnal reflux/cough, abdominal discomfort, bloating, intermittent constipation). 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 Adherent to prescribed pantoprazole, recently increased to BID; has not yet trialed additional H2RA for symptom control. Constipation remains an issue, although bowel habits have somewhat improved?now having BMs more frequently with increased dietary fiber and fruit intake, but still reliant on intermittent use of stool softener/laxative. Pt inconsistently adheres to daily bowel regimen. Reports mild URI/cold sx, afebrile. No N/V, melena, hematochezia, dysphagia, or significant wt loss. No ED or UC visits, no hospital admissions. [facility] Medical History (Updated 07/05/25 @ 11:46 by Flory Naranjo CNP) Tubular adenoma of colon Rectal bleeding Colon cancer screening Constipation JOHN (obstructive sleep apnea) Hiatal hernia RYAN (generalized anxiety disorder) Tinnitus GERD (gastroesophageal reflux disease) Dyslipidemia Aneurysm of thoracic aorta Internal derangement of right knee Kidney stones Back pain Pre-diabetes HTN (hypertension) Surgical History H/O arthroscopy Hx of colonoscopy Hx of esophagogastroduodenoscopy Family History Mother Heart disease Diabetes Father Diabetes Heart disease Social History Are you a primary primary care pediatrician to a significant other at home: No Do you presently have visiting nurse or other home services: No Alcohol intake: current Alcohol intake frequency: does not drink Alcohol type: beer Patient Tobacco Use Status: Former Tobacco user Current occupational status: employed Current occupation: [employer] Review of Systems Const Reports as per HPI ENT Reports as per HPI Card Reports as per HPI Resp Reports as per HPI GI Reports as per HPI Reports as per HPI Physical Exam Const General: healthy appearing, no acute distress and well developed Nutritional Appearance: average body habitus Orientation/consciousness: patient oriented x3 HEENT Head: Yes normal to inspection, Yes normocephalic and Yes atraumatic Face and sinus: Yes normal facial exam Eyes General: appearance normal, both eyes and all related structures Neck Neck: Yes normal visual inspection Resp Effort & Inspection: normal respiratory effort, able to speak in complete sentences, no tracheal deviation and symmetric chest movement Cardio Jugular venous distension: no JVD GI Inspection: Yes normal to inspection, No distended and Yes obesity Palpation (GI): Soft to palpation, not firm, nontender and No hepatosplenomegaly present Auscultation: normal bowel sounds Neuro General: patient oriented x3 Gait exam (Neuro): Normal gait present Psych Appearance: grossly normal Mental Status: mental status grossly normal Speech and movement: Normal speech and movement present Affect: normal affect Attitude: cooperative Thought process: Normal thought process present Thought content: Normal thought content present Insight: Good insight present (Psych) Judgement: Good judgement present (Psych) Results Reviewed Results Reviewed: Operative Note Date of Service: 06/21/25 Narrative: Procedure: Upper endoscopy and colonoscopy Indication: GERD, hx of polyps Endoscopist: Sofia Gonzales MD Anesthesia Provider: Duke Hudson CRNA Anesthesia type: MAC Instrument: GIF-H190 and PCF-H190L EGD Findings: Esophagus: Normal esophageal mucosa was noted. The Z-line was at 40 cm and irregular up to 39 cm. There was a small hiatal hernia noted with a diaphragmatic pinch at 43 cm. Cold forceps biopsies were taken from GE junction to rule out Yoder's esophagus. Stomach: Erythema and erosions in the body of the stomach. Retroflexion was performed in the cardia that shows Hill grade 2 hiatal hernia. A few benign-appearing polyps were noted in the distal cardia. Random cold forceps biopsies were taken from the stomach. Duodenum: Diffuse erythema, and superficial ulceration noted in the duodenum to the extent examined. Cold forceps biopsies were taken from the duodenal bulb and 2nd portion of the duodenum. Colonoscopy Procedure: The patient was then turned for the colonoscopy. A digital rectal exam was performed which was normal. A distal attachment cap was affixed to the tip of the scope and the colonoscope was then inserted through the anus and advanced through the colon and advanced to the cecum at 80 cm and terminal ileum. Appendiceal orifice and ileocecal valve were identified. Mucosa was carefully examined under high definition white light as the instrument was slowly withdrawn in a retrograde panoramic fashion. Retroflexion was performed in rectum. The procedure was not difficult. The quality of the prep was BBPS: 2+2+3 = adequate Withdrawal time 11 minutes Limitations: No limitations Findings: Mucosa: Normal colon and terminal ileum mucosa. Protruding lesions: 1 sessile polyp of size 2 mm noted in the cecum. Cold forceps polypectomy was performed. The polyp was completely removed and retrieved. 2 sessile polyps of size 3-5 mm noted in ascending colon. Cold snare polypectomy was performed. The polyps were completely removed and retrieved. 1 sessile polyp of size 3 mm noted transverse colon. Cold snare polypectomy was performed. The polyp was completely removed and retrieved. Large internal hemorrhoids without stigmata of recent bleeding. Excavated lesions: Mild diverticulosis of left colon. Impression: 1. Irregular Z line (biopsy) 2. Hiatal hernia 3. Gastritis (biopsy) 4. Gastric polyps 5. Duodenitis (biopsy) 6. Normal colon and terminal ileum mucosa 7. Total 4 polyps removed 8. Diverticulosis 9. Internal hemorrhoids Recommendations: Follow-up path results Avoid NSAIDs, smoking and alcohol Increase pantoprazole to twice a day H Pylori treatment if biopsies + Repeat colonoscopy in 3 years if all polyps are adenoma PATHOLOGY Collected: 06/21/25 Location: [facility] Received: 06/21/25 Diagnosis A. Duodenum, biopsy: Small fragment of superficial small intestinal mucosa within normal limits. B. Stomach, random, biopsy: Antral-type and oxyntic mucosa within normal limits; no Helicobacter organisms seen. C. GE junction, biopsy: Colonic mucosa with prominent lymphoid aggregate and mild surface hyperplastic changes. D. Colon, ascending, polypectomies: - Cardiofundic-type mucosa with mild chronic inactive inflammation; no intestinal metaplasia seen. - Squamous epithelium within normal limits. E. Cecum, polypectomy: Fragments of tubular adenoma; negative for high-grade dysplasia or carcinoma. F. Colon, transverse, polypectomy: Hyperplastic mucosal polyps. Comment: The specimens in parts C and D were likely switch either prior to or after receipt in the laboratory. Clinical History Pre-Op Dx: Reflux, hx of polyps Post-Op Dx: Hiatal hernia, gastritis, duodenitis, gastric polyps, polyps, diverticulosis, hemorrhoid Date of Service: 05/03/25 Procedure(s): CT abdomen pelvis w IV con Accession Number(s): [id number] cc: NICOLASA FABIAN NP; Flory Naranjo [facility] Report Number: [id number]: Total DLP = 797.00 mGy-cm EXAMINATION: CT ABDOMEN AND PELVIS WITH CONTRAST CLINICAL INFORMATION: Constipation. Diverticular disease. COMPARISON: April 03, 2024. TECHNIQUE: Multidetector volumetric images were obtained from the superior aspect of the liver through the pubic symphysis following administration 85 mL of Omnipaque 350 intravenous contrast. Sagittal and coronal reformatted images were obtained on the technologist's workstation. Oral contrast: [address] examination was performed using dose optimization techniques as appropriate, variously including the following: *Automated exposure control *Adjustment of mA and/or kV according to patient size (this includes techniques or standardized protocols for targeted exams where dose is matched to indication/reason for exam; i.e. extremities or head) *Use of iterative reconstruction technique DLP: 797 mGy centimeter. FINDINGS: LUNG BASES: No acute airspace disease. LIVER, GALLBLADDER, AND BILIARY TREE: There are measures 16 cm no focal mass. Portal veins, hepatic veins are patent. No pericholecystic fluid collection or gallbladder wall thickening. Gallbladder is nondistended. No intrahepatic or extrahepatic biliary ductal dilatation. PANCREAS: No focal mass. No peripancreatic fluid collection. No main pancreatic ductal dilatation. SPLEEN: 11 cm. No focal mass. ADRENAL GLANDS: No nodular lesions. KIDNEYS AND URETERS: No hydronephrosis. No gross mass no gross nephrolithiasis. BLADDER: Collapse. GASTROINTESTINAL TRACT: Appendix is normal. Abundant stool. No intestinal obstruction pattern. No pneumatosis intestinalis. No intestinal wall thickening. No ascites. No pneumoperitoneum. ABDOMINAL WALL: Small fat-containing umbilical hernia. LYMPH NODES: No lymphadenopathy. VASCULAR: Mixed plaques throughout the abdominal aorta wall. No aneurysm or dissection abdominal aorta. PELVIC VISCERA: Nonenlarged prostate gland with punctate calcifications. OSSEOUS STRUCTURES: Mild degenerative changes in the coxofemoral joints and sacroiliac joints. Probable bony island left femoral head. Multilevel thoracolumbar spondylosis pronounced at L5-S1. No acute fracture or listhesis in the axial skeleton. Probable intraosseous hemangioma, T10 vertebra. CT/CT abdomen pelvis w IV con IMPRESSION: Small fat-containing umbilical hernia. Multilevel thoracolumbar spondylosis. Hepatomegaly, mild. Fleischner guidelines were followed. Assessment & Plan Assessment & Plan (1) GERD (gastroesophageal reflux disease): Comment: 06/21/25 EGD- Irregular Z line WITHOUT barretts,Hill grade 2 hiatal hernia, gastritis, Gastric polyps, Duodenitis. 03/17/2004 Upper endoscopy with biopsies- distal esophagitis with a few superficial erosions. no evidence of Barretts esophagus. Code(s): K21.9 - Gastro-esophageal reflux disease without esophagitis Category: Medical Qualifiers: Esophagitis presence: without esophagitis Qualified Code(s): K21.9 - Gastro-esophageal reflux disease without esophagitis Plan: Persistent heartburn/reflux (steff. nocturnal), cough, despite recent uptitration of PPI (pantoprazole 40 mg BID x 2 wks); more time for full effect. Sx may be exacerbated by constipation and suboptimal lifestyle mod. Persistent symptoms may warrant add-on H2RA if no response in 6-8 wks. Additional Testing: None at this time; monitor for alarm features. Medications: - Continue pantoprazole 40 mg BID (maintain regimen for min 8 wks). - Hold on adding famotidine (Pepsid) at HS; reassess next visit, may add if nocturnal sx persist. Lifestyle Recommendations: - Reinforce avoidance of triggers: spicy, fatty foods, carbonation, acidic drinks, caffeine. - Encourage upright posture after meals, no meals <2-3 hrs before sleep, wt loss strategies. - Recommend wedge pillow or bed elevation to reduce nocturnal reflux. Referrals / Coordination: - Referral to weight management clinic for obesity counseling and potential for hiatal hernia surgical evaluation. F/U: Revisit in 8 wks; reassess GERD control and adjust therapy as indicated. (2) Tubular adenoma of colon: Comment: 06/21/25 colonoscopy complete with adequate prep- Normal colon and terminal ileum mucosa, Diverticulosis, Internal hemorrhoids, 2 mm TA ( cecum), 3 mm HP ( transverse), remaining lymphoid aggregate and mild surface hyperplastic changes. Per guideline recommendations for repeat in 7-10 years. Code(s): D12.6 - Benign neoplasm of colon, unspecified Category: Medical Plan: S/p complete polypectomy, asymptomatic diverticulosis, no evidence of active dz. Routine surveillance per guidelines (7-10 years). Additional Testing: None needed until next colonoscopy. Medications: None specific. Lifestyle Recommendations: Continue dietary fiber for colon health. Referrals: None. F/U: Colonoscopy in 7-10 yrs unless new sx. (3) Constipation: Code(s): K59.00 - Constipation, unspecified Category: Medical Qualifiers: Constipation type: unspecified constipation type Qualified Code(s): K59.00 - Constipation, unspecified Plan: Intermittent constipation, more regular BM w/diet mod, inconsistent use of stool softener/lax. Constipation may worsen GERD and abdo discomfort; regular regimen needed for optimal symptom ctrl. Additional Testing: None; monitor for alarm features (change in BM pattern, GI bleed). 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 Lifestyle Recommendations: - Emphasize daily fiber (whole fruit, veg, whole grains) and hydration. - Review fiber handout if needed. Referrals: - No new referrals. F/U: Symptom diary recommended; reassess next visit. (4) Hiatal hernia: Code(s): K44.9 - Diaphragmatic hernia without obstruction or gangrene Category: Medical Plan: Hill grade 2 hiatal hernia noted on 06/21/25 EGD. Reducible, no obstruction. Discussed conservative are typical for this grade, unless sx worsen; but pt desires surgical consult. Additional Testing: None. Medications: None. Lifestyle Recommendations: Wt loss to reduce risk of enlargement/complications. Referrals: Surg consult placed. F/U: Per surgical rec (5) BMI 45.0-49.9, adult: Code(s): Z68.42 - Body mass index [BMI] 45.0-49.9, adult Category: Medical Plan: BMI 35.1, contributing to GERD, hernia risk, and possibly constipation. Wt reduction would benefit overall GI health. Additional Testing: None at this time. Medications: None specific for obesity. Lifestyle Recommendations: - Reinforce dietary mod (low-fat, high-fiber, avoid triggers). - Encourage regular physical activity as tolerated. - Provided educational materials on wt loss strategies. Referrals: - Referral to wt management clinic for comprehensive counseling and support. F/U: Monitor wt and progress at next visit. Plan Follow-up 8 weeks or sooner as needed Time: I spent a total of 36 minutes on the date of encounter which includes: Preparing to see the patient (reviewed previous documentation, test results and medical history) Performing a medically appropriate exam and/or evaluation Ordering medications, tests, and procedures Documenting clinical information in the health record Orders: Referrals Medical Weight Management Referral K44.9 - Diaphragmatic hernia without obstruction or gangrene, Z68.42 - Body mass index [BMI] 45.0-49.9, adult Coding Level of Care Code Established Pt Est Pt Level 3 (60489) Patient Type Established Diagnoses Gastroesophageal reflux disease without esophagitis K21.9 Esophagitis presence: without esophagitis Tubular adenoma of colon D12.6 Constipation, unspecified constipation type K59.00 Constipation type: unspecified constipation type Hiatal hernia K44.9 BMI 45.0-49.9, adult Z68.42
[2025-07-05 10:51] VITALS: BP 131/83; PULSE 84; O2SAT 98; BMI 35.1
== END 2025-07-05 11:31 | disposition home or self-care (01) ==
LOC: HO.HGI 10:44
PROVIDERS: PCP Nurse Practitioner Primary Care; Visit Provider Nurse Practitioner Family
DX: K21.9 Gastro-esophageal reflux disease without esophagitis (principal); D12.6 Benign neoplasm of colon, unspecified; K59.00 Constipation, unspecified; K44.9 Diaphragmatic hernia without obstruction or gangrene; Z68.42 Body mass index [BMI] 45.0-49.9, adult
CPT/HCPCS: 99213

== ENCOUNTER → 2025-07-05 10:44 | Outpatient (BNVA) | payer OTHER, SELFPAY | PROVIDERS: PCP Nurse Practitioner Primary Care; Visit Provider Nurse Practitioner Family | DX: K21.9 Gastro-esophageal reflux disease without esophagitis (principal); D12.6 Benign neoplasm of colon, unspecified; K59.00 Constipation, unspecified; K44.9 Diaphragmatic hernia without obstruction or gangrene; Z68.42 Body mass index [BMI] 45.0-49.9, adult | CPT/HCPCS: 99212 ==

== ENCOUNTER 2025-07-12 15:16 | Outpatient (AMB) | payer OTHER, SELFPAY ==
--- NOTE | 2025-07-12 15:18 | A.OFFVIS_ITS ---
Intake Visit Reasons: cysto/[employer] Intake Note: Patient presents today for: cystoscopy Meds: tamsulosin Blood Thinner: None PVR: 85mls [employer]ges [employer] Build[employer] Supervisor Required: Yes [employer] Supervisor Language: Obstetrics Specialist Services: [employer] Supervisor Present Accompanied by: Son Allergies No Known Allergies (No Known Allergies*) Allergy (Verified 07/29/25 18:41) HPI Comments Details: 07/12/25--The patient is a 65-year-old male presenting for follow-up of nephrolithiasis and benign prostatic hyperplasia. The patient has a history of nephrolithiasis, with a recent CT scan indicating no remaining kidney stones. The patient did not complete 24 hr urine collection. The patient also has benign prostatic hyperplasia, for which he is taking tamsulosin. The medication aids in improving urinary flow, and the patient reports that it helps make the urine flow stronger. A recent imaging study revealed calcifications in the prostate, but the prostate is not enlarged. Results - CT scan: 05/03/25--no kidney stones; punctate calcifications in the prostate, prostate not enlarged. Plan Hold on Office Cystoscopy urinary symptoms improved 1. Nephrolithiasis - Continue monitoring for recurrence of kidney stones. - Follow-up with imaging as needed to assess for new stone formation. - 24 hr urine 2. Benign Prostatic Hyperplasia - Continue tamsulosin to aid urinary flow. - Monitor for any changes in urinary symptoms - PSA screening 04/05/25--Sameer is a 65-year-old male who has history of nephrolithiasis. He was last seen 03/05/2024 and is here for 1 year follow-up. prior CT last year 03/02/2024 noted bilateral small kidney stones a renal ultrasound was done December 2024, bilateral punctate parenchymal calculi noted otherwise no hydronephrosis screening PSA was done on 03/29/2025 which was 1.31 ng/mL History of Present Illness - The patient is a 65-year-old male presenting for a follow-up on nephrolithiasis and prostate health screening. - He has a history of nephrolithiasis with a prior CT on 03/02/24 showing bilateral small kidney stones. - He was last seen on 03/05/24 for nephrolithiasis follow-up. - A recent ultrasound in December 2024 showed bilateral punctate parenchymal calculi with no hydronephrosis. - Screening PSA on 03/29/25 was 1.31 ng/mL, within normal limits. - Discussed hydration habits and the importance of a 24-hour urine collection to optimize dietary factors for stone prevention. - Patient reports difficulty with urination, specifically pushing to urinate, a nd was started on tamsulosin 0.4 mg for prostate health. Results - CT scan on 03/02/24: Bilateral small kidney stones noted. - Ultrasound in December 2024: Bilateral punctate parenchymal calculi, no hydro nephrosis. - PSA screening on 03/29/25: 1.31 ng/mL, within normal limits. Plan - Initiate tamsulosin 0.4 mg in the evening to improve urinary flow, with instructions to discontinue if dizziness occurs. - Conduct a 24-hour urine collection to assess dietary factors contributing to nephrolithiasis. - Schedule a follow-up cystoscopy in three months to evaluate the bladder and urethra for any scar tissue or abnormalities. 03/05/24--Sameer is a [id number] who presents to the office for follow-up. Pt is palauan speaking, certified negative restorer present. The patient was prescribed alfuzosin for obstructive lower urinary tract symptoms. He states that he did take the alfuzosin until the prescription ended and did not refill it he feels that his voiding better now. He was in the emergency room on 03/02/2024 due to right flank pain. CT imaging, 03/02/2024--approximately 3 small left kidney stones right kidney negative for stones. Discussed with the patient had the passed a small right kidney stone. He states the pain has resolved. PSA blood work pending, he went to the lab however the lab khalida other blood work excluding the PSA. Will continue to monitor follow-up in 1 year renal ultrasound prior. 09/02/23--FU for BPH and obstructive Lower urinary tract symptoms (LUTS). He is failed tamsulosin, due to SE's. Rapaflo was too expensive. He was initially evaluated on 01/20/23 He states he was prescribed tamsulosin by another physician but discontinued after taking one dose because it caused dizziness. The patient also has a history of kidney stones. Prostate exam--done on 01/20/23--Smooth, mildly and enlarged. No suspicious nodules observed. AUA symptom score: 35. Results: Renal US results?02/28/23-- Bilateral kidney stone, estimated prostate volume is 31.6 mL and prostate calcifications are present. PSA results?03/04/23?1.10. PFSH Medical History LVH (left ventricular hypertrophy) BMI 34.0-34.9,adult Obesity Tubular adenoma of colon Rectal bleeding Colon cancer screening Constipation JOHN (obstructive sleep apnea) Hiatal hernia RYAN (generalized anxiety disorder) Tinnitus GERD (gastroesophageal reflux disease) Dyslipidemia Aneurysm of thoracic aorta Internal derangement of right knee Kidney stones Back pain Pre-diabetes HTN (hypertension) Surgical History H/O arthroscopy Hx of colonoscopy Hx of esophagogastroduodenoscopy Family History Mother Heart disease Diabetes Father Diabetes Heart disease Social History Are you a primary care nurse rn to a significant other at home: No Do you presently have visiting nurse or other home services: No Alcohol intake: former Patient Tobacco Use Status: Former Tobacco user Current occupational status: employed Current occupation: [employer] Review of Systems Const All systems reviewed & are unremarkable except as noted in HPI and below Reports no additional complaints Eyes Reports no additional complaints ENT Reports no additional complaints Card Reports no additional complaints Resp Reports no additional complaints GI Reports no additional complaints Reports as per HPI Musc Reports no additional complaints Skin/Breast Reports system reviewed and no additional complaints, except as documented Neuro Reports no additional complaints Psych Reports no additional complaints Endo Reports no additional complaints Lester/Lymph Reports no additional complaints Aller/Immun Reports no additional complaints Results Reviewed Results Reviewed: Date of Service: 05/03/25 EXAMINATION: CT ABDOMEN AND PELVIS WITH CONTRAST CLINICAL INFORMATION: Constipation. Diverticular disease. COMPARISON: April 03, 2024. TECHNIQUE: Multidetector volumetric images were obtained from the superior aspect of the liver through the pubic symphysis following administration 85 mL of Omnipaque 350 intravenous contrast. Sagittal and coronal reformatted images were obtained on the technologist's workstation. Oral contrast: [address] examination was performed using dose optimization techniques as appropriate, variously including the following: *Automated exposure control *Adjustment of mA and/or kV according to patient size (this includes techniques or standardized protocols for targeted exams where dose is matched to indication/reason for exam; i.e. extremities or head) *Use of iterative reconstruction technique DLP: 797 mGy centimeter. FINDINGS: LUNG BASES: No acute airspace disease. LIVER, GALLBLADDER, AND BILIARY TREE: There are measures 16 cm no focal mass. Portal veins, hepatic veins are patent. No pericholecystic fluid collection or gallbladder wall thickening. Gallbladder is nondistended. No intrahepatic or extrahepatic biliary ductal dilatation. PANCREAS: No focal mass. No peripancreatic fluid collection. No main pancreatic ductal dilatation. SPLEEN: 11 cm. No focal mass. ADRENAL GLANDS: No nodular lesions. KIDNEYS AND URETERS: No hydronephrosis. No gross mass no gross nephrolithiasis. BLADDER: Collapse. GASTROINTESTINAL TRACT: Appendix is normal. Abundant stool. No intestinal obstruction pattern. No pneumatosis intestinalis. No intestinal wall thickening. No ascites. No pneumoperitoneum. ABDOMINAL WALL: Small fat-containing umbilical hernia. LYMPH NODES: No lymphadenopathy. VASCULAR: Mixed plaques throughout the abdominal aorta wall. No aneurysm or dissection abdominal aorta. PELVIC VISCERA: Nonenlarged prostate gland with punctate calcifications. OSSEOUS STRUCTURES: Mild degenerative changes in the coxofemoral joints and sacroiliac joints. Probable bony island left femoral head. Multilevel thoracolumbar spondylosis pronounced at L5-S1. No acute fracture or listhesis in the axial skeleton. Probable intraosseous hemangioma, T10 vertebra. IMPRESSION: Small fat-containing umbilical hernia. Multilevel thoracolumbar spondylosis. Hepatomegaly, mild. ------ Date of Service: 01/03/25 CLINICAL HISTORY: N20.0 - Calculus of kidney US Renal Comparison: None Findings: Right kidney normal size and echotexture, 11.9 cm length. Left kidney normal size and echotexture, 13.1 cm length. There are bilateral renal parenchymal calculi. No hydronephrosis of either kidney. Normal color Doppler IMPRESSION: 1. Normal kidneys. Date of Service: 03/02/24 EXAMINATION: CT ABDOMEN AND PELVIS WITHOUT CONTRAST CLINICAL INFORMATION: Obstructing renal stone. COMPARISON: Renal ultrasound dated 02/28/2023. FINDINGS: LUNG BASES: The visualized lung bases are unremarkable. LIVER, GALLBLADDER, AND BILIARY TREE: The liver is normal in size, shape, and attenuation. No focal hepatic lesion or biliary ductal dilatation is present. The gallbladder is unremarkable with no evidence of radiopaque gallstones, gallbladder wall thickening, or obvious pericholecystic inflammatory changes. PANCREAS: Unremarkable. SPLEEN: Unremarkable. ADRENAL GLANDS: Unremarkable. KIDNEYS AND URETERS: Right side: The right kidney is normal in size, shape, and attenuation. No hydronephrosis, hydroureter, or calculi seen. No perinephric stranding. Left side: The left kidney is normal in size, shape, and attenuation. No hydronephrosis or hydroureter. There is a punctate calculus within the interpolar region. There is a 3 mm curvilinear calculus within the superior pole. There is a 4 mm calculus within the lower pole. All of the visualized calculi are too small to get accurate Hounsfield unit calculations on. There is no left ureteral calculus. No perinephric stranding. BLADDER: The partially distended urinary bladder is unremarkable. There are no urinary bladder calculi. GASTROINTESTINAL TRACT: The small and large bowel are normal in caliber.. There is no colonic wall thickening or pericolonic inflammatory stranding. There is no free fluid within the abdomen or pelvis. No pneumoperitoneum. The appendix is unremarkable. ABDOMINAL WALL: No significant hernia is appreciated. LYMPH NODES: No lymphadenopathy. VASCULAR: No abdominal aortic aneurysm. A minimal calcific atherosclerotic disease. PELVIC VISCERA: The prostate gland measures 4.7 x 4.4 cm. It contains internal calcifications. OSSEOUS STRUCTURES: There is degenerative disc disease at L5-S1. IMPRESSION: There are several left sided nonobstructive renal calculi ranging in size from punctate to 4 mm. There is no left ureteral calculus. No obstructing calculus. No hydronephrosis bilaterally. Date of Service: 02/28/23 EXAMINATION: US RETROPERITONEAL COMPLETE (RENAL) CLINICAL INFORMATION: Benign prostatic hyperplasia without lower urinary tract symptoms. COMPARISON: X-ray abdomen KUB 07/26/2018. Renal ultrasound 02/22/2018. Ultrasound abdomen 11/09/2017. CT abdomen and pelvis 10/23/2017. TECHNIQUE: Real-time imaging of the kidneys and bladder. FINDINGS: RIGHT KIDNEY: 10.2 x 4.4 x 5.1 cm (SAG x the mid renal 4 mm echogenic focus seen consistent with a nonobstructing calculus. No focal parenchymal lesions or hydronephrosis. LEFT KIDNEY: 12.5 x 5.4 x 5.5 cm (SAG x AP x TRV). The kidney is normal in size, contour, and echogenicity. Renal cortical thickness is normal. There are 2 echogenic foci seen in the mid and lower pole measuring 4 and 6 mm in size consistent with nonobstructing calculi. No focal parenchymal lesions or hydronephrosis. BLADDER: Well distended and normal. Bilateral ureteral jets are demonstrated. Prevoid bladder volume is 269 mL. Postvoid bladder volume is 21.5 mL. Prostate volume 31.6 mL. Prostatic calcifications are present. IMPRESSION: 1. Bilateral nonobstructing renal calculi. 2. Mild BPH. Assessment & Plan Assessment & Plan (1) Kidney stones: Code(s): N20.0 - Calculus of kidney Category: Medical (2) BPH loc w urin obs/LUTS: Code(s): N40.1 - Benign prostatic hyperplasia with lower urinary tract symptoms Category: Medical Plan Plan 1. Nephrolithiasis - Continue monitoring for recurrence of kidney stones. - Follow-up with imaging as needed to assess for new stone formation. - 24 hr urine 2. Benign Prostatic Hyperplasia - Continue tamsulosin to aid urinary flow. - Monitor for any changes in urinary symptoms - PSA screening Patient Instructions: The patient had an opportunity to ask questions regarding treatment plan. The patient expressed understanding and agreement with the above treatment plan. The patient is aware they should contact our office by phone for worsening of their current condition or the appearance of new symptoms. Compliance is encouraged with any medications and followup testing that is ordered. It is a privilege to be allowed the opportunity to participate in the urologic care of your patient. If you have any questions or concerns regarding treatment for the above conditions please do not hesitate to contact me. The office telephone contact is [phone]. This note is constructed in part using voice recognition software. While every effort has been made to ensure accuracy hangersmith errors may have been included. Yours sincerely, Abigail Christian MD Scribe Plan - Not visible on output: Patient was informed and verbally consented to the use of an ambient scribe for clinic note documentation during this visit. Coding Level of Care Code Est Pt Level 4 (77726) Diagnoses Kidney stones N20.0 BPH loc w urin obs/LUTS N40.1
--- OUTSIDE RECORDS SUMMARY | 2025-07-12 16:50 | XMS_ITS | Patient Health Record ---
Author Organization [facility] Address [address] [place] [address] Care Team Providers Care Print Operator Name Role Phone Akilah Larose Primary Care Provider UnavailDavid Rangel [phone] Allergies Allergen (clinical drug ingredient) Drug/Non Drug Allergy documented on EMR Reaction Allergy Type Onset Date Status Information temporarily unavailable seasonal (uncoded) Unknown Allergy Active Reason For Referral No Information Medications Medication [...] Problem Status W/U Status Risk Notes Problem Information temporarily unavailable History of adenomatous polyp of colon (Z86.010) Active confirmed Problem Information temporarily unavailable Abdominal pain, epigastric (R10.13) Active confirmed Problem Information temporarily unavailable Gastroesophageal reflux disease, esophagitis presence not specified (K21.9) Active confirmed Plan Of Treatment Future Test Test Name Order Date COLONOSCOPY 11/19/2014 UPPER GI ENDOSCOPY 03/09/2018 Insurance Providers Payer Name Payer Address Payer Phone Subscriber Number Group Number Insured Name Patient Relationship to Insured Coverage Start Date Coverage End Date [facility] [address] [place] [address] [id number] SAM ENNIS Self - patient is the insured MEDICA[place] OF [place] [address] [place] [address] [id number] SAM ENNIS Self - patient is the insured Medical (General) History Medical History History ICD Code Hypertension Denies MO,DM,CVA,Lung disease,renal dise ase EGD in 2003 with [...]
--- OUTSIDE RECORDS SUMMARY | 2025-07-12 16:50 | XMS_ITS | Encounter Summary ---
Author Organization [employer] Address [address] [place] [address] Care Team Providers Care Welding Machine Operator Plasma Arc Name Role Phone Giselle Brock Primary Care Provider [phone] Reason for Visit * Reason Comments Med Refill Encounter Details Date Type Department Care Team ([facility] st Contact Info) Description 07/11/2025 Refill [facility] MED[facility] [address] [place] [address] Giselle Brock ANP [address] [place] [address] Primary hypertension Social History Tobacco Use Types [...] Care Team (Late st Contact Info) Description 07/26/2025 8:45 AM EST Office Visit [facility] ADULT DENTAL [address] [place] [address] Naseem, Tory [address] [place] [address] 08/09/2025 2:15 PM EST Office Visit [facility] [address] [place] [address] Giselle Brock ANP [address] [place] [address] documented as of this encounter Visit Diagnoses Diagnosis Primary hypertension Unspecified essential hypertension documented in this encounter Additional Health Concerns Assessment Noted Time PHQ-9 Depression Total Score: 7 09/04/20 24 2:04 PM EST documented as of this encounter Care Teams Welding Machine Operator Plasma Arc Relationship Specialty Start Date End Date Giselle Brock ANP [address] [place] [address] PCP - General Family Medicine 06/20/23 documented as of this encounter
--- OUTSIDE RECORDS SUMMARY | 2025-07-12 16:50 | XMS_ITS | Encounter Summary ---
Author Organization [employer] Address [address] [place] [address] Care Team Providers Care Box Icer Name Role Phone Giselle Brock RAJ Primary Care Provider [phone] Reason for Visit * Reason Onset Date Comments mail appt slip 06/26/2025 Encounter Details Date Type Department Care Team ([facility] st Contact Info) Description 06/26/2025 Telephone [facility] ADULT DENTAL [address] [place] [address] Naseem, Tory [address] [place] [address] mail appt slip Social History Tobacco Use Types Packs/Day Years [...] encounter Miscellaneous Notes * Telephone Encounter - Aide Celestin - 06/26/2025 3:11 PM EDT Patient is requesting for appointment slip to be mailed to home address DR documented in this encounter Plan of Treatment Upcoming Encounters Date Type Department Care Team (Late st Contact Info) Description 07/26/2025 8:45 AM EST Office Visit [facility] ADULT DENTAL [address] [place] [id number] NaseemKieranTory [address] [place] [address] 08/09/2025 2:15 PM EST Office Visit [facility] MEDICINE [address] [place] [address] Giselle Brock ANP [address] [place] [address] documented as of this encounter Visit Diagnoses Not on filedocumented in this encounter Additional Health Concerns Assessment Noted Time PHQ-9 Depression Total Score: 7 09/04/20 24 2:04 PM EST documented as of this encounter Care Teams Box Icer Relationship Specialty Start Date End Date Giselle Brock ANP [address] [place] [id number] PCP - General Family Medicine 06/20/23 documented as of this encounter
--- OUTSIDE RECORDS SUMMARY | 2025-07-12 16:50 | XMS_ITS | Clinical Summary ---
Author Organization [employer] Address [address] [facility] [address] [place] [address] Care Team Providers Care Clinical Informaticist Name Role Phone Nicolasa Fabian RAJ Primary Care Provider [phone] Allergies Active Allergy Reactions Criticality Noted Date Comments Nsaids Itching 09/22/2022 Medications * This document contains information received from the source organization and may not represent a complete record from that organization. Blood Pressure kitIndications:P rimary hypertension Check blood pressure 1-2 times per day with goal of less than 140/90 1 kit 09/22/19 23 Active Diclofenac Sodium (Voltaren) 1 % gelIndications:A cute midline low back pain without sciatica Apply 2 g topically if needed in the morning and at bedtime (muscle pain). 100 g 3 08/16/20 23 Active alfuzosin ER (Uroxatral) 10 MG 24 hr tablet TAKE 1 TABLET BY MOUTH EVERY DAY AFTER THE SAME MEAL EVERY DAY 09/02/20 23 Active Blood Glucose Monitoring Suppl (FreeStyle Daisy Lite) w/Device kitIndications:P rediabetes Use to test blood sugar once daily before breakfast and more as needed 1 kit 02/29/20 24 Active rosuvastatin (Crestor) 10 MG tabletIndication s:Dyslipidemia TAKE ONE TABLET BY MOUTH EVERY DAY ^1R4 90 tablet 2 11/21/19 25 Active olmesartan (Benicar) 20 MG tabletIndication s:Primary hypertension Take 1 tablet (20 mg) by mouth Once per day. 90 tablet 3 12/15/19 25 026 Active omeprazole (PriLOSEC) [address] capsuleIndicatio ns:Gastroesophag eal reflux disease, unspecified whether esophagitis present Take 1 capsule (20 mg) by mouth before breakfast and before evening meal. Do not crush or chew. 180 capsule 1 12/15/19 25 Active Tirzepatide-Weig ht Management (Zepbound) 2.5 MG/0.5ML solution auto-injectorInd ications:Class 2 severe obesity with serious comorbidity and body mass index (BMI) of 36.0 to 36.9 in adult, unspecified obesity type Inject 0.5 mL (2.5 mg) under the skin 1 (one) time per week. 2 mL 01/03/20 25 Active baclofen (Lioresal) 10 MG tabletIndication s:Acute upper back pain Take one tablet TID PRN 30 tablet 02/21/20 25 Active lidocaine (Lidoderm) 5 % patchIndications :Acute upper back pain Apply 1 patch topically Once per day. Remove & discard patch within 12 hours or as directed by MD. 30 patch 2 02/21/20 25 Active UltiCare Alcohol Swabs 70 % padsIndications: Prediabetes USE DIRECTED TO CLEAN SKIN TWICE DAILY (BULK) 100 each 03/21/20 25 Active TRUEplus Lancets 33G miscIndications: Prediabetes USE DIRECTED TO TEST BLOOD SUGAR EVERY DAY AND NEEDED (BULK) 100 each 10 03/21/20 25 Active FREESTYLE LITE test strip USE DIRECTED TO TEST BLOOD SUGAR EVERY DAY AND MORE NEEDED (BULK) 100 strip 10 03/21/20 25 Active acetaminophen (Tylenol 8 Hour) 650 MG ER tablet TAKE ONE TABLET BY MOUTH EVERY 8 HOURS NEEDED FOR PAIN . DO NOT BREAK, CRUSH, DISSOLVE OR CHEW (VIAL) 120 tablet 1 06/11/20 25 Active famotidine (Pepcid) 20 MG tabletIndication s:Gastroesophage al reflux disease, unspecified whether esophagitis present TAKE ONE TABLET BY MOUTH EVERY EVENING FOR HEARTBURN 30 tablet 2 06/18/20 25 Active metoprolol succinate XL (Toprol-XL) 50 MG 24 hr tabletIndication s:Primary hypertension TAKE ONE TABLET BY MOUTH EVERY DAY. DO NOT BREAK, CRUSH, DISSOLVE, OR CHEW 90 tablet 1 07/12/20 25 Active metoprolol succinate XL (Toprol-XL) 50 MG 24 hr tabletIndication s:Primary hypertension TAKE ONE TABLET BY MOUTH EVERY DAY . 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 apt -alarm signs and symptoms discussed in length w pt in case needs to go to ED RYAN (generalized anxiety disorder) 10/06/2023 Panic attacks 10/06/2023 unspecified Trauma and stressor-related disorder 10/06/2023 BPH (benign prostatic hyperplasia) 10/07/2022 Overview (10/07/2022): TURP 2008 Chronic pain of right knee 10/07/2022 Overview (10/07/2022): 2020 MRI with medical meniscal tear Referred [place] [facility] [place] 08/2022 Prediabetes 10/07/2022 Overview (02/29/2024): 09/2022 A1c 5.7 --> 6.5% 02/29/24 Healthcare maintenance 10/06/2022 Overview (02/29/2024): C-Scope: Restablished w/ [facility], got stress test 08/2023 in preparation [...] cards Gastroesophageal reflux disease 04/27/2012 Overview (10/02/2022): Seen by GI at [facility] in ?2003 with upper endoscopy performed. Biopsy results not in chart. Unclear if further follow up Assessment & Plan (02/11/2024 10:06 AM EDT): states takes 20 mg omeprazole 2 tab in am -advised to start famotidine HS -life style changes advised,weight loss, decrease heavy meals at night, HOB elevation Class 2 severe obesity due t o excess calories with serious comorbidity and body mass index (BMI) of 35.0 to 35.9 in adult 04/27/2012 Severe major depressive disorder (CMS/HCC) 03/21 Overview (01/26/2023): Not currently established with psych or therapy Previously on medication, unable to recall name Did not tolerate seroquel Denies SI or thoughts of self harm Assessment & Plan (01/26/2023 10:47 PM EDT): Will resubmit N referral Declines abilify start at this time; will continue to discuss at follow up Assessment & Plan (12/21/2022 11:52 AM EDT): Accepts referral to N for therapy Discussed possibility of starting daily medication, patient declines at this time Denies SI or thoughts of self harm Pt provided with [facility] contact information for same day care Dyslipidemia 03/21/2012 Overview (02/29/2024): 01/2024 ASCVD risk: 14.5% Atorvastatin 20mg stopped by pt d/t pt reported cough, hoarseness Rosuvastatin 10mg started 02/29/24 Assessment & Plan (01/26/2023 10:45 PM EDT): Repeat lipid panel prior to follow up Assessment & Plan (10/07/2022 6:15 AM EST): Start atorvastatin 20mg daily, reviewed administration risks side effects Lifestyle recommendations advised to lower cholesterol and reduce risk of atherosclerotic events Hypertension 03/21/2012 Overview (02/29/2024): 12/2022 Echo negative, negative stress test 08/2023 followed by [facility] [place] for hx of exercise induced chest [...] Assessment & Plan (12/21/2022 11:47 AM EDT): INCREASE amlodipine to 10mg daily Continue to monitor blood pressure RN BP check 2 weeks Assessment & Plan (10/07/2022 6:12 AM EST): Start amlodipine 5mg once daily. Reviewed administration, risks, side effects Continue to monitor home blood pressure Contact HC if three or more readings [...] Encounters Date Type Department Care Team Description 07/11/[address] [facility] [address] [place] [address] Nicolasa Fabian ANP Primary hypertension 06/26/[address] [facility] [address] [place], [place] [phone] Tory Gusman mail appt slip 06/24/[address] [facility] [address] [place] [address] Nicolasa Fabian ANP Primary hypertension 06/21/2025 Orders Only GENERIC EXTERNAL DATA DEPARTMENT Provider, Generic External Data 06/17/[address] [facility] [address] [place] [address] Sissy Martinez MD Gastroesophageal reflux disease, unspecified whether esophagitis present (Primary Dx) 06/10/[address] [facility] [address] [place] [address] Sissy Martinez MD 05/30/[address] [facility] [address] [place] [place] [address] Nicolasa Fabian ANP nov recall 05/27/[address] [facility] [address] [place] [address] Sissy Martinez MD 05/03/2025 Orders Only [facility] External Provider, [facility] 05/02/[address] [facility] [address] [place] [address] Nicolasa Fabian ANP Referral 04/26/[address] [facility] [address] [place] [place] [address] Sissy Martinez MD 04/22/[address] [facility] [address] [place] [address] Nicolasa Fabian ANP Change PCP; TRANSFER REQUEST from Last 3 Months Immunizations Immunization Administration Dates Next Due Hep B, adult [...] Sign Reading Time Taken Comments Blood Pressure 148/82 02/20/2025 4:58 PM EDT Pulse 93 02/20/2025 4:12 PM EDT Temperature 36.9 C (98.5 F) 02/20/2025 4:12 PM EDT Respiratory Rate 23 02/20/2025 4:12 PM EDT Oxygen Saturation 96% 02/20/2025 4:12 PM EDT Inhaled Oxygen Concentration - - Weight 119 kg (262 lb 3.2 oz) 02/20/2025 4:12 PM EDT Height 180.3 cm (5' 11 ) 02/20/2025 4:12 PM EDT Body Mass Index 36.57 02/20/2025 4:12 PM EDT Plan of Treatment Upcoming Encounters Date Type Department Care Team (Late st Contact Info) Description 07/26/2025 8:45 AM EST Office Visit [facility] [address] [place] [address] Naseem, [place] [address] [place] [address] 08/09/2025 2:15 PM EST Office Visit [facility] [address] [place] [address] Nicolasa Fabian ANP [address] [place], [place] [phone] Health Maintenance Due Date Last Done Comments CT Colonography 1960 Colonoscopy 1960 Colorectal Cancer Screening 1960 FIT DNA/Cologuard 1960 FIT 1960 FOBT 1960 Sigmoidoscopy 1960 Disability Screening 1960 Zoster Vaccines (2 of 3) 06/20/2015 04/25/2015 COVID-19 Vaccine ( season) 2025 03/12/2021, 02/07/2021 Influenza Vaccine (#1) 2025 6, 07/02/2015, 07/18/2014, Additional history exists Depression Screening 09/04/2025 09/04/2024, 09/04/20 24 Diabetes: Hemoglobin A1C 09/04/2025 024, 06/01/2024, 03/01/2024, Additional history exists SDOH Screening 09/04/2025 09/04/2024 Alcohol/Substance Use Screening 12/14/2025 12/14/2024 Tobacco Screening 03/11/2026 03/11/2025 DTaP/Tdap/Td Vaccines (3 - Td or Tdap) [...] patient's age to complete this topic Meningococcal B Vaccine Aged Out No l onger eligible based on patient's age to complete [...] Procedure Name Priority Date/Time Associated Diagnosis Comments HEMATOXYLIN AND EOSIN STAIN Routine 06/21/2025 1:17 PM EDT POCT CREATININE GFR Routine 05/03/2025 1 1:[address] ABDOMEN PELVIS W CONTRAST Routine 05/03/2025 11:08 AM EDT POCT GLYCATED HEMOGLOBIN, TOTAL Routine 09/04/2024 1:16 PM EST Prediabetes LIPID PANEL, STANDARD Routine 03/01/2024 8:12 AM EDT Dyslipidemia HIV 1/2 ANTIGEN/ANTIBODY, FOURTH GENERATION W/RFL Routine 09/22/2022 10:16 AM EST Healthcare maintenance ZZZ HISTORICAL HEPATITIS C ANTIBODY RFLX Routine 12/05/2019 4:00 PM EDT from Last 3 Months or Most Recently Relevant to Health Maintenance Results * Hematoxylin and Eosin Stain (06/21/2025 1:17 PM EDT) 06/21/2025 1:17 PM EDT 06/21/2025 1:39 PM EDT [facility] - 06/25/2025 3:30 PM EDT ----- ------- Name: Veliz KerenSameer Age/Sex: 65/M : 1960 Unit#: [id number] Attend Dr: Sofia Gonzales MD Re06/21/25 Status: [facility] Location: [facility] Disch: ----- ------- SPEC : [id number] RECD: 06/21/25 STATUS: DEANA ARCE NUM: [id number] DUNCAN: 06/21/25 [facility] [address]: Sofia Gonzales MD ENTERED: 06/21/257606 SP TYPE: Surgical OTHR DR: NICOLASA FABIAN NP ORDERED: HE Stain/18, Gross Micro L4/6, IHC, Special st. 2/3, H. pylori, AB/PAS/3 Diagnosis A. Duodenum, biopsy: Small fragment of superficial small intestinal mucosa within normal limits. B. Stomach, random, biopsy: Antral-type and oxyntic mucosa within normal limits; no Helicobacter organisms seen. C. GE junction, biopsy: Colonic mucosa with prominent lymphoid aggregate and mild surface hyperplastic changes. D. Colon, ascending, polypectomies: - Cardiofundic-type mucosa with mild chronic inactive inflammation; no intestinal metaplasia seen. - Squamous epithelium within normal limits. E. Cecum, polypectomy: Fragments of tubular adenoma; negative for high-grade dysplasia or carcinoma. F. Colon, transverse, polypectomy: Hyperplastic mucosal polyps. Comment: The specimens in parts C and D were likely switch either prior to or after receipt in the laboratory. Clinical History Pre-Op Dx: Reflux, hx of polyps Post-Op Dx: Hiatal hernia, gastritis, duodenitis, gastric polyps, polyps, diverticulosis, hemorrhoids Microscopic Description A-F. Microscopic sections examined. No metaplastic changes are seen, supported by AB/PAS stains (A, B and D); no Helicobacter organisms are seen, supported by H. pylori immunostain (B). Material Received A. Duodenum B. Random gastric C. GE junction bx D. Ascending colon polyps E. Cecal polyps F. Transverse colon polyps CONTINUED ON NEXT PAGE ----- ------- Name: Sameer Duncan Age/Sex: 65/M : 1960 Unit#: [id number] Attend Dr: Sofia Gonzales MD Re06/21/25 Status: [facility] Location: [facility] Disch: ----- ------- SPEC : [id number] RECD: 06/21/25 STATUS: DEANA ARCE NUM: [id number] DUNCAN: 06/21/25 [facility] [address]: Sofia Gonzales MD ENTERED: 06/21/25 SP TYPE: Surgical OTHR DR: NICOLASA FABIAN NP ORDERED: HE Stain/18, Gross Micro L4/6, IHC, Special st. 2/3, H. pylori, AB/PAS/3 Gross Description Received in 6 parts. A. Received in formalin labeled duodenum are 4 fragments of pink white soft tissue measuring 0.1-0.3 cm in greatest dimension which are wrapped in lens paper and entirely submitted for microscopic examination, 4 pieces in cassette A. B. Received in formalin labeled random gastric are 4 fragments of pink white soft tissue measuring 0.2-0.4 cm in greatest dimension which are wrapped in lens paper and entirely submitted for microscopic examination, 4 pieces in cassette B. C. Received in formalin labeled GE junction is a fragment of pink white soft tissue measuring 0.3 cm in greatest dimension which is wrapped in lens paper and entirely submitted for microscopic examination, 1 piece in cassette C. D. Received in formalin labeled ascending colon polyps are 3 fragments of pink white soft tissue measuring 0.2-0.3 cm in greatest dimension which are wrapped in lens paper and entirely submitted for microscopic examination, 3 pieces in cassette D. E. Received in formalin labeled cecal polyp are fragments of pink-dwyer soft tissue measuring 0.2-0.6 cm in greatest dimension, forming an aggregate measuring 1.2 x 0.9 x 0.2 cm which is wrapped in lens paper and entirely submitted for microscopic examination, multiple pieces in cassette E. F. Received in formalin labeled transverse colon polyp are fragments of pink white soft tissue measuring 0.3-0.6 cm in greatest dimension, forming in aggregate measuring 0.8 x 0.6 x 0.2 cm which is wrapped in lens paper and entirely submitted for microscopic examination, multiple pieces in cassette F. ([facility]) Special studies ordered and performed: Immunostain for H. pylori on B; AB/PAS stains on A, B and D IHC S/NG Disclaimer NOTE: Unless otherwise stated, all tissue is formalin-fixed and paraffin-embedded. Some or all of the immunohistochemical tests reported herein may have been developed and their performance characteristics determined by [facility]. They have not been cleared or approved by the U.S. Food and Drug Administration (FDA). However, the FDA has determined that such clearance or approval is not necessary. This laboratory is certified under the Clinical Laboratory Improvement Amendments of 1988 (CLIA) as qualified to perform high complexity clinical laboratory testing. CONTINUED ON NEXT PAGE ----- ------- Name: Keren VelizSameer Age/Sex: 65/M : 1960 Unit#: [id number] Attend Dr: Sofia Gonzales MD Re06/21/25 Status: [facility] Location: [facility] Disch: ----- ------- SPEC : [id number] RECD: 06/21/25 STATUS: DEANA ARCE NUM: [id number] DUNCAN: 06/21/25 [facility] [address]: Sofia Gonazles MD ENTERED: 06/21/25 SP TYPE: Surgical OTHR DR: NICOLASA FABIAN NP ORDERED: HE Stain/18, Gross Micro L4/6, IHC, Special st. 2/3, H. pylori, AB/PAS/3 Copies To: NICOLASA FABIAN NP [address] [address] Sofia Gonzales MD [facility] [address] [place] [phone] [email or web address] ----- ------- Signed (signature on file) Feliberto Bello MD 06/25/25 1530 ----- ------- END OF REPORT us Generic External Data Provider LAB BLOOD ORDERAB LES Final Result [facility] [address] [place] [phone] * POCT Creatinine GFR (05/03/2025 11:15 AM EDT) POCT Creatinine 0.8 0.5 - 1.4 mg/dL [facility] GFR POC >60 [facility] Comment:Chronic Kidney Disea se: Estimated GFR < 60 mL/min/1.09d3Rjvcow Kidney Disease: Estimated GFR < 15 mL/min/1.73m2 05/03/2025 11:1 5 AM EDT 05/08/2025 10:37 AM EDT Narrative [facility] - 05/08/2025 10:39 AM EDT SHORT STAFFED IN CT RAD, ENTERED MANUALLY BY [id number]> [id number] Nicolasa Fabian ANP LAB POINT OF CARE TEST DOCKED DE VICE ORDERABLES Final Result [facility] [address] [place] [phone] * CT Abdomen Pelvis w/ Contrast (05/03/2025 11:08 AM EDT) Anatomical Region Laterality Modality Body, Pelvis, Abdomen Computed T omography 05/03/2025 11:0 8 AM EDT Narrative 05/03/2025 12:09 PM EDT [address] [address] [address] Scan Report Signed Patient: Sameer Duncan MR#: [id number] : 1960 Acct:[id number] Age/Sex: 65 / M ADM Date: 05/03/25 Loc: HO.CT Attending Dr: Flory Naranjo CNP Ordering Physician: Flory Naranjo CNP Date of Service: 05/03/25 Procedure(s): CT abdomen pelvis w IV con Accession Number(s): [id number] cc: NICOLASA FABIAN DAY CARE ATTENDANT; Flory Naranjo CNP Report Number: [id number]: Total DLP = 797.00 mGy-cm EXAMINATION: CT ABDOMEN AND PELVIS WITH CONTRAST CLINICAL INFORMATION: Constipation. Diverticular disease. COMPARISON: April 03, 2024. TECHNIQUE: Multidetector volumetric images were obtained from the superior aspect of the liver through the pubic symphysis following administration 85 mL of Omnipaque 350 intravenous contrast. Sagittal and coronal reformatted images were obtained on the technologist's workstation. Oral contrast: [address] examination was performed using dose optimization techniques as appropriate, variously including the following: *Automated exposure control *Adjustment of mA and/or kV according to patient size (this includes techniques or standardized protocols for targeted exams where dose is matched to indication/reason for exam; i.e. extremities or head) *Use of iterative reconstruction technique DLP: 797 mGy centimeter. FINDINGS: LUNG BASES: No acute airspace disease. LIVER, GALLBLADDER, AND BILIARY TREE: There are measures 16 cm no focal mass. Portal veins, hepatic veins are patent. No pericholecystic fluid collection or gallbladder wall thickening. Gallbladder is nondistended. No intrahepatic or extrahepatic biliary ductal dilatation. PANCREAS: No focal mass. No peripancreatic fluid collection. No main pancreatic ductal dilatation. SPLEEN: 11 cm. No focal mass. ADRENAL GLANDS: No nodular lesions. KIDNEYS AND URETERS: No hydronephrosis. No gross mass no gross nephrolithiasis. BLADDER: Collapse. GASTROINTESTINAL TRACT: Appendix is normal. Abundant stool. No intestinal obstruction pattern. No pneumatosis intestinalis. No intestinal wall thickening. No ascites. No pneumoperitoneum. ABDOMINAL WALL: Small fat-containing umbilical hernia. LYMPH NODES: No lymphadenopathy. VASCULAR: Mixed plaques throughout the abdominal aorta wall. No aneurysm or dissection abdominal aorta. PELVIC VISCERA: Nonenlarged prostate gland with punctate calcifications. OSSEOUS STRUCTURES: Mild degenerative changes in the coxofemoral joints and sacroiliac joints. Probable bony island left femoral head. Multilevel thoracolumbar spondylosis pronounced at L5-S1. No acute fracture or listhesis in the axial skeleton. Probable intraosseous hemangioma, T10 vertebra. CT/CT abdomen pelvis w IV con IMPRESSION: Small fat-containing umbilical hernia. Multilevel thoracolumbar spondylosis. Hepatomegaly, mild. Fleischner guidelines were followed. Electronically signed by: Oscar Pires MD 05/03/2025 12:06 PM EDT Dictated By: Oscar Byrne MD Signed By: <Electronically signed by Oscar Zimmerman MD in OV> 05/03/25 1206 DD/ 1108 TD/TT: 05/03/25 1138 Eligibility And Occupancy Interviewer: Procedure Note Donotuseinterpreter, Image - 05/03/[address] [address] [address] Scan Report Signed Patient: Nemo Duncan#: [id number] : 1Acct:[id number] Age/Sex: 65 / MADM Date: 05/03/25 Loc: HO.CT Attending Dr: Flory Naranjo CNP Ordering Physician: Flory Naranjo CNP Date of Service: 05/03/25 Procedure(s): CT abdomen pelvis w IV con Accession Number(s): [id number] cc: NICOLASA FABIAN NP; Flory Naranjo [facility] Report Number: [id number]: Total DLP = 797.00 mGy-cm EXAMINATION: CT ABDOMEN AND PELVIS WITH CONTRAST CLINICAL INFORMATION: Constipation. Diverticular disease. COMPARISON: April 03, 2024. TECHNIQUE: Multidetector volumetric images were obtained from the superior aspect of the liver through the pubic symphysis following administration 85 mL of Omnipaque 350 intravenous contrast. Sagittal and coronal reformatted images were obtained on the technologist's workstation. Oral contrast: [address] examination was performed using dose optimization techniques as appropriate, variously including the following: *Automated exposure control *Adjustment of mA and/or kV according to patient size (this includes techniques or standardized protocols for targeted exams where dose is matched to indication/reason for exam; i.e. extremities or head) *Use of iterative reconstruction technique DLP: 797 mGy centimeter. FINDINGS: LUNG BASES: No acute airspace disease. LIVER, GALLBLADDER, AND BILIARY TREE: There are measures 16 cm no focal mass. Portal veins, hepatic veins are patent. No pericholecystic fluid collection or gallbladder wall thickening. Gallbladder is nondistended. No intrahepatic or extrahepatic biliary ductal dilatation. PANCREAS: No focal mass. No peripancreatic fluid collection. No main pancreatic ductal dilatation. SPLEEN: 11 cm. No focal mass. ADRENAL GLANDS: No nodular lesions. KIDNEYS AND URETERS: No hydronephrosis. No gross mass no gross nephrolithiasis. BLADDER: Collapse. GASTROINTESTINAL TRACT: Appendix is normal. Abundant stool. No intestinal obstruction pattern. No pneumatosis intestinalis. No intestinal wall thickening. No ascites. No pneumoperitoneum. ABDOMINAL WALL: Small fat-containing umbilical hernia. LYMPH NODES: No lymphadenopathy. VASCULAR: Mixed plaques throughout the abdominal aorta wall. No aneurysm or dissection abdominal aorta. PELVIC VISCERA: Nonenlarged prostate gland with punctate calcifications. OSSEOUS STRUCTURES: Mild degenerative changes in the coxofemoral joints and sacroiliac joints. Probable bony island left femoral head. Multilevel thoracolumbar spondylosis pronounced at L5-S1. No acute fracture or listhesis in the axial skeleton. Probable intraosseous hemangioma, T10 vertebra. CT/CT abdomen pelvis w IV con IMPRESSION: Small fat-containing umbilical hernia. Multilevel thoracolumbar spondylosis. Hepatomegaly, mild. Fleischner guidelines were followed. Electronically signed by: Oscar Pires MD 05/03/2025 12:06 PM EDT RP Dictated By: Oscar Byrne MD Signed By: <Electronically signed by Oscar Zimmerman MDin OV> 05/03/25 1206 DD/ 1108 TD/TT: 05/03/25 1138 Eligibility And Occupancy Interviewer: [facility] External Provider IMG CT PROCEDURES Final Result * (ABNORMAL) POCT HGB A1C (09/04/2024 1:16 PM EST) Hemoglobin A1C 6.1(A) 4.0 - 6.0 % QC Media Lot # [id number] Lot# Expiration Date [id number] Blood 09/04/2024 1:16 PM EST Nicolasa [facility] POINT OF CARE TEST ENTER/EDIT OR DERABLES Final Result * (ABNORMAL) Lipid Panel, Standard (03/01/2024 8:12 AM EDT) Triglycerides 83 <150 mg/dL [facility] Comment:Desirable Triglyceri de: less than 150 mg/dLBorderline High Triglyceride 150-199 mg/dLHigh Triglyceride: 200-499 mg/dLVery High Triglyceride: greater than or equal to 5OO mg/dL Cholesterol 171 <200 mg/dL [facility] Comment:Desirable Cholestero l: less than 200 mg/dLBorderline High Cholesterol: 200-239 mg/dLHigh Cholesterol: greater than 239 mg/dL LDL Cholesterol Calculated 119(H) <100 mg/dL [facility] Comment:Desirable LDL: less than 100 mg/dLNear Optimal/Above Optimal LDL: 110- 129 mg/dLBorderline High LDL: 130-159 mg/dLHigh LDL: 160-189 mg/dLVery High LDL: greater than or equal to 190 mg/dL HDL Cholesterol 36(L) >40 mg/dL [facility] Comment:Desirable HDL: great er than 40 mg/dL Note: This HDL assay may give artificially low results in patients with liver disease. Blood Venous blood specimen / Unknown 03/01/2024 8:12 AM EDT 03/01/2024 8:12 AM EDT [facility] LAB BLOOD ORDERABLES Final Resul t [facility] [address] [place] [address] [phone] * HIV-1/2 Antigen and Antibodies, Fourth Generation, with Reflexes (09/22/2022 10:16 AM EST) [facility] HIV Antigen/Antibody, 4th Generation NON-REAC TIVE NON-REAC TIVE [facility] Comment: HIV-1 antigen and HIV-1/HIV-2 antibodies were not detected. There is no laboratory evidence of HIV infection. PLEASE NOTE: This information has been disclosed to you from records whose confidentiality may be protected by state law. If your state requires such protection, then the state law prohibits you from making any further disclosure of the information without the specific written consent of the person to whom it pertains, or as otherwise permitted by law. A general authorization for the release of medical or other information is NOT sufficient for this purpose. For additional information please refer to http://education.[employer]/faq/LWZ599 (This link is being provided for informational/ educational purposes only.) The performance of this assay has not been clinically validated in patients less than 2 years old. Blood Venous blood specimen / Unknown 09/22/2022 10:16 AM EST 09/22/2022 10:16 AM EST Narrative [facility] - 09/23/2022 7:02 PM EST FASTING:UNKNOWN FASTING: UNKNOWN [facility] LAB BLOOD ORDERABLES Final Re sult [facility] [address] [place] [address], [place] [address] [facility] [address], ([address]) [place] [address] * HEPATITIS C ANTIBODY RFLX (12/05/2019 4:00 PM EDT) HEPATITIS C ANTIBODY NONREACTIVE NONREACTIVE [facility] Comment: Antibodies to HCV not detected; does not exclude early acute HCV infection. 12/05/2019 4:00 PM EDT us Kody Warren MD HISTORICAL/NON ORDERABLE LABS Fi nal Result [facility] [address] from Last 3 Months or Most Recently Relevant to Health Maintenance Insurance [facility] < 65 [facility] Care Teams Clinical Informaticist Relationship Specialty Start Date End Date Nicolasa Fabian ANP [address] [place] [id number] PCP - General Family Medicine 06/20/23
--- OUTSIDE RECORDS SUMMARY | 2025-07-12 16:50 | XMS_ITS | Encounter Summary ---
Author Organization [employer] Address [address] [facility] 7t [place] [address] Care Team Providers Care Manometer Technician Name Role Phone Giselle Brock Primary Care Provider [phone] Reason for Visit * Reason Onset Date Comments Lab Orders 12/07/2023 Encounter Details Date Type Department Care Team ([facility] st Contact Info) Description 12/07/2023 Telephone [facility] MEDICINE [address] [place] [address] Giselle Brock ANP [address] [place] [address] Lab Orders Social History Tobacco Use Types [...] Description 07/26/2025 8:45 AM EST Office Visit [facility] ADULT DENTAL [address] [place] [address] Tory Gusman [address] [place] [address] 08/09/2025 2:15 PM EST Office Visit [facility] MEDICINE [address] [place] [address] Giselle Brock ANP [address] [place] [address] documented as of this encounter Visit Diagnoses Not on filedocumented in this encounter Additional Health Concerns Assessment Noted Time PHQ-9 Depression Total Score: 15 024 11:19 AM EST documented as of this encounter Care Teams Manometer Technician Relationship Specialty Start Date End Date Giselle Brock ANP [address] [place] [address] PCP - General Family Medicine 06/20/23 documented as of this encounter
--- OUTSIDE RECORDS SUMMARY | 2025-07-12 16:50 | XMS_ITS | Encounter Summary ---
Author Organization [employer] Address [address] [facility] 7t [place] [address] Care Team Providers Care Sumo Wrestler Name Role Phone Giselle Brock Primary Care Provider [phone] Reason for Visit * Reason Comments Med Refill Encounter Details Date Type Department Care Team ([facility] st Contact Info) Description 06/24/2025 Refill [facility] MEDICINE [address] [place] [address] Giselle Brock ANP [address] [place] [address] Primary hypertension Social History Tobacco Use Types [...] Description 07/26/2025 8:45 AM EST Office Visit [facility] ADULT DENTAL [address] [place] [address] Naseem, Tory [address] [place] [address] 08/09/2025 2:15 PM EST Office Visit [facility] MEDICINE [address] [place] [address] Giselle Brock ANP [address] [place] [address] documented as of this encounter Visit Diagnoses Diagnosis Primary hypertension Unspecified essential hypertension documented in this encounter Additional Health Concerns Assessment Noted Time PHQ-9 Depression Total Score: 7 09/04/20 24 2:04 PM EST documented as of this encounter Care Teams Sumo Wrestler Relationship Specialty Start Date End Date Giselle Brock ANP [address] [place] [address] PCP - General Family Medicine 06/20/23 documented as of this encounter
--- OUTSIDE RECORDS SUMMARY | 2025-07-12 16:50 | XMS_ITS | Encounter Summary ---
Author Organization [id number] Address [address] [facility] 7t [place] [address] Care Team Providers Care Manufacturing Quality Inspector Name Role Phone Giselle Brock Primary Care Provider [phone] Reason for Visit * Reason Onset Date Comments Med Refill 10/04/2023 Encounter Details Date Type Department Care Team ([facility] st Contact Info) Description 10/04/2023 Telephone [facility] MEDICINE [address] [place] [address] Giselle Brock ANP [address] [place] [address] Med Refill Social History Tobacco Use Types [...] AM EDT documented as of this encounter Functional Status * Over the past 2 weeks, how often have you been bothered by any of the following problems? Question Answer Date of Assessment Author Patient Health Questionnaire-2 Score 6 09/19 11:19 AM Etelvina Cedillo * Question Answer Date of Assessment Author Feeling tired or having marimar le energy Several days 10/06/2023 11:19 AM Etelvina Cedillo Patient Health Questionnaire -9 Score 15 10/06/2023 11:19 AM Etelvina Cedillo * If you checked off any problems on this questionnaire so far, Question Answer Date of Assessment Author How difficult have these problems made it for you to do your work, take care of things at home, or get along with other people? Somewhat difficult 10/06/2023 11:19 AM Etelvina Cedillo * Over the last 2 weeks, how often have you been bothered by any of the following problems? Question Answer Date of Assessment Author Feeling nervous, anxious, or on edge 3 09/19 11:18 AM Etelvina Cedillo Not being able to stop or co ntrol worrying 3 10/06/2023 11:18 AM Etelvina Cedillo Worrying too much about different things 3 10/06/2023 11:18 AM Etelvina Cedillo Trouble relaxing 3 10/06/2023 11:18 AM Etelvina Cedillo Being so restless that it is hard to sit still 3 10/06/2023 11:18 AM EST Alvarez, Etelvina Becoming easily annoyed or irritable 3 09/19 11:18 AM Etelvina Cedillo Feeling afraid as if somethi ng awful might happen 3 10/06/2023 11:18 AM Etelvina Cedillo RYAN-7 Total Score 21 10/06/2023 11:18 AM Etelvina Cedillo * Over the past 2 weeks, how often have you been bothered by any of the following problems? Question Answer Date of Assessment Author Little interest or pleasure in doing things Nearly every day 10/06/2023 11:19 AM Etelvina Cedillo Feeling down, depressed, or hopeless Nearly every day 10/06/2023 11:19 AM Etelvina Cedillo Trouble falling or staying asleep, or sleeping too much More than half the days 10/06/2023 11:19 AM Etelvina Cedillo Poor appetite or overeating Nearly every day 11:19 AM Etelvina Cedillo Feeling bad about yourself - or that you are a failure or have let yourself or your family down More than half the days 10/06/2023 11:19 AM Etelvina Cedillo Trouble concentrating on things, such as reading the newspaper or watching television Not at all 10/06/2023 11:19 AM Etelvina Cedillo Moving or speaking so slowly that other people could have noticed? Or the opposite - being so fidgety or restless that you have been moving around a lot more than usual. Not at all 10/06/2023 11:19 AM Etelvina Cedillo Thoughts that you would be better off or hurting yourself in some way Several days 10/06/2023 11:19 AM Etelvina Cedillo documented as of this encounter Miscellaneous Notes * Telephone Encounter - Carina Real LPN - 10/04/2023 2:18 PM EST Medication was sent to [facility] on 05/26/23 #90 with 3 refills. * Telephone Encounter - Chevy Key - 10/04/2023 2:12 PM EST TC from pt requesting medication refill. Medications needing refill : amLODIPine (Norvasc) 10 MG tablet To be sent to: [facility] - [address] documented in this encounter Plan of Treatment Upcoming Encounters Date Type Department Care Team (Late st Contact Info) Description 07/26/2025 8:45 AM EST Office Visit [facility] ADULT DENTAL [address] [place] [address] Naseem, Tory [address] [place] [address] 08/09/2025 2:15 PM EST Office Visit [facility] MEDICINE [address] [place] [address] Giselle Brock ANP [address] [place] [address] documented as of this encounter Visit Diagnoses Not on filedocumented in this encounter Additional Health Concerns Assessment Noted Time PHQ-9 Depression Total Score: 14 024 9:56 AM EST documented as of this encounter Care Teams Manufacturing Quality Inspector Relationship Specialty Start Date End Date Giselle Brock ANP [address] [place] [address] PCP - General Family Medicine 06/20/23 documented as of this encounter
--- OUTSIDE RECORDS SUMMARY | 2025-07-12 16:50 | XMS_ITS | Encounter Summary ---
Author Organization [employer] Address [address] [facility] 7t [place] [address] Care Team Providers Care Internet Network Specialist Name Role Phone Giselle Brock Primary Care Provider Reason for Visit * Reason Comments Med Refill Encounter Details Date Type Department Care Team ([facility] st Contact Info) Description 02/01/2025 Refill [facility] MEDICINE [address] [place] [address] Giselle Brock ANP [address] [place] [address] Social History Tobacco Use Types Packs/Day Years [...] Description 07/26/2025 8:45 AM EST Office Visit [facility] ADULT DENTAL [address] [place] [address] Naseem, Tory [address] [place] [address] 08/09/2025 2:15 PM EST Office Visit [facility] MEDICINE [address] [place] [address] Giselle Brock ANP [address] [place] [address] documented as of this encounter Visit Diagnoses Not on filedocumented in this encounter Additional Health Concerns Assessment Noted Time PHQ-9 Depression Total Score: 7 09/04/20 24 2:04 PM EST documented as of this encounter Care Teams Internet Network Specialist Relationship Specialty Start Date End Date Giselle Brock ANP [address] [place] [address] PCP - General Family Medicine 06/20/23 documented as of this encounter
--- OUTSIDE RECORDS SUMMARY | 2025-07-12 16:50 | XMS_ITS | Encounter Summary ---
Author Organization [employer] Address [address] [facility] 7t [place] [address] Care Team Providers Care Internal Medicine Veterinary Technician Name Role Phone Giselle Brock Primary Care Provider [phone] Reason for Visit * Reason Comments Med Refill Encounter Details Date Type Department Care Team ([facility] st Contact Info) Description 04/01/2025 Refill [facility] MEDICINE [address] [place] [address] Giselle Brock ANP [address] [place] [address] Primary hypertension Social History Tobacco Use Types [...] Description 07/26/2025 8:45 AM EST Office Visit [facility] ADULT DENTAL [address] [place] [address] Naseem, Tory [address] [place] [address] 08/09/2025 2:15 PM EST Office Visit [facility] MEDICINE [address] [place] [address] Giselle Brock ANP [address] [place] [address] documented as of this encounter Visit Diagnoses Diagnosis Primary hypertension Unspecified essential hypertension documented in this encounter Additional Health Concerns Assessment Noted Time PHQ-9 Depression Total Score: 7 09/04/20 24 2:04 PM EST documented as of this encounter Care Teams Internal Medicine Veterinary Technician Relationship Specialty Start Date End Date Giselle Brock ANP [address] [place] [address] PCP - General Family Medicine 06/20/23 documented as of this encounter
--- OUTSIDE RECORDS SUMMARY | 2025-07-12 16:50 | XMS_ITS | Encounter Summary ---
Author Organization [employer] Address [address] [facility] 7t [place] [address] Care Team Providers Care Nanotechnician Name Role Phone Wanda Mathew [facility] Primary Care Provider [phone] Giselle Brock Primary Care Provider [phone] Reason for Visit * Reason Onset Date Comments Triage 02/03/2023 Encounter Details Date Type Department Care Team (Late st Contact Info) Description 02/03/2023 Telephone [facility] MEDICINE [address] [place] [address] Priyanka, Wanda, [facility] [address] [place] [address] Triage Social History Tobacco Use Types Packs/Day [...] No answer LVM to return call to [facility] triage line. Protocol Used: No [...] No answer LVM to return call to [facility] triage line. Protocol Used: No [...] accepted this outcome Please contact pt at [phone] Georgian Speaker documented in this encounter Plan of Treatment Upcoming Encounters Date Type Department Care Team (Late st Contact Info) Description 07/26/2025 8:45 AM EST Office Visit [facility] ADULT DENTAL [address] [place] [address] Naseem Tory [address] [place] [address] 08/09/2025 2:15 PM EST Office Visit [facility] MEDICINE [address] [place] [address] Giselle Brock ANP [address] [place] [address] documented as of this encounter Visit Diagnoses Not on filedocumented in this encounter Additional Health Concerns Assessment Noted Time PHQ-9 Depression Total Score: 19 023 1:15 PM EDT documented as of this encounter Care Teams Nanotechnician Relationship Specialty Start Date End Date Wanda Mathew FNP [address] [place] [address] PCP - General Family Medicine 03/04/22 06/19/23 Giselle Brock ANP [address] [place] [address] PCP - General Family Medicine 06/20/23 documented as of this encounter
--- OUTSIDE RECORDS SUMMARY | 2025-07-12 16:50 | XMS_ITS | Encounter Summary ---
Author Organization [employer] Address [address] [facility] 7t [place] [address] Care Team Providers Care Credit Union Examiner Name Role Phone Giselle Brock RAJ Primary Care Provider [phone] Reason for Visit * Reason Comments Med Refill Encounter Details Date Type Department Care Team (Late st Contact Info) Description 05/27/[address] [facility] MEDICINE [address] [place] [address] Sissy Martinez MD [address] [place] [address] Social History Tobacco Use Types Packs/Day Years [...] 8:45 AM EST Office Visit [facility] ADULT DENTAL [address] [place] [address] Naseem, Tory [address] [place] [address] 08/09/2025 2:15 PM EST Office Visit [facility] MEDICINE [address] [place] [address] Giselle Brock ANP [address] [place] [address] documented as of this encounter Visit Diagnoses Not on filedocumented in this encounter Additional Health Concerns Assessment Noted Time PHQ-9 Depression Total Score: 7 09/04/20 24 2:04 PM EST documented as of this encounter Care Teams Credit Union Examiner Relationship Specialty Start Date End Date Giselle Brock ANP [address] [place] [address] PCP - General Family Medicine 06/20/23 documented as of this encounter
--- OUTSIDE RECORDS SUMMARY | 2025-07-12 16:50 | XMS_ITS | Encounter Summary ---
Author Organization [employer] Address [address] [facility] 7t [place] [address] Care Team Providers Care Interior Paneler Name Role Phone Giselle Brock RAJ Primary Care Provider [phone] Reason for Visit * Reason Comments Med Refill Encounter Details Date Type Department Care Team (Late st Contact Info) Description 04/26/2025 Refill [facility] MEDICINE [address] [place] [address] Sissy Martinez MD [address] [place] [address] Social History Tobacco Use Types Packs/Day Years [...] Description 07/26/2025 8:45 AM EST Office Visit [facility] ADULT DENTAL [address] [place] [address] Naseem, Tory [address] [place] [address] 08/09/2025 2:15 PM EST Office Visit [facility] MEDICINE [address] [place] [address] Giselle Brock ANP [address] [place] [address] documented as of this encounter Visit Diagnoses Not on filedocumented in this encounter Additional Health Concerns Assessment Noted Time PHQ-9 Depression Total Score: 7 09/04/20 24 2:04 PM EST documented as of this encounter Care Teams Interior Paneler Relationship Specialty Start Date End Date Giselle Brock ANP [address] [place] [address] PCP - General Family Medicine 06/20/23 documented as of this encounter
== END 2025-07-12 15:42 | disposition home or self-care (01) ==
LOC: HO.HUSH 15:17
PROVIDERS: PCP Nurse Practitioner Primary Care; Visit Provider Urology
DX: N20.0 Calculus of kidney (principal); N40.1 Benign prostatic hyperplasia with lower urinary tract symptoms
CPT/HCPCS: 99214

== ENCOUNTER → 2025-07-12 15:16 | Outpatient (BNVA) | payer OTHER, SELFPAY | PROVIDERS: PCP Nurse Practitioner Primary Care; Visit Provider Urology | DX: N20.0 Calculus of kidney (principal); N40.1 Benign prostatic hyperplasia with lower urinary tract symptoms | CPT/HCPCS: 99212 ==

== ENCOUNTER 2025-07-26 08:32 | Outpatient (AMB) | payer OTHER, SELFPAY ==
--- NOTE | 2025-07-26 08:51 | A.OFFVIS_ITS ---
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 Allergies No Known Allergies (No Known Allergies*) Allergy (Verified 07/26/25 09:13) Medication List - Last Reconciled 07/26/25 by Jeffery Palomo MD acetaminophen ER 650 mg PO TID famotidine 40 mg PO BEDTIME fluticasone propionate 50 mcg/actuation 2 sprays intranasal DAILY 30 days magnesium citrate 250 mg (2 x 125 mg) PO BEDTIME metoprolol succinate ER 50 mg PO DAILY olmesartan 20 mg PO DAILY pantoprazole 40 mg PO BID rosuvastatin 10 mg PO DAILY tamsulosin (Flomax) 0.4 mg PO BEDTIME HPI Comments Details: Wakes up: 7am, Sleeps: 10pm Breakfast: 9am (bread) Lunch: skips Dinner: 2-3pm (rice, beans, chicken) Snacks: none Exercise: none Beverages: Coffee/Tea: none, Soda: regular Sprite, Juice: ([place] juice daily), ETOH: none Tests I reviewed: UGI: 04/12: small HH, no GERD Abd CT: small HH, umbilical hernia, left hepatomegaly, mild splenomegaly Echo (11/10: EF: 65%, mild LVH, mild aortic dialtion Lexiscan stress test: (09/10: no ischemia on nuclear but down-sloping on lead 3) PFSH Medical History (Updated 07/26/25 @ 10:02 by Jeffery Palomo MD) LVH (left ventricular hypertrophy) BMI 34.0-34.9,adult Obesity Tubular adenoma of colon Rectal bleeding Colon cancer screening Constipation JOHN (obstructive sleep apnea) Hiatal hernia RYAN (generalized anxiety disorder) Tinnitus GERD (gastroesophageal reflux disease) Dyslipidemia Aneurysm of thoracic aorta Internal derangement of right knee Kidney stones Back pain Pre-diabetes HTN (hypertension) Surgical History H/O arthroscopy Hx of colonoscopy Hx of esophagogastroduodenoscopy Family History Mother Heart disease Diabetes Father Diabetes Heart disease Social History (Updated 07/26/25 @ 08:57 by Corina Mathis CMA) Are you a primary child care center administrator to a significant other at home: No Do you presently have visiting nurse or other home services: No Alcohol intake: former Patient Tobacco Use Status: Former Tobacco user Current occupational status: employed Current occupation: [employer] Physical Exam Vital Signs: Last Vital Signs Temp 97.4 F 07/26/25 08:59 Pulse 72 07/26/25 08:59 BP 162/83 H 07/26/25 08:59 Pulse Ox 97 07/26/25 08:59 Oxygen Delivery Method Room Air 07/26/25 08:59 BMI result Body Mass Index 34.7 GI Inspection: Yes normal to inspection and Yes obesity Palpation (GI): Soft to palpation Extrem Right lower extremity: normal to inspection Left lower extremity: normal to inspection Assessment & Plan Assessment & Plan (1) Hiatal hernia: Code(s): K44.9 - Diaphragmatic hernia without obstruction or gangrene Category: Medical Plan: 1. We discussed that her recent CT of the abdomen and EGD that show a diaphragmatic hernia which means that a part of your stomach lives in the chest pushing at your heart and your lungs and is causing the severe heartburn you have despite using two medications. These hernias do not go away but increase in size over time causing more symptoms and requiring a more complex operation at an older age. These hernias are also worsened by your extra weight. We discussed the details of the diaphragmatic hernia repair and the potential technical challenges such as being able to achieve enough mobilization of the esophagus back in the abdomen and being able to close the diaphragmatic muscle (crura) primarily with sutures. We also discussed the possibility of using a biologic mesh to close the hernia defect if the crura cannot be adequately re- approximated primarily with sutures. We also discussed the option of doing a gastropexy or a fundoplication to prevent postoperative reflux and prevent hernia recurrence. As we discussed, I favor the gastropexy as the fundoplication can cause several distrurbing symptoms such as gas-bloating, flatulence, inability to burp which can be bothersome to patients. Also we discussed the complexity of a potential hernia recurrence in association with a hernia recurrence. He was in agreement not to have a fundoplication. We also discussed that after surgery, he will need to be on a liquid diet with protein shakes the first week. The second week will add protein bars and soft foods and after the third week we will introduce small amounts of regular food. The transition to normal eating habits will take about 6 weeks which is the time required for the repair to heal completely. 1.??Nutritional counseling. Start with one premade PREMIER protein (buy at [employer] or [employer]) shake (mix 4oz of Premier mixed with 4oz low fat unsweetened almond milk each) at 8am-10am, one protein bar (Fit Crunch protein bar, buy at [employer], or [employer]) at 11am-1pm, another premade PREMIER protein shake (mix 4oz of Premier mixed with 4oz low fat unsweetened almond milk each) at 2pm-4pm, dinner at 5pm (10 forks of protein and 10 forks of salad/vegetables) and another [employer] protein bar at 7pm-9pm. So you do 2 protein shakes, 2 protein bars and one meal per day. Meal to include lean meat (beef, fish, pork, turkey, chicken), or nigerian yogurt, or egg whites, or beans with a salad with olive oil and fruits (berries, pears, apples, kiwi). Avoid salt, breads, potatoes, rice, pasta, desserts. 3. Each shake would be drunk slowly, like coffee in a period of 2 hours. 4. Cut each bar in 4 pieces and eat each piece in 30min ?to make each bar last 2 hours. 5. I emphasized the importance of measuring accurately the food portion and measure it when serving the food in plate 6. The meal portions include 10 full-size forks of meat and 10 full-size forks of salad. You always eat the meat portion but you can replace up to 5 forks for salad/vegetables with rice, potatoes or pasta, or a fruit ?if you like. The less you do it the better weight loss will be. 7. One full-size fork is what it can be scooped on the fork without falling aside and not what can be bit with the fork. Use regular forks like those you find in a typical restaurant. 8.? Please buy the body composition scale we discussed and send me weight measurements as soon as possible and then once a week. Always include your diet and exercise plan. 9. The best choice would be to purchase a stationary bike at home that can track calories. Let me know if you do so I can give you an exercise plan. 10. Goal is to lose at least 1.5-2lbs per week 11. Goal to lose 10% of your weight before surgery, which is about 28lbs. Ultimate weight goal: 220lbs before surgery 12. Please follow the diet plan exactly without any change. If you don't like something about the plan or you feel hungry you need to communicate with me so I can help you revise the plan. You should not change the plan yourself 13. To be scheduled for EGD with Grigsby to assess the stomach's anatomy and whether his symptoms correlate with true acid reflux. The possibility of biopsies was discussed. Patient needs to avoid use of NSAIDs and aspirin for 1 week prior to EGD. You must be on liquids only the day before your endoscopy. Risks of perforation and bleeding was discussed with the patient. This will be an outpatient procedure with IV sedation. Orders: Orders ECG 12 lead EKG Today I51.7 - Cardiomegaly, I71.20 - Thoracic aortic aneurysm, without rupture, unspecified CA echo transthorac w con Today I51.7 - Cardiomegaly, I71.20 - Thoracic aortic aneurysm, without rupture, unspecified CA echo stress exercise w con Today I51.7 - Cardiomegaly, I71.20 - Thoracic aortic aneurysm, without rupture, unspecified
[2025-07-26 08:59] VITALS: BP 162/83; PULSE 72; TEMP 36.3; O2SAT 97; BMI 34.7
--- OUTSIDE RECORDS SUMMARY | 2025-07-26 09:05 | XMS_ITS | Encounter Summary ---
Author Organization [employer] Address [address] [facility] [address] [place] [address] Care Team Providers Care Steam Press Tender Name Role Phone Giselle Brock RAJ Primary Care Provider [phone] Reason for Visit * Reason Onset Date Comments mail appt slip 06/26/2025 Encounter Details Date Type Department Care Team ([facility] st Contact Info) Description 06/26/2025 Telephone [facility] [address] [place] [address] Naseem, Tory [address] [place] [address] mail appt slip Social History Tobacco Use [...] Care Team (Late st Contact Info) Description 08/09/2025 2:15 PM EST Office Visit [facility] [address] [place] [phone] Giselle Brock ANP [address] [place] [address] 08/23/2025 8:45 AM EST Office Visit [facility] [address] [place] [phone] Tory Gusman [address] [place] [address] documented as of this encounter Visit Diagnoses Not on filedocumented in this encounter Additional Health Concerns Assessment Noted Time PHQ-9 Depression Total Score: 7 09/04/20 24 2:04 PM EST documented as of this encounter Care Teams Steam Press Tender Relationship Specialty Start Date End Date Giselle Brock ANP [address] [place] [phone] PCP - General Family Medicine 06/20/23 documented as of this encounter
--- OUTSIDE RECORDS SUMMARY | 2025-07-26 09:05 | XMS_ITS | Clinical Summary ---
Author Organization [employer] Address [address] [facility] 7[address] [place] [address] Care Team Providers Care Rn Liaison Name Role Phone Nicolasa Fabian RAJ Primary Care Provider [phone] Allergies Active Allergy Reactions Criticality Noted Date [...] 23 Active Blood Glucose Monitoring Suppl (FreeStyle Penn Laird Lite) w/Device kitIndications:P rediabetes Use to test blood sugar once daily before breakfast and more as needed 1 kit 02/29/20 24 Active olmesartan (Benicar) 20 MG tabletIndication s:Primary hypertension Take 1 tablet (20 mg) by mouth Once per day. 90 tablet 3 12/15/19 25 026 Active omeprazole (PriLOSEC) [address] capsuleJeremiah ns:Gastroesophag eal reflux disease, unspecified whether esophagitis [...] DAY AND MORE NEEDED (BULK) 100 strip 03/21/20 25 Active famotidine (Pepcid) 20 MG tabletIndication s:Gastroesophage al reflux disease, unspecified whether esophagitis present TAKE ONE TABLET BY MOUTH EVERY EVENING FOR HEARTBURN 30 tablet 2 06/18/20 25 Active metoprolol succinate XL (Toprol-XL) 50 MG 24 hr tabletIndication s:Primary hypertension TAKE ONE TABLET BY MOUTH EVERY DAY. DO NOT BREAK, CRUSH, DISSOLVE, OR CHEW 90 tablet 1 07/12/20 25 Active acetaminophen (Tylenol 8 Hour) 650 MG ER tablet TAKE ONE TABLET BY MOUTH EVERY 8 HOURS NEEDED FOR PAIN . DO NOT BREAK, CRUSH, DISSOLVE OR CHEW. (VIAL) 120 tablet 1 07/23/20 25 Active rosuvastatin (Crestor) 10 MG tabletIndication s:Dyslipidemia TAKE ONE TABLET BY MOUTH EVERY DAY ^1R4 90 tablet 2 07/23/20 25 Active rosuvastatin (Crestor) 10 MG tabletIndication s:Dyslipidemia TAKE ONE TABLET BY MOUTH EVERY DAY ^1R4 90 tablet 2 11/21/19 25 025 Discontinued metoprolol succinate XL (Toprol-XL) 50 MG 24 hr tabletIndication s:Primary hypertension TAKE ONE TABLET BY MOUTH EVERY DAY . DO NOT BREAK, CRUSH, DISSOLVE OR CHEW 90 tablet 1 01/10/20 25 025 Discontinued acetaminophen (Tylenol 8 Hour) 650 MG ER tablet TAKE ONE TABLET BY MOUTH EVERY 8 HOURS NEEDED FOR PAIN . DO NOT BREAK, CRUSH, DISSOLVE OR CHEW (VIAL) 120 tablet 1 06/11/20 25 025 Discontinued Active Problems Problem Noted Date Diagnosed Date Chest pressure 02/11/2024 Overview (02/29/2024): Established w/ [facility] cards. Negative stress test 08/2023 and normal [...] aneurysm --advised pt to discuss w his binder selector at upcoming apt -alarm signs and symptoms discussed in length w pt in case needs to go to ED RYAN (generalized anxiety disorder) 10/06/2023 Panic attacks 10/06/2023 unspecified Trauma and stressor-related disorder 10/06/2023 BPH (benign prostatic hyperplasia) 10/07/2022 Overview (10/07/2022): TURP 2008 Chronic pain of right knee 10/07/2022 Overview (10/07/2022): 2020 MRI with medical meniscal tear Referred to [facility] ortho 08/2022 Prediabetes 10/07/2022 Overview (02/29/2024): 09/2022 [...] 04/27/2012 Overview (10/02/2022): Seen by GI at [facility] in ?2003 with upper endoscopy [...] (12/21/2022 11:52 AM EDT): Accepts referral to [facility] for therapy Discussed possibility of starting daily medication, patient declines at this time Denies SI or thoughts of self harm Pt provided with [facility] contact information for same day care [...] negative, negative stress test 08/2023 followed by [facility] cardiology for hx of exercise induced chest [...] Encounters Date Type Department Care Team Description 07/25/2025 Telephone [facility] [place] [facility] [address] [place] [phone] Nicolasa Fabian ANP Prior Authorization 07/22/2025 Refill [facility] [address] [place] [address] Nicolasa Fbaian ANP Dyslipidemia 07/11/2025 Refill [facility] [place] [facility] [address] [place] [address] Nicolasa Fabian ANP Primary hypertension 06/26/2025 Telephone [facility] [place] [facility] [address] [place] [address] Tory Gusman mail appt slip 06/24/2025 Refill [facility] [address] [place] [address] Nicolasa Fabian ANP Primary hypertension 06/21/2025 Orders Only GENERIC EXTERNAL DATA DEPARTMENT Provider, Generic External Data 06/17/2025 Refill [facility] [address] [place] [address] Sissy Martinez MD Gastroesophageal reflux disease, unspecified whether esophagitis present (Primary Dx) 06/10/2025 Refill [facility] [address] [place] [address] Sissy Martinez MD 05/30/2025 Telephone [facility] [place] [facility] [address] [place] [phone] Nicolasa Fabian ANP nov recall 05/27/2025 Refill [facility] [address] [place] [address] Sissy Martinez MD 05/03/2025 Orders Only [facility] External Provider, [facility] 05/02/2025 Telephone [facility] [place] [facility] [address] [place] [phone] Nicolasa Fabian ANP Referral 04/26/2025 Refill [facility] [place] [facility] [address] [place] [phone] Sissy Martinez MD from Last 3 Months Immunizations Immunization Administration [...] Description 08/09/2025 2:15 PM EST Office Visit [facility] [address] [place] [address] Nicolasa Fabian, ANP [address] [place] [address] 08/23/2025 8:45 AM EST Office Visit [facility] [place] [facility] [address] [place] [address] Tory Gusmna [address] [place] [address] Health Maintenance Due Date Last Done Comments CT Colonography 1960 Colonoscopy 1960 Colorectal Cancer Screening 1960 FIT DNA/Cologuard 1960 FIT 1960 FOBT 1960 Sigmoidoscopy 1960 Disability Screening 1960 Zoster Vaccines (2 of 3) 06/20/2015 04/25/2015 Dental X-Ray: Full Mouth 04/24/2018 04/23/2015 Dental X-Ray: Bitewings 10/13/2018 10/12/2017, 04/23 Dental Oral Exam 10/16/2018 04/14/2018, , 04/23/2015, Additional history exists Dental Prophylaxis 10/16/2018 04/14/2018, 10/14/2017 COVID-19 Vaccine ( season) 2025 03/12/2021, 02/07/2021 [...] ANTIBODY RFLX Routine 12/05/2019 4:00 PM EDT PROPHYLAXIS - ADULT Routine 04/14/2018 1 2:00 AM EDT PERIODIC ORAL EVALUATION - ESTABLISHED PATIENT Routine 04/14/2018 12:00 AM EDT BITEWINGS - 4 RADIOGRAPHIC IMAGES Routine 10/12/2017 12:00 AM EST INTRAORAL - COMPLETE SERIES OF RADIOGRAPHIC IMAGES Routine 04/23/2015 12:00 AM EDT from Last 3 Months or Most Recently Relevant to Health Maintenance Results * Hematoxylin and Eosin Stain (06/21/2025 1:17 PM EDT) 06/21/2025 1:17 PM EDT 06/21/2025 1:39 PM EDT [facility]S - 06/25/2025 3:30 PM EDT ----- ------- Name: Sameer Duncan Age/Sex: 65/M : 1960 [facility]#: [id number] Unit#: [id number] Attend Dr: Sofia Gonzales MD Re06/21/25 Status: [facility] Location: [facility] Disch: ----- ------- SPEC : [id number] RECD: 06/21/25 STATUS: DEANA ARCE NUM: [id number] [place]: 06/21/25-1316 [facility] DR: Sofia Gonzales MD ENTERED: 06/21/25 SP TYPE: Surgical OTHR DR: NICOLASA FABIAN NP ORDERED: HE Stain/18, Gross Micro L4/6, IHC, Special st. 2/, H. pylori, AB/PAS/3 Diagnosis A. Duodenum, biopsy: [...] Sameer Duncan Age/Sex: 65/M : 1960 Unit#: [id number] Attend Dr: Sofia Gonzales MD Re06/21/25 Status: [facility] Location: [facility] Disch: ----- ------- SPEC : [id number] RECD: 06/21/25 STATUS: MAXDahiana RIVERANabor NUM: [id number] DUNCAN: 06/21/25 [facility] DR: Sofia Gonzales MD ENTERED: 06/21/255472 SP TYPE: Surgical OTHR DR: NICOLASA FABIAN [...] microscopic examination, multiple pieces in cassette F. ([facility]) Special studies ordered and performed: Immunostain for H. pylori on B; AB/PAS stains on A, B and D IHC S/NG Disclaimer NOTE: Unless otherwise stated, all tissue is formalin-fixed and paraffin-embedded. Some or all of the immunohistochemical tests reported herein may have been developed and their performance characteristics determined by [facility]. They have not been cleared or [...] Sameer Duncan Age/Sex: 65/M : 1960 Unit#: [id number] Attend Dr: Sofia Gonzales MD Re06/21/25 Status: [facility] Location: [facility] Disch: ----- ------- SPEC : [id number] RECD: 06/21/25 STATUS: DEANA ARCE NUM: [id number] DUNCAN: 06/21/25 [facility] DR: Sofia Gonzales MD ENTERED: 06/21/25 SP TYPE: Surgical OTHR DR: NICOLASA FABIAN NP ORDERED: HE Stain/18, Gross Micro L4/6, IHC, Special st. 2/3, H. pylori, AB/PAS/3 Copies To: NICOLASA FABIAN NP [address] [address] Sofia Gonzales MD [facility] [address] [place] [phone] [email or web address] ----- ------- Signed (signature on file) Feliberto Bello MD 06/25/25 1530 ----- ------- END OF REPORT us Generic External Data Provider LAB BLOOD ORDERAB LES Final Result Performing Organization Address City/[facility]/ZIP Co de Phone Number [facility] [address] [place] [phone] * POCT Creatinine GFR (05/03/2025 11:15 AM EDT) POCT Creatinine 0.8 0.5 - 1.4 mg/dL [facility] GFR POC >60 [facility] Comment:Chronic Kidney Disea se: Estimated GFR < 60 mL/min/1.15m8Evzzoj Kidney Disease: Estimated GFR < 15 mL/min/1.73m2 05/03/2025 11:1 5 AM EDT 05/08/2025 10:37 AM EDT Narrative [facility] - 05/08/2025 10:39 AM EDT SHORT STAFFED IN CT RAD, ENTERED MANUALLY BY [id number]> [email or web address] Nicolasa Fabian ANP LAB POINT OF CARE TEST DOCKED DE VICE ORDERABLES Final Result Performing Organization Address City/[facility] Co de Phone Number [facility] [address] [place] [phone] * CT Abdomen Pelvis w/ Contrast (05/03/2025 11:08 AM EDT) Anatomical Region Laterality Modality Body, Pelvis, Abdomen Computed T omography 05/03/2025 11:0 8 AM EDT Narrative 05/03/2025 12:09 PM EDT [address] [address] [address] Scan Report Signed Patient: Sameer Duncan MR#: [id number] : 1960 Acct:[id number] Age/Sex: 65 / M ADM Date: 05/03/25 Loc: HO.CT Attending Dr: Flory Naranjo CNP Ordering Physician: Flory Naranjo CNP Date of Service: 05/03/25 Procedure(s): CT abdomen pelvis w IV con Accession Number(s): [id number] cc: NICOLASA FABIAN LAW ENFORCEMENT DIRECTOR; Flory Naranjo [facility] Report Number: [id number]: Total DLP = 797.00 mGy-cm EXAMINATION: CT [...] 05/03/25 1206 DD/ 1108 TD/TT: 05/03/25 1138 Fashion Consultant Sales: Procedure Note Donotuseinterpreter, Image - 05/03/[address] [place] [address] [address] Scan Report Signed Patient: Nemo Duncan#: [id number] : 1960cct:[id number] Age/Sex: 65 / MADM Date: 05/03/25 Loc: HO.CT Attending Dr: Flory Naranjo CNP Ordering Physician: Flory Naranjo CNP Date of Service: 05/03/25 Procedure(s): CT abdomen pelvis w IV con Accession Number(s): [id number] cc: NICOLASA FABIAN LAW ENFORCEMENT DIRECTOR; Flory Naranjo CNP Report Number: [id number]: Total DLP = 797.00 mGy-cm EXAMINATION: CT [...] 05/03/25 1206 DD/ 1108 TD/TT: 05/03/25 1138 Fashion Consultant Sales: [facility] External Provider IMG CT PROCEDURES Final Result * (ABNORMAL) POCT HGB A1C (09/04/2024 1:16 PM EST) Hemoglobin A1C 6.1(A) 4.0 - 6.0 % QC Media Lot # [id number] Lot# Expiration Date [id number] Blood 09/04/2024 1:16 PM EST Nicolasa Fabian ANP POINT OF CARE TEST ENTER/EDIT OR DERABLES Final Result * (ABNORMAL) Lipid Panel, Standard (03/01/2024 8:12 AM EDT) Triglycerides 83 <150 mg/dL [facility] Comment:Desirable Triglyceri de: less than 150 mg/dLBorderline High Triglyceride 150-199 mg/dLHigh Triglyceride: 200-499 mg/dLVery High Triglyceride: greater than or equal to 5OO mg/dL Cholesterol 171 <200 mg/dL [facility] Comment:Desirable Cholestero l: less than 200 mg/dLBorderline High Cholesterol: 200-239 mg/dLHigh Cholesterol: greater than 239 mg/dL LDL Cholesterol Calculated 119(H) <100 mg/dL [facility] Comment:Desirable LDL: less than 100 mg/dLNear Optimal/Above Optimal LDL: 110- 129 mg/dLBorderline High LDL: 130-159 mg/dLHigh LDL: 160-189 mg/dLVery High LDL: greater than or equal to 190 mg/dL HDL Cholesterol 36(L) >40 mg/dL [facility] Comment:Desirable HDL: great er than 40 mg/dL Note: This HDL assay may give artificially low results in patients with liver disease. Blood Venous blood specimen / Unknown 03/01/2024 8:12 AM EDT 03/01/2024 8:12 AM EDT Nicolasa Fabian [facility] LAB BLOOD ORDERABLES Final Resul t [facility] [address] [place] [phone] * HIV-1/2 Antigen and Antibodies, Fourth Generation, with Reflexes (09/22/2022 10:16 AM EST) HIV Antigen/Antibody, 4th Generation NON-REAC TIVE NON-REAC TIVE [facility] Comment: HIV-1 antigen and HIV-1/HIV-2 antibodies [...] purpose. For additional information please refer to http://[email or web address]/faq/NMW002 (This link is being provided for informational/ educational purposes only.) The performance of this assay has not been clinically validated in patients less than 2 years old. Blood Venous blood specimen / Unknown 09/22/2022 10:16 AM EST 09/22/2022 10:16 AM EST Narrative [facility] - 09/23/2022 7:02 PM EST FASTING:UNKNOWN FASTING: UNKNOWN [facility] ORTHO NURSE LAB BLOOD ORDERABLES Final Re sult Performing Organization Address [facility] Co de Phone Number [facility] [address], [place] [address] [facility] [address] [facility], ([address]) [place] [address] * HEPATITIS C ANTIBODY RFLX (12/05/2019 4:00 PM EDT) Pathologist [facility] HEPATITIS C ANTIBODY NONREACTIVE NONREACTIVE [facility] Comment: Antibodies to HCV not detected; does not exclude early acute HCV infection. 12/05/2019 4:00 PM EDT Kody Warren MD HISTORICAL/NON ORDERABLE LABS Fi nal Result [facility] [address] from Last 3 Months or Most Recently Relevant to Health Maintenance Insurance [facility] ONE CARE < 65 DENTAL - [facility] Care Teams Rn Liaison Relationship Specialty Start Date End Date Nicolasa Fabian ANP [address] [place] [address] PCP - General Family Medicine 06/20/23
--- OUTSIDE RECORDS SUMMARY | 2025-07-26 09:05 | XMS_ITS | Encounter Summary ---
Author Organization [employer] Address [address] [facility] 7t [place] [address] Care Team Providers Care Utility Worker Woolen Mill Name Role Phone Giselle Brock Primary Care Provider [phone] Reason for Visit * Reason Comments Med Refill Encounter Details Date Type Department Care Team ([facility] st Contact Info) Description 02/01/2025 Refill [facility] [address] [place] [address] Giselle Brock ANP [address] [place] [address] Social History Tobacco Use Types Packs/Day Years [...] Description 08/09/2025 2:15 PM EST Office Visit [facility] [address] [place] [address] Giselle Brock ANP [address] [place] [address] 08/23/2025 8:45 AM EST Office Visit [facility] [address] [place] [address] NaseemKieranTory [address] [place] [address] documented as of this encounter Visit Diagnoses Not on filedocumented in this encounter Additional Health Concerns Assessment Noted Time PHQ-9 Depression Total Score: 7 09/04/20 24 2:04 PM EST documented as of this encounter Care Teams Utility Worker Woolen Mill Relationship Specialty Start Date End Date Giselle Brock ANP [address] [place] [address] PCP - General Family Medicine 06/20/23 documented as of this encounter
--- OUTSIDE RECORDS SUMMARY | 2025-07-26 09:05 | XMS_ITS | Encounter Summary ---
Author Organization [employer] Address 75 [facility] 7t [place] [address] Care Team Providers Care Claims Analyst Name Role Phone Giselle Brock Primary Care Provider [phone] Reason for Visit * Reason Comments Med Refill Encounter Details Date Type Department Care Team ([facility] st Contact Info) Description 04/01/2025 Refill [facility] [address] [place] [address] Giselle Brock ANP [address] [place] [address] Primary hypertension Social History Tobacco Use Types [...] 2:15 PM EST Office Visit [facility] [address] [place] [address] Giselle Brock ANP [address] [place] [address] 08/23/2025 8:45 AM EST Office Visit [facility] [address] [place] [address] NaseemTory [address] [place] [address] documented as of this encounter Visit Diagnoses Diagnosis Primary hypertension Unspecified essential hypertension documented in this encounter Additional Health Concerns Assessment Noted Time PHQ-9 Depression Total Score: 7 09/04/20 24 2:04 PM EST documented as of this encounter Care Teams Claims Analyst Relationship Specialty Start Date End Date Giselle Brock ANP [address] [place] [address] PCP - General Family Medicine 06/20/23 documented as of this encounter
--- OUTSIDE RECORDS SUMMARY | 2025-07-26 09:05 | XMS_ITS | Encounter Summary ---
Author Organization [employer] Address [address] [facility] 7t [place] [address] Care Team Providers Care Mounter Smoking Pipe Name Role Phone Giselle Brock RAJ Primary Care Provider [phone] Reason for Visit * Reason Comments Med Refill Encounter Details Date Type Department Care Team ([facility] st Contact Info) Description 04/26/2025 Refill [facility] [address] [place] [address] Sissy Martinez MD [address] [place] [address] Social History Tobacco Use Types Packs/Day Years [...] Description 08/09/2025 2:15 PM EST Office Visit [facility] [address] [place] [address] Giselle Brock ANP [address] [place] [address] 08/23/2025 8:45 AM EST Office Visit [facility] [address] [place] [address] Naseem, Tory [address] [place] [address] documented as of this encounter Visit Diagnoses Not on filedocumented in this encounter Additional Health Concerns Assessment Noted Time PHQ-9 Depression Total Score: 7 09/04/20 24 2:04 PM EST documented as of this encounter Care Teams Mounter Smoking Pipe Relationship Specialty Start Date End Date Giselle Brock ANP [address] [place] [address] PCP - General Family Medicine 06/20/23 documented as of this encounter
--- OUTSIDE RECORDS SUMMARY | 2025-07-26 09:05 | XMS_ITS | Encounter Summary ---
Author Organization [employer] Address 75 [facility] 7t [place] [address] Care Team Providers Care Paint Stripper Name Role Phone Giselle Brock Primary Care Provider [phone] Reason for Visit * Reason Comments Med Refill Encounter Details Date Type Department Care Team ([facility] st Contact Info) Description 07/22/2025 Refill [facility] [address] [place] [address] Giselle Brock ANP [address] [place] [address] Dyslipidemia Social History Tobacco Use Types Packs/Day Years [...] Description 08/09/2025 2:15 PM EST Office Visit [facility] [address] [place] [address] Giselle Brock ANP [address] [place] [address] 08/23/2025 8:45 AM EST Office Visit [facility] [address] [place] [address] Kieran Gusmanaris [address] [place] [address] documented as of this encounter Visit Diagnoses Diagnosis Dyslipidemia Other and unspecified hyperlipidemia documented in this encounter Additional Health Concerns Assessment Noted Time PHQ-9 Depression Total Score: 7 09/04/20 24 2:04 PM EST documented as of this encounter Care Teams Paint Stripper Relationship Specialty Start Date End Date Giselle Brock ANP [address] [place] [address] PCP - General Family Medicine 06/20/23 documented as of this encounter
--- OUTSIDE RECORDS SUMMARY | 2025-07-26 09:05 | XMS_ITS | Encounter Summary ---
Author Organization [employer] Address 75 [facility] 7t [place] [address] Care Team Providers Care Handle Bender Name Role Phone Giselle Brock Primary Care Provider [phone] Reason for Visit * Reason Onset Date Comments Prior Authorization 07/25/2025 Encounter Details Date Type Department Care Team ([facility] st Contact Info) Description 07/25/2025 Telephone [facility] [address] [place] [address] Giselle Brock ANP [address] [place] [address] Prior Authorization Social History Tobacco Use Types Packs/Day Years [...] * Telephone Encounter - Alison Urbina - 07/25/2025 2:46 PM EST PA initiated on Covermymeds for Lidocaine 5% patches. Approval/denial pending. Valentine: [id number] documented in this encounter Plan of Treatment Upcoming Encounters Date Type Department Care Team (Late st Contact Info) Description 08/09/2025 2:15 PM EST Office Visit [facility] [address] [place] [address] Giselle Brock ANP [address] [place] [address] 08/23/2025 8:45 AM EST Office Visit [facility] [address] [place] [address] Tory Gusman [address] [place] [address] documented as of this encounter Visit Diagnoses Not on filedocumented in this encounter Additional Health Concerns Assessment Noted Time PHQ-9 Depression Total Score: 7 09/04/20 24 2:04 PM EST documented as of this encounter Care Teams Handle Bender Relationship Specialty Start Date End Date Giselle Brock ANP [address] [place] [address] PCP - General Family Medicine 06/20/23 documented as of this encounter
--- OUTSIDE RECORDS SUMMARY | 2025-07-26 09:05 | XMS_ITS | Encounter Summary ---
Author Organization [employer] Address [address] [facility] 7t [place] [address] Care Team Providers Care Natural Resources Specialist Name Role Phone Giselle Brock Primary Care Provider Reason for Visit * Reason Onset Date Comments Med Refill 10/04/2023 Encounter Details Date Type Department Care Team ([facility] st Contact Info) Description 10/04/[address] [facility] [address] [place] [address] Giselle Brock ANP [address] [place] [address] Med Refill Social History Tobacco Use Types [...] 2:18 PM EST Medication was sent to [facility] on 05/26/23 #90 with 3 refills. * Telephone Encounter - Chevy Key - 10/04/2023 2:12 PM EST TC from pt requesting medication refill. Medications needing refill : amLODIPine (Norvasc) 10 MG tablet To be sent to: [facility] [place], [place] - [address] [place] [address] documented in this encounter Plan of Treatment Upcoming Encounters Date Type Department Care Team (Late st Contact Info) Description 08/09/2025 2:15 PM EST Office Visit [facility] [address] [place] [address] Giselle Brock ANP [address] [place] [address] 08/23/2025 8:45 AM EST Office Visit [facility] [address] [place] [address] Tory Gusman [address] [place] [address] documented as of this encounter Visit Diagnoses Not on filedocumented in this encounter Additional Health Concerns Assessment Noted Time PHQ-9 Depression Total Score: 14 024 9:56 AM EST documented as of this encounter Care Teams Natural Resources Specialist Relationship Specialty Start Date End Date Giselle Brock ANP [address] [place] [address] PCP - General Family Medicine 06/20/23 documented as of this encounter
--- OUTSIDE RECORDS SUMMARY | 2025-07-26 09:05 | XMS_ITS | Encounter Summary ---
Author Organization [employer] Address [address] [facility] 7t [place] [address] Care Team Providers Care Telephone Solicitor Name Role Phone Giselle Brock Primary Care Provider Reason for Visit * Reason Comments Med Refill Encounter Details Date Type Department Care Team ([facility] st Contact Info) Description 06/24/2025 Refill [facility] [address] [place] [address] Giselle Brock ANP [address] [place] [address] Primary hypertension Social History Tobacco Use Types [...] Description 08/09/2025 2:15 PM EST Office Visit [facility] [address] [place] [address] Giselle Brock ANP [address] [place] [address] 08/23/2025 8:45 AM EST Office Visit [facility]ULT [facility] [address] [place] [address] NaseemTory [address] [place] [address] documented as of this encounter Visit Diagnoses Diagnosis Primary hypertension Unspecified essential hypertension documented in this encounter Additional Health Concerns Assessment Noted Time PHQ-9 Depression Total Score: 7 09/04/20 24 2:04 PM EST documented as of this encounter Care Teams Telephone Solicitor Relationship Specialty Start Date End Date Giselle Brock ANP [address] [place] [address] PCP - General Family Medicine 06/20/23 documented as of this encounter
--- OUTSIDE RECORDS SUMMARY | 2025-07-26 09:05 | XMS_ITS | Encounter Summary ---
Author Organization [employer] Address [address] [facility] 7t [place] [address] Care Team Providers Care Marking Room Supervisor Name Role Phone Giselle Brock Primary Care Provider [phone] Reason for Visit * Reason Onset Date Comments Lab Orders 12/07/2023 Encounter Details Date Type Department Care Team ([facility] st Contact Info) Description 12/07/2023 Telephone [facility] [address] [place] [address] Giselle Brock ANP [address] [place] [address] Lab Orders Social History Tobacco Use Types [...] Description 08/09/2025 2:15 PM EST Office Visit [facility] [address] [place] [address] Giselle Brock ANP [address] [place] [address] 08/23/2025 8:45 AM EST Office Visit [facility] [address] [place] [address] Tory Gusman [address] [place] [address] documented as of this encounter Visit Diagnoses Not on filedocumented in this encounter Additional Health Concerns Assessment Noted Time PHQ-9 Depression Total Score: 15 024 11:19 AM EST documented as of this encounter Care Teams Marking Room Supervisor Relationship Specialty Start Date End Date Giselle Brock ANP 230 [place] [address] PCP - General Family Medicine 06/20/23 documented as of this encounter
--- OUTSIDE RECORDS SUMMARY | 2025-07-26 09:05 | XMS_ITS | Patient Health Record ---
Author Organization [facility] Address [address] [place] [address] Care Team Providers Care Elementary Education Tutor Name Role Phone Akilah Larose Primary Care Provider David Joshua [phone] Allergies Allergen (clinical drug ingredient) Drug/Non Drug [...] Problem History of adenomatous polyp of colon (109388961) History of adenomatous polyp of colon (Z86.010) Active confirmed Problem Epigastric pain (29441121) Abdominal pain, epigastric (R10.13) Active confirmed Problem Gastroesophageal reflux disease (251106837) Gastroesophageal reflux disease, esophagitis presence not specified (K21.9) Active confirmed Plan Of Treatment Future Test Test Name Order Date COLONOSCOPY 11/19/2014 UPPER GI ENDOSCOPY 03/09/2018 Insurance Providers Payer Name Payer Address Payer Phone Subscriber Number Group Number Insured Name Patient Relationship to Insured Coverage Start Date Coverage End Date [facility] [address] [place] [phone] [id number] SAM ENNIS Self - patient is the insured MEDICAID OF [employer] [address] [place] [id number] SAM ENNIS Self - patient is the insured Medical (General) History Medical History History ICD Code Hypertension Denies MD,DM,CVA,Lung disease,renal dise ase EGD in 2003 with [...]
--- OUTSIDE RECORDS SUMMARY | 2025-07-26 09:05 | XMS_ITS | Encounter Summary ---
Author Organization [employer] Address [address] [facility] 7t [place] [address] Care Team Providers Care Laundry Manager Name Role Phone Giselle Borck RAJ Primary Care Provider [phone] Reason for Visit * Reason Comments Med Refill Encounter Details Date Type Department Care Team (Late st Contact Info) Description 05/27/2025 Refill [facility] [address] [place] [address] Sissy Martinez MD [address] [place] [address] Social History Tobacco Use Types Packs/Day Years [...] Description 08/09/2025 2:15 PM EST Office Visit [facility] [address] [place] [address] Giselle Brock ANP [address] [place] [address] 08/23/2025 8:45 AM EST Office Visit [facility] [address] [place] [address] Naseem, Tory [address] [place] [address] documented as of this encounter Visit Diagnoses Not on filedocumented in this encounter Additional Health Concerns Assessment Noted Time PHQ-9 Depression Total Score: 7 09/04/20 24 2:04 PM EST documented as of this encounter Care Teams Laundry Manager Relationship Specialty Start Date End Date Giselle Brock ANP [address] [place] [address] PCP - General Family Medicine 06/20/23 documented as of this encounter
--- OUTSIDE RECORDS SUMMARY | 2025-07-26 09:05 | XMS_ITS | Encounter Summary ---
Author Organization [employer] Address [address] [facility] 7t [place] [address] Care Team Providers Care Remelt Worker Name Role Phone Wanda Mathew [facility] Primary Care Provider [phone] Giselle Brock Primary Care Provider [phone] Reason for Visit * Reason Onset Date Comments Triage 02/03/2023 Encounter Details Date Type Department Care Team (Late st Contact Info) Description 02/03/2023 Telephone [facility] [address] [place] [address] Priyanka, Wanda, [facility] [address] [place] [address] Triage Social History Tobacco Use Types Packs/Day [...] No answer LVM to return call to [facility] triage line. Protocol Used: No [...] No answer LVM to return call to [facility] triage line. Protocol Used: No [...] accepted this outcome Please contact pt at [phone] Hungarian Speaker documented in this encounter Plan of Treatment Upcoming Encounters Date Type Department Care Team (Late st Contact Info) Description 08/09/2025 2:15 PM EST Office Visit [facility] [address] [place] [address] Giselle Brock ANP [address] [place] [address] 08/23/2025 8:45 AM EST Office Visit [facility] [address] [place] [address] Tory Gusman [address] [place] [address] documented as of this encounter Visit Diagnoses Not on filedocumented in this encounter Additional Health Concerns Assessment Noted Time PHQ-9 Depression Total Score: 19 023 1:15 PM EDT documented as of this encounter Care Teams Remelt Worker Relationship Specialty Start Date End Date Wanda Mathew FNP [address] [place] [address] PCP - General Family Medicine 03/04/22 06/19/23 Giselle Brock ANP [address] [place] [address] PCP - General Family Medicine 06/20/23 documented as of this encounter
== END 2025-07-26 10:13 | disposition home or self-care (01) ==
LOC: HO.HBS 08:33
PROVIDERS: PCP Nurse Practitioner Primary Care; Visit Provider Surgery
DX: K44.9 Diaphragmatic hernia without obstruction or gangrene (principal)
CPT/HCPCS: 99204

== ENCOUNTER → 2025-07-26 08:32 | Outpatient (BNVA) | payer OTHER, SELFPAY | PROVIDERS: PCP Nurse Practitioner Primary Care; Visit Provider Surgery | DX: K44.9 Diaphragmatic hernia without obstruction or gangrene (principal) | CPT/HCPCS: 99202 ==

== ENCOUNTER 2025-07-29 18:07 | Emergency (ER) | payer OTHER, SELFPAY ==
--- NOTE | ~2025-07-29 | XR_ITS ---
CLINICAL HISTORY: chest pain 2 view chest x-ray Comparison: None provided Findings: The lungs are clear. Normal size heart. No acute fracture. IMPRESSION: 1. No acute findings. This document has been electronically signed by: Gareth Levin MD, PHD on 07/29/2025 23:17:35
[2025-07-29 18:37] VITALS: BP 174/85; PULSE 70; RESP 16; TEMP 36.5; O2SAT 95; BMI 35.3
--- NOTE | 2025-07-29 18:43 | ED.GENADULT ---
HPI - General Adult General Chief complaint: Headache Stated complaint: dizziness Time Seen by Provider: 07/29/25 21:19 Source: patient, family, RN notes reviewed and old records reviewed Mode of arrival: ambulatory Limitations: language barrier History of Present Illness ED Provider: Dr. Elvi Ford HPI narrative: 65-year-old male with history of hypertension, GERD, sleep apnea, hiatal hernia presenting with vague complaints ongoing for the last 2 weeks or so. He describes dizziness at sounds more like near-syncope that has been worsening over the last 8 days. Admits that these symptoms are worse when he wakes up in the morning and improves throughout the day but get worse in the evening after dinner. Admits he has been dealing with acid reflux and a hiatal hernia which he has seen a general surgeon to have this repaired. Despite his hiatal hernia, he has been eating and drinking normally. Admits to associated nausea but no vomiting. Describes a frontal headache that is a pressure, worse in the mornings and better at night. Does not take anything for pain. Denies drug or alcohol use. Admits that he has been feeling bouts of anxiety that has been bothering him and worsening his moods lately. He is unable to elaborate further on this but describes ?anxiousness in his chest.? Denies chest pain or difficulty breathing. No known sick contacts or travel. Related Data Home Medications ?Medication ?Instructions ?Recorded ?Confirmed acetaminophen 650 mg 650 mg PO TID 06/30/23 07/26/25 tablet,extended release metoprolol succinate 50 mg 50 mg PO DAILY 03/06/24 07/26/25 tablet,extended release 24 hr rosuvastatin 10 mg tablet 10 mg PO DAILY 12/03/24 07/26/25 olmesartan 20 mg tablet 20 mg PO DAILY 03/27/25 07/26/25 famotidine 40 mg tablet 40 mg PO BEDTIME 07/26/25 07/26/25 Previous Rx's ?Medication ?Instructions ?Recorded fluticasone propionate 50 2 spray intranasal DAILY 30 days 12/27/24 mcg/actuation nasal #15.8 mL spray,suspension tamsulosin 0.4 mg capsule (Flomax) 0.4 mg PO BEDTIME #90 caps 04/05/25 magnesium citrate 125 mg capsule 250 mg (2 x 125 mg) PO BEDTIME #60 04/19/25 caps pantoprazole 40 mg tablet,delayed 40 mg PO BID #90 tabs 06/21/25 release meclizine 25 mg tablet 25 mg PO TID PRN dizziness #30 tabs 07/30/25 Allergies Allergy/AdvReac Type Severity Reaction Status Date / Time No Known Allergies (No Known Allergy Verified 07/29/25 18:41 Allergies*) Review of Systems Review of Systems: As per HPI, full review of systems performed and negative but for the above mentioned pertinent positives and negatives. [facility] Past Medical History Medical History LVH (left ventricular hypertrophy) BMI 34.0-34.9,adult Obesity Tubular adenoma of colon Rectal bleeding Colon cancer screening Constipation JOHN (obstructive sleep apnea) Hiatal hernia RYAN (generalized anxiety disorder) Tinnitus GERD (gastroesophageal reflux disease) Dyslipidemia Aneurysm of thoracic aorta Internal derangement of right knee Kidney stones Back pain Pre-diabetes HTN (hypertension) Surgical History H/O arthroscopy Hx of colonoscopy Hx of esophagogastroduodenoscopy Family History Family History Mother Heart disease Diabetes Father Diabetes Heart disease Social History Social History Are you a primary nurse wound care to a significant other at home: No Do you presently have visiting nurse or other home services: No Alcohol intake: former Patient Tobacco Use Status: Former Tobacco user Advance Directives: No Advance Directives Information Provided: No Do you have a plan to hurt others: No Plan Current occupational status: employed Current occupation: [employer] Physical Exam ED Exam Exam: GENERAL: Chronically ill-appearing, conversant, no acute distress. SKIN: Normal skin color for ethnicity, warm, dry, no rashes noted. HEENT: Normocephalic, atraumatic, no stridor, posterior oropharynx nonerythematous, EOMI. NECK: Soft, supple, full ROM, midline structures nontender, no step-offs, no deformities, no lymphadenopathy. CHEST: Heart regular rate and rhythm, no murmurs, symmetric chest rise and fall. PULMONARY: Clear to auscultation bilaterally, no labored breathing, no wheezes/rhales/ rhonchi. ABDOMINAL: Soft, nondistended, nontender, positive bowel sounds in all quadrants. : Deferred. MUSCULOSKELETAL: Normal tone, full range of motion, no deformities, no peripheral edema. NEURO: Alert and oriented to person, CN II through XII intact, no focal neurologic deficits, no nystagmus, normal gait, equal strength and sensation in the bilateral upper and lower extremities. PSYCHIATRIC: Flat affect, fluid speech, appropriate demeanor. Vital Signs: Vital Signs - 24 hr 07/29/25 18:37 07/29/25 22:16 Temperature 97.7 F Pulse Rate 70 61 Respiratory Rate 16 16 Blood Pressure 174/85 H 172/85 H Pulse Oximetry 95 96 Oxygen Delivery Method Room Air Room Air BMI result Body Mass Index 35.3 Course Course Course Narrative: Rapid medical examination performed in triage by Ninoska Carrillo PA-C: Patient is a 65 year old assigned male at presenting to the emergency department with dizziness. Detailed physical exam and review of systems are deferred to the electrical calibrator. Labs ordered. Patient placed back in the waiting room pending room availability and results. Medications Administered Discontinued Medications Generic Name Dose Route Start Last Admin Trade Name Freq PRN Reason Stop Dose Admin Meclizine HCl 25 mg 07/29/25 22:03 07/29/25 22:20 Meclizine Hcl 25 Mg Tablet PO 07/29/25 22:04 25 mg ONCE ONE Administration Medical Decision Making Medical Decision Making [facility] Narrative: Patient presents today with a chief complaint of dizziness. Differential diagnosis is extremely broad and includes posterior circulation deficits causing vestibular basilar symptoms, anemia, hypovolemia, middle or inner ear problems, intracranial abnormality such as stroke bleed or tumor, electrolyte abnormalities, cardiac arrhythmia, among many others. This patient does not have any focal neurological findings at this time. 12:27 AM 07/30/2025 (Dr. Elvi Ford D.O.) called to the bedside as patient is feeling improved and requesting discharge at this time. His workup today has been reassuring. We had an extensive discussion regarding dizziness and it turns out that he is already seeing an psych sales specialist due to inner ear problems and tinnitus. We discussed the possibility of peripheral vertigo and vestibular neuritis. He improved after meclizine saw provide him with a prescription for this for home. Encouraged follow-up as well as strict return precautions. Discharged home in stable condition. Differential Diagnosis Differential Diagnoses: The differential diagnosis associated with the presentation includes (As above) Admission/Observation Consideration of admission/observation: Escalation of care including admission/observation considered Lab Data MDM Lab Attestation statement: I reviewed the patient's lab results. 07/29/25 18:50 07/29/25 18:50 Labs: Lab Results 07/29/25 07/29/25 Range/Units 18:50 22:21 WBC 9.0 (4.8-10.8) X10*3/uL RBC 6.16 H (4.60-5.80) X10*6/uL Hgb 16.6 (14.0-18.0) g/dl Hct 51.5 (42.0-52.0) % MCV 83.6 (80.0-98.0) fL MCH 26.9 L (27.0-33.0) pg MCHC 32.2 (31.0-36.0) g/dl RDW 13.1 (11.0-16.0) % Plt Count 215 (160-400) X10*3/uL MPV 10.3 (9.4-12.4) fL Immature Gran % (Auto) 0.2 (0.0-0.4) % Neut % (Auto) 55.1 (45-73) % Lymph % (Auto) 33.3 (20-40) % [place] % (Auto) 8.6 (2-11) % Eos % (Auto) 2.1 (0-4) % Baso % (Auto) 0.7 (0-2) % Lymph # (Auto) 3.0 (1.2-4.9) X10*3/uL [place] # (Auto) 0.8 (0.1-1.2) X10*3/uL Eos # (Auto) 0.2 (0.0-0.4) X10*3/uL Baso # (Auto) 0.1 (0.0-0.2) X10*3/uL Abs Immat Gran (auto) 0.02 (0.00-0.03) X10*3/uL Absolute Neuts (auto) 5.0 (2.0-8.3) x10*3/uL Absolute Nucleated RBC 0.000 (0.0-0.012) X10*3/uL Nucleated RBC % (auto) 0.0 (0.0-0.2) /100WBC Sodium 140 (135-145) mmol/L Potassium 4.0 (3.3-5.1) mmol/L Chloride 107 (96-108) mmol/L Carbon Dioxide 25 (22-29) mmol/L Anion Gap 12 (12-20) BUN 16 (9-16) mg/dL Creatinine 0.97 (0.5-1.4) mg/dL Estim Creat Clear Calc 99.0 Estimated GFR > 60 Random Glucose 100 (60-115) mg/dL Calcium 9.9 D (8.4-10.2) mg/dL Magnesium 2.2 (1.6-2.6) mg/dL Total Bilirubin 0.5 (0.0-1.0) mg/dL AST 37 (5-37) U/L ALT 48 H (0-40) U/L Alkaline Phosphatase 91 (39-117) U/L Troponin I High Sens 2.7 (<3.5-35.0) ng/L Total Protein 7.4 (6.5-8.0) g/dL Albumin 4.4 (3.5-5.0) g/dL TSH 2.94 (0.32-4.0) uIU/mL Urine Color Yellow Urine Appearance Clear Urine pH 6.0 (5.0-9.0) Ur Specific [place] 1.020 (1.005-1.025) Urine Protein Negative (Neg-Trace) mg/dL Urine Glucose (UA) Negative (Negative) mg/dL Urine Ketones Negative (Negative) mg/dL Urine Blood Negative (Negative) Urine Nitrite Negative (Negative) Ur Leukocyte Esterase Negative (Negative) Influenza Type A (PCR) NEGATIVE (Negative) Influenza Type B (PCR) NEGATIVE (Negative) RSV RNA Qual (PCR) NEGATIVE (Negative) SARS-CoV-2 RNA (RT-PCR) NEGATIVE (Negative) Independent Interpretation I performed an independent interpretation of an: EKG and Plain X-Ray Interpretation: My independent interpretation of the chest x-ray reveals no consolidations, pulmonary edema, pleural effusion, pneumothorax, obvious bony abnormalities. My independent interpretation of the ECG reveals normal sinus rhythm with rate of 60, normal axis, normal intervals, no ST elevations or depressions to suggest ischemic changes, no previous for comparison Radiology Impression Discussion of test interpretation with radiology: I have reviewed the radiologist's reading. Independent Historian Clinical information obtained from an independent historian. History obtained from or confirmed by: Spouse and Other (Daughter) External Record Review External record reviewed: Inpatient record Prescription Management I considered prescription management with: Other (Antivert) Chronic Conditions Patient?s care impacted by: Diabetes and Hypertension Discharge Plan Discharge Clinical Impression: Vertigo, Malaise and fatigue Patient Disposition: Home, Self-Care Instructions: Dizziness (ED) Additional Instructions: Please continue to follow up with your primary care doctor and your ear nose and throat doctor. Return to the emergency department with any new or worsening symptoms including: Worsening dizziness, fevers greater than 100? associated with a headache or stiff neck, any new symptom that concerns you. Call 911 with any medical emergency. Prescriptions: New meclizine 25 mg tablet 25 mg PO TID PRN (Reason: dizziness) Qty: 30 0RF No Action rosuvastatin 10 mg tablet 10 mg PO DAILY pantoprazole 40 mg tablet,delayed release (DR/EC) 40 mg PO BID Qty: 90 1RF Rx Instructions: Take 1 tablet daily. Best taken 30-60 minutes before 1st meal of the day metoprolol succinate 50 mg tablet extended release 24 hr 50 mg PO DAILY tamsulosin [Flomax] 0.4 mg capsule 0.4 mg PO BEDTIME Qty: 90 3RF magnesium citrate 125 mg capsule 250 mg PO BEDTIME Qty: 60 6RF famotidine 40 mg tablet 40 mg PO BEDTIME acetaminophen 650 mg tablet extended release 650 mg PO TID fluticasone propionate 50 mcg/actuation spray,suspension 2 spray intranasal DAILY 30 Days Qty: 15.8 11RF olmesartan 20 mg tablet 20 mg PO DAILY Print Language: Maltese
[2025-07-29 18:59] LABS: MANUAL DIFF FLAG NO
[2025-07-29 19:00] LABS: Hematocrit 51.5 % (42.0-52.0); Hemoglobin 16.6 g/dl (14.0-18.0); Imm Gran Abs Auto 0.02 X10*3/uL (0.00-0.03); Imm Gran Pct Auto 0.2 % (0.0-0.4); Lymphocytes Absolute Auto 3.0 X10*3/uL (1.2-4.9); Mean Corpuscular HGB Conc 32.2 g/dl (31.0-36.0); Mean Corpuscular Hemoglobin 26.9 pg (27.0-33.0); Mean Corpuscular Volume 83.6 fL (80.0-98.0); NRBC Abs Auto 0.000 X10*3/uL (0.0-0.012); NRBC Pct Auto 0.0 /100WBC (0.0-0.2); Platelet Count 215 X10*3/uL (160-400); Red Blood Count 6.16 X10*6/uL (4.60-5.80); White Blood Count 9.0 X10*3/uL (4.8-10.8)
[2025-07-29 19:13] LABS: Alanine Aminotransferase 48 U/L (0-40); Albumin Level 4.4 g/dL (3.5-5.0); Alkaline Phosphatase 91 U/L (39-117); Anion Gap 12 (12-20); Aspartate Amino Transferase 37 U/L (5-37); Blood Urea Nitrogen 16 mg/dL (9-16); Calcium 9.9 mg/dL (8.4-10.2); Carbon Dioxide 25 mmol/L (22-29); Chloride 107 mmol/L (96-108); Creatinine Clr Calc Pharmacy 99.0; Estimated Glomerular Filt Rate > 60; Magnesium 2.2 mg/dL (1.6-2.6); Potassium 4.0 mmol/L (3.3-5.1); Sodium 140 mmol/L (135-145); Total Protein 7.4 g/dL (6.5-8.0)
[2025-07-29 19:35] LABS: Resp Syncy Virus RNA Qual PCR NEGATIVE (Negative); SARS COV2 PCR INHOUSE NEGATIVE (Negative)
--- OUTSIDE RECORDS SUMMARY | 2025-07-29 20:43 | XMS_ITS | Encounter Summary ---
Author Organization [employer] Address [address] [facility] 7t [place] [address] Care Team Providers Care Vending Machine Technician Name Role Phone Giselle Brock Primary Care Provider [phone] Reason for Visit * Reason Onset Date Comments Prior Authorization 07/25/2025 Encounter Details Date Type Department Care Team ([facility] st Contact Info) Description 07/25/2025 Telephone [facility] MEDICINE [address] [place] [address] Giselle Brock ANP [address] [place] [address] Prior Authorization Social History Tobacco Use Types [...] for Lidocaine 5% patches. Approval/denial pending. Valentine: [id number] documented in this encounter Plan of Treatment Upcoming Encounters Date Type Department Care Team (Late st Contact Info) Description 08/09/2025 2:15 PM EST Office Visit [facility] [address] [place] [address] Giselle Brock ANP [address] [place] [address] 08/23/2025 8:45 AM EST Office Visit [facility] ADULT DENTAL [address] [place] [address] Tory Gusman [address] [place] [address] documented as of this encounter Visit Diagnoses Not on filedocumented in this encounter Additional Health Concerns Assessment Noted Time PHQ-9 Depression Total Score: 7 09/04/20 24 2:04 PM EST documented as of this encounter Care Teams Vending Machine Technician Relationship Specialty Start Date End Date Giselle Brock ANP [address] [place] [address] PCP - General Family Medicine 06/20/23 documented as of this encounter
--- OUTSIDE RECORDS SUMMARY | 2025-07-29 20:43 | XMS_ITS | Encounter Summary ---
Author Organization [employer] Address [address] [facility] 7t [place] [address] Care Team Providers Care Hand Binder Cutter Name Role Phone Giselle Brock Primary Care Provider [phone] Reason for Visit * Reason Onset Date Comments Med Refill 10/04/2023 Encounter Details Date Type Department Care Team ([facility] st Contact Info) Description 10/04/2023 Telephone [facility] MED[facility]INE [address] [place] [address] Giselle Brock ANP [address] [place] [address] Med Refill Social History Tobacco Use Types [...] 2:18 PM EST Medication was sent to [facility] on 05/26/23 #90 with 3 refills. * Telephone Encounter - [place] - 10/04/2023 2:12 PM EST TC from pt requesting medication refill. Medications needing refill : amLODIPine (Norvasc) 10 MG tablet To be sent to: [facility] - [place], [place] - [address] [place] [address] documented in this encounter Plan of Treatment Upcoming Encounters Date Type Department Care Team (Late st Contact Info) Description 08/09/2025 2:15 PM EST Office Visit [facility] MEDICINE [address] [place] [address] Giselle Brock ANP [address] [place] [address] 08/23/2025 8:45 AM EST Office Visit [facility] ADULT DENTAL [address] [place] [address] Tory Gusman [address] [place] [address] documented as of this encounter Visit Diagnoses Not on filedocumented in this encounter Additional Health Concerns Assessment Noted Time PHQ-9 Depression Total Score: 14 024 9:56 AM EST documented as of this encounter Care Teams Hand Binder Cutter Relationship Specialty Start Date End Date Giselle Brock ANP [address] [place] [id number] PCP - General Family Medicine 06/20/23 documented as of this encounter
--- OUTSIDE RECORDS SUMMARY | 2025-07-29 20:43 | XMS_ITS | Encounter Summary ---
Author Organization [employer] Address [address] [facility] 7t [place] [address] Care Team Providers Care Paper Bag Maker Name Role Phone Giselle Brock Primary Care Provider [phone] Reason for Visit * Reason Onset Date Comments Lab Orders 12/07/2023 Encounter Details Date Type Department Care Team ([facility] st Contact Info) Description 12/07/2023 Telephone [facility] MEDICINE [address] [place] [address] Giselle Brock ANP [address] [place] [address] Lab Orders Social History Tobacco Use Types [...] Description 08/09/2025 2:15 PM EST Office Visit [facility] MEDICINE [address] [place] [address] Giselle Brock ANP [address] [place] [address] 08/23/2025 8:45 AM EST Office Visit [facility] ADULT DENTAL [address] [place] [address] Tory Gusman [address] [place] [address] documented as of this encounter Visit Diagnoses Not on filedocumented in this encounter Additional Health Concerns Assessment Noted Time PHQ-9 Depression Total Score: 15 024 11:19 AM EST documented as of this encounter Care Teams Paper Bag Maker Relationship Specialty Start Date End Date Giselle Brock ANP [address] [place] [address] PCP - General Family Medicine 06/20/23 documented as of this encounter
--- OUTSIDE RECORDS SUMMARY | 2025-07-29 20:43 | XMS_ITS | Encounter Summary ---
Author Organization [employer] Address [address] [facility] 7t [place] [address] Care Team Providers Care Automotive Electrician Helper Name Role Phone Giselle Brock Primary Care Provider [phone] Reason for Visit * Reason Comments Med Refill Encounter Details Date Type Department Care Team ([facility] st Contact Info) Description 02/01/2025 Refill [facility] MEDICINE [address] [place] [address] Giselle Brock ANP [address] [place] [address] Social History Tobacco Use Types Packs/Day Years [...] Description 08/09/2025 2:15 PM EST Office Visit [facility] MEDICINE [address] [place] [address] Giselle Brock ANP [address] [place] [address] 08/23/2025 8:45 AM EST Office Visit [facility] ADULT DENTAL [address] [place] [address] NaseemKieranTory [address] [place] [address] documented as of this encounter Visit Diagnoses Not on filedocumented in this encounter Additional Health Concerns Assessment Noted Time PHQ-9 Depression Total Score: 7 09/04/20 24 2:04 PM EST documented as of this encounter Care Teams Automotive Electrician Helper Relationship Specialty Start Date End Date Giselle Brock ANP [address] [place] [address] PCP - General Family Medicine 06/20/23 documented as of this encounter
--- OUTSIDE RECORDS SUMMARY | 2025-07-29 20:43 | XMS_ITS | Encounter Summary ---
Author Organization [employer] Address [address] [facility] 7t [place] [address] Care Team Providers Care Cake Stripper Name Role Phone Giselle Brock RAJ Primary Care Provider [phone] Reason for Visit * Reason Onset Date Comments mail appt slip 06/26/2025 Encounter Details Date Type Department Care Team ([facility] st Contact Info) Description 06/26/2025 Telephone [facility] ADULT DENTAL [address] [place] [address] Naseem, Tory [address] [place] [address] mail appt slip Social History Tobacco Use [...] Description 08/09/2025 2:15 PM EST Office Visit [facility] MEDICINE [address] [place] [address] Giselle Brock ANP [address] [place] [address] 08/23/2025 8:45 AM EST Office Visit [facility] ADULT DENTAL [address] [place] [phone] Tory Gusman [address] [place] [address] documented as of this encounter Visit Diagnoses Not on filedocumented in this encounter Additional Health Concerns Assessment Noted Time PHQ-9 Depression Total Score: 7 09/04/20 24 2:04 PM EST documented as of this encounter Care Teams Cake Stripper Relationship Specialty Start Date End Date Giselle Brock ANP [address] [place] [address] PCP - General Family Medicine 06/20/23 documented as of this encounter
--- OUTSIDE RECORDS SUMMARY | 2025-07-29 20:43 | XMS_ITS | Encounter Summary ---
Author Organization [employer] Address [address] [facility] 7t [place] [address] Care Team Providers Care Urban Sociologist Name Role Phone Giselle Brock Primary Care Provider [phone] Reason for Visit * Reason Comments Med Refill Encounter Details Date Type Department Care Team ([facility] st Contact Info) Description 04/01/2025 Refill [facility] MED[facility]INE [address] [place] [address] Giselle Brock ANP [address] [place] [address] Primary hypertension Social History Tobacco Use Types [...] [facility] [address] [place] [address] Giselle Brock ANP [address] [place] [address] 08/23/2025 8:45 AM EST Office Visit [facility] ADULT DENTAL [address] [place] [address] NaseemTory [address] [place] [address] documented as of this encounter Visit Diagnoses Diagnosis Primary hypertension Unspecified essential hypertension documented in this encounter Additional Health Concerns Assessment Noted Time PHQ-9 Depression Total Score: 7 09/04/20 24 2:04 PM EST documented as of this encounter Care Teams Urban Sociologist Relationship Specialty Start Date End Date Giselle Brock ANP [address] [place] [address] PCP - General Family Medicine 06/20/23 documented as of this encounter
--- OUTSIDE RECORDS SUMMARY | 2025-07-29 20:43 | XMS_ITS | Encounter Summary ---
Author Organization [employer] Address [address] [facility] 7t [place] [address] Care Team Providers Care Clerical Supervisor Name Role Phone Vinod Giselle ANTHONY Primary Care Provider [phone] Reason for Visit * Reason Comments Med Refill Encounter Details Date Type Department Care Team ([facility] st Contact Info) Description 04/26/2025 Refill [facility] MEDICINE [address] [place] [address] Sissy Martinez MD [address] [place] [address] Social History Tobacco Use Types Packs/Day Years [...] Description 08/09/2025 2:15 PM EST Office Visit [facility] MEDICINE [address] [place] [address] Giselle Brock ANP [address] [place] [address] 08/23/2025 8:45 AM EST Office Visit [facility] ADULT DENTAL [address] [place] [address] Naseem, Tory [address] [place] [address] documented as of this encounter Visit Diagnoses Not on filedocumented in this encounter Additional Health Concerns Assessment Noted Time PHQ-9 Depression Total Score: 7 09/04/20 24 2:04 PM EST documented as of this encounter Care Teams Clerical Supervisor Relationship Specialty Start Date End Date Giselle Brock ANP [address] [place] [id number] PCP - General Family Medicine 06/20/23 documented as of this encounter
--- OUTSIDE RECORDS SUMMARY | 2025-07-29 20:43 | XMS_ITS | Encounter Summary ---
Author Organization [employer] Address [address] [facility] [address] [place] [address] Care Team Providers Care Field Ring Assembler Name Role Phone Giselle Brock RAJ Primary Care Provider [phone] Encounter Details Date Type Department Care Team (Late st Contact Info) Description 07/29/2025 Orders Only GENERIC EXTERNAL DATA DEPARTMENT Provider, Generic External Data Social History Tobacco Use Types Packs/Day Years [...] the past 12 months, has t he [employer], gas, oil or water [employer] threatened to shut off services in your [...] Description 08/09/2025 2:15 PM EST Office Visit [facility] [address] [place] [address] Giselle Brock ANP [address] [place] [address] 08/23/2025 8:45 AM EST Office Visit [facility] [address] [place] [address] Naseem, Tory [address] [place] [address] documented as of this encounter Procedures Procedure Name Priority Date/Time Associated Diagnosis Comments SARS COV2/INFLUENZA A/B AND RSV RNA QL NAAT Routine 07/29/2025 6:50 PM EST CBC WITH AUTO DIFFERENTIAL Routine 07/29/2025 6:50 PM EST MAGNESIUM Routine 07/29/2025 6:50 PM EST COMPREHENSIVE METABOLIC PANEL Routine 07/29/2025 6:50 PM EST documented in this encounter Results * SARS-CoV-2 RNA, Influenza A/B, and RSV RNA, Ql NAAT (07/29/2025 6:50 PM EST) Influenza A PCR NEGATIVE Negative [facility] Influenza B PCR NEGATIVE Negative [facility] Resp Syncy Virus RNA Qual PCR NEGATIVE Negative [facility] SARS COV2 PCR NEGATIVE Negative [facility] Comment:All test results mus t be correlated with clinical findings.Negative results do not preclude SARS-CoV2, influenza Avirus, influenza B virus and/or RSV infectionand should not be used as the sole basis for treatment orother patient management decisions. Negative results must becombined with clinical observations, patient history, andepidemiological information.This test has not been evaluated for monitoring treatment ofinfection.This test has been authorized by the FDA under an EmergencyUse Authorization (EUA) for use by authorized laboratories.Testing performed on the [employer] GeneXpert utilizingreal-time RT-PCR.All SARS CoV2 and positive influenza A/B results arereported to [facility]. 07/29/2025 6:50 PM EST 07/29/2025 6:57 PM EST Generic External Data Provider LAB MICROBIOLOGY - GENERAL ORDERABLES Final Result Performing Organization Address [facility] Co de Phone Number [facility] [address] [place] [phone] * Magnesium (07/29/2025 6:50 PM EST) [facility] Magnesium 2.2 1.6 - 2.6 mg/dL [facility] 07/29/2025 6:50 PM EST 07/29/2025 6:57 PM EST Generic External Data Provider LAB BLOOD ORDERAB LES Final Result Performing Organization Address [facility] Co de Phone Number [facility] [address] [place] [phone] * (ABNORMAL) Comprehensive Metabolic Panel (07/29/2025 6:50 PM EST) Pathologist [facility] Sodium 140 135 - 145 mmol/L [facility] Potassium 4.0 3.3 - 5.1 mmol/L [facility] Chloride 107 96 - 108 mmol/L [facility] Carbon Dioxide 25 22 - 29 mmol/L [facility] Anion Gap 12 12 - 20 [facility] Urea Nitrogen (BUN) 16 9 - 16 mg/dL [facility] Creatinine, Serum 0.97 0.5 - 1.4 mg/dL [facility] Creatinine Clr Calc Pharmacy 99.0 [facility] Comment:eGFR (calculated fro m the MDRD study equation) and eCrCl(calculated from the Cockcroft-Gault equation) are based ondifferent parameters and may not yield comparable results.If eCrCl result is absurd, please check patient'sheight/weight. Estimated Glomerular Filt Rate >60 [facility] Comment:Chronic Kidney Disea se: Estimated GFR < 60 mL/min/1.35a2Qezixx Kidney Disease: Estimated GFR < 15 mL/min/1.73m2 Glucose 100 60 - 115 mg/dL [facility] Calcium 9.9 8.4 - 10.2 mg/dL [facility] Bilirubin, Total 0.5 0.0 - 1.0 mg/dL [facility] Aspartate Amino Transferase 37 5 - 37 U/L [facility] Alanine Aminotransferase 48(H) 0 - 40 U/L [facility] Total Protein 7.4 6.5 - 8.0 g/dL [facility] Albumin Level 4.4 3.5 - 5.0 g/dL [facility] Alkaline Phosphatase 91 39 - 117 U/L [facility] 07/29/2025 6:50 PM EST 07/29/2025 6:57 PM EST us Generic External Data Provider LAB BLOOD ORDERAB LES Final Result [facility] [address] [place] [phone] [phone] * (ABNORMAL) CBC auto differential (07/29/2025 6:50 PM EST) White Blood Count 9.0 4.8 - 10.8 X10*3/uL [facility] Red Blood Count 6.16(H) 4.60 - 5.80 X10*6/uL [facility] Hemoglobin 16.6 14.0 - 18.0 g/dl [facility] Hematocrit 51.5 42.0 - 52.0 % [facility] Mean Corpuscular Volume 83.6 80.0 - 98.0 fL [facility] Mean Corpuscular Hemoglobin 26.9(L) 27.0 - 33.0 pg [facility] Mean Corpuscular HGB Conc 32.2 31.0 - 36.0 g/dl [facility] Red Cell Distribution Width 13.1 11.0 - 16.0 % [facility] Platelet Count 215 160 - 400 X10*3/uL [facility] Mean Platelet Volume 10.3 9.4 - 12.4 fL [facility] Neutrophils Percent Auto 55.1 45 - 73 % [facility] Imm Gran Pct Auto 0.2 0.0 - 0.4 % [facility] Lymphocytes Percent Auto 33.3 20 - 40 % [facility] Monocytes Percent Auto 8.6 2 - 11 % [facility] Eosinophils Percent Auto 2.1 0 - 4 % [facility] Basophils Percent Auto 0.7 0 - 2 % [facility] NRBC Pct Auto 0.0 0.0 - 0.2 /100WBC [facility] Neutrophils Absolute Auto 5.0 2.0 - 8.3 x10*3/uL [facility] Imm Gran Abs Auto 0.02 0.00 - 0.03 X10*3/uL [facility] Lymphocytes Absolute Auto 3.0 1.2 - 4.9 X10*3/uL [facility] Monocytes Absolute Auto 0.8 0.1 - 1.2 X10*3/uL [facility] Eosinophils Absolute Auto 0.2 0.0 - 0.4 X10*3/uL [facility] Basophils Absolute Auto 0.1 0.0 - 0.2 X10*3/uL [facility] NRBC Abs Auto 0.000 0.0 - 0.012 X10*3/uL [facility] 07/29/2025 6:50 PM EST 07/29/2025 6:57 PM EST us Generic External Data Provider LAB BLOOD ORDERAB LES Final Result [facility] [address] [place] [phone] documented in this encounter Visit Diagnoses Not on filedocumented in this encounter Additional Health Concerns Assessment Noted Time PHQ-9 Depression Total Score: 7 09/04/20 24 2:04 PM EST documented as of this encounter Care Teams Field Ring Assembler Relationship Specialty Start Date End Date Giselle Brock ANP [address] [place] [address] PCP - General Family Medicine 06/20/23 documented as of this encounter
--- OUTSIDE RECORDS SUMMARY | 2025-07-29 20:43 | XMS_ITS | Encounter Summary ---
Author Organization [employer] Address [address] [facility] [address] [place] [address] Care Team Providers Care Circulating Process Inspector Name Role Phone Vinod Giselle ANTHONY Primary Care Provider [phone] Reason for Visit * Reason Comments Med Refill Encounter Details Date Type Department Care Team (Late st Contact Info) Description 05/27/2025 Refill [facility] [address] [place] [address] Sissy Martinez MD [address] [place] [address] Social History Tobacco Use Types Packs/Day Years [...] Office Visit [facility] [address] [place] [address] Giselle Brock ANP [address] [place] [address] 08/23/2025 8:45 AM EST Office Visit [facility] [address] [place] [address] Naseem, Tory [address] [place] [address] documented as of this encounter Visit Diagnoses Not on filedocumented in this encounter Additional Health Concerns Assessment Noted Time PHQ-9 Depression Total Score: 7 09/04/20 24 2:04 PM EST documented as of this encounter Care Teams Circulating Process Inspector Relationship Specialty Start Date End Date Giselle Brock ANP [address] [place] [phone] PCP - General Family Medicine 06/20/23 documented as of this encounter
--- OUTSIDE RECORDS SUMMARY | 2025-07-29 20:43 | XMS_ITS | Patient Health Record ---
Author Organization [facility] Address [address] [place] [address] Care Team Providers Care Endless Steamer Tender Name Role Phone Akilah Larose Primary Care Provider David Joshua [phone] Allergies Allergen (clinical drug ingredient) Drug/Non Drug [...] Problem History of adenomatous polyp of colon (040225365) History of adenomatous polyp of colon (Z86.010) Active confirmed Problem Epigastric pain (05769274) Abdominal pain, epigastric (R10.13) Active confirmed Problem Gastroesophageal reflux disease (539543008) Gastroesophageal reflux disease, esophagitis presence not specified (K21.9) Active confirmed Plan Of Treatment Future Test Test Name Order Date COLONOSCOPY 11/19/2014 UPPER GI ENDOSCOPY 03/09/2018 Insurance Providers Payer Name Payer Address Payer Phone Subscriber Number Group Number Insured Name Patient Relationship to Insured Coverage Start Date Coverage End Date [facility] [address] [place] [address] [id number] SAM ENNIS Self - patient is the insured MED[employer] OF [employer] [address] [place] [phone] [id number] SAM ENNIS Self - patient is the insured Medical (General) History Medical History History ICD Code Hypertension Denies [place],DM,CVA,Lung disease,renal dise ase EGD in 2003 with [...]
--- OUTSIDE RECORDS SUMMARY | 2025-07-29 20:43 | XMS_ITS | Encounter Summary ---
Author Organization [employer] Address [address] [facility] [address] [place] [address] Care Team Providers Care Mold Cooler Name Role Phone Wanda Mathew [facility] Primary Care Provider Giselle Brock Primary Care Provider [phone] Reason for Visit * Reason Onset Date Comments Triage 02/03/2023 Encounter Details Date Type Department Care Team (Late st Contact Info) Description 02/03/2023 Telephone [facility] [address] [place] [address] Pinole, Wanda, [facility] [address] [place] [address] Triage Social History Tobacco Use Types Packs/Day [...] No answer LVM to return call to [facility] triage line. Protocol Used: No Contact [...] No answer LVM to return call to [facility] triage line. Protocol Used: No Contact [...] accepted this outcome Please contact pt at [phone] [place] Speaker documented in this encounter Plan of Treatment Upcoming Encounters Date Type Department Care Team (Late st Contact Info) Description 08/09/2025 2:15 PM EST Office Visit [facility] [address] [place] [address] Giselle Brock ANP [address] [place] [address] 08/23/2025 8:45 AM EST Office Visit [facility] [address] [place] [address] Tory Gusman [address] [place] [address] documented as of this encounter Visit Diagnoses Not on filedocumented in this encounter Additional Health Concerns Assessment Noted Time PHQ-9 Depression Total Score: 19 023 1:15 PM EDT documented as of this encounter Care Teams Mold Cooler Relationship Specialty Start Date End Date Wanda Mathew FNP [address] [place] [address] PCP - General Family Medicine 03/04/22 06/19/23 Giselle Brock ANP [address] [place] [phone] PCP - General Family Medicine 06/20/23 documented as of this encounter
--- OUTSIDE RECORDS SUMMARY | 2025-07-29 20:43 | XMS_ITS | Clinical Summary ---
Author Organization [employer] Address [address] [facility] 7t [place] [address] Care Team Providers Care Pile Driving Supervisor Name Role Phone Nicolasa Fabian RAJ Primary Care Provider [phone] Allergies Active Allergy Reactions Criticality Noted Date [...] 23 Active Blood Glucose Monitoring Suppl (FreeStyle [place] Lite) w/Device kitIndications:P rediabetes Use to test [...] Chest pressure 02/11/2024 Overview (02/29/2024): Established w/ [facility] cards. 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 -alarm signs and symptoms discussed in length w pt in case needs to go to ED RYAN (generalized anxiety disorder) 10/06/2023 Panic attacks 10/06/2023 unspecified Trauma and stressor-related disorder 10/06/2023 BPH (benign prostatic hyperplasia) 10/07/2022 Overview (10/07/2022): TURP 2008 Chronic pain of right knee 10/07/2022 Overview (10/07/2022): 2020 MRI with medical meniscal tear Referred to [facility] ortho 08/2022 Prediabetes 10/07/2022 Overview (02/29/2024): 09/2022 [...] 04/27/2012 Overview (10/02/2022): Seen by GI at [facility] in ?2003 with upper endoscopy performed. Biopsy [...] (12/21/2022 11:52 AM EDT): Accepts referral to [facility] for therapy Discussed possibility of starting daily medication, patient declines at this time Denies SI or thoughts of self harm Pt provided with [facility] [...] negative, negative stress test 08/2023 followed by [facility] cardiology for hx of exercise induced chest [...] Encounters Date Type Department Care Team Description 07/29/2025 Orders Only GENERIC EXTERNAL DATA DEPARTMENT Provider, Generic External Data 07/25/2025 Telephone [facility] [address] [place] [address] Nicolasa Fabian ANP Prior Authorization 07/22/2025 Refill [facility] [address] [place] [address] Nicolasa Fabian ANP Dyslipidemia 07/11/2025 Refill [facility] [address] [place] [address] Nicolasa Fabian ANP Primary hypertension 06/26/2025 Telephone [facility] [address] [place] [address] Kieran Gusmanaris mail appt slip 06/24/2025 Refill [facility] [address] [place] [address] Nicolasa Fabian ANP Primary hypertension 06/21/2025 Orders Only GENERIC EXTERNAL DATA DEPARTMENT Provider, Generic External Data 06/17/2025 Refill [facility] [address] [place] [address] Sissy Martinez MD Gastroesophageal reflux disease, unspecified whether esophagitis present (Primary Dx) 06/10/2025 Refill [facility] [address] [place] [address] Sissy Martinez MD 05/30/2025 Telephone [facility] [address] [place] [phone] Nicolasa Fabian ANP nov recall 05/27/2025 Refill [facility] [address] [place] [address] Sissy Martinez MD 05/03/2025 Orders Only [facility] External Provider, [facility] 05/02/2025 Telephone [facility] [address] [place] [address] Nicolaas Fabian ANP Referral from Last 3 Months Immunizations Immunization Administration [...] the past 12 months, has t he [employer] gas, oil or water company threatened to [...] Description 08/09/2025 2:15 PM EST Office Visit [facility] [address] [place] [address] Nicolasa Fabian ANP [address] [place] [address] 08/23/2025 8:45 AM EST Office Visit [facility] [address] [place] [address] Tory Gusman [address] [place] [address] Health Maintenance Due Date Last Done Comments [...] Procedure Name Priority Date/Time Associated Diagnosis Comments MAGNESIUM Routine 07/29/2025 6:50 PM EST COMPREHENSIVE METABOLIC PANEL Routine 07/29/2025 6:50 PM EST CBC WITH AUTO DIFFERENTIAL Routine 07/29/2025 6:50 PM EST SARS COV2/INFLUENZA A/B AND RSV RNA QL NAAT Routine 07/29/2025 6:50 PM EST HEMATOXYLIN AND EOSIN STAIN Routine 06/21/2025 1:17 [...] Recently Relevant to Health Maintenance Results * SARS-CoV-2 RNA, Influenza A/B, and RSV RNA, Ql NAAT (07/29/2025 6:50 PM EST) Influenza A PCR NEGATIVE Negative [facility] Influenza B PCR NEGATIVE Negative [facility] Resp Syncy Virus RNA Qual PCR NEGATIVE Negative [facility] SARS COV2 PCR NEGATIVE Negative [facility] Comment:All test results mus t be [...] use by authorized laboratories.Testing performed on the [employer] GeneXpert utilizingreal-time RT-PCR.All SARS CoV2 and positive influenza A/B results arereported to [facility]. 07/29/2025 6:50 PM EST 07/29/2025 6:57 PM EST us Generic External Data Provider LAB MICROBIOLOGY - GENERAL ORDERABLES Final Result [facility] [address] [place] [phone] * (ABNORMAL) CBC auto differential (07/29/2025 6:50 PM EST) White Blood Count 9.0 4.8 - 10.8 X10*3/uL [facility] Red Blood Count 6.16(H) 4.60 - 5.80 X10*6/uL [facility] Hemoglobin 16.6 14.0 - 18.0 g/dl [facility] Hematocrit 51.5 42.0 - 52.0 % [facility] Mean Corpuscular Volume 83.6 80.0 - 98.0 fL [facility] Mean Corpuscular Hemoglobin 26.9(L) 27.0 - 33.0 pg [facility] Mean Corpuscular HGB Conc 32.2 31.0 - 36.0 g/dl [facility] Red Cell Distribution Width 13.1 11.0 - 16.0 % [facility] Platelet Count 215 160 - 400 X10*3/uL [facility] Mean Platelet Volume 10.3 9.4 - 12.4 fL [facility] Neutrophils Percent Auto 55.1 45 - 73 % [facility] Imm Gran Pct Auto 0.2 0.0 - 0.4 % [facility] Lymphocytes Percent Auto 33.3 20 - 40 % [facility] Monocytes Percent Auto 8.6 2 - 11 % [facility] Eosinophils Percent Auto 2.1 0 - 4 % [facility] Basophils Percent Auto 0.7 0 - 2 % [facility] NRBC Pct Auto 0.0 0.0 - 0.2 /100WBC [facility] Neutrophils Absolute Auto 5.0 2.0 - 8.3 x10*3/uL [facility] Imm Gran Abs Auto 0.02 0.00 - 0.03 X10*3/uL [facility] Lymphocytes Absolute Auto 3.0 1.2 - 4.9 X10*3/uL [facility] Monocytes Absolute Auto 0.8 0.1 - 1.2 X10*3/uL [facility] Eosinophils Absolute Auto 0.2 0.0 - 0.4 X10*3/uL [facility] Basophils Absolute Auto 0.1 0.0 - 0.2 X10*3/uL [facility] NRBC Abs Auto 0.000 0.0 - 0.012 X10*3/uL [facility] 07/29/2025 6:50 PM EST 07/29/2025 6:57 PM EST us Generic External Data Provider LAB BLOOD ORDERAB LES Final Result [facility] [address] [place] [phone] * Magnesium (07/29/2025 6:50 PM EST) Magnesium 2.2 1.6 - 2.6 mg/dL [facility] 07/29/2025 6:50 PM EST 07/29/2025 6:57 PM EST us Generic External Data Provider LAB BLOOD ORDERAB LES Final Result [facility] [address] [place] [phone] [phone] * (ABNORMAL) Comprehensive Metabolic Panel (07/29/2025 6:50 PM EST) Sodium 140 135 - 145 mmol/L [facility] Potassium 4.0 3.3 - 5.1 mmol/L [facility] Chloride 107 96 - 108 mmol/L [facility] Carbon Dioxide 25 22 - 29 mmol/L [facility] Anion Gap 12 12 - 20 [facility] Urea Nitrogen (BUN) 16 9 - 16 mg/dL [facility] Creatinine, Serum 0.97 0.5 - 1.4 mg/dL [facility] Creatinine Clr Calc Pharmacy 99.0 [facility] Comment:eGFR (calculated fro m the MDRD study equation) and eCrCl(calculated from the Cockcroft-Gault equation) are based ondifferent parameters and may not yield comparable results.If eCrCl result is absurd, please check patient'sheight/weight. Estimated Glomerular Filt Rate >60 [facility] Comment:Chronic Kidney Disea se: Estimated GFR < 60 mL/min/[id number] Kidney Disease: Estimated GFR < 15 mL/min/1.73m2 Glucose 100 60 - 115 mg/dL [facility] Calcium 9.9 8.4 - 10.2 mg/dL [facility] Bilirubin, Total 0.5 0.0 - 1.0 mg/dL [facility] Aspartate Amino Transferase 37 5 - 37 U/L [facility] Alanine Aminotransferase 48(H) 0 - 40 U/L [facility] Total Protein 7.4 6.5 - 8.0 g/dL [facility] Albumin Level 4.4 3.5 - 5.0 g/dL [facility] Alkaline Phosphatase 91 39 - 117 U/L [facility] 07/29/2025 6:50 PM EST 07/29/2025 6:57 PM EST us Generic External Data Provider LAB BLOOD ORDERAB LES Final Result [facility] [address] [place] [phone] * Hematoxylin and Eosin Stain (06/21/2025 1:17 PM EDT) 06/21/2025 1:17 PM EDT 06/21/2025 1:39 PM EDT Narrative [facility] - 06/25/2025 3:30 PM EDT ----- ------- Name: Keren VelizSameer shelby Age/Sex: 65/M : 1960 Unit#: [id number] Attend Dr: Sofia Gonzales MD Re06/21/25 [place] [facility] [place] Disch: ----- ------- SPEC : [id number] RECD: 06/21/25 STATUS: DEANA ARCE NUM: [id number] [place]: 06/21/[address] [facility] [address]: Sofia Gonzales MD ENTERED: 06/21/25 [...] Name: Keren VelizSameer Age/Sex: 65/M : 1960 [id number]#: [id number] Attend Dr: Sofia Gonzales MD Re06/21/25 Status: [facility] Location: [place] Disch: ----- ------- SPEC : [id number] RECD: 06/21/25 STATUS: DEANA ARCE NUM: [id number] [place]: 06/21/[address] [facility] [address]: Sofia Gonzales MD ENTERED: 06/21/25 SP TYPE: Surgical OTHR DR: NICOLASA FABIAN NP ORDERED: HE Stain/18, Gross Micro L4/6, IHC, Special st. 2/, H. pylori, AB/PAS/3 Gross Description Received in [...] microscopic examination, multiple pieces in cassette F. ([facility]) Special studies ordered and performed: Immunostain for H. pylori on B; AB/PAS stains on A, B and D IHC S/NG Disclaimer NOTE: Unless otherwise stated, all tissue is formalin-fixed and paraffin-embedded. Some or all of the immunohistochemical tests reported herein may have been developed and their performance characteristics determined by [facility]. They have not been cleared or [...] Keren VelizSameer Age/Sex: 65/M : 1960 Unit#: [id number] Attend Dr: Sofia Gonzales MD Re06/21/25 Status: [facility] Location: [place] Disch: ----- ------- SPEC : [id number] RECD: 06/21/25 STATUS: DEANA YAZMIN NUM: [id number] [place]: 06/21/[address] [facility] [address]: Sofia Gonzales MD ENTERED: 06/21/25 SP TYPE: Surgical OTHR DR: NICOLASA FABIAN NP ORDERED: HE Stain/18, Gross Micro L4/6, IHC, Special st. 2/3, H. pylori, AB/PAS/3 Copies To: NICOLASA FABIAN NP [address] [phone] Sofia Gonzales MD [facility] [address] [place] [phone] [email or web address] ----- ------- Signed (signature on file) eFliberto Bello MD 06/25/25 1530 ----- ------- END OF REPORT us Generic External Data Provider LAB BLOOD ORDERAB LES Final Result [facility] [address] [place] [phone] * POCT Creatinine GFR (05/03/2025 11:15 AM EDT) POCT Creatinine 0.8 0.5 - 1.4 mg/dL [facility] GFR POC >60 [facility] Comment:Chronic Kidney Disea se: Estimated GFR < 60 mL/min/[id number] Kidney Disease: Estimated GFR < 15 mL/min/1.73m2 05/03/2025 11:1 5 AM EDT 05/08/2025 10:37 AM EDT Narrative [facility] - 05/08/2025 10:39 AM EDT SHORT STAFFED IN CT RAD, ENTERED MANUALLY BY [id number]> [id number] Nicolasa Fabian ANP LAB POINT OF CARE TEST DOCKED DE VICE ORDERABLES Final Result [facility] [address] [place] [phone] * CT Abdomen Pelvis w/ Contrast (05/03/2025 11:08 AM EDT) Anatomical Region Laterality Modality Body, Pelvis, Abdomen Computed T omography 05/03/2025 11:0 8 AM EDT Narrative 05/03/2025 12:09 PM EDT [address] [address] [address] Scan Report Signed Patient: Sameer Duncan MR#: [id number] : 1960 Acct:[id number] Age/Sex: 65 / M ADM Date: 05/03/25 Loc: HO.CT Attending Dr: Floyr Naranjo CNP Ordering Physician: Flory Naranjo CNP Date of Service: 05/03/25 Procedure(s): CT abdomen pelvis w IV con Accession Number(s): [id number] cc: NICOLASA FABIAN SERVICE OFFICER; Flory Naranjo CNP Report Number: [id number]: Total DLP = 797.00 mGy-cm EXAMINATION: CT [...] 05/03/25 1206 DD/ 1108 TD/TT: 05/03/25 1138 Quality Assurance Calibrator: Procedure Note Donotuseinterpreter, Image - 05/03/[address] [address] [address] Scan Report Signed Patient: Nemo Duncan#: [id number] : 1Acct:[id number] Age/Sex: 65 / MADM Date: 05/03/25 Loc: HO.CT Attending Dr: Flory Naranjo FORMING MACHINE ADJUSTER Ordering Physician: Flory Naranjo CNP Date of Service: 05/03/25 Procedure(s): CT abdomen pelvis w IV con Accession Number(s): [id number] cc: NICOLASA FABIAN NP; Flory Naranjo CNP Report Number: [id number]: Total DLP = 797.00 mGy-cm EXAMINATION: CT [...] 05/03/25 1206 DD/ 1108 TD/TT: 05/03/25 1138 Quality Assurance Calibrator: [facility] External Provider IMG CT PROCEDURES Final Result * (ABNORMAL) POCT HGB A1C (09/04/2024 1:16 PM EST) Hemoglobin A1C 6.1(A) 4.0 - 6.0 % QC Media Lot # [id number] Lot# Expiration Date [id number] Blood 09/04/2024 1:16 PM EST Critical access hospital POINT OF CARE TEST ENTER/EDIT OR DERABLES Final Result * (ABNORMAL) Lipid Panel, Standard (03/01/2024 8:12 AM EDT) Triglycerides 83 <150 mg/dL [facility] Comment:Desirable Triglyceri de: less than 150 mg/dLBorderline High Triglyceride 150-199 mg/dLHigh Triglyceride: 200-499 mg/dLVery High Triglyceride: greater than or equal to 5OO mg/dL Cholesterol 171 <200 mg/dL [facility] Comment:Desirable Cholestero l: less than 200 mg/dLBorderline High Cholesterol: 200-239 mg/dLHigh Cholesterol: greater than 239 mg/dL LDL Cholesterol Calculated 119(H) <100 mg/dL [facility] Comment:Desirable LDL: less than 100 mg/dLNear Optimal/Above Optimal LDL: 110- 129 mg/dLBorderline High LDL: 130-159 mg/dLHigh LDL: 160-189 mg/dLVery High LDL: greater than or equal to 190 mg/dL HDL Cholesterol 36(L) >40 mg/dL [facility] Comment:Desirable HDL: great er than 40 mg/dL Note: This HDL assay may give artificially low results in patients with liver disease. Blood Venous blood specimen / Unknown 03/01/2024 8:12 AM EDT 03/01/2024 8:12 AM EDT Critical access hospital LAB BLOOD ORDERABLES Final Resul t Performing Organization Address City/[facility]/ZIP Co de Phone Number [facility] [address] [place] [phone] * HIV-1/2 Antigen and Antibodies, Fourth Generation, with Reflexes (09/22/2022 10:16 AM EST) [facility] HIV Antigen/Antibody, 4th Generation NON-REAC TIVE NON-REAC TIVE [employer] [facility] Comment: HIV-1 antigen and HIV-1/HIV-2 antibodies [...] purpose. For additional information please refer to http://education.[employer].Zafin/faq/QHE370 (This link is being provided for informational/ educational purposes only.) The performance of this assay has not been clinically validated in patients less than 2 years old. Blood Venous blood specimen / Unknown 09/22/2022 10:16 AM EST 09/22/2022 10:16 AM EST Narrative [facility] - 09/23/2022 7:02 PM EST FASTING:UNKNOWN FASTING: UNKNOWN [facility] LAB BLOOD ORDERABLES Final Re sult [facility] [address] [place] [address], [place] [address] [employer] [facility] [address] ([address]) [place] [address] * HEPATITIS C ANTIBODY RFLX (12/05/2019 4:00 PM EDT) HEPATITIS C ANTIBODY NONREACTIVE NONREACTIVE [facility] Comment: Antibodies to HCV not detected; does not exclude early acute HCV infection. 12/05/2019 4:00 PM EDT us Kody Warren MD HISTORICAL/NON ORDERABLE LABS Fi nal Result [facility] [address] from Last 3 Months or Most Recently Relevant to Health Maintenance Insurance [facility] < [address] [place] [id number] [facility] Care Teams Pile Driving Supervisor Relationship Specialty Start Date End Date Nicolasa Fabian ANP [address] [place] [phone] PCP - General Family Medicine 06/20/23
--- OUTSIDE RECORDS SUMMARY | 2025-07-29 20:44 | XMS_ITS | Encounter Summary ---
Author Organization [employer] Address [address] [facility] [address] [place] [address] Care Team Providers Care Labor Trainer Name Role Phone Giselle Brock Primary Care Provider [phone] Reason for Visit * Reason Comments Med Refill Encounter Details Date Type Department Care Team ([facility] st Contact Info) Description 06/24/2025 Refill [facility] [address] [place] [address] Giselle Brock ANP [address] [place] [address] Primary hypertension Social History Tobacco Use Types [...] Description 08/09/2025 2:15 PM EST Office Visit [facility] [address] [place] [address] Giselle Brock ANP [address] [place] [address] 08/23/2025 8:45 AM EST Office Visit [facility] [address] [place] [address] NaseemTory [address] [place] [address] documented as of this encounter Visit Diagnoses Diagnosis Primary hypertension Unspecified essential hypertension documented in this encounter Additional Health Concerns Assessment Noted Time PHQ-9 Depression Total Score: 7 09/04/20 24 2:04 PM EST documented as of this encounter Care Teams Labor Trainer Relationship Specialty Start Date End Date Gieslle Brock ANP [address] [place] [address] PCP - General Family Medicine 06/20/23 documented as of this encounter
--- NOTE | 2025-07-29 22:03 | ECG_ITS ---
Test Reason : DIZZINESS Blood Pressure : */* mmHG Vent. Rate : 60 BPM Atrial Rate : 60 BPM P-R Int : 166 ms QRS Dur : 98 ms QT Int : 402 ms P-R-T Axes : 68 27 45 degrees QTcB Int : 402 ms Normal sinus rhythm Normal ECG When compared with ECG of 14-Oct-2020 22:21, No significant change was found Referred By: Elvi Ford Electronically Signed By: BARB GOFF MD
[2025-07-29 22:16] VITALS: BP 172/85; PULSE 61; RESP 16; O2SAT 96
[2025-07-29 22:31] LABS: Appearance Urine Clear; Glucose Urine UA Negative (Negative); PH 6.0 (5.0-9.0); Specific Gravity - Urine 1.020 (1.005-1.025)
[2025-07-29 22:45] LABS: Troponin-I High Sensitivity 2.7 ng/L (<3.5-35.0)
[2025-07-30 00:40] VITALS: BP 127/84; PULSE 60; RESP 16; TEMP 36.6; O2SAT 96
== END 2025-07-30 00:41 | disposition home or self-care (01) ==
PROVIDERS: Physician Assistant Medical; Emergency Provider Emergency Medicine; PCP Nurse Practitioner Primary Care
DX: R42 Dizziness and giddiness (principal); R53.81 Other malaise; R53.83 Other fatigue; R51.9 Headache, unspecified; Z03.818 Encounter for observation for suspected exposure to other biological agents ruled out; R07.9 Chest pain, unspecified; I10 Essential (primary) hypertension; K21.9 Gastro-esophageal reflux disease without esophagitis; G47.33 Obstructive sleep apnea (adult) (pediatric)
CPT/HCPCS: 70450; 71046; 80053; 81003; 83735; 84443; 84484; 85025; 87637; 93005; 99284

== ENCOUNTER → 2025-07-29 21:56 | Outpatient (BNV) | payer OTHER, SELFPAY | PROVIDERS: Emergency Provider Emergency Medicine; PCP Nurse Practitioner Primary Care; Visit Provider General Practice | DX: R51.9 Headache, unspecified (principal); R42 Dizziness and giddiness; R07.9 Chest pain, unspecified | CPT/HCPCS: 70450; 71046 ==

== ENCOUNTER → 2025-07-29 22:03 | Outpatient (BNV) | payer OTHER, SELFPAY | PROVIDERS: Emergency Provider Emergency Medicine; PCP Nurse Practitioner Primary Care; Visit Provider Internal Medicine Cardiovascular Disease | DX: R42 Dizziness and giddiness (principal) | CPT/HCPCS: 93010 ==

== ENCOUNTER 2025-08-29 06:52 | Day surgery (SDC) | payer OTHER, SELFPAY ==
--- OUTSIDE RECORDS SUMMARY | 2025-07-30 07:39 | XMS_ITS | Encounter Summary ---
Author Organization [employer] Address [address] [facility] 7t [place] [address] Care Team Providers Care Apprentice Cosmetologist Name Role Phone Nicolasa Fabian RAJ Primary Care Provider Encounter Details Date Type Department Care Team [...] the past 12 months, has t he [employer], gas, oil or water [employer] threatened to shut off services in your [...] 2:15 PM EST Office Visit [facility] [address] [place] [address] Nicolasa Fabian ANP [address] [place] [address] 08/23/2025 8:45 AM EST Office Visit [facility] AD[facility] D[facility]AL [address] [place] [address] Naseem, Tory [address] [place] [address] documented as of this encounter Procedures Procedure Name Priority Date/Time Associated Diagnosis Comments CT HEAD WO CONTRAST Routine 07/29/2025 1 1:28 PM EST XR CHEST 2 VIEWS Routine 07/29/2025 11:1 7 PM EST URINALYSIS WITH REFLEX MICROSCOPIC Routine 07/29/2025 10:21 PM EST HIGH SENSITIVITY TROPONIN I Routine 07/29/2025 6:50 PM EST TSH W/REFLEX TO FT4 Routine 07/29/2025 6 :50 PM EST SARS COV2/INFLUENZA A/B AND RSV RNA QL NAAT Routine 07/29/2025 6:50 PM EST CBC WITH AUTO DIFFERENTIAL Routine 07/29/2025 6:50 PM EST MAGNESIUM Routine 07/29/2025 6:50 PM EST COMPREHENSIVE METABOLIC PANEL Routine 07/29/2025 6:50 PM EST documented in this encounter Results * CT Head w/o Contrast (07/29/2025 11:28 PM EST) Anatomical Region Laterality Modality Head, Neck Computed Tomogra phy 07/29/2025 11:2 8 PM EST Narrative 07/29/2025 11:30 PM EST [place] [address] CT Scan Report Signed Patient: Sameer Duncan MR#: [id number] : 1960 Acct:[id number] Age/Sex: 65 / M ADM Date: 07/29/25 Loc: HO.ED Attending Dr: Ordering Physician: Elvi Ford DO Date of Service: 07/29/25 Procedure(s): CT head/brain wo IV con Accession Number(s): [id number] cc: Elvi Ford DO; NICOLASA FABIAN NP Report Number: [id number]: Total DLP = 690.00 mGy-cm Reason for Exam: headaches, dizziness CLINICAL HISTORY: headaches, dizziness CT head without contrast Comparison: CT/REG/SR - CT HEAD/BRAIN WO IV CON - 10/22/22 16:53 EST Findings: No intra-axial mass, midline shift, hydrocephalus, or acute hemorrhage. No significant atrophy-like change or white matter disease. There is no sinus or mastoid fluid. The orbits are unremarkable. There is no acute fracture. IMPRESSION: 1. No acute intracranial findings. This document has been electronically signed by: Gareth Levin MD, PHD on 07/29/2025 23:28:58 Dictated By: Gareth Levin MD Signed By: <Electronically signed by Gareth Levin MD in OV> 07/29/252329 DD/ 27 TD/TT: 07/29/252327 Fondant Cooker: Procedure Note Donotuseinterpreter, Image - 07/29/[address] [address] [address] Scan Report Signed Patient: Mihaela DuncanR#: [id number] : 1960cct:[id number] Age/Sex: 65 / MADM Date: 07/29/25 Loc: HO.ED Attending Dr: Ordering Physician: Elvi Ford DO Date of Service: 07/29/25 Procedure(s): CT head/brain wo IV con Accession Number(s): [id number] cc: Elvi Ford DO; NICOLASA FABIAN NP Report Number: [id number]: Total DLP = 690.00 mGy-cm Reason for Exam: headaches, dizziness CLINICAL HISTORY: headaches, dizziness CT head without contrast Comparison: CT/REG/SR - CT HEAD/BRAIN WO IV CON - 10/22/22 16:53 EST Findings: No intra-axial mass, midline shift, hydrocephalus, or acute hemorrhage. No significant atrophy-like change or white matter disease. There is no sinus or mastoid fluid. The orbits are unremarkable. There is no acute fracture. IMPRESSION: 1. No acute intracranial findings. This document has been electronically signed by: Gareth Levin MD, PHD on 07/29/2025 23:28:58 Dictated By: Gareth Levin MD Signed By: <Electronically signed by Gareth Levin MD in OV> 07/29/252329 DD/ 27 TD/TT: 07/29/252327 Fondant Cooker: us [facility] External Provider IMG CT PROCEDURES Edited Result - Final * XR Chest 2 Views (07/29/2025 11:17 PM EST) Anatomical Region Laterality Modality Chest Radiographic Una ging 07/29/2025 11:1 7 PM EST Narrative 07/29/2025 11:19 PM EST [address] [address] XRay Report Signed Patient: Sameer Duncan MR#: [id number] : 1960 Acct:[id number] Age/Sex: 65 / M ADM Date: 07/29/25 Loc: HO.ED Attending Dr: Ordering Physician: Elvi Ford DO Date of Service: 07/29/25 Procedure(s): XR chest 2V Accession Number(s): [id number] cc: Elvi Ford DO; NICOLASA FABIAN NP Reason for Exam: chest pain CLINICAL HISTORY: chest pain 2 view chest x-ray Comparison: None provided Findings: The lungs are clear. Normal size heart. No acute fracture. IMPRESSION: 1. No acute findings. This document has been electronically signed by: Gareth Levin MD, PHD on 07/29/2025 23:17:35 Dictated By: Gareth Levin MD Signed By: <Electronically signed by Gareth Levin MD in OV> 07/29/252317 DD/ 16 TD/TT: 07/29/252316 Fondant Cooker: Procedure Note Donotuseinterpreter, Image - 07/29/[address] [address] XRay Report Signed Patient: Nemo Duncan#: [id number] : 1960cct:[id number] Age/Sex: 65 / MADM Date: 07/29/25 Loc: .ED Attending Dr: Ordering Physician: Elvi Ford DO Date of Service: 07/29/25 Procedure(s): XR chest 2V Accession Number(s): [id number] cc: Elvi Ford DO; NICOLASA FABIAN NP Reason for Exam: chest pain CLINICAL HISTORY: chest pain 2 view chest x-ray Comparison: None provided Findings: The lungs are clear. Normal size heart. No acute fracture. IMPRESSION: 1. No acute findings. This document has been electronically signed by: Gareth Levin MD, PHD on 07/29/2025 23:17:35 Dictated By: Gareth Levin MD Signed By: <Electronically signed by Gareth Levin MD in OV> 07/29/252317 DD/ 16 TD/TT: 07/29/252316 Fondant Cooker: [facility] External Provider IMG XR PROCEDURES Edited Result - Final * Urinalysis w/reflex microscopic (07/29/2025 10:21 PM EST) Color Urine Yellow [facility] Appearance Urine Clear [facility] PH 6.0 5.0 - 9.0 [facility] Glucose Urine UA Negative Negative mg/dL [facility] Urine Blood Negative Negative [facility] Specific [place] - Urine 1.020 1.005 - 1.025 [facility] Urine Protein Negative Neg-Trace mg/dL [facility] Urine Ketones Negative Negative mg/dL [facility] Nitrite Urine Negative Negative [facility] Leukocyte Esterase Urine Negative Negative [facility] 07/29/2025 10:2 1 PM EST 07/29/2025 10:25 PM EST Narrative [facility] - 07/29/2025 10:53 PM EST [id number], [employer] Generic External Data Provider LAB URINE ORDERAB LES Final Result Performing Organization Address [facility] de Phone Number [facility] [address] [place] [phone] * High Sensitivity Troponin I (07/29/2025 6:50 PM EST) TROPONIN I HIGH SENSITIVITY 2.7 <3.5 - 35.0 ng/L [facility] Comment:The Glaser high sens itivity Troponin-I results should beused in conjunction with other diagnostic information suchas ECG, clinical observations and information, and patientsymptoms to aid in the diagnosis of CT. 07/29/2025 6:50 PM EST 07/29/2025 10:28 PM EST Generic External Data Provider LAB BLOOD ORDERAB LES Final Result [facility] [address] [place] [phone] * TSH with Reflex to Free T4 (07/29/2025 6:50 PM EST) TSH reflex Free T4 2.94 0.32 - 4.0 uIU/mL [facility] 07/29/2025 6:50 PM EST 07/29/2025 6:57 PM EST us Generic External Data Provider LAB BLOOD ORDERAB LES Final Result Performing Organization Address [facility] Co de Phone Number [facility] [address] [place] [phone] * SARS-CoV-2 RNA, Influenza A/B, and RSV RNA, Ql NAAT (07/29/2025 6:50 PM EST) Pathologist [facility] Influenza A PCR NEGATIVE Negative [facility] Influenza B PCR NEGATIVE Negative [facility] Resp Syncy Virus RNA Qual PCR NEGATIVE Negative [facility] SARS COV2 PCR NEGATIVE Negative [facility] Comment:All test results mus t [...] use by authorized laboratories.Testing performed on the dotSyntax GeneXpert utilizingreal-time RT-PCR.All SARS CoV2 and positive influenza A/B results arereported to [facility]. 07/29/2025 6:50 PM EST 07/29/2025 6:57 PM EST us Generic External Data Provider LAB MICROBIOLOGY - GENERAL ORDERABLES Final Result Performing Organization Address [facility] Co de Phone Number [facility] [address] [place] [phone] * Magnesium (07/29/2025 6:50 PM EST) Magnesium 2.2 1.6 - 2.6 mg/dL [facility] 07/29/2025 6:50 PM EST 07/29/2025 6:57 PM EST us Generic External Data Provider LAB BLOOD ORDERAB LES Final Result [facility] [address] [place] [phone] [phone] * (ABNORMAL) Comprehensive Metabolic Panel (07/29/2025 6:50 PM EST) Sodium 140 135 - 145 mmol/L [facility] Potassium 4.0 3.3 - 5.1 mmol/L [facility] Chloride 107 96 - 108 mmol/L [facility] Carbon Dioxide 25 22 - 29 mmol/L [facility] Anion Gap 12 12 - 20 [facility] Urea Nitrogen (BUN) 16 9 - 16 mg/dL [facility] Creatinine, Serum 0.97 0.5 - 1.4 mg/dL [facility] Creatinine Clr Calc Pharmacy 99.0 [facility] Comment:eGFR (calculated fro m the MDRD study equation) and eCrCl(calculated from the Cockcroft-Gault equation) are based ondifferent parameters and may not yield comparable results.If eCrCl result is absurd, please check patient'sheight/weight. Estimated Glomerular Filt Rate >60 [facility] Comment:Chronic Kidney Disea se: Estimated GFR < 60 mL/min/1.95i5Ucrjci Kidney Disease: Estimated GFR < 15 mL/min/1.73m2 Glucose 100 60 - 115 mg/dL [facility] Calcium 9.9 8.4 - 10.2 mg/dL [facility] Bilirubin, Total 0.5 0.0 - 1.0 mg/dL [facility] Aspartate Amino Transferase 37 5 - 37 U/L [facility] Alanine Aminotransferase 48(H) 0 - 40 U/L [facility] Total Protein 7.4 6.5 - 8.0 g/dL [facility] Albumin Level 4.4 3.5 - 5.0 g/dL [facility] Alkaline Phosphatase 91 39 - 117 U/L [facility] 07/29/2025 6:50 PM EST 07/29/2025 6:57 PM EST us Generic External Data Provider LAB BLOOD ORDERAB LES Final Result [facility] [address] [place] [phone] * (ABNORMAL) CBC auto differential (07/29/2025 6:50 PM EST) White Blood Count 9.0 4.8 - 10.8 X10*3/uL [facility] Red Blood Count 6.16(H) 4.60 - 5.80 X10*6/uL [facility] Hemoglobin 16.6 14.0 - 18.0 g/dl [facility] Hematocrit 51.5 42.0 - 52.0 % [facility] Mean Corpuscular Volume 83.6 80.0 - 98.0 fL [facility] Mean Corpuscular Hemoglobin 26.9(L) 27.0 - 33.0 pg [facility] Mean Corpuscular HGB Conc 32.2 31.0 - 36.0 g/dl [facility] Red Cell Distribution Width 13.1 11.0 - 16.0 % [facility] Platelet Count 215 160 - 400 X10*3/uL [facility] Mean Platelet Volume 10.3 9.4 - 12.4 fL [facility] Neutrophils Percent Auto 55.1 45 - 73 % [facility] Imm Gran Pct Auto 0.2 0.0 - 0.4 % [facility] Lymphocytes Percent Auto 33.3 20 - 40 % [facility] Monocytes Percent Auto 8.6 2 - 11 % [facility] Eosinophils Percent Auto 2.1 0 - 4 % [facility] Basophils Percent Auto 0.7 0 - 2 % [facility] NRBC Pct Auto 0.0 0.0 - 0.2 /100WBC [facility] Neutrophils Absolute Auto 5.0 2.0 - 8.3 x10*3/uL [facility] Imm Gran Abs Auto 0.02 0.00 - 0.03 X10*3/uL [facility] Lymphocytes Absolute Auto 3.0 1.2 - 4.9 X10*3/uL [facility] Monocytes Absolute Auto 0.8 0.1 - 1.2 X10*3/uL [facility] Eosinophils Absolute Auto 0.2 0.0 - 0.4 X10*3/uL [facility] Basophils Absolute Auto 0.1 0.0 - 0.2 X10*3/uL [facility] NRBC Abs Auto 0.000 0.0 - 0.012 X10*3/uL [facility] 07/29/2025 6:50 PM EST 07/29/2025 6:57 PM EST us Generic External Data Provider LAB BLOOD ORDERAB LES Final Result Performing Organization Address City/State/[facility] Co de Phone Number [facility] [address] [place] [phone] documented in this encounter Visit Diagnoses Not on filedocumented in this encounter Additional Health Concerns Assessment Noted Time PHQ-9 Depression Total Score: 7 09/04/20 24 2:04 PM EST documented as of this encounter Care Teams Apprentice Cosmetologist Relationship Specialty Start Date End Date Nicolasa Fabian ANP [address] [place] [address] PCP - General Family Medicine 06/20/23 documented as of this encounter
--- OUTSIDE RECORDS SUMMARY | 2025-07-30 07:39 | XMS_ITS | Encounter Summary ---
Author Organization [employer] Address [address] [facility] 7t [place] [address] Care Team Providers Care Orthotics Assistant Name Role Phone Vinod Giselle ANTHONY Primary Care Provider Reason for Visit * Reason Comments Med Refill Encounter Details Date Type Department Care Team (Late st Contact Info) Description 05/27/2025 Refill [facility] [address] [place] [address] Sissy Martinez MD [address] [place] [address] Social History Tobacco Use Types Packs/Day Years [...] Description 08/09/2025 2:15 PM EST Office Visit [facility] [address] [place] [address] Giselle Brock ANP [address] [place] [address] 08/23/2025 8:45 AM EST Office Visit [facility] ADULT DENTAL [address] [place] [address] Naseem, Tory [address] [place] [address] documented as of this encounter Visit Diagnoses Not on filedocumented in this encounter Additional Health Concerns Assessment Noted Time PHQ-9 Depression Total Score: 7 09/04/20 24 2:04 PM EST documented as of this encounter Care Teams Orthotics Assistant Relationship Specialty Start Date End Date Giselle Brock ANP [address] [place] [phone] PCP - General Family Medicine 06/20/23 documented as of this encounter
--- OUTSIDE RECORDS SUMMARY | 2025-07-30 07:39 | XMS_ITS | Encounter Summary ---
Author Organization [employer] Address [address] [facility] 7t [place] [address] Care Team Providers Care Ccie Name Role Phone Giselle Brock Primary Care Provider [phone] Reason for Visit * Reason Comments Med Refill Encounter Details Date Type Department Care Team ([facility] st Contact Info) Description 06/24/2025 Refill [facility] [address] [place] [address] Giselle Brock ANP [address] [place] [address] Primary hypertension Social History Tobacco Use Types [...] Office Visit [facility] [address] [place] [address] Giselle Brock ANP [address] [place] [address] 08/23/2025 8:45 AM EST Office Visit [facility] ADULT DENTAL [address] [place] [address] NaseemTory [address] [place] [address] documented as of this encounter Visit Diagnoses Diagnosis Primary hypertension Unspecified essential hypertension documented in this encounter Additional Health Concerns Assessment Noted Time PHQ-9 Depression Total Score: 7 09/04/20 24 2:04 PM EST documented as of this encounter Care Teams Ccie Relationship Specialty Start Date End Date Giselle Brock ANP [address] [place] [address] PCP - General Family Medicine 06/20/23 documented as of this encounter
--- OUTSIDE RECORDS SUMMARY | 2025-07-30 07:39 | XMS_ITS | Encounter Summary ---
Author Organization [employer] Address [address] [facility] 7t [place] [address] Care Team Providers Care Stitch Marker Name Role Phone Wanda Mathew [facility] Primary Care Provider [phone] Giselle Brock Primary Care Provider [phone] Reason for Visit * Reason Onset Date Comments Triage 02/03/2023 Encounter Details Date Type Department Care Team (Late st Contact Info) Description 02/03/2023 Telephone [facility] [address] [place] [address] [place], Wanda, [facility] [address] [place] [address] Triage Social History Tobacco Use Types Packs/Day [...] No answer LVM to return call to [facility] triage line. Protocol Used: No [...] No answer LVM to return call to [facility] triage line. Protocol Used: No [...] accepted this outcome Please contact pt at [phone] Surinamese Speaker documented in this encounter Plan of Treatment Upcoming Encounters Date Type Department Care Team (Late st Contact Info) Description 08/09/2025 2:15 PM EST Office Visit [facility] MED[facility] [address] [place] [address] Giselle Brock ANP [address] [place] [address] 08/23/2025 8:45 AM EST Office Visit [facility] ADULT DENTAL [address] [place] [address] Tory Gusman [address] [place] [address] documented as of this encounter Visit Diagnoses Not on filedocumented in this encounter Additional Health Concerns Assessment Noted Time PHQ-9 Depression Total Score: 19 023 1:15 PM EDT documented as of this encounter Care Teams Stitch Marker Relationship Specialty Start Date End Date Wanda Mathew FNP [address] [place] [address] PCP - General Family Medicine 03/04/22 06/19/23 Giselle Brock ANP [address] [place] [address] PCP - General Family Medicine 06/20/23 documented as of this encounter
--- OUTSIDE RECORDS SUMMARY | 2025-07-30 07:39 | XMS_ITS | Patient Health Record ---
Author Organization [facility] Address [address] [place] [address] Care Team Providers Care Warehouse Stock Clerk Name Role Phone Akilah Larose Primary Care Provider David Joshua [phone] Allergies Allergen (clinical drug ingredient) Drug/Non Drug [...] Problem History of adenomatous polyp of colon (668848248) History of adenomatous polyp of colon (Z86.010) Active confirmed Problem Epigastric pain (19669176) Abdominal pain, epigastric (R10.13) Active confirmed Problem Gastroesophageal reflux disease (613936677) Gastroesophageal reflux disease, esophagitis presence not specified (K21.9) Active confirmed Plan Of Treatment Future Test Test Name Order Date COLONOSCOPY 11/19/2014 UPPER GI ENDOSCOPY 03/09/2018 Insurance Providers Payer Name Payer Address Payer Phone Subscriber Number Group Number Insured Name Patient Relationship to Insured Coverage Start Date Coverage End Date [facility] [address] [place] [address] [id number] SAM ENNIS Self - patient is the insured MED[employer] OF [employer] [address] [place] [id number] SAM ENNIS Self - patient is the [...]
--- OUTSIDE RECORDS SUMMARY | 2025-07-30 07:39 | XMS_ITS | Encounter Summary ---
Author Organization [employer] Address [address] [facility] 7t [place] [address] Care Team Providers Care Marketing Production Manager Name Role Phone Giselle Brock Primary Care Provider [phone] Reason for Visit * Reason Comments Med Refill Encounter Details Date Type Department Care Team ([facility] st Contact Info) Description 02/01/2025 Refill [facility] [address] [place] [address] Giselle Brock ANP [address] [place] [address] Social History Tobacco Use Types Packs/Day Years [...] Description 08/09/2025 2:15 PM EST Office Visit [facility] [address] [place] [address] Giselle Brock ANP [address] [place] [address] 08/23/2025 8:45 AM EST Office Visit [facility] ADULT D[facility] [address] [place] [address] NaseemKieranTory [address] [place] [address] documented as of this encounter Visit Diagnoses Not on filedocumented in this encounter Additional Health Concerns Assessment Noted Time PHQ-9 Depression Total Score: 7 09/04/20 24 2:04 PM EST documented as of this encounter Care Teams Marketing Production Manager Relationship Specialty Start Date End Date Giselle Brock ANP [address] [place] [address] PCP - General Family Medicine 06/20/23 documented as of this encounter
--- OUTSIDE RECORDS SUMMARY | 2025-07-30 07:39 | XMS_ITS | Encounter Summary ---
Author Organization [facility] Address [address] [facility] 7t [place] [address] Care Team Providers Care Mold Stripper Name Role Phone Giselle Brock Primary Care Provider [phone] Reason for Visit * Reason Onset Date Comments Med Refill 10/04/2023 Encounter Details Date Type Department Care Team ([facility] st Contact Info) Description 10/04/2023 Telephone [facility] [address] [place] [address] Giselle Brock ANP [address] [place] [address] Med Refill Social History Tobacco Use Types [...] 2:18 PM EST Medication was sent to [facility] on 05/26/23 #90 with 3 refills. * Telephone Encounter - [place] - 10/04/2023 2:12 PM EST TC from pt requesting medication refill. Medications needing refill : amLODIPine (Norvasc) 10 MG tablet To be sent to: [facility] [place], [place] - [address] [place] [address] documented in this encounter Plan of Treatment Upcoming Encounters Date Type Department Care Team (Late st Contact Info) Description 08/09/2025 2:15 PM EST Office Visit [facility] [address] [place] [address] Giselle Brock ANP [address] [place] [address] 08/23/2025 8:45 AM EST Office Visit [facility] ADULT DENTAL [address] [place] [address] Tory Gusman [address] [place] [address] documented as of this encounter Visit Diagnoses Not on filedocumented in this encounter Additional Health Concerns Assessment Noted Time PHQ-9 Depression Total Score: 14 024 9:56 AM EST documented as of this encounter Care Teams Mold Stripper Relationship Specialty Start Date End Date Giselle Brock ANP [address] [place] [phone] PCP - General Family Medicine 06/20/23 documented as of this encounter
--- OUTSIDE RECORDS SUMMARY | 2025-07-30 07:39 | XMS_ITS | Encounter Summary ---
Author Organization [employer] Address [address] [facility] 7t [place] [address] Care Team Providers Care Analytical Research Program Manager Name Role Phone Giselle Brock Primary Care Provider [phone] Reason for Visit * Reason Onset Date Comments Lab Orders 12/07/2023 Encounter Details Date Type Department Care Team ([facility] st Contact Info) Description 12/07/2023 Telephone [facility] [address] [place] [address] Giselle Brock ANP [address] [place] [address] Lab Orders Social History Tobacco Use Types [...] Description 08/09/2025 2:15 PM EST Office Visit [facility] [address] [place] [address] Giselle Brock ANP [address] [place] [address] 08/23/2025 8:45 AM EST Office Visit [facility] [address] [place] [address] Tory Gusman [address] [place] [address] documented as of this encounter Visit Diagnoses Not on filedocumented in this encounter Additional Health Concerns Assessment Noted Time PHQ-9 Depression Total Score: 15 024 11:19 AM EST documented as of this encounter Care Teams Analytical Research Program Manager Relationship Specialty Start Date End Date Giselle Brock ANP [address] [place] [address] PCP - General Family Medicine 06/20/23 documented as of this encounter
--- OUTSIDE RECORDS SUMMARY | 2025-07-30 07:39 | XMS_ITS | Encounter Summary ---
Author Organization [email or web address] Address [address] [facility] 7t [place] [address] Care Team Providers Care Non Food Receiving Clerk Name Role Phone Giselle Brock Primary Care Provider [phone] Reason for Visit * Reason Comments Med Refill Encounter Details Date Type Department Care Team ([facility] st Contact Info) Description 04/01/2025 Refill [facility] [address] [place] [address] Giselle Brock ANP [address] [place] [address] Primary hypertension Social History Tobacco Use Types [...] Description 08/09/2025 2:15 PM EST Office Visit [facility] [address] [place] [address] Giselle Brock ANP [address] [place] [address] 08/23/2025 8:45 AM EST Office Visit [facility] [address] [place] [address] NaseemTory [address] [place] [address] documented as of this encounter Visit Diagnoses Diagnosis Primary hypertension Unspecified essential hypertension documented in this encounter Additional Health Concerns Assessment Noted Time PHQ-9 Depression Total Score: 7 09/04/20 24 2:04 PM EST documented as of this encounter Care Teams Non Food Receiving Clerk Relationship Specialty Start Date End Date Giselle Brock ANP [address] [place] [address] PCP - General Family Medicine 06/20/23 documented as of this encounter
--- OUTSIDE RECORDS SUMMARY | 2025-07-30 07:39 | XMS_ITS | Encounter Summary ---
Author Organization [employer] Address [address] [facility] 7t [place] [address] Care Team Providers Care Keypuncher Name Role Phone Giselle Brock Primary Care Provider [phone] Reason for Visit * Reason Onset Date Comments Prior Authorization 07/25/2025 Encounter Details Date Type Department Care Team ([facility] st Contact Info) Description 07/25/2025 Telephone [facility] [address] [place] [address] Giselle Brock ANP [address] [place] [address] Prior Authorization Social History Tobacco Use Types [...] for Lidocaine 5% patches. Approval/denial pending. Valentine: [id number] documented in this encounter Plan of Treatment Upcoming Encounters Date Type Department Care Team (Late st Contact Info) Description 08/09/2025 2:15 PM EST Office Visit [facility] [address] [place] [address] Giselle Brock ANP [address] [place] [address] 08/23/2025 8:45 AM EST Office Visit [facility] ADULT D[facility] [address] [place] [address] Tory Gusman [address] [place] [address] documented as of this encounter Visit Diagnoses Not on filedocumented in this encounter Additional Health Concerns Assessment Noted Time PHQ-9 Depression Total Score: 7 09/04/20 24 2:04 PM EST documented as of this encounter Care Teams Keypuncher Relationship Specialty Start Date End Date Giselle Brock ANP [address] [place] [address] PCP - General Family Medicine 06/20/23 documented as of this encounter
--- OUTSIDE RECORDS SUMMARY | 2025-07-30 07:39 | XMS_ITS | Encounter Summary ---
Author Organization [employer] Address [address] [facility] 7t [place] [address] Care Team Providers Care Teasel Gig Operator Name Role Phone Vinod Giselle ANTHONY Primary Care Provider [phone] Reason for Visit * Reason Comments Med Refill Encounter Details Date Type Department Care Team ([facility] st Contact Info) Description 04/26/2025 Refill [facility] [address] [place] [address] Sissy Martinez MD [address] [place] [address] Social History Tobacco Use Types Packs/Day Years [...] 08/09/2025 2:15 PM EST Office Visit [facility] [address] [place] [address] iGselle Brock ANP [address] [place] [address] 08/23/2025 8:45 AM EST Office Visit [facility] ADULT DENT[facility] [address] [place] [address] Naseem, Tory [address] [place] [address] documented as of this encounter Visit Diagnoses Not on filedocumented in this encounter Additional Health Concerns Assessment Noted Time PHQ-9 Depression Total Score: 7 09/04/20 24 2:04 PM EST documented as of this encounter Care Teams Teasel Gig Operator Relationship Specialty Start Date End Date Giselle Brock ANP [address] [place] [id number] PCP - General Family Medicine 06/20/23 documented as of this encounter
--- OUTSIDE RECORDS SUMMARY | 2025-07-30 07:39 | XMS_ITS | Clinical Summary ---
Author Organization [employer] Address [address] [facility] 7[address] [place] [address] Care Team Providers Care Grinder Brake Lining Name Role Phone Nicolasa Fabian RAJ Primary Care Provider [phone] Allergies Active Allergy Reactions Criticality Noted Date [...] 23 Active Blood Glucose Monitoring Suppl (FreeStyle Randolph Lite) w/Device kitIndications:P rediabetes Use to test blood sugar once daily before breakfast and more as needed 1 kit 02/29/20 24 Active olmesartan (Benicar) 20 MG tabletIndication s:Primary hypertension Take 1 tablet (20 mg) by mouth Once per day. 90 tablet 3 12/15/19 25 026 Active omeprazole (PriLOSEC) [address] Vinod ns:Gastroesophag eal reflux disease, unspecified whether esophagitis [...] Chest pressure 02/11/2024 Overview (02/29/2024): Established w/ [facility] [place]. Negative stress test 08/2023 and normal [...] aneurysm --advised pt to discuss w his travel information center supervisor at upcoming apt -alarm signs and symptoms discussed in length w pt in case needs to go to ED RYAN (generalized anxiety disorder) 10/06/2023 Panic attacks 10/06/2023 unspecified Trauma and stressor-related disorder 10/06/2023 BPH (benign prostatic hyperplasia) 10/07/2022 Overview (10/07/2022): TURP 2008 Chronic pain of right knee 10/07/2022 Overview (10/07/2022): 2020 MRI with medical meniscal tear Referred to [facility] ortho 08/2022 Prediabetes 10/07/2022 Overview (02/29/2024): 09/2022 [...] 04/27/2012 Overview (10/02/2022): Seen by GI at [facility] in ?2003 with upper endoscopy performed. [...] (12/21/2022 11:52 AM EDT): Accepts referral to [facility] for therapy Discussed possibility of starting daily medication, patient declines at this time Denies SI or thoughts of self harm Pt provided with [facility] contact information for same day care [...] negative, negative stress test 08/2023 followed by [facility] cardiology for hx of exercise induced chest [...] DEPARTMENT Provider, Generic External Data 07/25/2025 Telephone [facility] [address] [place] [address] Nicolasa Fabian ANP Prior Authorization 07/22/2025 Refill [facility] [address] [place] [address] Nicolasa Fabian ANP Dyslipidemia 07/11/2025 Refill [facility] [address] [place] [address] Nicolasa Fabian ANP Primary hypertension 06/26/2025 Telephone [facility] [address] [place] [address] Kieran Gusmanaris mail appt slip 06/24/2025 Refill [facility] [address] [place] [address] Nicolasa Fabian ANP Primary hypertension 06/21/2025 Orders Only GENERIC EXTERNAL DATA DEPARTMENT Provider, Generic External Data 06/17/2025 Refill [facility] [address] [place] [address] Sissy Martinez MD Gastroesophageal reflux disease, unspecified whether esophagitis present (Primary Dx) 06/10/2025 Refill [facility] [address] [place] [address] Sissy Martinez MD 05/30/2025 Telephone [facility] [address] [place] [phone] Nicolasa Fabian ANP nov recall 05/27/2025 Refill [facility] [address] [place] [address] Sissy Martinez MD 05/03/2025 Orders Only [facility] External Provider, [facility] 05/02/2025 Telephone [facility] [address] [place] [address] Nicolasa Fabian ANP Referral from Last 3 Months [...] the past 12 months, has t he [employer], gas, oil or water company threatened to [...] Description 08/09/2025 2:15 PM EST Office Visit [facility] [address] [place] [address] Nicolasa Fabian ANP [address] [place] [address] 08/23/2025 8:45 AM EST Office Visit [facility] [address] [place] [address] Tory Gusman [address] [place] [address] Health Maintenance Due Date Last Done Comments [...] FT4 Routine 07/29/2025 6 :50 PM EST MAGNESIUM Routine 07/29/2025 6:50 PM [...] Recently Relevant to Health Maintenance Results * CT Head w/o Contrast (07/29/2025 11:28 PM EST) Anatomical Region Laterality Modality Head, Neck Computed Tomogra phy 07/29/2025 11:2 8 PM EST Narrative 07/29/2025 11:30 PM EST [address] [address] [address] Scan Report Signed Patient: Sameer Duncan MR#: [id number] : 1960 Acct:[id number] Age/Sex: 65 / M ADM Date: 07/29/25 Loc: .ED Attending Dr: Ordering Physician: Elvi Ford DO Date of Service: 07/29/25 Procedure(s): CT head/brain wo IV con Accession Number(s): [id number] cc: Elvi Ford DO; NICOLASA FABIAN NP Report Number: [id number]: Total DLP = 690.00 mGy-cm Reason for [...] in OV> 07/29/252329 DD/ 27 TD/TT: 07/29/252327 Biofuels Production Technician: Procedure Note Donotuseinterpreter, Image - 07/29/[address] [address] [address] Scan Report Signed Patient: Mihaela DuncanR#: [id number] : 1960cct:[id number] Age/Sex: 65 / MADM Date: 07/29/25 Loc: HO.ED Attending Dr: Ordering Physician: Elvi Ford DO Date of Service: 07/29/25 Procedure(s): CT head/brain wo IV con Accession Number(s): [id number] cc: Elvi Ford DO; NICOLASA FABIAN NP Report Number: [id number]: Total DLP = 690.00 mGy-cm Reason for [...] in OV> 07/29/252329 DD/ 27 TD/TT: 07/29/252327 Biofuels Production Technician: us [facility] External Provider IMG CT PROCEDURES Edited Result - Final * XR Chest 2 Views (07/29/2025 11:17 PM EST) Anatomical Region Laterality Modality Chest Radiographic Una ging 07/29/2025 11:1 7 PM EST Narrative 07/29/2025 11:19 PM EST [address] [address] XRay Report Signed Patient: Sameer Duncan MR#: [id number] : 1960 Acct:[id number] Age/Sex: 65 / M ADM Date: 07/29/25 Loc: HO.ED Attending Dr: Ordering Physician: Elvi Ford DO Date of Service: 07/29/25 Procedure(s): XR chest 2V Accession Number(s): [id number] cc: Elvi Ford DO; NICOLASA FABIAN GAME MASTER Reason for Exam: chest pain CLINICAL HISTORY: [...] in OV> 07/29/252317 DD/ 16 TD/TT: 07/29/252316 Biofuels Production Technician: Procedure Note Donotuseinterpreter, Image - 07/29/[address] [address] XRay Report Signed Patient: Nemo Duncan#: [id number] : 1960cct:[id number] Age/Sex: 65 / MADM Date: 07/29/25 Loc: .ED Attending Dr: Ordering Physician: Elvi Ford DO Date of Service: 07/29/25 Procedure(s): XR chest 2V Accession Number(s): [id number] cc: Elvi Ford DO; NICOLASA FABIAN NP [...] in OV> 07/29/252317 DD/ 16 TD/TT: 07/29/252316 Biofuels Production Technician: [facility] External Provider IMG XR PROCEDURES Edited Result - Final * Urinalysis w/reflex microscopic (07/29/2025 10:21 PM EST) Color Urine Yellow [facility] Appearance Urine Clear [facility] PH 6.0 5.0 - 9.0 [facility] Glucose Urine UA Negative Negative mg/dL [facility] Urine Blood Negative Negative [facility] Specific [place] - Urine 1.020 1.005 - 1.025 [facility] Urine Protein Negative Neg-Trace mg/dL [facility] Urine Ketones Negative Negative mg/dL [facility] Nitrite Urine Negative Negative [facility] Leukocyte Esterase Urine Negative Negative [facility] 07/29/2025 10:2 1 PM EST 07/29/2025 10:25 PM EST Narrative [facility] - 07/29/2025 10:53 PM EST [id number], Clean Catch Generic External Data Provider LAB URINE ORDERAB LES Final Result Performing Organization Address [facility] Co de Phone Number [facility] [address] [place] [phone] * High Sensitivity Troponin I (07/29/2025 6:50 PM EST) TROPONIN I HIGH SENSITIVITY 2.7 <3.5 - 35.0 ng/L [facility] Comment:The Glaser high sens itivity Troponin-I results should beused in conjunction with other diagnostic information suchas ECG, clinical observations and information, and patientsymptoms to aid in the diagnosis of VA. 07/29/2025 6:50 PM EST 07/29/2025 10:28 PM EST Generic External Data Provider LAB BLOOD ORDERAB LES Final Result Performing Organization Address [facility] Co de Phone Number [facility] [address] [place] [phone] * TSH with Reflex to Free T4 (07/29/2025 6:50 PM EST) TSH reflex Free T4 2.94 0.32 - 4.0 uIU/mL [facility] 07/29/2025 6:50 PM EST 07/29/2025 6:57 PM EST Generic External Data Provider LAB BLOOD ORDERAB LES Final Result Performing Organization Address [facility]/ZIP Co de Phone Number [facility] [address] [place] [phone] * SARS-CoV-2 RNA, Influenza A/B, and RSV RNA, Ql NAAT (07/29/2025 6:50 PM EST) Influenza A PCR NEGATIVE Negative [facility] Influenza B PCR NEGATIVE Negative [facility] Resp Syncy Virus RNA Qual PCR NEGATIVE Negative [facility] SARS COV2 PCR NEGATIVE Negative [facility] Comment:All test results mus t [...] use by authorized laboratories.Testing performed on the [employer] GeneXpert utilizingreal-time RT-PCR.All SARS CoV2 and positive influenza A/B results arereported to [facility]. 07/29/2025 6:50 PM EST 07/29/2025 6:57 PM EST Generic External Data Provider LAB MICROBIOLOGY - GENERAL ORDERABLES Final Result Performing Organization Address City/[facility]/ZIP Co de Phone Number [facility] [address] [place] [phone] * (ABNORMAL) CBC auto differential (07/29/2025 6:50 PM EST) White Blood Count 9.0 4.8 - 10.8 X10*3/uL [facility] Red Blood Count 6.16(H) 4.60 - 5.80 X10*6/uL [facility] Hemoglobin 16.6 14.0 - 18.0 g/dl [facility] Hematocrit 51.5 42.0 - 52.0 % [facility] Mean Corpuscular Volume 83.6 80.0 - 98.0 fL [facility] Mean Corpuscular Hemoglobin 26.9(L) 27.0 - 33.0 pg [facility] Mean Corpuscular HGB Conc 32.2 31.0 - 36.0 g/dl [facility] Red Cell Distribution Width 13.1 11.0 - 16.0 % [facility] Platelet Count 215 160 - 400 X10*3/uL [facility] Mean Platelet Volume 10.3 9.4 - 12.4 fL [facility] Neutrophils Percent Auto 55.1 45 - 73 % [facility] Imm Gran Pct Auto 0.2 0.0 - 0.4 % [facility] Lymphocytes Percent Auto 33.3 20 - 40 % [facility] Monocytes Percent Auto 8.6 2 - 11 % [facility] Eosinophils Percent Auto 2.1 0 - 4 % [facility] Basophils Percent Auto 0.7 0 - 2 % [facility] NRBC Pct Auto 0.0 0.0 - 0.2 /100WBC [facility] Neutrophils Absolute Auto 5.0 2.0 - 8.3 x10*3/uL [facility] Imm Gran Abs Auto 0.02 0.00 - 0.03 X10*3/uL [facility] Lymphocytes Absolute Auto 3.0 1.2 - 4.9 X10*3/uL [facility] Monocytes Absolute Auto 0.8 0.1 - 1.2 X10*3/uL [facility] Eosinophils Absolute Auto 0.2 0.0 - 0.4 X10*3/uL [facility] Basophils Absolute Auto 0.1 0.0 - 0.2 X10*3/uL [facility] NRBC Abs Auto 0.000 0.0 - 0.012 X10*3/uL [facility] 07/29/2025 6:50 PM EST 07/29/2025 6:57 PM EST Generic External Data Provider LAB BLOOD ORDERAB LES Final Result Performing Organization Address City/[facility]/ZIP Co de Phone Number [facility] [address] [place] [phone] * Magnesium (07/29/2025 6:50 PM EST) [facility] Magnesium 2.2 1.6 - 2.6 mg/dL [facility] 07/29/2025 6:50 PM EST 07/29/2025 6:57 PM EST [employer] External Data Provider LAB BLOOD ORDERAB LES Final Result Performing Organization Address [facility] de Phone Number [facility] [address] [place] [phone] * (ABNORMAL) Comprehensive Metabolic Panel (07/29/2025 6:50 PM EST) Pathologist [facility] Sodium 140 135 - 145 mmol/L [facility] Potassium 4.0 3.3 - 5.1 mmol/L [facility] Chloride 107 96 - 108 mmol/L [facility] Carbon Dioxide 25 22 - 29 mmol/L [facility] Anion Gap 12 12 - 20 [facility] Urea Nitrogen (BUN) 16 9 - 16 mg/dL [facility] Creatinine, Serum 0.97 0.5 - 1.4 mg/dL [facility] Creatinine Clr Calc Pharmacy 99.0 [facility] Comment:eGFR (calculated fro m the MDRD study equation) and eCrCl(calculated from the Cockcroft-Gault equation) are based ondifferent parameters and may not yield comparable results.If eCrCl result is absurd, please check patient'sheight/weight. Estimated Glomerular Filt Rate >60 [facility] Comment:Chronic Kidney Disea se: Estimated GFR < 60 mL/min/1.78k0Stiwhs Kidney Disease: Estimated GFR < 15 mL/min/1.73m2 Glucose 100 60 - 115 mg/dL [facility] Calcium 9.9 8.4 - 10.2 mg/dL [facility] Bilirubin, Total 0.5 0.0 - 1.0 mg/dL [facility] Aspartate Amino Transferase 37 5 - 37 U/L [facility] Alanine Aminotransferase 48(H) 0 - 40 U/L [facility] Total Protein 7.4 6.5 - 8.0 g/dL [facility] Albumin Level 4.4 3.5 - 5.0 g/dL [facility] Alkaline Phosphatase 91 39 - 117 U/L [facility] 07/29/2025 6:50 PM EST 07/29/2025 6:57 PM EST us Generic External Data Provider LAB BLOOD ORDERAB LES Final Result [facility] [address] [place] [phone] * Hematoxylin and Eosin Stain (06/21/2025 1:17 PM EDT) 06/21/2025 1:17 PM EDT 06/21/2025 1:39 PM EDT Narrative [facility] - 06/25/2025 3:30 PM EDT ----- ------- Name: Sameer Duncan Age/Sex: 65/M : 1960 [id number] Unit#: [id number] Attend Dr: Sofia Gonzales MD Re06/21/25 Status: [facility] Location: [facility] Disch: ----- ------- SPEC : [id number] RECD: 06/21/25 STATUS: MAXDahiana ARCE NUM: [id number] [place]: 06/21/[address] [facility] [address]: Sofia Gonzales MD ENTERED: 06/21/25 [...] Sameer Duncan Age/Sex: 65/M : 1960 Unit#: [id number] Attend Dr: Sofia Gonzales MD Re06/21/25 Status: [facility] Location: [facility] Disch: ----- ------- SPEC : [id number] RECD: 06/21/25 STATUS: DEANA NICOLENabor NUM: [id number] [place]: 06/21/[address] [facility] [address]: Sofia Gonzales MD ENTERED: 06/21/255856 SP TYPE: Surgical OTHR DR: NICOLASA FABIAN [...] microscopic examination, multiple pieces in cassette F. ([facility]) Special studies ordered and performed: Immunostain for H. pylori on B; AB/PAS stains on A, B and D IHC S/NG Disclaimer NOTE: Unless otherwise stated, all tissue is formalin-fixed and paraffin-embedded. Some or all of the immunohistochemical tests reported herein may have been developed and their performance characteristics determined by [facility]. They have not been cleared [...] Name: Sameer Duncan Age/Sex: 65/M : 1960 [facility] [id number] Unit#: [id number] Attend Dr: Sofia Gonzales MD Re06/21/25 Status: [facility]RELLA [facility] Location: [facility] Disch: ----- ------- SPEC : [id number] RECD: 06/21/25 STATUS: DEANA ARCE NUM: [id number] [place]: 06/21/[address] [facility] [address]: Sofia Gonzales MD ENTERED: 06/21/25 SP TYPE: Surgical OTHR DR: NICOLASA FABIAN NP ORDERED: HE Stain/18, Gross Micro L4/6, IHC, Special st. 2/3, H. pylori, AB/PAS/3 Copies To: NICOLASA FABIAN NP [address] [address] Sofia Gonzales MD [facility] [address] [place] [phone] [email or web address] ----- ------- Signed (signature on file) Feliberto Bello MD 06/25/25 1530 ----- ------- END OF REPORT Generic External Data Provider LAB BLOOD ORDERAB LES Final Result Performing Organization Address [facility]/ZIP Co de Phone Number [facility] [address] [place] [phone] * POCT Creatinine GFR (05/03/2025 11:15 AM EDT) POCT Creatinine 0.8 0.5 - 1.4 mg/dL [facility] GFR POC >60 [facility] Comment:Chronic Kidney Disea se: Estimated GFR < 60 mL/min/1.53m7Miaagv Kidney Disease: Estimated GFR < 15 mL/min/1.73m2 05/03/2025 11:1 5 AM EDT 05/08/2025 10:37 AM EDT Narrative [facility] - 05/08/2025 10:39 AM EDT SHORT STAFFED IN CT RAD, ENTERED MANUALLY BY [id number]> [id number] [facility] Fabian [facility] LAB POINT OF CARE TEST DOCKED DE VICE ORDERABLES Final Result Performing Organization Address [facility] Co de Phone Number [facility] [address] [place] [phone] * CT Abdomen Pelvis w/ Contrast (05/03/2025 11:08 AM EDT) Anatomical Region Laterality Modality Body, Pelvis, Abdomen Computed T omography 05/03/2025 11:0 8 AM EDT Narrative 05/03/2025 12:09 PM EDT [address] [address] [address] Scan Report Signed Patient: Sameer Duncan MR#: [id number] : 1960 Acct:[id number] Age/Sex: 65 / M ADM Date: 05/03/25 Loc: HO.CT Attending Dr: Flory Naranjo GRAVURE PRINTING MACHINIST Ordering Physician: Flory Naranjo CNP Date of Service: 05/03/25 Procedure(s): CT abdomen pelvis w IV con Accession Number(s): [id number] cc: NICOLASA FABIAN NP; Flory Naranjo CNP Report Number: [id number]: Total DLP = 797.00 mGy-cm EXAMINATION: CT [...] 05/03/25 1206 DD/ 1108 TD/TT: 05/03/25 1138 Biofuels Production Technician: Procedure Note Donotuseinterpreter, Image - 05/03/[address] [place] [address] [address] Scan Report Signed Patient: Nemo Duncan#: [id number] : 1960cct:[id number] Age/Sex: 65 / MADM Date: 05/03/25 Loc: HO.CT Attending Dr: Flory Naranjo CNP Ordering Physician: Flory Naranjo CNP Date of Service: 05/03/25 Procedure(s): CT abdomen pelvis w IV con Accession Number(s): [id number] cc: NICOLASA FABIAN GAME MASTER; Flory Naranjo CNP Report Number: [id number]: Total DLP = 797.00 mGy-cm EXAMINATION: CT [...] 05/03/25 1206 DD/ 1108 TD/TT: 05/03/25 1138 Biofuels Production Technician: [facility] External Provider IMG CT PROCEDURES Final Result * (ABNORMAL) POCT HGB A1C (09/04/2024 1:16 PM EST) Hemoglobin A1C 6.1(A) 4.0 - 6.0 % QC Media Lot # [id number] Lot# Expiration Date [id number] Blood 09/04/2024 1:16 PM EST us Nicolasa Fabian [facility] POINT OF CARE TEST ENTER/EDIT OR DERABLES Final Result * (ABNORMAL) Lipid Panel, Standard (03/01/2024 8:12 AM EDT) Triglycerides 83 <150 mg/dL [facility] Comment:Desirable Triglyceri de: less than 150 mg/dLBorderline High Triglyceride 150-199 mg/dLHigh Triglyceride: 200-499 mg/dLVery High Triglyceride: greater than or equal to 5OO mg/dL Cholesterol 171 <200 mg/dL [facility] Comment:Desirable Cholestero l: less than 200 mg/dLBorderline High Cholesterol: 200-239 mg/dLHigh Cholesterol: greater than 239 mg/dL LDL Cholesterol Calculated 119(H) <100 mg/dL [facility] Comment:Desirable LDL: less than 100 mg/dLNear Optimal/Above Optimal LDL: 110- 129 mg/dLBorderline High LDL: 130-159 mg/dLHigh LDL: 160-189 mg/dLVery High LDL: greater than or equal to 190 mg/dL HDL Cholesterol 36(L) >40 mg/dL [facility] Comment:Desirable HDL: great er than 40 mg/dL Note: This HDL assay may give artificially low results in patients with liver disease. Blood Venous blood specimen / Unknown 03/01/2024 8:12 AM EDT 03/01/2024 8:12 AM EDT us Nicolasa Fabian [facility] LAB BLOOD ORDERABLES Final Resul t [facility] [address] [place], [place] [phone] * HIV-1/2 Antigen and Antibodies, Fourth Generation, with Reflexes (09/22/2022 10:16 AM EST) HIV Antigen/Antibody, 4th Generation NON-REAC TIVE NON-REAC TIVE [employer] [facility] Comment: HIV-1 antigen and HIV-1/HIV-2 antibodies [...] purpose. For additional information please refer to http://education.[employer]/faq/MUZ966 (This link is being provided for informational/ educational purposes only.) The performance of this assay has not been clinically validated in patients less than 2 years old. Blood Venous blood specimen / Unknown 09/22/2022 10:16 AM EST 09/22/2022 10:16 AM EST Narrative [facility] - 09/23/2022 7:02 PM EST FASTING:UNKNOWN FASTING: UNKNOWN [facility] MEDIA RELATIONS ASSOCIATE LAB BLOOD ORDERABLES Final Re sult Performing Organization Address City/[facility]/ZIP Co de Phone Number [facility] [address], [place] [phone] [employer] [facility] [address] [facility], ([address]) [place] [phone] * HEPATITIS C ANTIBODY RFLX (12/05/2019 4:00 PM EDT) [facility] HEPATITIS C ANTIBODY NONREACTIVE NONREACTIVE [facility] Comment: Antibodies to HCV not detected; does not exclude early acute HCV infection. 12/05/2019 4:00 PM EDT Kody Warren MD HISTORICAL/NON ORDERABLE LABS Fi nal Result [facility] [address] from Last 3 Months or Most Recently Relevant to Health Maintenance Insurance [facility] < 65 DENTAL - [facility] [place], [place] Care Teams Grinder Brake Lining Relationship Specialty Start Date End Date Nicolasa Fabian ANP [address] [place] [address] PCP - General Family Medicine 06/20/23
--- OUTSIDE RECORDS SUMMARY | 2025-07-30 07:39 | XMS_ITS | Encounter Summary ---
Author Organization [employer] Address [address] [facility] 7[address] [place] [address] Care Team Providers Care Health Information Tech Name Role Phone Giselle Brock RAJ Primary Care Provider [phone] Reason for Visit * Reason Onset Date Comments mail appt slip 06/26/2025 Encounter Details Date Type Department Care Team ([facility] st Contact Info) Description 06/26/2025 Telephone [facility] [address] [place] [address] Naseem, Tory [address] [place] [address] mail appt slip Social History Tobacco Use [...] Description 08/09/2025 2:15 PM EST Office Visit [facility] [address] [place] [phone] Giselle Brock ANP [address] [place] [address] 08/23/2025 8:45 AM EST Office Visit [facility] [address] [place] [phone] Tory Gusman [address] [place] [address] documented as of this encounter Visit Diagnoses Not on filedocumented in this encounter Additional Health Concerns Assessment Noted Time PHQ-9 Depression Total Score: 7 09/04/20 24 2:04 PM EST documented as of this encounter Care Teams Health Information Tech Relationship Specialty Start Date End Date Giselle Brock ANP [address] [place] [phone] PCP - General Family Medicine 06/20/23 documented as of this encounter
--- NOTE | 2025-08-26 14:45 | HO.ANESPROP2 ---
Documented by User: Eileen Cabrera NP 08/27/25 11:09 HPI - Anesthesia Eval Consult details Narrative: 65 yr old male for upper endo Grigsby JOHN/noctural hypoxia: ?using CPAP Seen at [facility] ED in Jul 2025, ?vertigo, improved with meclizine, follows ENT. H/O PACs: follows [facility] cardiology prn basis per last note 02/2024, pt was feeling well at the time, on metoprolol. [facility] Active Problems Active Problems: All Active Problems (Updated 07/31/25 @ 00:00 by Background Daseth) Aneurysm of thoracic aorta (Acute) LVH (left ventricular hypertrophy) (Acute) BMI 34.0-34.9,adult (Acute) Obesity (Acute) Tubular adenoma of colon (Acute) Osteoarthritis of right knee (Acute) Bilateral kidney stones (Acute) Straining on urination (Acute) Tear of medial meniscus of right knee (Acute) Right knee pain (Acute) Kidney stone on left side (Acute) BMI 45.0-49.9, adult (Acute) Palpitation (Acute) BPH loc w urin obs/LUTS (Acute) Screening PSA (prostate specific antigen) (Acute) Weak urinary stream (Acute) BPH (benign prostatic hyperplasia) (Acute) COVID-19 (Acute) Chest pain (Acute) Rectal bleeding (Acute) Colon cancer screening (Acute) Constipation (Acute) JOHN (obstructive sleep apnea) (Acute) Hiatal hernia (Acute) GERD (gastroesophageal reflux disease) (Acute) Kidney stones (Acute) Pre-diabetes (Acute) HTN (hypertension) (Acute) Internal derangement of right knee (Acute) Past Medical History Medical History LVH (left ventricular hypertrophy) BMI 34.0-34.9,adult Obesity Tubular adenoma of colon Rectal bleeding Colon cancer screening Constipation JOHN (obstructive sleep apnea) Hiatal hernia RYAN (generalized anxiety disorder) Tinnitus GERD (gastroesophageal reflux disease) Dyslipidemia Aneurysm of thoracic aorta Internal derangement of right knee Kidney stones Back pain Pre-diabetes HTN (hypertension) Family History Family History Mother Heart disease Diabetes Father Diabetes Heart disease Family history of problems with anesthesia: No Surgical History Surgical History H/O arthroscopy Hx of colonoscopy Hx of esophagogastroduodenoscopy History of Problems with Anesthesia: No Social History Social History Are you a primary inpatient care manager rn to a significant other at home: No Do you presently have visiting nurse or other home services: No Alcohol intake: former Patient Tobacco Use Status: Former Tobacco user Smoked in Last 30 Days: No Use of substances other than those prescribed or required for medical reasons: No Have you been hit, kicked, punched, or otherwise hurt by someone within the past year? If so, by whom?: No Are you DNR?: No Advance Directives: No Advance Directives Information Provided: Yes Current occupational status: employed Current occupation: [employer] Allergies Allergy/AdvReac Type Severity Reaction Status Date / Time No Known Allergies (No Known Allergy Verified 08/29/25 07:30 Allergies*) Home Medications ?Medication ?Instructions ?Recorded ?Confirmed ?Last Taken ?Type acetaminophen 650 mg 650 mg PO TID 06/30/23 08/29/25 Unknown History tablet,extended release metoprolol succinate 50 mg 50 mg PO DAILY 03/06/24 08/29/25 Unknown History tablet,extended release 24 hr olmesartan 20 mg tablet 20 mg PO DAILY 03/27/25 08/29/25 Unknown History famotidine 40 mg tablet 40 mg PO BEDTIME 07/26/25 08/29/25 Unknown History Exam Pertinent Lab Results Pertinent Lab Results: Laboratory Tests 07/29/25 18:50 WBC 9.0 RBC 6.16 H Hgb 16.6 Hct 51.5 Plt Count 215 Sodium 140 Potassium 4.0 BUN 16 Creatinine 0.97 Narrative Narrative: EKG 05/2025 Vent. Rate : 60 BPM Atrial Rate : 60 BPM P-R Int : 166 ms QRS Dur : 98 ms QT Int : 402 ms P-R-T Axes : 68 27 45 degrees QTcB Int : 402 ms Normal sinus rhythm Normal ECG When compared with ECG of 14-Oct-2020 22:21, No significant change was found Cardiolite Stress Test 2022 Impression: 1. Myocardial perfusion imaging study shows likely normal myocardial perfusion 2. Gated LVEF is 58% 3. Transient ischemic dilatation not present ECHO Conclusions: - 1. Normal LV systolic function with mild LVH with grade 1 diastolic dysfunction 2. Normal cardiac valvular Doppler 3. Mildly dilated ascending aorta 4. Normal RV systolic pressure 5. No gross pericardial effusion Assessment and Plan Final Anesthetic Review Family History of Problems with Anesthesia: No History of Problems with Anesthesia: No Documented by User: Asuncion Cook MD 08/29/25 08:35 [facility] Past Medical History Medical History LVH (left ventricular hypertrophy) BMI 34.0-34.9,adult Obesity Tubular adenoma of colon Rectal bleeding Colon cancer screening Constipation JOHN (obstructive sleep apnea) Hiatal hernia RYAN (generalized anxiety disorder) Tinnitus GERD (gastroesophageal reflux disease) Dyslipidemia Aneurysm of thoracic aorta Internal derangement of right knee Kidney stones Back pain Pre-diabetes HTN (hypertension) Family History Family History Mother Heart disease Diabetes Father Diabetes Heart disease Surgical History Surgical History H/O arthroscopy Hx of colonoscopy Hx of esophagogastroduodenoscopy Social History Social History Are you a primary inpatient care manager rn to a significant other at home: No Do you presently have visiting nurse or other home services: No Alcohol intake: former Patient Tobacco Use Status: Former Tobacco user Smoked in Last 30 Days: No Use of substances other than those prescribed or required for medical reasons: No Have you been hit, kicked, punched, or otherwise hurt by someone within the past year? If so, by whom?: No Are you DNR?: No Advance Directives: No Advance Directives Information Provided: Yes Current occupational status: employed Current occupation: [employer] Allergies Allergy/AdvReac Type Severity Reaction Status Date / Time No Known Allergies (No Known Allergy Verified 08/29/25 07:30 Allergies*) Home Medications ?Medication ?Instructions ?Recorded ?Confirmed ?Last Taken ?Type acetaminophen 650 mg 650 mg PO TID 06/30/23 08/29/25 Unknown History tablet,extended release metoprolol succinate 50 mg 50 mg PO DAILY 03/06/24 08/29/25 Unknown History tablet,extended release 24 hr olmesartan 20 mg tablet 20 mg PO DAILY 03/27/25 08/29/25 Unknown History famotidine 40 mg tablet 40 mg PO BEDTIME 07/26/25 08/29/25 Unknown History Exam Airway Mallampati Class: II TM Dist: >3cm Neck ROM: Full Loose/Missing/Broken Teeth: No Heart: RRR Lungs: CTA Assessment and Plan Assessment Anesthesia Assessment: Anesthesia Plan Discussed and Chart Reviewed Final Anesthetic Review NPO: Yes ASA Class: III Final Preanesthetic Review: Meds/Josiahgs Chart Reviewed, Consent Obtained/Reviewed and Anes Risks/Benef Reviewed Patient Risk: Intermediate Procedure Risk: Intermediate Anesthetic Plan Anesthetic Plan: MAC: Disposition: Standard PACU
[2025-08-27 10:56] VITALS: BMI 34.6
[2025-08-29 07:12] VITALS: BMI 35.0
[2025-08-29 07:19] VITALS: BP 169/79; PULSE 81; RESP 16; TEMP 36.6; O2SAT 96
[2025-08-29] MEDS: Lactated Ringers 1,000 ML 100 ML IVCONT (07:24)
--- NOTE | 2025-08-29 07:49 | MHC.SHP ---
Pre-Procedural Eval Section A - 24 Hr Update-Section A only Date of Service: 08/29/25 The patient is an INPATIENT: No The patient has been examined within 24 hours of the surgical procedure. The History & Physical has been completed within 30 days and I have reviewed it.: Yes Section B - Complete if H&P > 30 days Chief Complaint: Diaphragmatic hernia without obstruction or gangre Relevant Family History (Specify if Yes): No Relevant Social History: None Present Medications: None Medical History: No relevant PMH History of Previous Operations: No relevant previous surgery Allergies: Allergies Allergy/AdvReac Type Severity Reaction Status Date / Time No Known Allergies (No Known Allergy Verified 08/29/25 07:30 Allergies*) Review of Systems Sugical H&P ROS: Negative: Constitution, Cardiovascular, Respiratory, Neurological, Psychiatric, Hem-Onc, Allergic/Immunologic, Gastrointestinal, Genitourinary, Musculoskeletal, Integumentary, Endocrine and Eyes/Ears/Nose/Throat Exam Surgical H&P Exam: Normal: HEENT, Normal: Heart, Normal: Lungs, Normal: Extremities, Normal: Abdomen, Normal: Skin and Normal: Neurological Plan Diagnosis/Plan: Unchanged (EGD with Grigsby to assess the GERd and hiatal hernia. Risks of bleeding and perforation were discussed with the patient and he is in agreement with the plan.) I have reviewed the history and physical and performed a pertinent physical examination on my patient. No changes have occurred unless specified. Time Spent With Patient Time: Total time managing care of this patient today ____ minutes.
--- NOTE | 2025-08-29 08:13 | P.BOP_ITS ---
Brief Operative Note Date of Service: 08/29/25 Pre-op diagnosis: GERD and diaphragmatic hernia Post-op diagnosis: same Procedure: PROCEDURE DATE: 08/29/2025 PREOPERATIVE DIAGNOSIS: GERD and diaphragmatic hernia POSTOPERATIVE DIAGNOSIS: ?Same as above. 1) moderate fixed hiatal hernia, 2) gastric polyps PROCEDURE: [id number]-[id number] with biopsies and Grigsby procedure Surgeon: ?Tulio Palomo M.D.. Ph.D. Cancer Program Consultant: None ? Anesthesia: IV sedation Estimated blood loss: ?Minimal FINDINGS AND PROCEDURE: ? OPERATIVE INDICATIONS: ?The patient is a 65 year old male who was referred to me for persistent GERD despite use of PPIs and a diaphragmatic hernia. Based on this information I recommended an upper endoscopy with the Grigsby procedure to evaluate the patient's symptoms and assess her GERD. Risks and complications of the surgery were discussed with the patient in advance particularly the possibility of perforation or bleeding that may require surgical intervention. The patient understood the risks and was in agreement with the plan. ? PROCEDURE: After informed consent was obtained by the patient, the patient was ?transferred to the Operating Room and was placed in the supine position.? After successful induction of IV sedation, a mouth block was inserted and the patient was placed in the left lateral decubitus position. An upper endoscopy was performed next, the oropharynx and esophagus appeared within the normal limits. There was a 4cm fixed moderate size hiatal hernia. The z-line was smooth. Two biopsies were obtained from the distal esophagus 2-3 cm proximal to the GE junction and two additional biopsies from the GE junction. The stomach was entered and it appeared to be of normal size. There was no gastritis. There was no stricture or ulcer. A biopsy was obtained from the gastric fundusl antrum. There were scattered benign appearing polyps and one of them was biopsied. No significant bleeding was noted from any of the biopsy sites. Retroflexion of the scope confirmed the presence of a fixed diaphragmatic hernia. The scope was then advanced into the duodenum to the 4th portion which appeared to be normal as well. At that point the duodenum ?and the stomach were decompressed and the scope was withdrawn to the GE junction. We measured 6 cm proximal from the GEJ and that was about 34cm from incisors. The scope was withdrawn from the mouth and the Grigsby device was introduced to 34cm from incisors. The scope was re-introduced to confirm that the probe was in the esophagus and it was. The scope was withdrawn from the patient's mouth. Suction was connected to the device and was kept on for 45sec. At that point the device was deployed without difficulty and the remaining of the device was withdrawn from the patient's mouth without difficulty. The endoscope was re- introduced and I confirmed that the device was properly deployed in the esophagus at the intended location. At that point the scope was withdrawn from the patient's mouth and the procedure was ended. The patient extubated and was transferred in stable condition to the Recovery Room for further care. I was present and performed all steps of the procedure. There were no residents to assist with this case. Tulio Palomo M.D., Ph.D. Surgeon: Jeffery Palomo MD Anesthesia: MAC Was an Cancer Program Consultant used for this Procedure?: No Estimated blood loss (mL): 0 IV fluids (mL): 400 Urine output (mL): 0 (No Aguilar to record output) Pathology: other (1) antrum x1, 2) fundus x1, 3) GE junction x2, 4) distal esophagus x2) Condition: stable Disposition: PACU
--- NOTE | 2025-08-29 08:30 | PC.NURSE ---
soloist dancer [id number] used for anesthesia consent
[2025-08-29 09:00] VITALS: BP 129/76; PULSE 84; RESP 18; TEMP 36.9; O2SAT 99
[2025-08-29 09:15] VITALS: BP 131/88; PULSE 77; RESP 16; TEMP 36.6; O2SAT 93
--- NOTE | 2025-08-29 10:32 | HO.ANESEVENT ---
Anesthesia Event Note Date of Service: 08/29/25 Event Note: called to discharge unit to assess pt, sitting in wheel chair about to be discharged, states head feels heavy. no other complaints, no pain, anxiety, nausea or discomfort . his daughter states he reacted liket his once before after anesthesia, waiting for her brother to decide if he can be taken home since there is no other complaint. offered to observe him for a little longer in recovery. family will decide if they want him to stay longer or go home. pt did have PO intake in recovery and had no problems. apparantly felt frustrated and pushed a cart , so security was called. vitals stable Time Spent With Patient Time: Total time managing care of this patient today ____ minutes.
--- NOTE | 2025-08-29 10:55 | PC.NURSE ---
THIS RN RECEIVED PATIENT IN THE DISCHARGE AREA AND WAS TOLD THE PATIENT HAD A FLAT AFFECT. PROMOTIONS EXECUTIVE PRODUCER CALLED AND AT CHAIRSIDE WITH RN. PATIENT WEARING A MASK AND HEAD BENT DOWN. PATIENT NON-VERBAL AND WOULD ONLY NOD HIS HEAD FOR YES AND/OR NO ANSWERS. PATIENT WITH LAMA. THIS RN FELT PATIENT NOT UNDERSTANDING AND CALLED HIS RIDE WHO WAS HIS DAUGHTER. PATIENT'S DAUGHTER REQUESTED TO COME UP TO DISCHARGE AREA SO INSTRUCTIONS COULD BE GIVEN WITH HER PRESENT. BEFORE DAUGHTER ARRIVED PATIENT WAS BLOCKING HIS EARS AND THAT IS WHEN THIS RN CALLED HIS DAUGHTER. PATIENT'S DAUGHTER WAS GIVEN DISCHARGE INSTRUCTIONS WHEN PATIENT TURNED AND KNOCKED OVER THE CHAIRSIDE WOODEN STAND WITH 2 DRAWERS WHICH ALSO ALMOST HIT THE PATIENT SITING NEXT TO HIM. SECURITY CALLED AND PATIENT'S SON ALSO CALLED TO COME AND BE WITH HIS SISTER WHO ALSO HAS A BABY CARRIAGE WITH DAUGHTER. DR. VU CAME TO ASSESS IF PATIENT WAS SAFE ENOUGHT TO GO HOME. PATIENT'S DAUGHTER AND SON WERE OKAY WITH HIM GOING HOME AND THEY STATED PATIENT WAS MOST LIKELY HAVING A REACTION TO THE ANESTHESIA. PATIENT CALMER AND NO MORE VIOLENT OUTBURST. SECURITY WALKED FAMILY OUT AND PATIENT WAS DRIVEN HOME BY HIS SON.
== END 2025-08-29 11:10 | disposition home or self-care (01) ==
PROVIDERS: PCP Nurse Practitioner Primary Care; Visit Provider Surgery
PROC: (CPT 43239; principal; 2025-08-29 08:00)
DX: K21.9 Gastro-esophageal reflux disease without esophagitis (principal); K44.9 Diaphragmatic hernia without obstruction or gangrene; K31.7 Polyp of stomach and duodenum; I51.7 Cardiomegaly; I71.20 Thoracic aortic aneurysm, without rupture, unspecified; I10 Essential (primary) hypertension; E78.5 Hyperlipidemia, unspecified; E66.9 Obesity, unspecified; Z68.34 Body mass index [BMI] 34.0-34.9, adult; G47.33 Obstructive sleep apnea (adult) (pediatric); R73.03 Prediabetes; F41.1 Generalized anxiety disorder; Z79.51 Long term (current) use of inhaled steroids; Z79.899 Other long term (current) drug therapy; Z87.891 Personal history of nicotine dependence
CPT/HCPCS: 43239; 88305; 88313; 88342; 99499; J2003; J2250; J2704

== ENCOUNTER → 2025-08-29 06:52 | Outpatient (BNV) | payer OTHER, SELFPAY | PROVIDERS: PCP Nurse Practitioner Primary Care; Visit Provider Surgery | DX: K31.7 Polyp of stomach and duodenum (principal); K21.9 Gastro-esophageal reflux disease without esophagitis; K44.9 Diaphragmatic hernia without obstruction or gangrene | CPT/HCPCS: 43239 ==

== ENCOUNTER 2025-08-30 09:15 | Outpatient (AMB) | payer OTHER, SELFPAY ==
--- NOTE | 2025-08-30 09:20 | A.OFFVIS_ITS ---
Vital Signs 08/30/25 09:21 Height 5 ft 11 in Weight 245 lb BMI 34.2 BP 149/84 H Blood Pressure Location Lt brachial Position Sitting Pulse 88 Intake Visit Reasons: 8w Intake Note: Patient follow up for weight lost Patient cc: upper abdominal burning and both side of abdominal with pain on and off, a lot of burping, and constipation with out any BM x 3 dates. Fitness Worker Required: No Accompanied by: Daughter Allergies No Known Allergies (No Known Allergies*) Allergy (Verified 08/30/25 09:20) Medication List - Last Reconciled 08/30/25 by Flory Naranjo CNP acetaminophen ER 650 mg PO TID famotidine 40 mg PO BEDTIME fluticasone propionate 50 mcg/actuation 2 sprays intranasal DAILY 30 days magnesium citrate 250 mg (2 x 125 mg) PO BEDTIME meclizine 25 mg PO TID PRN metoprolol succinate ER 50 mg PO DAILY olmesartan 20 mg PO DAILY pantoprazole 40 mg PO DAILY polyethylene glycol 3350 (Miralax) 17 grams PO DAILY 30 days HPI HPI 8w: Details: Patient is a 65-year-old male with PMH of depression, JOHN, GED, hyperlipidemia, hypertension and GERD. Follow-up visit for constipation and gastroesophageal reflux disease. Patient is accompanied by his daughter who is translating during our visit. Regarding his constipation, he was previously instructed to take a Senna Plus, but he discontinued it because he did not like the feeling, which included stomach cramping and irritation during defecation. Despite this, he notes the medication was helpful. He continues to experience constipation, reporting a sensation of feeling stuck and needing to sit on the toilet for extended periods. His last bowel movement was this morning. Past remedies include eating plums and a one-time use of MiraLax for colonoscopy preparation. For his reflux and hiatal hernia, he was referred to Bariatric surgery and had an appointment on July 26. He was previously taking pantoprazole 40 mg twice a day, which he found effective, providing up to three days of relief from heartburn. His reflux symptoms, primarily heartburn, occur when he lies down to sleep. He underwent an EGD with Grigsby capsule placement on August 29 and had to stop his pantoprazole for three days prior. A fundoplication is planned, and he is scheduled for a pre-surgical echocardiogram and stress test. He reports occasional nausea but denies any blood in his stool. His weight has been stable. A recent colonoscopy and CT scan did not show any concerning findings. [facility] Medical History LVH (left ventricular hypertrophy) BMI 34.0-34.9,adult Obesity Tubular adenoma of colon Rectal bleeding Colon cancer screening Constipation JOHN (obstructive sleep apnea) Hiatal hernia RYAN (generalized anxiety disorder) Tinnitus GERD (gastroesophageal reflux disease) Dyslipidemia Aneurysm of thoracic aorta Internal derangement of right knee Kidney stones Back pain Pre-diabetes HTN (hypertension) Surgical History H/O arthroscopy Hx of colonoscopy Hx of esophagogastroduodenoscopy Family History Mother Heart disease Diabetes Father Diabetes Heart disease Social History Are you a primary customer care agent to a significant other at home: No Do you presently have visiting nurse or other home services: No Alcohol intake: former Patient Tobacco Use Status: Former Tobacco user Current occupational status: employed Current occupation: [employer] Physical Exam Vital Signs: Last Vital Signs Pulse 88 08/30/25 09:21 BP 149/84 H 08/30/25 09:21 BMI result Body Mass Index 34.2 Const General: healthy appearing, no acute distress and well developed Nutritional Appearance: average body habitus Orientation/consciousness: patient oriented x3 HEENT Head: Yes normal to inspection, Yes normocephalic and Yes atraumatic Face and sinus: Yes normal facial exam Eyes General: appearance normal, both eyes and all related structures Neck Neck: Yes normal visual inspection Resp Effort & Inspection: normal respiratory effort, able to speak in complete sentences, no tracheal deviation and symmetric chest movement Cardio Jugular venous distension: no JVD GI Inspection: Yes normal to inspection, No distended and Yes obesity Palpation (GI): Soft to palpation, not firm, nontender, No hepatosplenomegaly present and Hepatomegaly present Auscultation: normoactive bowel sounds Neuro General: patient oriented x3 Gait exam (Neuro): Normal gait present Psych Appearance: grossly normal Mental Status: mental status grossly normal Speech and movement: Normal speech and movement present Affect: normal affect Attitude: cooperative Thought process: Normal thought process present Thought content: Normal thought content present Insight: Good insight present (Psych) Judgement: Good judgement present (Psych) Assessment & Plan Assessment & Plan (1) GERD (gastroesophageal reflux disease): Comment: 06/21/25 EGD- Irregular Z line WITHOUT barretts,Hill grade 2 hiatal hernia, gastritis, Gastric polyps, Duodenitis. 03/17/2004 Upper endoscopy with biopsies- distal esophagitis with a few superficial erosions. no evidence of Barretts esophagus. Code(s): K21.9 - Gastro-esophageal reflux disease without esophagitis Category: Medical Qualifiers: Esophagitis presence: without esophagitis Qualified Code(s): K21.9 - Gastro-esophageal reflux disease without esophagitis Plan: The patient continues to be managed by the bariatric surgery for his hiatal hernia, with a fundoplication being planned. - He recently completed an EGD with Grigsby placement to evaluate his reflux. - He was counseled that surgical repair may not offer a 100% guarantee of symptom resolution and that the surgical team can provide more accurate outcome statistics. - Instructed to reduce pantoprazole from 40 mg twice daily to once daily, pending different instructions from the surgery team based on the Grigsby test results. - The importance of lifestyle modifications, including diet and constipation management, was emphasized for symptom control. - He will follow up with the bariatric team in September after completing his pre- operative testing. - Plan to follow up in this clinic in three months. (2) Constipation: Comment: 06/21/25 colonoscopy complete with adequate prep- Normal colon and terminal ileum mucosa, diverticulosis, 2 mm TA ( cecum), 3 mm HP ( transverse), remaining lymphoid aggregate and mild surface hyperplastic changes, internal hemorrhoids,. Per guidelines repeat 7 and 10 years. Code(s): K59.00 - Constipation, unspecified Category: Medical Qualifiers: Constipation type: unspecified constipation type Qualified Code(s): K59.00 - Constipation, unspecified Plan: The patient discontinued Senna Plus due to stomach cramping and irritation. - A prescription for MiraLax powder will be sent, with instructions to take one capful mixed in a 8oz thank generic beverage daily. - It was explained that MiraLax works by drawing water into the colon and does not cause contractions like a stimulant laxative. - Counseled on increasing dietary fiber and water intake, and avoiding sitting on the toilet for more than five minutes to prevent hemorrhoids. Plan Follow-up in 3 months or sooner as needed Time: I spent a total of 33 minutes on the date of encounter which includes: Preparing to see the patient (reviewed previous documentation, test results and medical history) Performing a medically appropriate exam and/or evaluation Ordering medications, tests, and procedures Documenting clinical information in the health record Medications: New polyethylene glycol 3350 (Miralax) Take 17G (one cap full) daily with 8oz of water 17 grams PO DAILY 510 grams 2RF constipation 30 days Flory Naranjo CNP Changed From pantoprazole Take 1 tablet daily. Best taken 30-60 minutes before 1st meal of the day 40 mg PO BID 90 tabs 1RF To pantoprazole Take 1 tablet daily. Best taken 30-60 minutes before 1st meal of the day 40 mg PO DAILY Sofia Gonzales MD Coding Level of Care Code Established Pt Est Pt Level 4 (71335) Patient Type Established Diagnoses Gastroesophageal reflux disease without esophagitis K21.9 Esophagitis presence: without esophagitis Constipation, unspecified constipation type K59.00 Constipation type: unspecified constipation type
[2025-08-30 09:21] VITALS: BP 149/84; PULSE 88; BMI 34.2
== END 2025-08-30 10:02 | disposition home or self-care (01) ==
LOC: HO.HGI 09:16
PROVIDERS: PCP Nurse Practitioner Primary Care; Visit Provider Nurse Practitioner Family
DX: K21.9 Gastro-esophageal reflux disease without esophagitis (principal); K59.00 Constipation, unspecified
CPT/HCPCS: 99214

== ENCOUNTER → 2025-08-30 09:15 | Outpatient (BNVA) | payer OTHER, SELFPAY | PROVIDERS: PCP Nurse Practitioner Primary Care; Visit Provider Nurse Practitioner Family | DX: K21.9 Gastro-esophageal reflux disease without esophagitis (principal); K59.00 Constipation, unspecified; Z79.899 Other long term (current) drug therapy | CPT/HCPCS: 99212 ==